=== PATIENT | female | born 1990 | race Caucasian/White ===

== ENCOUNTER 2016-07-29 14:28 | Emergency (ER) | payer SELFPAY ==
[~2016-07-29] VITALS: Ht 154.9 cm; Wt 55.0 kg
[~2016-07-29 14:28] MED LIST: SULF-154 PO
[2016-07-29 14:31] VITALS: BP 125/71; PULSE 118; RESP 12; TEMP 98; O2SAT 98
[2016-07-29] MEDS ORDERED: ONDANSETRON ODT 4 MG TAB PO ONE (14:45)
[2016-07-29] MEDS ORDERED: cefTRIAXone 250 MG VIAL IM ONE (14:45)
[2016-07-29] MEDS ORDERED: LIDOCAINE HCL 1% 50 ML VIAL IM ONE (14:45)
[2016-07-29] MEDS ORDERED: AZITHROMYCIN PWD FOR SUSP 1 GM PACKET PO ONE (14:45)
[2016-07-29] MEDS ORDERED: metroNIDAZOLE 500 MG TAB PO ONE (14:45)
[2016-07-29] MEDS ORDERED: GUAI100L5 PO (14:48)
--- NOTE | 2016-07-29 14:48 | PD ---
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 States her boyfriend was seen 2 days ago and he was positive for some kind of STD. She doesn't know what. She's had lower abdominal discomfort and some abnormal discharge for the past couple days. She' s also had some abnormal intermittent bleeding. Denies secondary to having her tubes tied. She also states she's had URI symptoms with some cough for the past several days. No other complaints. History Past Medical History Medical History: Denies Significant Hx : 2 Para: 2 Social History Alcohol Use: No Tobacco Use: Yes (1 PPD) Allergies-Medications (Allergen,Severity, Reaction): Coded Allergies: PEANUTS (Verified Allergy, Severe, 01/28/16) "throat swelling" Penicillin (Verified Allergy, Severe, SWELLING, 01/28/16) Reported Meds & Prescriptions Reported Meds & Active Scripts Active No Active Prescriptions or Reported Medications Review of Systems Except as stated in HPI: all other systems reviewed are Neg Physical Exam Narrative GENERAL: Well-appearing 18 year-old woman, no acute distress. SKIN: Warm and dry. CARDIOVASCULAR: Warm and well perfused. RESPIRATORY: Normal rate and effort. Lungs are clear to auscultation. ABDOMEN: Minimal lower abdominal tenderness. No rebound or guarding. NEUROLOGICAL: Awake and alert. No gross deficits. Data Data Last Documented VS Vital Signs Date Time Temp Pulse Resp B/P Pulse Ox O2 Delivery O2 Flow Rate FiO2 07/29/16 14:31 98.0 118 12 125/71 98 Room Air MDM Medical Decision Making Medical Screen Exam Complete: Yes Emergency Medical Condition: Yes Differential Diagnosis Cervicitis, PID, URI, other Narrative Course Medical decision making the 18 year-old woman presents emergent department complaining of STD exposure, with discharge and lower abdominal discomfort. Looks well. Minimal abdominal tenderness. We'll treat for cervicitis. Also with URI symptoms. Robitussin as needed. Diagnosis Primary Impression: Cervicitis Additional Impression: URI (upper respiratory infection) Qualified Code: J06.9 - Viral upper respiratory tract infection Additional Instructions: Followup with your environmental science instructor for routine [employer] care and followup testing for other sexually transmitted infection such as HIV, hepatitis, syphilis. Any sexual partners you have should be tested and treated as well. You should not have sex until you have no symptoms, and your partners tested and treated as well. Med/Other Pt SpecificInfo: Prescription(s) given Scripts Guaifenesin Liq (Robitussin Mucus+Chest Congestion Liq)100 Mg/5 Ml [id number] Mg PO Q4H PRN (CHEST CONGESTION) #1 BOTTLE Ref 0 Prov:John Altamirano MD 07/29/16 Disposition: 01 DISCHARGE HOME Condition: Stable John Altamirano MD Jul 29, 2016 14:48
[2016-07-29 17:30] LABS: CHLAMYDIA PCR DETECTED (NOT DETECT); NEISSERIA PCR DETECTED (NOT DETECT)
== END 2016-07-29 15:27 | disposition home or self-care (01) ==
LOC: NETRI 14:28
DX: N72 Inflammatory disease of cervix uteri (principal); J06.9 Acute upper respiratory infection, unspecified; Z20.2 Contact with and (suspected) exposure to infections with a predominantly sexual mode of transmission; F17.210 Nicotine dependence, cigarettes, uncomplicated
CPT/HCPCS: 84703; 87491; 87591; 96372; 99283; J0696

== ENCOUNTER 2016-09-10 10:53 | Emergency (ER) | payer SELFPAY ==
[~2016-09-10] VITALS: Ht 154.9 cm; Wt 55.0 kg
[~2016-09-10 10:53] MED LIST changes: +GUAI100L5 PO; -SULF-154 PO
[2016-09-10 10:58] VITALS: BP 115/68; PULSE 95; RESP 15; TEMP 98.2; O2SAT 98
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
[2016-09-10] MEDS ORDERED: IBUPROFEN 600 MG TAB PO ONE (11:30)
[2016-09-10 11:33] LABS: BLOOD, URINE NEG (NEG); COMMENT (UR) CULT NOT INDICATED; CULTURE IF INDICATED CULT NOT INDICATED; GLUCOSE,URINE NEG (NEG); KETONE, URINE NEG (NEG); MUCUS URINE FEW /lpf (OCC); NITRITE,URINE NEG (NEG); SQUAMOUS EPITHELIAL CELL URINE 1 /hpf (0-5); URINE COLOR COLORLESS (YELLW/STRAW)
--- NOTE | 2016-09-10 12:09 | RADRPT ---
EXAM DATE/TIME: 09/10/2016 11:45 [facility] COMPARISON: No previous studies available for comparison. INDICATIONS : Chest pain x 1 day. MEDICAL HISTORY : asthma SURGICAL HISTORY : None. ENCOUNTER: Initial ACUITY: 1 day PAIN SCORE: 8/10 LOCATION: Bilateral chest FINDINGS: There are calcified hilar and mediastinal lymph nodes. No evidence of focal infiltrate or pleural eff usion. Heart size is within normal limits. Thoracic skeleton is intact. CONCLUSION: No acute disease. Storm Salguero MD on September 10, 2016 at 12:05 Board Certified Radiologist. This report was verified electronically.
[2016-09-10] MEDS ORDERED: IBUP400T20 PO (12:22)
--- NOTE | 2016-09-10 18:34 | EKG ---
Date Performed: 09/10/2016 Time Performed: 11:11:53 PTAGE: 26 years EKG: Sinus rhythm WITH MARKED SINUS ARRHYTHMIA BORDERLINE ECG NO PREVIOUS TRACING DOCTOR: Shaun Soto Interpretating Date/Time 09/10/2016 18:34:15
== END 2016-09-10 12:57 | disposition home or self-care (01) ==
LOC: NEPE 10:53
DX: S20.212A Contusion of left front wall of thorax, initial encounter (principal); R30.0 Dysuria; R94.31 Abnormal electrocardiogram [ECG] [EKG]; F17.200 Nicotine dependence, unspecified, uncomplicated; Z59.0 Homelessness; Z87.09 Personal history of other diseases of the respiratory system; Z86.59 Personal history of other mental and behavioral disorders; W50.0XXA Accidental hit or strike by another person, initial encounter
CPT/HCPCS: 71020; 81001; 93005

== ENCOUNTER 2016-12-17 10:49 | Inpatient (IN) | payer SELFPAY ==
[~2016-12-17] VITALS: Ht 154.9 cm; Wt 59.1 kg
[2016-12-17] VITALS (7 sets, daily range): BP systolic 94–114; BP diastolic 55–75; PULSE 62–100; RESP 16–21; TEMP 98.3–100.1; O2SAT 96–99
[~2016-12-17 10:49] MED LIST changes: -GUAI100L5 PO; +IBUP400T20 PO
[2016-12-17] MEDS ORDERED: SODIUM CHLOR 0.9% 1000 ML INJ 1,000 ML IV SCH (11:18)
[2016-12-17] MEDS ORDERED: SODIUM CHLORIDE 0.9% FLUSH 10 ML FLUSH IVF PRN (11:30)
[2016-12-17] MEDS: DIPHTH/TETANUS/ACEL PERTUSSIS (BOOSTER) 0.5 ML VIAL/PFS IM ONE ×2 (11:30→12:15)
[2016-12-17] MEDS ORDERED: ONDANSETRON HCL 4 MG/2 ML VIAL IVP ONE (11:30)
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
[2016-12-17 11:41] LABS: AUTOMATED NEUTROPHIL # 6.4 TH/MM3 (1.8-7.7); BASOPHIL % 0.4 % (0.0-2.0); EOSINOPHIL # 0.1 TH/MM3 (0-0.4); EOSINOPHIL % 0.7 % (0.0-4.0); HEMATOCRIT 37.9 % (35.0-46.0); HEMO FLAGS DIFF FINAL; LYMPH % 19.6 % (9.0-44.0); LYMPHOCYTE # 1.8 TH/MM3 (1.0-4.8); MEAN CELL VOLUME 91.2 FL (80.0-100.0); MEAN CORPUSCULAR HEMOGLOBIN 31.2 PG (27.0-34.0); MEAN CORPUSCULAR HGB CONC 34.3 % (32.0-36.0); NEUT % 70.3 % (16.0-70.0); PLATELET COUNT 247 TH/MM3 (150-450); RED BLOOD COUNT 4.16 MIL/MM3 (4.00-5.30); RED CELL DISTRIBUTION WIDTH 13.4 % (11.6-17.2); WHITE BLOOD COUNT 9.1 TH/MM3 (4.0-11.0)
[2016-12-17 11:51] LABS: APTT (PATIENT) 26.9 SEC (24.3-30.1); PROTHROMBIN TIME - PATIENT 11.2 SEC (9.8-11.6)
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
[2016-12-17 11:58] LABS: ANION GAP 6 MEQ/L (5-15); BICARBONATE 26.4 MEQ/L (21.0-32.0); BLOOD UREA NITROGEN 20 MG/DL (7-18); CHLORIDE 107 MEQ/L (98-107); GLOMERULAR FILTRATION RATE 70 ML/MIN (>89); POTASSIUM 3.7 MEQ/L (3.5-5.1); SODIUM (NA) 139 MEQ/L (136-145)
[2016-12-17 12:01] LABS: BETA HCG QUANT LESS THAN 1 MIU/ML (0-5)
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
[2016-12-17 12:37] LABS: BACTERIA, URINE OCC /hpf; BLOOD, URINE NEG (NEG); COMMENT (UR) CULTURE INDICATED; CULTURE IF INDICATED CULTURE INDICATED; GLUCOSE,URINE NEG (NEG); HYALINE CAST, URINE 4 /lpf (RARE); KETONE, URINE 10 mg/dL (NEG); MUCUS URINE FEW /lpf (OCC); NITRITE,URINE NEG (NEG); PH, URINE 5.5 (5.0-8.5); SQUAMOUS EPITHELIAL CELL URINE 2 /hpf (0-5); URINE COLOR YELLOW (YELLW/STRAW)
[2016-12-17 12:38] LABS: AMPHETAMINE, URINE NEG (NEG); BARBITURATES, URINE NEG (NEG); COCAINE, URINE POS (NEG)
[2016-12-17] MEDS ORDERED: IOHEXOL 350 MG/ML 10 ML VIAL (for RAD DIAG) IV ONE (13:26)
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
[2016-12-17] MEDS ORDERED: MORPHINE SULFATE 4 MG/ML INJ IV PUSH ONE (14:15)
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
[2016-12-17] MEDS ORDERED: ONDANSETRON HCL 4 MG/2 ML VIAL IVP PRN (16:15)
[2016-12-17] MEDS ORDERED: BISACODYL 10 MG SUPP RECTAL PRN (16:15)
[2016-12-17] MEDS ORDERED: LACTULOSE SYRUP 20 GM/30 ML CUP PO PRN (16:15)
[2016-12-17] MEDS ORDERED: TEMAZEPAM 15 MG CAP PO PRN (16:15)
[2016-12-17] MEDS ORDERED: SODIUM CHLORIDE 0.9% FLUSH 10 ML FLUSH IV FLUSH PRN (16:15)
[2016-12-17] MEDS ORDERED: NALOXONE HCL 0.4 MG/ML AMP IV PRN ×2 (16:15→18:45)
[2016-12-17] MEDS ORDERED: SENNOSIDES 8.6 MG TAB PO PRN (16:15)
[2016-12-17] MEDS: SODIUM CHLOR 0.9% 1000 ML INJ 1,000 ML IV SCH ×2 (16:21→21:11)
[2016-12-17] MEDS ORDERED: MORPHINE SULFATE 4 MG/ML INJ IV PRN (18:45)
[2016-12-17] MEDS: MAGNESIUM HYDROXIDE SUSP 30 ML CUP PO PRN (21:07)
[2016-12-17] MEDS: DOCUSATE SODIUM 50 MG/SENNA 8.6 MG TAB PO SCH (21:07)
[2016-12-17] MEDS: MORPHINE SULFATE 4 MG/ML INJ IV PRN (21:08)
[2016-12-17] MEDS: SODIUM CHLORIDE 0.9% FLUSH 10 ML FLUSH IV FLUSH SCH (21:11)
[2016-12-18] MEDS: MORPHINE SULFATE 4 MG/ML INJ IV PRN ×2 (00:47→04:54)
[2016-12-18] MEDS ORDERED: LACTATED RINGER'S 1000 ML IV PRN (04:00)
[2016-12-18 04:25] VITALS: BP 99/67; PULSE 83; RESP 18; TEMP 98.9; O2SAT 99
[2016-12-18 07:15] LABS: AUTOMATED NEUTROPHIL # 3.8 TH/MM3 (1.8-7.7); BASOPHIL % 0.1 % (0.0-2.0); EOSINOPHIL # 0.1 TH/MM3 (0-0.4); EOSINOPHIL % 1.1 % (0.0-4.0); HEMATOCRIT 35.8 % (35.0-46.0); HEMO FLAGS DIFF FINAL; LYMPH % 23.6 % (9.0-44.0); LYMPHOCYTE # 1.4 TH/MM3 (1.0-4.8); MEAN CELL VOLUME 94.1 FL (80.0-100.0); MEAN CORPUSCULAR HEMOGLOBIN 30.4 PG (27.0-34.0); MEAN CORPUSCULAR HGB CONC 32.4 % (32.0-36.0); MONO % 11.7 % (0.0-8.0); NEUT % 63.5 % (16.0-70.0); PLATELET COUNT 191 TH/MM3 (150-450); RED CELL DISTRIBUTION WIDTH 13.9 % (11.6-17.2)
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
[2016-12-18] MEDS ORDERED: HYDR-3366 PO (07:38)
[2016-12-18 07:45] VITALS: BP 93/65; PULSE 82; RESP 18; TEMP 97.6; O2SAT 99
[2016-12-18 08:04] LABS: ALKALINE PHOSPHATASE 73 U/L (45-117); ALT (GPT) 19 U/L (10-53); ANION GAP 8 MEQ/L (5-15); AST (GOT) 14 U/L (15-37); BICARBONATE 27.6 MEQ/L (21.0-32.0); BLOOD UREA NITROGEN 13 MG/DL (7-18); CHLORIDE 106 MEQ/L (98-107); GLOMERULAR FILTRATION RATE 81 ML/MIN (>89); SODIUM (NA) 142 MEQ/L (136-145); TOTAL BILIRUBIN ADULT 0.3 MG/DL (0.2-1.0)
[2016-12-18] MEDS: DOCUSATE SODIUM 50 MG/SENNA 8.6 MG TAB PO SCH ×2 (08:05→19:33)
[2016-12-18] MEDS ORDERED: ACETAMINOPHEN 1000 MG/100 ML VIAL IV ONE (08:24)
[2016-12-18] MEDS ORDERED: MIDAZOLAM HCL 2 MG/2 ML VIAL ONE (08:25)
[2016-12-18] MEDS ORDERED: FAMOTIDINE 20 MG/2 ML VIAL ONE (08:25)
[2016-12-18] MEDS ORDERED: DEXAMETHASONE SOD PHOS 4 MG/ML VIAL ONE (08:25)
[2016-12-18] MEDS ORDERED: ceFAZolin INJ 1,000 MG VIAL IV ONE (08:40)
[2016-12-18] MEDS ORDERED: VANCOMYCIN HCL 1000 MG VIAL OTHER ONE (08:52)
[2016-12-18] MEDS ORDERED: CIPROFLOXACIN 200 MG PREMIX 100 ML IV SCH (09:00)
[2016-12-18] MEDS ORDERED: GENTAMICIN SULFATE 80 MG/2 ML VIAL IRRIGATION ONE (09:04)
[2016-12-18] MEDS ORDERED: ONDANSETRON HCL 4 MG/2 ML VIAL IVP PRN (10:15)
[2016-12-18] MEDS ORDERED: MORPHINE SULFATE 4 MG/ML INJ IV PUSH PRN (10:15)
[2016-12-18] MEDS ORDERED: PROPOFOL 200 MG/20 ML AMP IV ONE (10:20)
[2016-12-18] MEDS ORDERED: ePHEDrine/NS 25 MG/5 ML SYR IV ONE (10:21)
[2016-12-18] MEDS ORDERED: NEOSTIGMINE 3 MG/3 ML SYR IV ONE (10:21)
[2016-12-18] MEDS ORDERED: LACTATED RINGER'S 1000 ML INJ 1,000 ML IV ONE (10:22)
[2016-12-18] MEDS ORDERED: PHENYLEPH/NS 1000 MCG/10 ML SYR IV ONE (10:22)
[2016-12-18] MEDS ORDERED: ONDANSETRON HCL 4 MG/2 ML VIAL IV PUSH ONE (10:22)
--- NOTE | 2016-12-18 10:24 | PD.OP ---
cc: Patel Strange MD Operative Report Date of Surgery: Dec 18, 2016 Preoperative Diagnosis: Placed left talus fracture Postoperative Diagnosis: Procedure: Open reduction internal fixation left talus Anesthesia: Gen. Surgeon: Patel Strange Hog Scalder(s): EDD Bull PA-C The surgical procedure was assisted by my physician administrative office assistant. My P.A. presence was necessary throughout this case for the manipulation and positioning of the surgical extremity. My P.A. was assisting me throughout the duration of this procedure. The skill set of a physician administrative office assistant was medically necessary to complete this procedure. During the surgical case the surgical services manager was working at the back table and the physician administrative office assistant was directly assisting me. Operation and Findings: Patient was seen and evaluated preoperatively and found to have a displaced talus fracture. Informed consent was obtained after a detailed discussion of risk and benefits of surgery. The operative site was marked. Patient was brought to the OR, placed on the OR table, and given IV sedation and general endotracheal anesthesia. IV antibiotics were given preoperatively. A timeout procedure was performed. The operative leg was prepped with alcohol followed by Hibiclens and draped in the usual sterile fashion. Attention was turned towards the medial side of the talus. A 3-inch incision was made over the medial talus. The subcutaneous tissue was dissected with Bovie. The joint capsule of the talonavicular joint was opened. The fracture site was visualized. The fracture site was cleaned with curets. A second incision was now made over the lateral side of the talus. Subcutaneous tissue dissected with Bovie. EDB muscle was mobilized to allow for visualization of the talar neck. There was mild comminution present. At this point the talar neck fracture was mobilized. Fracture was manipulated. The fracture was now reduced. The fracture keyed into anatomic alignment. K-wires were used to hold provisional fixation. Multiplanar fluoroscopy confirmed excellent alignment of fracture. A guidepin was placed across the medial aspect of the talar neck into the talar body. Screw length was measured. Countersink was utilized. A 4.0 cannulated screw was now placed over the guidepin. Good compression was applied. Fluoroscopy confirmed well-placed screw. Next, A Synthes 2.4 plate was selected for the lateral side of the talus.. The plate was provisionally held to bone with K-wires. 2.4 cortical screws were used to compress the plate to bone. Additional locking screws were placed above and below the fracture. Final fluoroscopy revealed excellent alignment of fracture with well-placed hardware. Direct visualization also confirmed well aligned fracture. Tourniquet was released. Hemostasis was confirmed. Incisions were thoroughly irrigated. The subcutaneous tissue was closed with 0 Vicryl, 3-0 Vicryl, and the skin was closed with 3-0 nylon. Sterile dressings were applied. A well molded well-padded splint was applied. The patient was transferred to Recovery in stable condition. Needle and sponge counts were correct. Patel Strange MD Dec 18, 2016 10:23
[2016-12-18] MEDS ORDERED: fentaNYL CITRATE 250 MCG/5 ML AMP ONE (10:52)
[2016-12-18] MEDS ORDERED: DO NOT ADM ANY ANTICOAGULANT DRUGS PRN (11:00)
[2016-12-18] MEDS ORDERED: Post-op Orders (for Pharmacy) MISC XX ONE (11:00)
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
[2016-12-18 12:00] VITALS: BP 103/65; PULSE 78; RESP 18; TEMP 97.3; O2SAT 98
[2016-12-18] MEDS: SODIUM CHLOR 0.9% 1000 ML INJ 1,000 ML IV SCH ×2 (12:04→19:34)
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
[2016-12-18] MEDS: ACETAMINOPHEN/HYDROcodone 325 MG/10 MG TAB PO PRN ×2 (14:27→19:33)
[2016-12-18 16:00] VITALS: BP 104/55; PULSE 79; RESP 18; TEMP 96.7; O2SAT 98
[2016-12-18] MEDS: ceFAZolin 2 GM PREMIX 50 ML IV SCH ×2 (16:01→23:59)
[2016-12-18 16:30] VITALS: O2SAT 98
[2016-12-18] MEDS: MAGNESIUM HYDROXIDE SUSP 30 ML CUP PO PRN (19:32)
[2016-12-18] MEDS: SODIUM CHLORIDE 0.9% FLUSH 10 ML FLUSH IV FLUSH SCH (19:34)
--- NOTE | 2016-12-18 19:50 | RADRPT ---
EXAM DATE/TIME: 12/18/2016 10:03 [facility] COMPARISON: ANKLE LEFT COMPLETE ([id number]), December 17, 2016, 11:44. INDICATIONS : Reduction screw and plate placement left talus. MEDICAL HISTORY : None. SURGICAL HISTORY : Tubal ligation. ENCOUNTER: Subsequent ACUITY: 2 days PAIN SCORE: Non-responsive. LOCATION: Left Ankle. FINDINGS: 3 magnified C-arm spot views show an orthopedic plate with multiple threaded orthopedic screws involv ing the tailus. Good alignment. CONCLUSION: Limited images as detailed above. Dru Smith Jr., MD on December 18, 2016 at 19:48 Board Certified Radiologist. This report was verified electronically.
[2016-12-18 20:31] VITALS: BP 104/65; PULSE 85; RESP 17; TEMP 97.9; O2SAT 100
[2016-12-19 00:30] VITALS: BP 102/65; PULSE 66; RESP 18; TEMP 98.2; O2SAT 98
[2016-12-19] MEDS: ACETAMINOPHEN/HYDROcodone 325 MG/10 MG TAB PO PRN ×3 (01:17→10:13)
[2016-12-19 04:40] VITALS: BP 119/70; PULSE 99; RESP 18; TEMP 98.3; O2SAT 99
[2016-12-19 06:41] LABS: AUTOMATED NEUTROPHIL # 2.9 TH/MM3 (1.8-7.7); BASOPHIL % 0.2 % (0.0-2.0); EOSINOPHIL # 0.1 TH/MM3 (0-0.4); EOSINOPHIL % 0.9 % (0.0-4.0); HEMATOCRIT 31.4 % (35.0-46.0); HEMO FLAGS DIFF FINAL; LYMPH % 36.8 % (9.0-44.0); LYMPHOCYTE # 2.1 TH/MM3 (1.0-4.8); MEAN CELL VOLUME 92.9 FL (80.0-100.0); MEAN CORPUSCULAR HEMOGLOBIN 31.7 PG (27.0-34.0); MEAN CORPUSCULAR HGB CONC 34.1 % (32.0-36.0); NEUT % 50.1 % (16.0-70.0); PLATELET COUNT 178 TH/MM3 (150-450); RED BLOOD COUNT 3.38 MIL/MM3 (4.00-5.30); WHITE BLOOD COUNT 5.8 TH/MM3 (4.0-11.0)
--- NOTE | 2016-12-19 06:47 | PD.ORT.PN ---
Subjective Subjective Remarks pt ready to go home, boyfriend home to take care of her Objective Vitals Vital Signs Date Time Temp Pulse Resp B/P Pulse Ox O2 Delivery O2 Flow Rate FiO2 12/19/16 04:40 98.3 99 18 119/70 99 12/19/16 00:30 98.2 66 18 102/65 98 12/18/16 20:31 97.9 85 17 104/65 100 12/18/16 16:30 98 21 12/18/16 16:00 96.7 79 18 104/55 98 12/18/16 12:00 97.3 78 18 103/65 98 12/18/16 11:47 98.1 89 22 110/65 96 Room Air 12/18/16 11:44 Room Air 12/18/16 11:30 90 22 117/71 96 Room Air 12/18/16 11:15 92 22 123/77 99 Room Air 12/18/16 11:00 111 22 114/79 99 Nasal Cannula 2 12/18/16 10:47 98.3 114 22 122/83 99 Nasal Cannula 2 12/18/16 07:45 97.6 82 18 93/65 99 I/O 12/18/16 12/18/16 12/18/16 12/19/16 12/19/16 12/19/16 07:00 15:00 23:00 07:00 15:00 23:00 Intake Total 751 ml 1864 ml 480 ml Output Total 30 ml Balance 751 ml 1834 ml 480 ml Intake Oral 0 ml 480 ml 480 ml IV Total 751 ml 284 ml Other 1100 ml Output Estimated Blood Loss 30 ml # Voids 0 1 1 # Bowel Movements 0 0 0 Result Diagram: 12/19/16 0606 12/18/16 0624 Imaging Last [address] 12/17/16 1118 Signed Impressions: Service Date/Time: December 13:06 - CONCLUSION: No acute intracranial findings. Thomas Luna MD Chest CT 12/17/16 1118 Signed Impressions: Service Date/Time: December 13:19 - CONCLUSION: No acute findings in the chest. Thomas Luna MD Cervical Spine CT 12/17/16 1118 Signed Impressions: Service Date/Time: December 13:08 - CONCLUSION: No evidence of fracture. Thomas Luna MD Abdomen/Pelvis CT 12/17/16 1118 Signed Impressions: Service Date/Time: December 13:19 - CONCLUSION: No acute findings in the abdomen and pelvis. Thomas Luna MD Objective Remarks seen by Dr. Donny Ríos left lower extremity in splint and vinny Intact sensation distally in all toes +NVI Assessment & Plan Assessment and Plan POD # 1 s/p ORIF Left talus fracture Maintain splint, do not change dressing NWB LLE discharge home today, orthopedically stable advised to call office Wednesday for f/u appt Swati Mendoza Dec 19, 2016 06:47
[2016-12-19 07:03] LABS: BICARBONATE 29.9 MEQ/L (21.0-32.0); POTASSIUM 3.8 MEQ/L (3.5-5.1)
[2016-12-19 08:00] VITALS: BP 103/69; PULSE 66; RESP 14; TEMP 97.7; O2SAT 98
[2016-12-19] MEDS: SODIUM CHLOR 0.9% 1000 ML INJ 1,000 ML IV SCH (08:04)
[2016-12-19 08:55] VITALS: O2SAT 98
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
[2016-12-19] MEDS: DOCUSATE SODIUM 50 MG/SENNA 8.6 MG TAB PO SCH (10:13)
[2016-12-19] MEDS: ceFAZolin 2 GM PREMIX 50 ML IV SCH (10:18)
[2016-12-19] MEDS: SODIUM CHLORIDE 0.9% FLUSH 10 ML FLUSH IV FLUSH SCH (10:18)
[2016-12-19] MEDS ORDERED: WALKER WHEELS/F1 MIS (11:20)
[2016-12-19 12:00] VITALS: BP 119/80; PULSE 63; RESP 15; TEMP 96.5; O2SAT 100
== END 2016-12-19 12:54 | disposition home or self-care (01) | DRG 505 ==
LOC: NEPC 10:49 → NEDA 14:50 → N06A 17:03
PROVIDERS: ADMIT Family Medicine; ATTEND Family Medicine
PROC: 0QSM04Z Reposition Left Tarsal with Internal Fixation Device, Open Approach (ICD-10-PCS; principal; 2016-12-18 08:30)
DX: S92.142A Displaced dome fracture of left talus, initial encounter for closed fracture (principal); F13.10 Sedative, hypnotic or anxiolytic abuse, uncomplicated; F31.9 Bipolar disorder, unspecified; J45.909 Unspecified asthma, uncomplicated; F17.210 Nicotine dependence, cigarettes, uncomplicated; Y99.8 Other external cause status; Y93.55 Activity, bike riding; Z88.0 Allergy status to penicillin; F14.10 Cocaine abuse, uncomplicated; V13.4XXA Pedal cycle driver injured in collision with car, pick-up truck or van in traffic accident, initial encounter
CPT/HCPCS: 70450; 71260; 72125; 73590; 73610; 73630; 73700; 74177; 76000; 80048; 80053; 80307; 81001; 84702; 85025; 85610; 85730; 87086; 90715; 94150; 96374; 96375; C1713; J0131; J0690; J1100; J1580; J2250; J2270; J2370; J2405; J2710; J3010; J3370; J7030; J7120; Q9967

== ENCOUNTER 2017-02-04 21:32 | Inpatient (IN) | payer SELFPAY ==
[~2017-02-04] VITALS: Ht 154.9 cm; Wt 51.9 kg
[~2017-02-04 21:32] MED LIST changes: +HYDR-3366 PO; -IBUP400T20 PO; +WALKER WHEELS/F1 MIS
[2017-02-04 21:35] VITALS: BP 132/85; PULSE 123; RESP 16; TEMP 101.4; O2SAT 98
[2017-02-05] VITALS (8 sets, daily range): BP systolic 94–130; BP diastolic 60–82; PULSE 46–116; RESP 14–16; TEMP 97.9–98.4; O2SAT 96–100
[2017-02-05] MEDS ORDERED: CLINDAMYCIN INJ 900 MG in SODIUM CHLORIDE 0.9% INJ 100 ML IV ONE (05:00)
[2017-02-05] MEDS ORDERED: ACETAMINOPHEN 325 MG TAB PO ONE (05:00)
[2017-02-05 05:27] LABS: AUTOMATED NEUTROPHIL # 4.8 TH/MM3 (1.8-7.7); BASOPHIL % 0.2 % (0.0-2.0); EOSINOPHIL % 0.1 % (0.0-4.0); HEMATOCRIT 37.7 % (35.0-46.0); HEMO FLAGS DIFF FINAL; LYMPH % 18.7 % (9.0-44.0); LYMPHOCYTE # 1.3 TH/MM3 (1.0-4.8); MEAN CELL VOLUME 92.1 FL (80.0-100.0); MEAN CORPUSCULAR HEMOGLOBIN 31.7 PG (27.0-34.0); MEAN CORPUSCULAR HGB CONC 34.4 % (32.0-36.0); MONO % 10.3 % (0.0-8.0); NEUT % 70.7 % (16.0-70.0); PLATELET COUNT 227 TH/MM3 (150-450); RED BLOOD COUNT 4.09 MIL/MM3 (4.00-5.30); WHITE BLOOD COUNT 6.8 TH/MM3 (4.0-11.0)
--- NOTE | 2017-02-05 05:31 | RADRPT ---
EXAM DATE/TIME: 02/05/2017 05:07 [facility] COMPARISON: ANKLE LEFT COMPLETE ([id number]), December 18, 2016, 10:03. INDICATIONS : Pt c/o left foot and ankle pain- no known injury. MEDICAL HISTORY : None. SURGICAL HISTORY : Left ankle ENCOUNTER: Initial ACUITY: 1 day PAIN SCORE: Non-responsive. LOCATION: Left ankle FINDINGS: There is no evidence of acute fracture. Bony mineralization is normal. There is previous internal fix ation of the talus. CONCLUSION: 1. Postsurgical changes as above. There is no evidence of acute fracture. Dmitri Kaba MD on February 05, 2017 at 5:28 Board Certified Radiologist. This report was verified electronically.
--- NOTE | 2017-02-05 05:32 | RADRPT ---
EXAM DATE/TIME: 02/05/2017 05:09 [facility] COMPARISON: FOOT LEFT COMPLETE ([id number]), December 17, 2016, 11:47. INDICATIONS : Pt c/o left foot and ankle pain- no known injury. MEDICAL HISTORY : None. SURGICAL HISTORY : Left ankle ENCOUNTER: Initial ACUITY: 1 day PAIN SCORE: Non-responsive. LOCATION: Left foot FINDINGS: There is previous internal fixation of the talus. There is no evidence of acute fracture. Bony minera lization is normal. Joint spaces are maintained. CONCLUSION: 1. Postsurgical changes as above. There is no evidence of acute fracture. Dmitri Kaba MD on February 05, 2017 at 5:29 Board Certified Radiologist. This report was verified electronically.
--- NOTE | 2017-02-05 05:52 | PD ---
HPI Chief Complaint: Fever Time Seen by Provider: 04:41 Travel History International Travel<30 days: No Contact w/Intl Traveler<30days: No Traveled to known affect area: No History of Present Illness HPI The patient's 26 years old. She arrives due to pain in the left ankle. Additionally she has a fever. The patient underwent an open repair of the left ankle for a talus fracture approximately 7 weeks prior. She denies cough abdominal pain nausea vomiting urinary and respiratory complaints. Onset gradual. Timing constant. Orthopedic surgeon: Dr. Strange [facility] Past Medical History Arthritis: No Asthma: Yes Autoimmune Disease: No Bipolar Disorder: Yes Anxiety: Yes Depression: Yes Heart Rhythm Problems: No Cancer: Yes (CERVICAL CANCER) Cardiovascular Problems: No High Cholesterol: No Chemotherapy: No Chest Pain: No Congestive Heart Failure: No COPD: No Cerebrovascular Accident: No Diabetes: No Patient Takes Glucophage: No Diminished Hearing: No Endocrine: No GERD: No Genitourinary: No Hiatal Hernia: No Immune Disorder: No Kidney Stones: No Musculoskeletal: No Neurologic: Yes Psychiatric: Yes Reproductive: No Respiratory: Yes Immunizations Current: Yes Migraines: No Radiation Therapy: No Renal Failure: No Seizures: Yes Sickle Cell Disease: No Sleep Apnea: No Thyroid Disease: No Ulcer: No Tetanus Vaccination: < 5 Years Influenza Vaccination: No ?: Unknown LMP: 02/03/17 : 5 Para: 2 Miscarriage: 2 : 1 Tubal Ligation: Yes Past Surgical History Abdominal Surgery: No AICD: No Arteriovenous Shunt: No Cardiac Surgery: No Ear Surgery: No Endocrine Surgery: No Eye Surgery: No Genitourinary Surgery: No Gynecologic Surgery: Yes (TUBAL LIGATION) Insulin Pump: No Joint Replacement: No Oral Surgery: No Pacemaker: No Thoracic Surgery: No Other Surgery: Yes Social History Alcohol Use: No Tobacco Use: Yes (I PPD) Substance Use: No (PATIENT DENIES, POSITIVE TOX SCREEN) Allergies-Medications (Allergen,Severity, Reaction): Coded Allergies: PEANUTS (Verified Allergy, Severe, 02/05/17) "throat swelling" Penicillin (Verified Allergy, Severe, SWELLING, 02/05/17) Reported Meds & Prescriptions Reported Meds & Active Scripts Active [place] (Hydrocodone-Acetaminophen) 10-325 Mg Tab 1 Tab PO Q4H PRN Review of Systems Except as stated in HPI: all other systems reviewed are Neg General / Constitutional: Positive: Fever Physical Exam Narrative GENERAL: 26-year-old female well-nourished well-developed SKIN: Focused skin assessment warm/dry. HEAD: Atraumatic. Normocephalic. EYES: Pupils equal and round. No scleral icterus. No injection or drainage. ENT: No nasal bleeding or discharge. Mucous membranes pink and moist. NECK: Trachea midline. No JVD. CARDIOVASCULAR: Regular rate and rhythm. No murmur appreciated. RESPIRATORY: No accessory muscle use. Clear to auscultation. Breath sounds equal bilaterally. GASTROINTESTINAL: Abdomen soft, non-tender, nondistended. Hepatic and splenic margins not palpable. MUSCULOSKELETAL: Well approximated surgical incisions on the medial lateral aspect of the dorsal foot. There is warmth swelling and tenderness about the left foot. 2+ dorsalis pedis pulse present bilaterally. NEUROLOGICAL: Awake and alert. No obvious cranial nerve deficits. Motor grossly within normal limits. Normal speech. PSYCHIATRIC: Appropriate mood and affect; insight and judgment normal. Data Data Last Documented VS Vital Signs Date Time Temp Pulse Resp B/P Pulse Ox O2 Delivery O2 Flow Rate FiO2 02/05/17 06:25 101 14 94/60 98 Room Air 02/04/17 21:35 101.4 Vital signs reviewed Orders Basic Metabolic Panel (Bmp) (02/05/17 04:50) Complete Blood Count With Diff (02/05/17 04:50) Blood Culture (02/05/17 04:50) Iv Access Insert/Monitor (02/05/17 04:50) Clindamycin Inj (Cleocin Inj) (02/05/17 05:00) Lactic Acid (02/05/17 04:50) Acetaminophen (Tylenol) (02/05/17 05:00) Foot, Complete ([id number]) (02/05/17 ) Ankle, Complete ([id number]) (02/05/17 ) Westergren Sedimentation Rate (02/05/17 06:01) C-Reactive Protein (Crp) (02/05/17 06:01) Urinalysis - C+S If Indicated (02/05/17 06:13) Labs Laboratory Tests Test 02/05/17 05:00 White Blood Count 6.8 TH/MM3 Red Blood Count 4.09 MIL/MM3 Hemoglobin 13.0 GM/DL Hematocrit 37.7 % Mean Corpuscular Volume 92.1 FL Mean Corpuscular Hemoglobin 31.7 PG Mean Corpuscular Hemoglobin 34.4 % Concent Red Cell Distribution Width 13.0 % Platelet Count 227 TH/MM3 Mean Platelet Volume 9.3 FL Neutrophils (%) (Auto) 70.7 % Lymphocytes (%) (Auto) 18.7 % Monocytes (%) (Auto) 10.3 % Eosinophils (%) (Auto) 0.1 % Basophils (%) (Auto) 0.2 % Neutrophils # (Auto) 4.8 TH/MM3 Lymphocytes # (Auto) 1.3 TH/MM3 Monocytes # (Auto) 0.7 TH/MM3 Eosinophils # (Auto) 0.0 TH/MM3 Basophils # (Auto) 0.0 TH/MM3 CBC Comment DIFF FINAL Differential Comment Sodium Level 139 MEQ/L Potassium Level 4.0 MEQ/L Chloride Level 103 MEQ/L Carbon Dioxide Level 29.0 MEQ/L Anion Gap 7 MEQ/L Blood Urea Nitrogen 9 MG/DL Creatinine 0.88 MG/DL Estimat Glomerular Filtration 77 ML/MIN Rate Random Glucose 103 MG/DL Lactic Acid Level 1.3 mmol/L Calcium Level 8.6 MG/DL MDM Medical Decision Making Medical Screen Exam Complete: Yes Emergency Medical Condition: Yes Medical Record Reviewed: Yes Differential Diagnosis Infected surgical hardware, cellulitis, viral syndrome, URI Narrative Course CBC & BMP Diagram 02/05/17 05:00 Lactic acid 1.3 Last 24 hours Impressions Foot X-Ray 02/05/17 0000 Signed Impressions: Service Date/Time: Sunday, February 05, 2017 05:09 - CONCLUSION: 1. Postsurgical changes as above. There is no evidence of acute fracture. Dmitri Kaba MD Ankle X-Ray 02/05/17 0000 Signed Impressions: Service Date/Time: Sunday, February 05, 2017 05:07 - CONCLUSION: 1. Postsurgical changes as above. There is no evidence of acute fracture. Dmitri Kaba MD The patient will be seen and evaluated by the orthopedic service in the ER. Disposition is pending that evaluation. Case d/w Dr Dowd, the oncoming physician. Additional Instructions: You have a choice when it comes to health care, and we are glad that you chose [facility]. Hopefully, we have met your expectations on today's visit. You are welcome to return to [facility] at any time, as we are committed to meeting the health care needs of our community. Miguel Soto MD Feb 05, 2017 05:52
--- NOTE | 2017-02-05 07:12 | PD.ORT.PN ---
Subjective Subjective Remarks Patient previously had left his fracture status post open reduction internal fixation December 18, 2016. Patient has been noncompliant. She has removed her splint. She has been walking and weightbearing despite instructions to be nonweightbearing. She was in the emergency room with complaints of left ankle pain and swelling. She has been somnolent with some mental status changes and tachycardia. Objective Vitals Vital Signs Date Time Temp Pulse Resp B/P Pulse Ox O2 Delivery O2 Flow Rate FiO2 02/05/17 06:25 101 14 94/60 98 Room Air 02/05/17 06:08 104 16 128/78 99 Room Air 02/05/17 05:10 116 16 130/82 99 Room Air 02/04/17 21:35 101.4 123 16 132/85 98 Room Air Result Diagram: 02/05/17 0500 02/05/17 0500 Imaging Last 24 hours Impressions Foot X-Ray 02/05/17 0000 Signed Impressions: Service Date/Time: Sunday, February 05, 2017 05:09 - CONCLUSION: 1. Postsurgical changes as above. There is no evidence of acute fracture. Dmitri Kaba MD Ankle X-Ray 02/05/17 0000 Signed Impressions: Service Date/Time: Sunday, February 05, 2017 05:07 - CONCLUSION: 1. Postsurgical changes as above. There is no evidence of acute fracture. Dmitri Kaba MD Objective Remarks Patient very difficult to awaken and is somnolent. Does not answer questions appropriately. Examination left ankle reveals healing incisions over the medial and lateral aspects of her ankle. There is mild to moderate swelling of the foot. There is no significant drainage. There is no fluctuance or obvious cellulitis. Assessment & Plan Assessment and Plan Left talus fracture--noncompliance with after surgical care Physical therapy consult--nonweightbearing left leg [employer] for fracture boot Admission for treatment of possible infection/sepsis Suspected drug abuse Patel Miranda MD Feb 05, 2017 07:12
[2017-02-05] MEDS ORDERED: SENNOSIDES 8.6 MG TAB PO PRN (08:15)
[2017-02-05] MEDS ORDERED: SODIUM CHLORIDE 0.9% FLUSH 10 ML FLUSH IV FLUSH PRN (08:15)
[2017-02-05] MEDS ORDERED: NALOXONE HCL 0.4 MG/ML AMP IV PRN (08:15)
[2017-02-05] MEDS ORDERED: MAGNESIUM HYDROXIDE SUSP 30 ML CUP PO PRN (08:15)
[2017-02-05] MEDS ORDERED: ONDANSETRON HCL 4 MG/2 ML VIAL IVP PRN (08:15)
[2017-02-05] MEDS ORDERED: LACTULOSE SYRUP 20 GM/30 ML CUP PO PRN (08:15)
[2017-02-05] MEDS ORDERED: BISACODYL 10 MG SUPP RECTAL PRN (08:15)
[2017-02-05] MEDS: SODIUM CHLORIDE 0.9% FLUSH 10 ML FLUSH IV FLUSH SCH ×2 (09:00→21:13)
[2017-02-05] MEDS: DOCUSATE SODIUM 50 MG/SENNA 8.6 MG TAB PO SCH ×2 (09:00→21:13)
[2017-02-05] MEDS: SODIUM CHLOR 0.9% 1000 ML INJ 1,000 ML IV SCH ×2 (09:37→18:50)
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
[2017-02-05] MEDS: LACTOBACILLUS ACIDOPHILUS TAB PO SCH (19:41)
[2017-02-05] MEDS: CLINDAMYCIN INJ 900 MG in SODIUM CHLORIDE 0.9% INJ 100 ML IV SCH (21:13)
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
[2017-02-05] MEDS ORDERED: ACETAMINOPHEN 325 MG TAB PO PRN (23:15)
[2017-02-05] MEDS ORDERED: CALCIUM CARBONATE 500 MG CHEWABLE TAB CHEW PRN (23:15)
[2017-02-06] VITALS (7 sets, daily range): BP systolic 86–131; BP diastolic 47–68; PULSE 50–102; RESP 15–18; TEMP 97.5–98.8; O2SAT 97–99
[2017-02-06] MEDS: CLINDAMYCIN INJ 900 MG in SODIUM CHLORIDE 0.9% INJ 100 ML IV SCH ×2 (00:55→09:28)
[2017-02-06 03:40] LABS: BLOOD, URINE NEG (NEG); COMMENT (UR) CULTURE INDICATED; CULTURE IF INDICATED CULTURE INDICATED; GLUCOSE,URINE NEG (NEG); HYALINE CAST, URINE 1 /lpf (RARE); KETONE, URINE NEG (NEG); MUCUS URINE MOD /lpf (OCC); NITRITE,URINE NEG (NEG); PH, URINE 5.5 (5.0-8.5); SQUAMOUS EPITHELIAL CELL URINE 1 /hpf (0-5); URINE COLOR YELLOW (YELLW/STRAW)
[2017-02-06] MEDS: SODIUM CHLOR 0.9% 1000 ML INJ 1,000 ML IV SCH ×2 (05:48→12:51)
--- NOTE | 2017-02-06 07:15 | PD.ORT.PN ---
Subjective Subjective Remarks Patient previously had left talus fracture status post open reduction internal fixation December 18, 2016. Patient has been noncompliant with postop instructions. She has removed her splint. She has been walking and weightbearing despite instructions to be nonweightbearing. She presented to emergency room with complaints of left ankle pain and swelling. She has been somnolent with some mental status changes and tachycardia. She is currently on the fifth floor. She is sleeping and difficult to awaken Objective Vitals Vital Signs Date Time Temp Pulse Resp B/P Pulse Ox O2 Delivery O2 Flow Rate FiO2 02/06/17 04:00 97.6 71 18 111/60 97 02/06/17 02:41 108/59 02/06/17 00:00 97.5 50 16 86/47 98 02/05/17 20:00 98.0 62 16 111/63 97 02/05/17 18:30 98.4 57 16 103/62 97 02/05/17 16:37 98.0 70 16 112/64 99 02/05/17 11:59 61 16 113/69 96 02/05/17 10:01 97.9 58 16 107/62 100 Room Air I/O 02/05/17 02/05/17 02/05/17 02/06/17 02/06/17 02/06/17 07:00 15:00 23:00 07:00 15:00 23:00 Intake Total 360 ml Balance 360 ml Intake Oral 360 ml # Voids 2 3 Result Diagram: 02/05/17 0500 02/05/17 0500 Imaging Last 24 hours Impressions Foot X-Ray 02/05/17 0000 Signed Impressions: Service Date/Time: Sunday, February 05, 2017 05:09 - CONCLUSION: 1. Postsurgical changes as above. There is no evidence of acute fracture. Dmitri Kaba MD Ankle X-Ray 02/05/17 0000 Signed Impressions: Service Date/Time: Sunday, February 05, 2017 05:07 - CONCLUSION: 1. Postsurgical changes as above. There is no evidence of acute fracture. Dmitri Kaba MD Objective Remarks Patient difficult to awaken and is somnolent. Examination left ankle reveals healing incisions over the medial and lateral aspects of her ankle. There is mild to moderate swelling of the foot. There is no significant drainage. There is no fluctuance or cellulitis. She does not appear to have significant pain with gentle ankle motion. Her foot is warm and well perfused Assessment & Plan Assessment and Plan Left talus fracture--noncompliance with after surgical care Physical therapy consult--nonweightbearing left leg fracture boot drug abuse Continue medical management, no surgical intervention necessary this time Patel Miranda MD Feb 06, 2017 07:15
[2017-02-06 08:24] LABS: BASOPHIL % 0.6 % (0.0-2.0); EOSINOPHIL # 0.1 TH/MM3 (0-0.4); EOSINOPHIL % 1.8 % (0.0-4.0); HEMATOCRIT 31.7 % (35.0-46.0); HEMO FLAGS DIFF FINAL; LYMPH % 50.4 % (9.0-44.0); LYMPHOCYTE # 1.5 TH/MM3 (1.0-4.8); MEAN CELL VOLUME 93.4 FL (80.0-100.0); MEAN CORPUSCULAR HEMOGLOBIN 30.8 PG (27.0-34.0); MONO % 13.2 % (0.0-8.0); PLATELET COUNT 183 TH/MM3 (150-450); RED CELL DISTRIBUTION WIDTH 13.2 % (11.6-17.2); WHITE BLOOD COUNT 2.9 TH/MM3 (4.0-11.0)
[2017-02-06 08:47] LABS: BICARBONATE 26.2 MEQ/L (21.0-32.0); POTASSIUM 3.3 MEQ/L (3.5-5.1)
[2017-02-06] MEDS: SODIUM CHLORIDE 0.9% FLUSH 10 ML FLUSH IV FLUSH SCH ×2 (09:00→20:25)
[2017-02-06] MEDS: LACTOBACILLUS ACIDOPHILUS TAB PO SCH ×3 (09:28→17:34)
[2017-02-06] MEDS: DOCUSATE SODIUM 50 MG/SENNA 8.6 MG TAB PO SCH ×2 (09:28→20:25)
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
[2017-02-06] MEDS ORDERED: LEVOFLOXACIN 250 MG PREMIX INJ 50 ML IV SCH (16:00)
[2017-02-06] MEDS ORDERED: CIPR250T52 PO (16:00)
[2017-02-06] MEDS ORDERED: POTASSIUM CHLORIDE 10 MEQ CONTROLLED RELEASE TAB PO ONE (16:00)
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
--- NOTE | 2017-02-06 16:01 | HHI.FF ---
Face to Face Verification Diagnosis: (1) Fracture, talus closed Physical Therapy Order: Evaluate and Treat, Improve ambulation, Strength and gait training I have seen patient Myra Luna on 02/06/17. My clinical findings support the need for the requested home health care services because: Ltd mobility - disease progression I certify that my clinical findings support that this patient is homebound because: Unsteady gait/balance Unsafe to leave home unassisted Need for psychosocial assistance Gonzales Lu MD Feb 06, 2017 16:01
[2017-02-07 00:47] VITALS: BP 96/63; PULSE 66; RESP 16; TEMP 98.1; O2SAT 100
[2017-02-07 05:37] VITALS: BP 116/66; PULSE 53; RESP 16; TEMP 98; O2SAT 96
[2017-02-07 08:12] VITALS: BP 103/51; PULSE 69; RESP 15; TEMP 97.9; O2SAT 99
[2017-02-07 08:25] LABS: AUTOMATED NEUTROPHIL # 1.6 TH/MM3 (1.8-7.7); BASOPHIL % 0.4 % (0.0-2.0); EOSINOPHIL # 0.1 TH/MM3 (0-0.4); HEMATOCRIT 34.2 % (35.0-46.0); HEMO FLAGS DIFF FINAL; LYMPH % 46.7 % (9.0-44.0); LYMPHOCYTE # 1.8 TH/MM3 (1.0-4.8); MEAN CELL VOLUME 93.5 FL (80.0-100.0); MEAN CORPUSCULAR HEMOGLOBIN 31.3 PG (27.0-34.0); MEAN CORPUSCULAR HGB CONC 33.5 % (32.0-36.0); NEUT % 41.9 % (16.0-70.0); PLATELET COUNT 211 TH/MM3 (150-450); RED BLOOD COUNT 3.66 MIL/MM3 (4.00-5.30); RED CELL DISTRIBUTION WIDTH 12.8 % (11.6-17.2); WHITE BLOOD COUNT 3.8 TH/MM3 (4.0-11.0)
[2017-02-07 08:48] LABS: BICARBONATE 26.4 MEQ/L (21.0-32.0); MAGNESIUM 1.9 MG/DL (1.5-2.5); POTASSIUM 4.1 MEQ/L (3.5-5.1)
[2017-02-07] MEDS: SODIUM CHLORIDE 0.9% FLUSH 10 ML FLUSH IV FLUSH SCH (09:00)
[2017-02-07] MEDS: LACTOBACILLUS ACIDOPHILUS TAB PO SCH ×2 (09:03→13:00)
[2017-02-07] MEDS: ACETAMINOPHEN/HYDROcodone 325 MG/5 MG TAB PO PRN ×2 (09:03→16:08)
[2017-02-07] MEDS: DOCUSATE SODIUM 50 MG/SENNA 8.6 MG TAB PO SCH (09:03)
[2017-02-07 12:37] VITALS: BP 108/56; PULSE 60; RESP 16; TEMP 97.8; O2SAT 99
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
[2017-02-07] MEDS ORDERED: CIPR250T52 PO (18:58)
== END 2017-02-07 20:00 | disposition home or self-care (01) | DRG 864 ==
LOC: NEPE 21:32 → NEDA 02-05 08:22 → OBSVTOIN 02-05 08:22 → NEDH 02-05 14:30 → N05B 02-05 18:24
PROVIDERS: ADMIT Internal Medicine; ATTEND Internal Medicine
DX: R50.82 Postprocedural fever (principal); F31.9 Bipolar disorder, unspecified; F41.9 Anxiety disorder, unspecified; F19.10 Other psychoactive substance abuse, uncomplicated; F17.210 Nicotine dependence, cigarettes, uncomplicated; J45.909 Unspecified asthma, uncomplicated; Z91.19 Patient's noncompliance with other medical treatment and regimen; S92.102D Unspecified fracture of left talus, subsequent encounter for fracture with routine healing
CPT/HCPCS: 73610; 73630; 80048; 81001; 83605; 83735; 85025; 85652; 86140; 87040; 87086; E0113; J1956; J7030; L2114

== ENCOUNTER 2017-03-13 20:57 | Emergency (ER) | payer SELFPAY ==
[~2017-03-13] VITALS: Ht 154.9 cm; Wt 67.0 kg
[~2017-03-13 20:57] MED LIST changes: +CIPR250T52 PO; -WALKER WHEELS/F1 MIS
[2017-03-13 21:02] VITALS: BP 140/75; PULSE 140; RESP 18; TEMP 99.9; O2SAT 92
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
[2017-03-13 21:26] VITALS: RESP 16; O2SAT 98
[2017-03-13 21:31] LABS: AUTOMATED NEUTROPHIL # 3.3 TH/MM3 (1.8-7.7); BASOPHIL % 0.5 % (0.0-2.0); EOSINOPHIL # 0.1 TH/MM3 (0-0.4); EOSINOPHIL % 1.4 % (0.0-4.0); HEMO FLAGS DIFF FINAL; LYMPH % 33.2 % (9.0-44.0); LYMPHOCYTE # 2.2 TH/MM3 (1.0-4.8); MEAN CELL VOLUME 94.6 FL (80.0-100.0); MEAN CORPUSCULAR HEMOGLOBIN 30.5 PG (27.0-34.0); MEAN CORPUSCULAR HGB CONC 32.2 % (32.0-36.0); MONO % 14.5 % (0.0-8.0); NEUT % 50.4 % (16.0-70.0); PLATELET COUNT 212 TH/MM3 (150-450); RED BLOOD COUNT 3.81 MIL/MM3 (4.00-5.30); RED CELL DISTRIBUTION WIDTH 14.4 % (11.6-17.2); WHITE BLOOD COUNT 6.5 TH/MM3 (4.0-11.0)
[2017-03-13 21:43] LABS: APTT (PATIENT) 22.9 SEC (24.3-30.1); PROTHROMBIN TIME - PATIENT 11.4 SEC (9.8-11.6)
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
[2017-03-13 21:58] LABS: ANION GAP 9 MEQ/L (5-15); AST (GOT) 21 U/L (15-37); BICARBONATE 22.5 MEQ/L (21.0-32.0); BLOOD UREA NITROGEN 22 MG/DL (7-18); CHLORIDE 113 MEQ/L (98-107); GLOMERULAR FILTRATION RATE 52 ML/MIN (>89); POTASSIUM 3.7 MEQ/L (3.5-5.1); SODIUM (NA) 144 MEQ/L (136-145)
[2017-03-13 22:00] LABS: ALT (GPT) 25 U/L (10-53)
[2017-03-13 22:01] LABS: ALKALINE PHOSPHATASE 88 U/L (45-117); TOTAL BILIRUBIN ADULT 0.3 MG/DL (0.2-1.0)
[2017-03-13 22:07] LABS: ALCOHOL LESS THAN 3 MG/DL (0-5)
[2017-03-13] MEDS ORDERED: IOHEXOL 350 MG/ML 10 ML VIAL (for RAD DIAG) IVCONTRAST ONE (23:06)
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
[2017-03-13] MEDS ORDERED: ULTR50TA5 PO (23:33)
[2017-03-13] MEDS ORDERED: CIPR-9 PO (23:33)
== END 2017-03-14 00:19 | disposition home or self-care (01) ==
LOC: NEPE 20:57
DX: S02.2XXA Fracture of nasal bones, initial encounter for closed fracture (principal); M79.672 Pain in left foot; R10.84 Generalized abdominal pain; R07.89 Other chest pain; Y09 Assault by unspecified means
CPT/HCPCS: 70450; 70486; 71010; 73610; 73630; 74177; 80053; 80307; 85025; 85610; 85730; 99285; Q9967

== ENCOUNTER 2017-04-02 01:50 | Emergency (ER) | payer SELFPAY ==
[~2017-04-02 01:50] MED LIST changes: +CIPR-9 PO; -CIPR250T52 PO; -HYDR-3366 PO; +ULTR50TA5 PO
--- NOTE | 2017-04-02 04:35 | PD ---
HPI Chief Complaint: right forearm abscess Time Seen by Provider: 04:31 Travel History International Travel<30 days: No Contact w/Intl Traveler<30days: No Traveled to known affect area: No History of Present Illness HPI 26-year-old white female presents to emergency Department with complaints of an abscess to her right forearm for the past week. She states that a friend of her 's cut it open and help drain it. She states it is still swollen and infected. She states the pain is moderate. No fever or chills. History of skin infections in the past as well as IV substance abuse PFSH Past Medical History Arthritis: No Asthma: Yes Autoimmune Disease: No Bipolar Disorder: Yes Anxiety: Yes Depression: Yes Heart Rhythm Problems: No Cancer: Yes (CERVICAL CANCER) Cardiovascular Problems: No High Cholesterol: No Chemotherapy: No Chest Pain: No Congestive Heart Failure: No COPD: No Cerebrovascular Accident: No Diabetes: No Diminished Hearing: No Endocrine: No GERD: No Genitourinary: No Hiatal Hernia: No Immune Disorder: No Kidney Stones: No Musculoskeletal: No Neurologic: No Psychiatric: Yes Reproductive: No Respiratory: Yes Immunizations Current: Yes Migraines: No Radiation Therapy: No Renal Failure: No Seizures: Yes Sickle Cell Disease: No Sleep Apnea: No Thyroid Disease: No Ulcer: No Tetanus Vaccination: < 5 Years : 5 Para: 2 Miscarriage: 2 : 1 Tubal Ligation: Yes Past Surgical History Abdominal Surgery: No AICD: No Arteriovenous Shunt: No Cardiac Surgery: No Ear Surgery: No Endocrine Surgery: No Eye Surgery: No Genitourinary Surgery: No Gynecologic Surgery: Yes (tubes are tied) Insulin Pump: No Joint Replacement: No Oral Surgery: No Pacemaker: No Thoracic Surgery: No Other Surgery: Yes (Left ankle, tubes are tied) Social History Alcohol Use: No Tobacco Use: Yes (I PPD) Substance Use: Yes (crack) Allergies-Medications (Allergen,Severity, Reaction): Coded Allergies: peanut (Unverified Allergy, Severe, 03/13/17) "throat swelling" penicillin G (Unverified Allergy, Severe, SWELLING, 03/13/17) Reported Meds & Prescriptions Reported Meds & Active Scripts Active Cipro (Ciprofloxacin HCl) 500 Mg Tab 500 Mg PO BID Ultram (Tramadol HCl) 50 Mg Tab 50 Mg PO Q6H PRN Review of Systems Except as stated in HPI: all other systems reviewed are Neg Physical Exam Narrative GENERAL: This is a well-nourished, well-developed patient, in no apparent distress. SKIN: Positive open abscess to the right distal forearm, ecchymoses or lesions. Warm and dry. HEAD: Atraumatic. Normocephalic. EYES: PERRL, EOMI, no discharge or injection. No scleral icterus. EARS: Clear NOSE: Nasal turbinates appear normal. THROAT: Mucosa pink and moist. Airway patent. NECK: Trachea midline. supple, moves head freely. LUNGS: Clear to auscultation. CV: Regular in rhythm. ABDOMEN: Soft nontender. EXT: No clubbing cyanosis or edema. Examination the right upper extremity reveals a 2 x 2 centimeter open ulcerative fungating abscess. There is no fluctuance or pointing. The surrounding tissues are tender and erythematous. MDM Medical Decision Making Medical Screen Exam Complete: Yes Emergency Medical Condition: Yes Medical Record Reviewed: Yes Differential Diagnosis MDM: High Differential diagnoses: Abscess, folliculitis, cellulitis, lymphangitis, abrasion, contact dermatitis Narrative Course Patient is given Keflex 1 g mg by mouth and Bactrim DS by mouth Diagnosis Primary Impression: Abscess of right forearm Additional Instructions: Rest. Elevation. keep clean and dry. remove the packing in two days. Daily wound care with soap, water and Neosporin. Bactrim DS and Keflex. Advil for pain. Follow-up with a primary care doctor in one week. Return to the ER for any problems. Med/Other Pt SpecificInfo: Prescription(s) given Disposition: 01 DISCHARGE HOME Tirso King Apr 02, 2017 04:35
== END 2017-04-02 02:26 | disposition home or self-care (01) ==
LOC: NED 01:50
DX: L02.413 Cutaneous abscess of right upper limb (principal); F17.200 Nicotine dependence, unspecified, uncomplicated
CPT/HCPCS: 99284

== ENCOUNTER 2017-08-26 18:13 | Inpatient (IN) | payer SELFPAY ==
[~2017-08-26] VITALS: Ht 154.9 cm; Wt 63.5 kg
[~2017-08-26 18:13] MED LIST changes: +TRAM50 PO; -ULTR50TA5 PO
[2017-08-26 18:18] VITALS: BP 125/81; PULSE 114; RESP 16; TEMP 98.2; O2SAT 98
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
[2017-08-26 22:59] LABS: AUTOMATED NEUTROPHIL # 7.1 TH/MM3 (1.8-7.7); BASOPHIL % 0.4 % (0.0-2.0); HEMATOCRIT 39.4 % (35.0-46.0); HEMOGLOBIN 13.7 GM/DL (11.6-15.3); LYMPH % 14.9 % (9.0-44.0); LYMPHOCYTE # 1.5 TH/MM3 (1.0-4.8); MEAN CELL VOLUME 90.3 FL (80.0-100.0); MEAN CORPUSCULAR HEMOGLOBIN 31.3 PG (27.0-34.0); MEAN CORPUSCULAR HGB CONC 34.7 % (32.0-36.0); MEAN PLATELET VOLUME 8.7 FL (7.0-11.0); MONO % 11.3 % (0.0-8.0); MONOCYTE # 1.1 TH/MM3 (0-0.9); NEUT % 73.4 % (16.0-70.0); PLATELET COUNT 257 TH/MM3 (150-450); RED BLOOD COUNT 4.37 MIL/MM3 (4.00-5.30); RED CELL DISTRIBUTION WIDTH 13.1 % (11.6-17.2); WHITE BLOOD COUNT 9.7 TH/MM3 (4.0-11.0)
[2017-08-26 23:15] LABS: ALBUMIN 3.4 GM/DL (3.4-5.0); AST (GOT) 14 U/L (15-37); BICARBONATE 28.6 MEQ/L (21.0-32.0); BLOOD UREA NITROGEN 12 MG/DL (7-18); CALCIUM 9.1 MG/DL (8.5-10.1); CHLORIDE 101 MEQ/L (98-107); CREATININE 0.94 MG/DL (0.50-1.00); GLOMERULAR FILTRATION RATE 70 ML/MIN (>89); GLUCOSE,RANDOM 114 MG/DL (74-106); SODIUM (NA) 136 MEQ/L (136-145)
[2017-08-26 23:16] LABS: ALT (GPT) 13 U/L (10-53)
[2017-08-26 23:24] LABS: ALKALINE PHOSPHATASE 81 U/L (45-117); TOTAL BILIRUBIN ADULT 0.3 MG/DL (0.2-1.0); TOTAL PROTEIN 7.5 GM/DL (6.4-8.2)
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
[2017-08-27] MEDS ORDERED: LIDOCAINE 1%/EPINEPHrine 1:100,000 SOLN 50 ML VIAL INFIL ONE (00:30)
[2017-08-27] MEDS ORDERED: VANCOMYCIN INJ 1,000 MG in SODIUM CHLOR 0.9% 250 ML INJ 250 ML IV ONE (00:30)
[2017-08-27] MEDS ORDERED: ACETAMINOPHEN 325 MG TAB PO PRN (00:45)
[2017-08-27] MEDS ORDERED: AZTREONAM INJ 1,000 MG in SODIUM CHLORIDE 0.9% INJ 100 ML IV ONE (00:45)
[2017-08-27] MEDS ORDERED: Vancomycin Consult Pharmacy 1 EA OTHER SCH (00:45)
[2017-08-27] MEDS ORDERED: RESP: ALBUTEROL 2.5 MG/IPRATROPIUM 0.5 MG NEB (PRN) NEB (00:45)
[2017-08-27] MEDS ORDERED: NALOXONE HCL 0.4 MG/ML AMP IV PUSH PRN (00:45)
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
[2017-08-27 01:21] VITALS: BP 133/61; PULSE 102; RESP 16; O2SAT 97
[2017-08-27 01:51] VITALS: BP 116/55; PULSE 112; RESP 16; TEMP 100.9; O2SAT 99
--- NOTE | 2017-08-27 01:52 | HHI.HP ---
[facility] No Primary Care Physician Admission Diagnosis ANKLE JOINT EFFUSION, R/O OSTEOMYELITIS Diagnoses: Travel History International Travel<30 Days: No Contact w/Intl Traveler <30 Da: No Traveled to Known Affected Are: No History of Present Illness 27-year-old female with past medical history significant for IV drug abuse and status post ORIF of the left talus in January 2017 presents to the emergency department with a 3-5 day history of a left swollen ankle. The patient reports that she has pain, swelling in her ankle making it difficult to ambulate. She states that the pain is intolerable. She is a poor historian and appears to be acutely intoxicated. The patient denies any fever/chills/nausea/vomiting. She admits to using cocaine, Margot, methamphetamines and opiates. Vital signs: Temperature 98.2, pulse 114, respirations 16, BP 125/81, pulse ox 98% on room air. Review of Systems Except as stated in HPI: all other systems reviewed are Neg Past Family Social History Past Medical History (Obtained from medical records) Asthma Polysubstance abuse Anxiety Depression Cervical Cancer Bipolar disorder Past Surgical History Tubal ligation Open reduction internal fixation left talus Reported Medications Reported Meds & Active Scripts Active No Active Prescriptions or Reported Medications Allergies: Coded Allergies: peanut (Unverified Allergy, Severe, 08/26/17) "throat swelling" penicillin G (Unverified Allergy, Severe, SWELLING, 08/26/17) Family History Patient is unaware of maternal and paternal family medical history. Social History Patient smokes 1/2 ppd cigarettes. History significant for IV drug abuse, patient admits to using cocaine, Margot, methamphetamines and opiates. Physical Exam Vital Signs Vital Signs Date Time Temp Pulse Resp B/P (MAP) Pulse Ox O2 Delivery O2 Flow Rate FiO2 08/27/17 01:21 102 16 133/61 (85) 97 08/26/17 21:51 15 Room Air 08/26/17 18:18 98.2 114 16 125/81 (96) 98 Physical Exam GENERAL: Disheveled, female lying in bed SKIN: Multiple sores and excoriations on patient's face and extremities HEAD: Atraumatic. Normocephalic. EYES: Pupils equal round and reactive. Extraocular motions intact. No scleral icterus. No injection or drainage. ENT: Nose without bleeding, purulent drainage or septal hematoma. Throat without erythema, tonsillar hypertrophy or exudate. Uvula midline. Airway patent. NECK: Trachea midline. No JVD or lymphadenopathy. Supple, nontender, no meningeal signs. CARDIOVASCULAR: Regular rate and rhythm without murmurs, gallops, or rubs. RESPIRATORY: Clear to auscultation. Breath sounds equal bilaterally. No wheezes , rales, or rhonchi. GASTROINTESTINAL: Abdomen soft, non-tender, nondistended. No hepato-splenomegaly , or palpable masses. No guarding. MUSCULOSKELETAL: Swelling, erythema and edema of left ankle. Tender to palpation. NEUROLOGICAL: Arousable to voice. Cranial nerves II through XII intact. Motor and sensory grossly within normal limits. Pressured speech. Laboratory Laboratory Tests Test 08/26/17 22:39 08/27/17 00:45 White Blood Count 9.7 Red Blood Count 4.37 Hemoglobin 13.7 Hematocrit 39.4 Mean Corpuscular Volume 90.3 Mean Corpuscular Hemoglobin 31.3 Mean Corpuscular Hemoglobin Concent 34.7 Red Cell Distribution Width 13.1 Platelet Count 257 Mean Platelet Volume 8.7 Neutrophils (%) (Auto) 73.4 Lymphocytes (%) (Auto) 14.9 Monocytes (%) (Auto) 11.3 Eosinophils (%) (Auto) 0.0 Basophils (%) (Auto) 0.4 Neutrophils # (Auto) 7.1 Lymphocytes # (Auto) 1.5 Monocytes # (Auto) 1.1 Eosinophils # (Auto) 0.0 Basophils # (Auto) 0.0 CBC Comment DIFF FINAL Differential Comment Erythrocyte Sedimentation Rate 19 Blood Urea Nitrogen 12 Creatinine 0.94 Random Glucose 114 Total Protein 7.5 Albumin 3.4 Calcium Level 9.1 Alkaline Phosphatase 81 Aspartate Amino Transf (AST/SGOT) 14 Alanine Aminotransferase (ALT/SGPT) 13 Total Bilirubin 0.3 Sodium Level 136 Potassium Level 3.8 Chloride Level 101 Carbon Dioxide Level 28.6 Anion Gap 6 Estimat Glomerular Filtration Rate 70 C-Reactive Protein 11.00 Date/Time Source Procedure Growth Status 08/27/17 00:45 Fluid Synovial Fluid Gram Stain Pending Received 08/27/17 00:45 Fluid Synovial Fluid Body Fluid Culture Pending Received Result Diagram: 08/26/17223808/26/172238 Caprinjayesh VTE Risk Assessment Caprini VTE Risk Assessment: No/Low Risk (score <= 1) Caprini Risk Assessment Model Point Value = 1 Point Value = 2 Point Value = 3 Point Value = 5 Age 41-60 Minor surgery BMI > 25 kg/m2 Swollen legs Varicose veins or History of unexplained or recurrent spontaneous Oral contraceptives or hormone replacement Sepsis (< 1 month) Serious lung disease, including pneumonia (< 1 month) Abnormal pulmonary function Acute myocardial infarction Congestive heart failure (< 1 month) History of inflammatory bowel disease Medical patient at bed rest Age 61-74 Arthroscopic surgery Major open surgery (> 45 min) Laparoscopic surgery (> 45 min) Malignancy Confined to bed (> 72 hours) Immobilizing plaster cast Central venous access Age >= 75 History of VTE Family history of VTE Factor V Leiden Prothrombin [id number] Lupus anticoagulant Anticardiolipin antibodies Elevated serum homocysteine Heparin-induced thrombocytopenia Other congenital or acquired thrombophilia Stroke (< 1 month) Elective arthroplasty Hip, pelvis, or leg fracture Acute spinal cord injury (< 1 month) Prophylaxis Regimen Total Risk Factor Score Risk Level Prophylaxis Regimen 0-1 Low Early ambulation 2 Moderate Order ONE of the following: *Sequential Compression Device (SCD) *Heparin 5000 units SQ BID 3-4 Higher Order ONE of the following medications: *Heparin 5000 units SQ TID *Enoxaparin/Lovenox 40 mg SQ daily (WT < 150 kg, CrCl > 30 mL/min) *Enoxaparin/Lovenox 30 mg SQ daily (WT < 150 kg, CrCl > 10-29 mL/min) *Enoxaparin/Lovenox 30 mg SQ BID (WT < 150 kg, CrCl > 30 mL/min) AND/OR *Sequential Compression Device (SCD) 5 or more Highest Order ONE of the following medications: *Heparin 5000 units SQ TID (Preferred with Epidurals) *Enoxaparin/Lovenox 40 mg SQ daily (WT < 150 kg, CrCl > 30 mL/min) *Enoxaparin/Lovenox 30 mg SQ daily (WT < 150 kg, CrCl > 10-29 mL/min) *Enoxaparin/Lovenox 30 mg SQ BID (WT < 150 kg, CrCl > 30 mL/min) AND *Sequential Compression Device (SCD) Assessment and Plan Assessment and Plan Assessment/plan: 1. Concern for septic arthritis/comminuted fracture of the talus with nonunion Status post arthrocentesis in the emergency department with multiple cc of shawna pus expressed CT showed remote comminuted fracture of the talus status post fixation with nonunion of the fracture site Orthopedic surgery consulted, appreciate recommendations Vancomycin and aztreonam Monitor for signs of sepsis Synovial fluid analysis pending 2. IV drug abuse Cessation counseling provided FEN Nothing by mouth Electrolytes: Monitor and replete when necessary Holding pharmacologic anticoagulation secondary to possible operative intervention Physician Certification 2 Midnight Certification Type: Admission for Inpatient Services Order for Inpatient Services The services are ordered in accordance with Medicare regulations or non- Medicare payer requirements, as applicable. In the case of services not specified as inpatient-only, they are appropriately provided as inpatient services in accordance with the 2-midnight benchmark. Estimated LOS (days): 2 2 days is the estimated time the patient will need to remain in the hospital, assuming treatment plan goals are met and no additional complications. Post-Hospital Plan: Not yet determined Celina Shepard MD Aug 27, 2017 01:52
[2017-08-27] MEDS: AZTREONAM INJ 2,000 MG in SODIUM CHLORIDE 0.9% INJ 100 ML IV SCH ×3 (02:00→16:04)
[2017-08-27 02:18] LABS: WBC, SYNOVIAL FLUID 90300 /MM3 (0-200)
[2017-08-27 04:41] VITALS: BP 122/55; PULSE 91; RESP 17; TEMP 99.5; O2SAT 92
[2017-08-27] MEDS ORDERED: ACETAMINOPHEN/HYDROcodone 325 MG/5 MG TAB PO ONE (04:45)
--- NOTE | 2017-08-27 07:02 | PD.ORT.PN ---
Subjective Subjective Remarks s/p left talus fracture with ORIF last december by Dr Miranda reports siginificant pain and swelling of left ankle. Objective Vitals Vital Signs Date Time Temp Pulse Resp B/P (MAP) Pulse Ox O2 Delivery O2 Flow Rate FiO2 08/27/17 04:41 99.5 91 17 122/55 (77) 92 08/27/17 01:51 100.9 112 16 116/55 (75) 99 08/27/17 01:48 08/27/17 01:21 102 16 133/61 (85) 97 08/26/17 21:51 15 Room Air 08/26/17 18:18 98.2 114 16 125/81 (96) 98 Result Diagram: 08/26/17223808/26/172238 Objective Remarks LLE: surgical incisions healed. 2+swelling. tenderness to palpation of talus and ankle. pain with movement. nvi Assessment & Plan Assessment and Plan 1) Left Talus Fx s/p ORIF with nonunion and possible infection -Ct scan shows likely nonunion -needle aspirate shows likely infection -plan for OR today for removal of HW and I&D Choco Vale/First Charla FOOTE Aug 27, 2017 07:02
[2017-08-27 08:00] VITALS: BP 116/62; PULSE 100; RESP 17; TEMP 98.8; O2SAT 97
[2017-08-27] MEDS: SODIUM CHLORIDE 0.9% FLUSH 10 ML FLUSH IV FLUSH SCH ×2 (09:00→23:06)
--- NOTE | 2017-08-27 10:24 | MB ---
cc: MARISABEL WOODS,TOYA Lion MD DATE OF CONSULTATION 08/27/2017 REASON FOR CONSULTATION Left ankle infection. CONSULTING PHYSICIAN Dr. Toya Shepard. HISTORY OF PRESENT ILLNESS Myra is a 27-year-old female. She previously had an injury to her left ankle in January 2017. She underwent open reduction, internal fixation of her talus at that time. The patient has not been following up as instructed postoperatively. The patient has had increased swelling and pain in her ankle for several days. She has a history of IV drug use. She presented to the emergency room with increased swelling and pain of the ankle. The left ankle was aspirated. The white blood cell count was over 90,000. She is currently awake and alert on the 7th floor. She complains primarily of left ankle pain. Pain is worse with movement. She does not recall having any fevers or chills. PAST MEDICAL HISTORY ILLNESSES 1. Asthma. 2. Drug abuse. 3. Depression. 4. Anxiety. 5. Bipolar disorder. SURGERIES 1. Tubal ligation. 2. ORIF left talus. ALLERGIES 1. PENICILLIN. 2. PEANUTS. MEDICATIONS Please see EMR for complete list of inpatient medications. FAMILY HISTORY The patient denies any familial medical problems. SOCIAL HISTORY The patient smokes a half pack a day. She has a history of drug use including cocaine, methamphetamines, opioids and Margot. REVIEW OF SYSTEMS The patient denies headache, visual changes, neck pain, chest pain, shortness of breath, abdominal pain, nausea, vomiting or recent weight loss, fevers or chills or numbness or tingling of extremities. She complains of left ankle pain, swelling and redness. PHYSICAL EXAMINATION GENERAL: The patient is a thin 27-year-old female. She is awake and alert. She is alert and oriented x3. VITAL SIGNS: Temperature 99.5, pulse 91, respirations 17, blood pressure 122/55. O2 sat is 92% on room air. HEAD: The patient is normocephalic. Pupils are equal. NECK: Soft, nontender. Trachea is midline. ABDOMEN: Soft, nontender, nondistended. EXTREMITIES: Examination of bilateral upper extremities reveals no obvious pain or deformity with shoulder, elbow or wrist motion. She has good capillary refill in all fingers. Radial pulses are palpable bilaterally. Examination of right leg reveals no pain with hip, knee or ankle motion. Skin is intact. Dorsalis pedis pulse is palpable. Sensation is intact. Examination of left leg reveals no pain with hip or knee motion. She has diffuse tenderness about her ankle. She is very tender to palpation around the ankle. She has pain with any ankle motion. Dorsalis pedis pulse is palpable. X-RAYS X-rays and CT scan of left ankle were reviewed. The patient has a left talus fracture. Hardware is in place. There is significant radial lucency. The patient may be developing avascular necrosis with possible nonunion. LABORATORY The patient had the left ankle aspirated yesterday. White blood cell count is 90,000. No crystals were seen. Gram stain is positive for gram-positive cocci in pairs. White blood cell count is 9.7, hematocrit 39.4. BUN is 12 and creatinine is 0.94. IMPRESSION 1. Polysubstance abuse. 2. Probable left ankle infection. 3. 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 PLAN The treatment options were discussed with the patient. At this point the patient will need her infection addressed first. She will need irrigation and debridement of left ankle and talus with removal of hardware. She may also need placement of antibiotic beads. This is a very complicated problem given the avascular necrosis and possible nonunion. Because of the present infection treatment of the nonunion will need to be delayed until after the infection is completely resolved. She may need multiple surgeries. She will likely need prolonged IV antibiotics. All questions were answered. The risks of surgery include bleeding, infection, injuries to arteries, nerves and blood vessels, chronic infection, need for amputation of the foot, as well as medical complications including blood clot, stroke, heart attack and . All questions were answered. I will plan on surgery today. A mid-level provider in my office, nurse practitioner or PA, may see this patient on a follow-up basis and continue to implement the objective of this plan including: Starting or adjusting medications, injections of muscle, tendon, bursa or joints, cast application, orthotic or brace application, physical therapy, further radiographic studies including x-ray, MRI, CT, ultrasounds or bone scan, vascular studies, neurologic studies, or other specialist consultations, and proceeding with surgical management as appropriate. MD EMILIA Treviño/PAULA /8:40 AM /10:00 AM
[2017-08-27] MEDS ORDERED: BUPIVACAINE/EPINEPHRINE 0.25% 50 ML VIAL ONE (11:00)
[2017-08-27] MEDS ORDERED: GENTAMICIN SULFATE 80 MG/2 ML VIAL ONE (11:01)
[2017-08-27] MEDS ORDERED: VANCOMYCIN HCL 1000 MG VIAL ONE (11:31)
[2017-08-27] MEDS ORDERED: TOBRAMYCIN 1200 MG VIAL (for ortho/sterile core) OTHER ONE (11:31)
[2017-08-27] MEDS ORDERED: CLINDAMYCIN PHOS 600 MG/4 ML VIAL ONE (11:46)
[2017-08-27] MEDS ORDERED: ONDANSETRON HCL 4 MG/2 ML VIAL IV ONE (12:00)
[2017-08-27] MEDS ORDERED: DEXAMETHASONE SOD PHOS 4 MG/ML VIAL IV ONE (12:00)
[2017-08-27] MEDS ORDERED: LACTATED RINGER'S 1000 ML INJ 1,000 ML IV ONE (12:00)
[2017-08-27] MEDS ORDERED: PROPOFOL 200 MG/20 ML AMP IV ONE (12:00)
[2017-08-27] MEDS ORDERED: LIDOCAINE HCL 1% PF 5 ML SYRINGE OTHER ONE (12:00)
[2017-08-27] MEDS: VANCOMYCIN 1 GM/200 ML PREMIX IV SCH (13:07)
--- NOTE | 2017-08-27 13:29 | PD.OP ---
cc: Patel Strange MD Operative Report Date of Surgery: Aug 27, 2017 Preoperative Diagnosis: Left ankle infection, retained hardware left talus Postoperative Diagnosis: Procedure: Removal of deep hardware left talus, left ankle arthrotomy with irrigation and debridement Surgeon: Patel Strange Commercial Photographer(s): EDD Bull PA-C The surgical procedure was assisted by my physician program services assistant. My P.A. presence was necessary throughout this case for the manipulation and positioning of the surgical extremity. My P.A. was assisting me throughout the duration of this procedure. The skill set of a physician program services assistant was medically necessary to complete this procedure. During the surgical case the manager surgical was working at the back table and the physician program services assistant was directly assisting me. Operation and Findings: Myra was seen and evaluated preoperatively. Clinically patient appeared to have infection of left ankle. Left ankle aspirate was also suspicious of left ankle infection. Informed consent was obtained preoperatively and operative site was marked. She was brought to the operating room. She is given IV sedation and general anesthesia. Left leg was prepped with alcohol followed by Hibiclens and draped usual sterile fashion. Timeout procedure was performed. Procedure began with removal deep hardware. A 2 inch incision was made over the lateral aspect of the talus and a second incision was made over the medial aspect of the talus through the previous scars. Subcutaneous tissues dissected with Bovie. At this point the lateral plate was identified. Scar tissue was incised around the plate. Each of the screws was identified. The screws and plate were now removed from the lateral talus. The cannulated screw was identified medially. The screw was also removed. There was purulent fluid coming from the ankle joint region. This fluid was obtained for cultures and sensitivity. At this point and external left ankle arthrotomy. The lateral incision was extended approximately. The ankle joint was opened. Arthrotomy was created. The ankle joint was now thoroughly debrided. There was some purulent fluid within the joint. The ankle was gently manipulated. The ankle was thoroughly irrigated with 3 L of sterile saline. At this point the incisions were closed with 3-0 PDS and 3-0 nylon. Sterile dressings were applied. Patient was awakened and transferred to recovery room in stable condition. Patel Strange MD Aug 27, 2017 13:29
[2017-08-27] MEDS ORDERED: Post-op Orders (for Pharmacy) XX ONE (13:30)
--- NOTE | 2017-08-27 13:48 | PD.ORT.PN ---
Subjective Subjective Remarks POD 0 s/p I&D with removal of HW left talus Objective Vitals Vital Signs Date Time Temp Pulse Resp B/P (MAP) Pulse Ox O2 Delivery O2 Flow Rate FiO2 08/27/17 08:00 98.8 100 17 116/62 (80) 97 08/27/17 04:41 99.5 91 17 122/55 (77) 92 08/27/17 01:51 100.9 112 16 116/55 (75) 99 08/27/17 01:48 08/27/17 01:21 102 16 133/61 (85) 97 08/26/17 21:51 15 Room Air 08/26/17 18:18 98.2 114 16 125/81 (96) 98 Result Diagram: 08/26/17223808/26/172238 Objective Remarks LLE: dressings clean and dry. intact. NVI Assessment & Plan Assessment and Plan 1) Left Talus Fx s/p ORIF with nonunion and possible infection s/p I&D - POD 0 -will await cultures -[employer]th[employer] to place fx boot on left ankle -WBAT -will need 6 wks of IV Abx -infectious Dz consulted to manage -daily dressing changes of left ankle with xeroform/4x4/WADE -follow up with Ruben or PA in 2 weeks Choco Vale/First Charla FOOTE Aug 27, 2017 13:48
[2017-08-27] MEDS ORDERED: DO NOT ADM ANY ANTICOAGULANT DRUGS PRN (13:50)
[2017-08-27] MEDS ORDERED: *MEPERIDINE 25 MG INJ VIAL PERIprocedural Use ONLY ONE (13:52)
[2017-08-27] MEDS ORDERED: ACETAMINOPHEN 1000 MG/100 ML 100 ML IV ONE (13:56)
[2017-08-27] MEDS ORDERED: HYDROmorphone HCL PF 2 MG/ML VIAL ONE (13:57)
[2017-08-27] MEDS ORDERED: MIDAZOLAM HCL 2 MG/2 ML VIAL ONE (14:16)
--- NOTE | 2017-08-27 15:09 | RADRPT ---
EXAM DATE/TIME: 08/27/2017 13:15 [facility] COMPARISON: No previous studies available for comparison. INDICATIONS : Talus hardware removal. MEDICAL HISTORY : None. SURGICAL HISTORY : None. ENCOUNTER: Initial ACUITY: 1 day PAIN SCORE: Non-responsive. LOCATION: Left Talus. FINDINGS: Hardware has been removed. Talus is sclerotic. Calcaneus and metatarsals in anatomic alignment. CONCLUSION: No residual hardware. Jd Gatica MD FACR on August 27, 2017 at 15:06 Board Certified Radiologist. This report was verified electronically.
[2017-08-27 16:00] VITALS: BP 113/67; PULSE 83; RESP 17; TEMP 98.2; O2SAT 98
[2017-08-27] MEDS: ACETAMINOPHEN/HYDROcodone 325 MG/7.5 MG TAB PO PRN ×2 (16:23→23:07)
--- NOTE | 2017-08-27 16:23 | HHI.PR ---
Addendum to Inpatient Note Addendum Reason: Additional Documentation Additional Information Pt seen and evaluated, she was eating crackers and tells me she had sx today. Complains of pain. no nausea or vomiting. asks me how to use the phone. left lower ext w dressing in place. able to wiggle toes, sensation intact. Pt w Left Talus Fx s/p ORIF with nonunion and possible infection s/p I&D - POD 0. f/u cultures. Per ortho's rec, will consult ID as pt will need IV abx. continue daily dressing. on Vancomycin and aztreonam Pt is an IV drug abuse Cessation counseling has been provided Sheila Singh MD Aug 27, 2017 16:23
[2017-08-27 20:00] VITALS: BP 121/57; PULSE 94; RESP 18; TEMP 96.4; O2SAT 97
[2017-08-28] VITALS: BP 128/56; PULSE 98; RESP 18; TEMP 97.4; O2SAT 96
[2017-08-28] MEDS: VANCOMYCIN 1 GM/200 ML PREMIX IV SCH ×3 (00:52→21:41)
[2017-08-28] MEDS: AZTREONAM INJ 2,000 MG in SODIUM CHLORIDE 0.9% INJ 100 ML IV SCH ×3 (01:57→17:27)
[2017-08-28 08:00] VITALS: BP 120/58; PULSE 106; RESP 17; TEMP 100.3; O2SAT 98
[2017-08-28] MEDS: ACETAMINOPHEN/HYDROcodone 325 MG/7.5 MG TAB PO PRN ×5 (08:30→23:16)
[2017-08-28] MEDS: SODIUM CHLORIDE 0.9% FLUSH 10 ML FLUSH IV FLUSH SCH ×2 (08:54→21:36)
[2017-08-28] MEDS ORDERED: PHARMACY ORDERED LAB ONE (11:45)
--- NOTE | 2017-08-28 11:54 | PD.ORT.PN ---
Subjective Subjective Remarks Resting comfortably. Reports pain with movement of the left ankle or foot. Denies chest pain or shortness of breath Objective Vitals Vital Signs Date Time Temp Pulse Resp B/P (MAP) Pulse Ox O2 Delivery O2 Flow Rate FiO2 08/28/17 09:30 18 08/28/17 08:00 100.3 106 17 120/58 (78) 98 08/28/17 00:00 97.4 98 18 128/56 (80) 96 08/27/17 20:00 96.4 94 18 121/57 (78) 97 08/27/17 16:00 98.2 83 17 113/67 (82) 98 08/27/17 14:24 97.8 96 16 132/80 (97) 99 Nasal Cannula 2 08/27/17 14:15 97 14 131/88 (102) 99 Nasal Cannula 2 08/27/17 14:00 100 18 111/62 (78) 99 Nasal Cannula 2 08/27/17 13:49 97.8 75 20 124/65 (84) 100 Nasal Cannula 4 I/O 08/27/17 08/27/17 08/27/17 08/28/17 08/28/17 08/28/17 07:00 15:00 23:00 07:00 15:00 23:00 Intake Total 1102 ml 1020 ml 1080 ml Output Total 25 ml Balance 1077 ml 1020 ml 1080 ml Intake Oral 720 ml 780 ml IV Total 2 ml 300 ml 300 ml Other 1100 ml Output Estimated Blood Loss 25 ml # Voids 1 3 4 # Bowel Movements 0 0 Result Diagram: 08/26/17223808/26/172238 Objective Remarks Awake, alert, no acute distress LLE: dressings clean and dry. intact. NVI. Negative Homans Assessment & Plan Assessment and Plan 1) Left Talus Fx s/p ORIF with nonunion and possible infection s/p I&D - POD 1 -will await cultures -[employer]th[employer] to place fx boot on left ankle -WBAT -will need 6 wks of IV Abx -infectious Dz consulted to manage -daily dressing changes of left ankle with xeroform/4x4/WADE -follow up with Ruben or PA in 2 weeks Angelia Roque MD Aug 28, 2017 11:54
[2017-08-28 12:00] VITALS: BP 114/58; PULSE 87; RESP 16; TEMP 97.7; O2SAT 98
[2017-08-28] MEDS: MORPHINE SULFATE 4 MG/ML INJ IV PUSH PRN ×3 (12:58→21:35)
[2017-08-28 15:40] LABS: AUTOMATED NEUTROPHIL # 4.9 TH/MM3 (1.8-7.7); BASOPHIL % 0.4 % (0.0-2.0); EOSINOPHIL % 0.5 % (0.0-4.0); HEMATOCRIT 35.1 % (35.0-46.0); HEMOGLOBIN 11.9 GM/DL (11.6-15.3); LYMPH % 25.3 % (9.0-44.0); MEAN CELL VOLUME 92.4 FL (80.0-100.0); MEAN CORPUSCULAR HEMOGLOBIN 31.3 PG (27.0-34.0); MEAN CORPUSCULAR HGB CONC 33.9 % (32.0-36.0); MONOCYTE # 0.9 TH/MM3 (0-0.9); NEUT % 62.8 % (16.0-70.0); PLATELET COUNT 210 TH/MM3 (150-450); RED CELL DISTRIBUTION WIDTH 13.2 % (11.6-17.2); WHITE BLOOD COUNT 7.8 TH/MM3 (4.0-11.0)
[2017-08-28 16:00] VITALS: BP 118/72; PULSE 96; RESP 15; TEMP 98.1; O2SAT 99
[2017-08-28 16:08] LABS: BICARBONATE 29.3 MEQ/L (21.0-32.0); CALCIUM 8.7 MG/DL (8.5-10.1); CREATININE 0.74 MG/DL (0.50-1.00)
--- NOTE | 2017-08-28 17:31 | PD.ID.CON ---
History of Present Illness Service Infectious disease Consult Requested By Dr. Singh Reason for Consult Evaluation and management of infected hardware of the foot Primary Care Physician No Primary Care Physician Diagnoses: History of Present Illness Ms. Luna is a 27-year-old female with past medical history significant for IV drug abuse and status post ORIF of the left talus in January 2017 presents to the emergency department with a 3-5 day history of a left swollen ankle. The patient reports that she has pain, swelling in her ankle making it difficult to ambulate. She states that the pain is intolerable. She is a poor historian. So the history was obtained by review of medical records. The patient denies any fever/chills/nausea/vomiting. She admits to using cocaine, Margot, methamphetamines and opiates. Vital signs on presentation: Temperature 98.2, pulse 114, respirations 16, BP 125/81, pulse ox 98% on room air. Patient was seen by orthopedic surgeon Dr. Strange who removed the hardware and performed an I&D and intraoperative cultures are now growing staph aureus infectious disease is consulted for evaluation and management of infected hardware of the left ankle. Review of Systems ROS Limitations: Poor Historian Past Family Social History Allergies: Coded Allergies: peanut (Unverified Allergy, Severe, 08/26/17) "throat swelling" penicillin G (Unverified Allergy, Severe, SWELLING, 08/26/17) Past Medical History Asthma Polysubstance abuse Anxiety Depression Cervical Cancer Bipolar disorder Past Surgical History Tubal ligation Open reduction internal fixation left talus Reported Medications Reported Meds & Active Scripts Active No Active Prescriptions or Reported Medications Active Ordered Medications Current Medications Medications (Trade) Dose Ordered Sig/Norberto Route Start Time Stop Time Status Last Admin (NS Flush) 2 ml UNSCH PRN IV FLUSH 08/27/17 00:45 (NS Flush) 2 ml BID IV FLUSH 08/27/17 09:00 08/28/17 08:54 (Tylenol) 650 mg Q4H PRN PO 08/27/17 00:45 08/27/17 01:54 (Zofran Inj) 4 mg Q6H PRN IVP 08/27/17 00:45 (Narcan Inj) 0.4 mg UNSCH PRN IV PUSH 08/27/17 00:45 Aztreonam 2000 mg/ Sodium Chloride 100 ml @ 200 mls/hr Q8H IV 08/27/17 01:00 08/28/17 08:30 Pharmacy Profile Note 0 ml @ 0 mls/hr UNSCH OTHER 08/27/17 00:45 (Duoneb Neb) 1 ampule Q2HR NEB PRN NEB 08/27/17 00:45 ([place] 7.5-325 Mg) 1 tab Q3H PRN PO 08/27/17 13:30 08/28/17 14:52 (Morphine Inj) 4 mg Q3H PRN IV PUSH 08/27/17 13:30 08/28/17 12:58 Vancomycin/Sodium Chloride 200 ml @ 200 mls/hr Q8H IV 08/28/17 20:00 Miscellaneous Information SPECIFIC LAB TO BE OMA... ONCE ONCE .XX 08/29/17 11:45 08/29/17 11:46 Family History Patient is unaware of maternal and paternal family medical history. Social History Patient smokes 1/2 ppd cigarettes. History significant for IV drug abuse, patient admits to using cocaine, Margot, methamphetamines and opiates. Physical Exam Vital Signs Vital Signs Date Time Temp Pulse Resp B/P (MAP) Pulse Ox O2 Delivery O2 Flow Rate FiO2 08/28/17 16:00 98.1 96 15 118/72 (87) 99 08/28/17 13:03 18 08/28/17 12:28 18 08/28/17 12:00 97.7 87 16 114/58 (76) 98 08/28/17 08:00 100.3 106 17 120/58 (78) 98 08/28/17 00:00 97.4 98 18 128/56 (80) 96 08/27/17 20:00 96.4 94 18 121/57 (78) 97 Physical Exam GENERAL: This is a well-nourished, well-developed patient, in no apparent distress. SKIN: No rashes, ecchymoses or lesions. Cool and dry. HEAD: Atraumatic. Normocephalic. No temporal or scalp tenderness. EYES: Pupils equal round and reactive. Extraocular motions intact. No scleral icterus. No injection or drainage. ENT: Nose without bleeding, purulent drainage or septal hematoma. Throat without erythema, tonsillar hypertrophy or exudate. Uvula midline. Airway patent. NECK: Trachea midline. Supple, nontender, no meningeal signs. CARDIOVASCULAR: Heart sounds audible RESPIRATORY: Clear to auscultation. Breath sounds equal bilaterally. No wheezes , rales, or rhonchi. GASTROINTESTINAL: Abdomen soft, non-tender, nondistended. MUSCULOSKELETAL: Left ankle in postoperative dressing NEUROLOGICAL: Awake and alert. Nonfocal exam. Psych cooperative IV line sites with no evidence of infection Laboratory Laboratory Tests Test 08/28/17 11:15 08/28/17 15:22 Vancomycin Level Trough 5.9 White Blood Count 7.8 Red Blood Count 3.80 Hemoglobin 11.9 Hematocrit 35.1 Mean Corpuscular Volume 92.4 Mean Corpuscular Hemoglobin 31.3 Mean Corpuscular Hemoglobin Concent 33.9 Red Cell Distribution Width 13.2 Platelet Count 210 Mean Platelet Volume 9.0 Neutrophils (%) (Auto) 62.8 Lymphocytes (%) (Auto) 25.3 Monocytes (%) (Auto) 11.0 Eosinophils (%) (Auto) 0.5 Basophils (%) (Auto) 0.4 Neutrophils # (Auto) 4.9 Lymphocytes # (Auto) 2.0 Monocytes # (Auto) 0.9 Eosinophils # (Auto) 0.0 Basophils # (Auto) 0.0 CBC Comment DIFF FINAL Differential Comment Blood Urea Nitrogen 6 Creatinine 0.74 Random Glucose 88 Calcium Level 8.7 Sodium Level 140 Potassium Level 3.7 Chloride Level 106 Carbon Dioxide Level 29.3 Anion Gap 5 Estimat Glomerular Filtration Rate 93 Date/Time Source Procedure Growth Status 08/27/17 13:20 Fluid Other Fungal Smear - Final NO FUNGAL ELEMENTS SEEN. Resulted 08/27/17 13:20 Fluid Other Fungal Culture Pending Resulted 08/27/17 13:20 Wound Other Fungal Smear - Final NO FUNGAL ELEMENTS SEEN. Resulted 08/27/17 13:20 Wound Other Fungal Culture Pending Resulted Result Diagram: 08/28/17 1522 08/28/17 1522 Imaging Last Impressions Ankle X-Ray 08/27/17 0000 Signed Impressions: Service Date/Time: Sunday, August 27, 2017 13:15 - CONCLUSION: No residual hardware. Jd Gatica MD FACR Lower Extremity CT 08/26/17 0000 Signed Impressions: Service Date/Time: August 23:50 - CONCLUSION: 1. Remote comminuted fracture of the talus status post fixation with nonunion at the fracture sites. Abnormal lucency and sclerosis in the talus with slight depression of the articular surface. There could be an element of avascular necrosis in the talus. Positive ankle joint effusion. No definite acute fracture. Tirso Rhodes MD Assessment and Plan Assessment and Plan Left ankle infected hardware status post removal Staph aureus infection susceptibility pending IV drug abuser High-grade Penicillin allergy reports swelling of her lips and airway Recommendations: Continue vancomycin IV target 15-20 for septic arthritis) Discontinue Azactam IV Follow cultures Follow clinically Upon questioning she reports that she lives in a motel with her boyfriend and boyfriend works. Salud Martines MD Aug 28, 2017 17:31
[2017-08-28] MEDS: SODIUM CHLORIDE 0.9% FLUSH 10 ML FLUSH IV FLUSH PRN (17:36)
--- NOTE | 2017-08-28 18:30 | HHI.PR ---
Subjective Remarks Pt is confused about why she can't just go home. I explained why and she seems to be accepting about the benefits of staying here to save her foot/leg from the consequences of untreated infection. Objective Vitals Vital Signs Date Time Temp Pulse Resp B/P (MAP) Pulse Ox O2 Delivery O2 Flow Rate FiO2 08/28/17 16:00 98.1 96 15 118/72 (87) 99 08/28/17 13:03 18 08/28/17 12:28 18 08/28/17 12:00 97.7 87 16 114/58 (76) 98 08/28/17 08:00 100.3 106 17 120/58 (78) 98 08/28/17 00:00 97.4 98 18 128/56 (80) 96 08/27/17 20:00 96.4 94 18 121/57 (78) 97 I/O 08/27/17 08/27/17 08/27/17 08/28/17 08/28/17 08/28/17 07:00 15:00 23:00 07:00 15:00 23:00 Intake Total 1102 ml 1020 ml 1080 ml Output Total 25 ml Balance 1077 ml 1020 ml 1080 ml Intake Oral 720 ml 780 ml IV Total 2 ml 300 ml 300 ml Other 1100 ml Output Estimated Blood Loss 25 ml # Voids 1 3 4 # Bowel Movements 0 0 Result Diagram: 08/28/17 1522 08/28/17 1522 Objective Remarks GENERAL: Well-nourished, well-developed patient. SKIN: Warm and dry. HEAD: Normocephalic. EYES: No scleral icterus. No injection or drainage. NECK: Supple, trachea midline. No JVD or lymphadenopathy. CARDIOVASCULAR: Regular rate and rhythm without murmurs, gallops, or rubs. RESPIRATORY: Breath sounds equal bilaterally. No accessory muscle use. GASTROINTESTINAL: Abdomen soft, non-tender, nondistended. EXTREMITIES: Left foot under vinny wrap post op. NEUROLOGICAL: Awake, alert, and oriented x 3. Non-focal. A/P Problem List: (1) Fracture, talus closed ICD Code: S92.109A - Unspecified fracture of unspecified talus, initial encounter for closed fracture Status: Acute (2) Osteomyelitis ICD Code: M86.9 - Osteomyelitis, unspecified Assessment and Plan Infected malunion fracture of left talus Surgical removal of hardware on 08/27/17 Cultures grew out staph aureus, sensitivities pending Continue Vancomycin and Aztreonam, adjust based on sensitivities Appreciate ID consult Appreciate Ortho consult DVT Prophylaxis SCD hose, up to chair PRN Will discuss Lovenox if no further surgeries planned Discharge Planning Hx of non-compliance and absent follow ups, so not tidwell to discharge her until we have a plan she can reliably cooperate with. Edwrad Trotter MD Aug 28, 2017 18:30
[2017-08-28 20:00] VITALS: BP 108/57; PULSE 109; RESP 20; TEMP 99.2; O2SAT 100
[2017-08-29] VITALS: BP 107/55; PULSE 108; RESP 18; TEMP 98.2; O2SAT 98
[2017-08-29] MEDS: AZTREONAM INJ 2,000 MG in SODIUM CHLORIDE 0.9% INJ 100 ML IV SCH ×2 (00:49→09:44)
[2017-08-29] MEDS: MORPHINE SULFATE 4 MG/ML INJ IV PUSH PRN ×5 (00:49→20:06)
[2017-08-29] MEDS: ACETAMINOPHEN/HYDROcodone 325 MG/7.5 MG TAB PO PRN ×5 (03:30→23:28)
[2017-08-29] MEDS: ONDANSETRON HCL 4 MG/2 ML VIAL IVP PRN ×2 (03:30→12:32)
[2017-08-29] MEDS: VANCOMYCIN 1 GM/200 ML PREMIX IV SCH ×3 (05:03→20:06)
[2017-08-29 08:00] VITALS: BP 96/54; PULSE 85; RESP 16; TEMP 98.1; O2SAT 99
[2017-08-29] MEDS: SODIUM CHLORIDE 0.9% FLUSH 10 ML FLUSH IV FLUSH SCH ×2 (09:58→20:07)
[2017-08-29] MEDS ORDERED: PHARMACY ORDERED LAB ONE (11:45)
[2017-08-29 11:58] LABS: CREATININE 0.6 MG/DL (0.50-1.00)
[2017-08-29 12:00] VITALS: BP 106/51; PULSE 80; RESP 15; TEMP 96.5; O2SAT 100
--- NOTE | 2017-08-29 14:29 | HHI.PR ---
Subjective Remarks 27F with malunion fracture of left talus that has grown out staph aureus ( osteomyelitis likely). She admits she is terrible at follow up and keeping appointments. Objective Vitals Vital Signs Date Time Temp Pulse Resp B/P (MAP) Pulse Ox O2 Delivery O2 Flow Rate FiO2 08/29/17 12:00 96.5 80 15 106/51 (69) 100 08/29/17 08:00 98.1 85 16 96/54 (68) 99 08/29/17 00:00 98.2 108 18 107/55 (72) 98 08/28/17 20:00 99.2 109 20 108/57 (74) 100 08/28/17 18:52 18 08/28/17 17:37 18 08/28/17 16:00 98.1 96 15 118/72 (87) 99 I/O 08/28/17 08/28/17 08/28/17 08/29/17 08/29/17 08/29/17 07:00 15:00 23:00 07:00 15:00 23:00 Intake Total 1080 ml 860 ml 780 ml 100 ml Balance 1080 ml 860 ml 780 ml 100 ml Intake Oral 780 ml 560 ml 480 ml IV Total 300 ml 300 ml 300 ml 100 ml # Voids 4 4 2 # Bowel Movements 0 1 0 Result Diagram: 08/28/17 1522 08/29/17 1130 Objective Remarks GENERAL: Well-nourished, well-developed patient. SKIN: Warm and dry. HEAD: Normocephalic. EYES: No scleral icterus. No injection or drainage. NECK: Supple, trachea midline. No JVD or lymphadenopathy. CARDIOVASCULAR: Regular rate and rhythm without murmurs, gallops, or rubs. RESPIRATORY: Breath sounds equal bilaterally. No accessory muscle use. GASTROINTESTINAL: Abdomen soft, non-tender, nondistended. EXTREMITIES: Left foot under vinny wrap post op. NEUROLOGICAL: Awake, alert, and oriented x 3. Non-focal. A/P Problem List: (1) Fracture, talus closed ICD Code: S92.109A - Unspecified fracture of unspecified talus, initial encounter for closed fracture Status: Acute (2) Osteomyelitis ICD Code: M86.9 - Osteomyelitis, unspecified Assessment and Plan Infected malunion fracture of left talus Surgical removal of hardware on 08/27/17 Cultures grew out staph aureus, Sensitive to Vancomycin and Aztreonam (also sensitive to Levaquin for discharge planning) Continue Vancomycin and Aztreonam Appreciate ID consult Appreciate Ortho consult DVT Prophylaxis SCD hose, up to chair PRN Will discuss Lovenox if no further surgeries planned Discharge Planning Hx of non-compliance and absent follow ups, so not tidwell to discharge her until we have a plan she can reliably cooperate with. Edward Trotter MD Aug 29, 2017 14:29
[2017-08-29 16:00] VITALS: BP 106/56; PULSE 87; RESP 16; TEMP 98.9; O2SAT 99
--- NOTE | 2017-08-29 17:42 | PD.ORT.PN ---
Subjective Subjective Remarks Resting comfortably. Reports pain with movement of the left ankle or foot. Denies chest pain or shortness of breath Objective Vitals Vital Signs Date Time Temp Pulse Resp B/P (MAP) Pulse Ox O2 Delivery O2 Flow Rate FiO2 08/29/17 16:00 98.9 87 16 106/56 (73) 99 08/29/17 12:00 96.5 80 15 106/51 (69) 100 08/29/17 08:00 98.1 85 16 96/54 (68) 99 08/29/17 00:00 98.2 108 18 107/55 (72) 98 08/28/17 20:00 99.2 109 20 108/57 (74) 100 08/28/17 18:52 18 I/O 08/28/17 08/28/17 08/28/17 08/29/17 08/29/17 08/29/17 07:00 15:00 23:00 07:00 15:00 23:00 Intake Total 1080 ml 860 ml 780 ml 100 ml 200 ml Balance 1080 ml 860 ml 780 ml 100 ml 200 ml Intake Oral 780 ml 560 ml 480 ml IV Total 300 ml 300 ml 300 ml 100 ml 200 ml # Voids 4 4 2 # Bowel Movements 0 1 0 Result Diagram: 08/28/17 1522 08/29/17 1130 Objective Remarks Awake, alert, no acute distress LLE: dressings clean and dry. intact. NVI. Negative Homans Assessment & Plan Assessment and Plan 1) Left Talus Fx s/p ORIF with nonunion and possible infection s/p I&D - POD 2 -Cxs with MSSA -Orthotech to place fx boot on left ankle -WBAT -will need 6 wks of IV Abx -infectious Dz consulted to manage -daily dressing changes of left ankle with xeroform/4x4/WADE -follow up with Ruben or PA in 2 weeks Angelia Roque MD Aug 29, 2017 17:42
[2017-08-29 20:00] VITALS: BP 111/68; PULSE 101; RESP 20; TEMP 100; O2SAT 98
[2017-08-30] VITALS: BP 109/63; PULSE 98; RESP 18; TEMP 99.6; O2SAT 99
[2017-08-30] MEDS: MORPHINE SULFATE 4 MG/ML INJ IV PUSH PRN ×6 (00:34→20:16)
[2017-08-30] MEDS: VANCOMYCIN 1 GM/200 ML PREMIX IV SCH ×3 (03:35→20:15)
[2017-08-30] MEDS: ACETAMINOPHEN/HYDROcodone 325 MG/7.5 MG TAB PO PRN ×3 (03:35→11:29)
--- NOTE | 2017-08-30 07:08 | PD.ORT.PN ---
Subjective Subjective Remarks POD 3 s/p I&D with removal of HW left talus doing well. reports pain in foot Objective Vitals Vital Signs Date Time Temp Pulse Resp B/P (MAP) Pulse Ox O2 Delivery O2 Flow Rate FiO2 08/30/17 00:00 99.6 98 18 109/63 (78) 99 08/29/17 20:00 100.0 101 20 111/68 (82) 98 08/29/17 16:00 98.9 87 16 106/56 (73) 99 08/29/17 12:00 96.5 80 15 106/51 (69) 100 08/29/17 08:00 98.1 85 16 96/54 (68) 99 I/O 08/29/17 08/29/17 08/29/17 08/30/17 08/30/17 08/30/17 07:00 15:00 23:00 07:00 15:00 23:00 Intake Total 780 ml 100 ml 3020 ml 800 ml Balance 780 ml 100 ml 3020 ml 800 ml Intake Oral 480 ml 2620 ml 600 ml IV Total 300 ml 100 ml 400 ml 200 ml # Voids 2 14 3 # Bowel Movements 0 0 0 Result Diagram: 08/28/17 1522 08/29/17 1130 Objective Remarks Awake, alert, no acute distress LLE: dressings clean and dry. intact. NVI. Negative Homans Assessment & Plan Assessment and Plan 1) Left Talus Fx s/p ORIF with nonunion and possible infection s/p I&D - POD 3 -Cxs with MSSA -Orthotech to place fx boot on left ankle -WBAT -will need 6 wks of IV Abx -infectious Dz consulted to manage -daily dressing changes of left ankle with xeroform/4x4/WADE -follow up with Ruben or DRAY in 2 weeks Choco Vale/First Charla FOOTE Aug 30, 2017 07:08
[2017-08-30 08:00] VITALS: BP 110/63; PULSE 70; RESP 17; TEMP 97.8; O2SAT 97
[2017-08-30] MEDS: SODIUM CHLORIDE 0.9% FLUSH 10 ML FLUSH IV FLUSH SCH ×3 (08:31→20:15)
[2017-08-30 12:00] VITALS: BP 117/73; PULSE 101; RESP 20; TEMP 97.5; O2SAT 100
[2017-08-30] MEDS ORDERED: KETOROLAC TROMETHAMINE 60 MG/2 ML (IM) VIAL IM PRN (12:45)
[2017-08-30] MEDS: ONDANSETRON HCL 4 MG/2 ML VIAL IVP PRN (12:47)
[2017-08-30] MEDS: oxyCODONE/ACETAMINOPHEN 5 MG/325 MG TAB PO PRN ×3 (14:37→23:23)
--- NOTE | 2017-08-30 15:00 | HHI.PR ---
Subjective Remarks Pt complains of pain not adequately controlled. She is otherwise feeling fine. Wanted ice for her ensure. Objective Vitals Vital Signs Date Time Temp Pulse Resp B/P (MAP) Pulse Ox O2 Delivery O2 Flow Rate FiO2 08/30/17 12:00 97.5 101 20 117/73 (88) 100 08/30/17 08:00 97.8 70 17 110/63 (79) 97 08/30/17 00:00 99.6 98 18 109/63 (78) 99 08/29/17 20:00 100.0 101 20 111/68 (82) 98 08/29/17 16:00 98.9 87 16 106/56 (73) 99 I/O 08/29/17 08/29/17 08/29/17 08/30/17 08/30/17 08/30/17 07:00 15:00 23:00 07:00 15:00 23:00 Intake Total 780 ml 100 ml 3020 ml 800 ml Output Total 50 ml Balance 780 ml 100 ml 3020 ml 800 ml -50 ml Intake Oral 480 ml 2620 ml 600 ml IV Total 300 ml 100 ml 400 ml 200 ml Output Emesis 50 ml # Voids 2 14 3 # Bowel Movements 0 0 0 Result Diagram: 08/28/17 1522 08/29/17 1130 Objective Remarks GENERAL: Well-nourished, well-developed patient. SKIN: Warm and dry. HEAD: Normocephalic. EYES: No scleral icterus. No injection or drainage. NECK: Supple, trachea midline. No JVD or lymphadenopathy. CARDIOVASCULAR: Regular rate and rhythm without murmurs, gallops, or rubs. RESPIRATORY: Breath sounds equal bilaterally. No accessory muscle use. GASTROINTESTINAL: Abdomen soft, non-tender, nondistended. EXTREMITIES: Left foot under vinny wrap post op. NEUROLOGICAL: Awake, alert, and oriented x 3. Non-focal. A/P Problem List: (1) Fracture, talus closed ICD Code: S92.109A - Unspecified fracture of unspecified talus, initial encounter for closed fracture Status: Acute (2) Osteomyelitis ICD Code: M86.9 - Osteomyelitis, unspecified Assessment and Plan Infected malunion fracture of left talus Surgical removal of hardware on 08/27/17 Cultures grew out staph aureus, Sensitive to Vancomycin and Aztreonam Continue Vancomycin and Aztreonam IV antibiotics recommended for 6 weeks No further surgical debridement planned at this time Appreciate ID consult Appreciate Ortho consult Pain Control Pain meds were not lasting long enough Raised baseline pain meds from Lortab 7.5 to Percocet 5 DVT Prophylaxis No surgery planned, so will add Lovenox Discharge Planning Hx of non-compliance and absent follow ups, so not tidwell to discharge her until we have a plan she can reliably cooperate with. Edward Trotter MD Aug 30, 2017 15:00
[2017-08-30 16:00] VITALS: BP 129/83; PULSE 101; RESP 20; TEMP 97.8; O2SAT 96
[2017-08-30] MEDS: ENOXAPARIN SODIUM 40 MG/0.4 ML SYRINGE SQ SCH (16:09)
--- NOTE | 2017-08-30 17:00 | HHI.IDPN ---
Subjective Subjective Remarks Ms. Luna is a 27-year-old female with past medical history significant for IV drug abuse and status post ORIF of the left talus in January 2017 presents to the emergency department with a 3-5 day history of a left swollen ankle. The patient reports that she has pain, swelling in her ankle making it difficult to ambulate. She states that the pain is intolerable. She is a poor historian. So the history was obtained by review of medical records. The patient denies any fever/chills/nausea/vomiting. She admits to using cocaine, Margot, methamphetamines and opiates. Vital signs on presentation: Temperature 98.2, pulse 114, respirations 16, BP 125/81, pulse ox 98% on room air. Patient was seen by orthopedic surgeon Dr. Strange who removed the hardware and performed an I&D and intraoperative cultures are now growing staph aureus infectious disease is consulted for evaluation and management of infected hardware of the left ankle. Overnight events reviewed No fevers No rash No diarrhea Has a visitor in room. Antibiotics vanco IV Lines Line sites with no evidence of infection. Past Medical History Past Medical History Asthma Polysubstance abuse Anxiety Depression Cervical Cancer Bipolar disorder Past Surgical History Tubal ligation Open reduction internal fixation left talus Allergies: Coded Allergies: peanut (Unverified Allergy, Severe, 08/26/17) "throat swelling" penicillin G (Unverified Allergy, Severe, SWELLING, 08/26/17) Objective . Vital Signs Date Time Temp Pulse Resp B/P (MAP) Pulse Ox O2 Delivery O2 Flow Rate FiO2 08/30/17 12:00 97.5 101 20 117/73 (88) 100 08/30/17 08:00 97.8 70 17 110/63 (79) 97 08/30/17 00:00 99.6 98 18 109/63 (78) 99 08/29/17 20:00 100.0 101 20 111/68 (82) 98 08/30/17 08/30/17 08/31/17 15:00 23:00 07:00 Intake Total 200 ml Output Total 50 ml Balance 150 ml IV Total 200 ml Output Emesis 50 ml . Laboratory Tests Test 08/29/17 11:30 Creatinine 0.60 MG/DL Estimat Glomerular Filtration Rate 118 ML/MIN Imaging Last Impressions Ankle X-Ray 08/27/17 0000 Signed Impressions: Service Date/Time: Sunday, August 27, 2017 13:15 - CONCLUSION: No residual hardware. Jd Gatica MD FACR Lower Extremity CT 08/26/17 0000 Signed Impressions: Service Date/Time: August 23:50 - CONCLUSION: 1. Remote comminuted fracture of the talus status post fixation with nonunion at the fracture sites. Abnormal lucency and sclerosis in the talus with slight depression of the articular surface. There could be an element of avascular necrosis in the talus. Positive ankle joint effusion. No definite acute fracture. Tirso Rhodes MD Physical Exam GENERAL: This is a well-nourished, well-developed patient, in no apparent distress. SKIN: No rashes, ecchymoses or lesions. Cool and dry. HEAD: Atraumatic. Normocephalic. No temporal or scalp tenderness. EYES: Pupils equal round and reactive. Extraocular motions intact. No scleral icterus. No injection or drainage. ENT: Nose without bleeding, purulent drainage or septal hematoma. Throat without erythema, tonsillar hypertrophy or exudate. Uvula midline. Airway patent. NECK: Trachea midline. Supple, nontender, no meningeal signs. CARDIOVASCULAR: Heart sounds audible RESPIRATORY: Clear to auscultation. Breath sounds equal bilaterally. No wheezes , rales, or rhonchi. GASTROINTESTINAL: Abdomen soft, non-tender, nondistended. MUSCULOSKELETAL: Left ankle in postoperative dressing NEUROLOGICAL: Awake and alert. Nonfocal exam. Psych cooperative IV line sites with no evidence of infection Assessment & Plan Remarks Left ankle infected hardware status post removal Staph aureus infection susceptibility pending IV drug abuser High-grade Penicillin allergy reports swelling of her lips and airway Recommendations: Continue vancomycin IV target 15-20 for septic arthritis) Follow cultures Follow clinically Salud Martines MD Aug 30, 2017 17:00
[2017-08-30 20:00] VITALS: BP 130/82; PULSE 109; RESP 20; TEMP 97.9; O2SAT 95
[2017-08-31] VITALS: BP 129/81; PULSE 110; RESP 21; TEMP 98.7; O2SAT 94
[2017-08-31] MEDS: MORPHINE SULFATE 4 MG/ML INJ IV PUSH PRN ×5 (01:35→22:01)
[2017-08-31] MEDS: VANCOMYCIN 1 GM/200 ML PREMIX IV SCH ×2 (04:19→13:21)
[2017-08-31 07:46] LABS: CREATININE 0.79 MG/DL (0.50-1.00)
[2017-08-31 08:00] VITALS: BP 123/70; PULSE 91; RESP 17; TEMP 99.1; O2SAT 99
[2017-08-31] MEDS: SODIUM CHLORIDE 0.9% FLUSH 10 ML FLUSH IV FLUSH SCH ×2 (09:00→20:22)
[2017-08-31] MEDS: oxyCODONE/ACETAMINOPHEN 5 MG/325 MG TAB PO PRN ×3 (09:59→20:23)
[2017-08-31] MEDS ORDERED: PHARMACY ORDERED LAB ONE (11:45)
[2017-08-31 12:00] VITALS: BP 102/71; PULSE 82; RESP 18; TEMP 98.5; O2SAT 96
--- NOTE | 2017-08-31 12:04 | HHI.PR ---
Subjective Remarks Patient has changed her mind and is now interested in going home as soon as she is deemed appropriate. She says her boyfriend will help her keep her appointments with the infusion clinic. Objective Vitals Vital Signs Date Time Temp Pulse Resp B/P (MAP) Pulse Ox O2 Delivery O2 Flow Rate FiO2 08/31/17 08:00 99.1 91 17 123/70 (87) 99 08/31/17 04:24 18 08/31/17 00:23 18 08/31/17 00:00 98.7 110 21 129/81 (97) 94 08/30/17 20:00 97.9 109 20 130/82 (98) 95 08/30/17 16:00 97.8 101 20 129/83 (98) 96 08/30/17 12:00 97.5 101 20 117/73 (88) 100 I/O 08/30/17 08/30/17 08/30/17 08/31/17 08/31/17 08/31/17 07:00 15:00 23:00 07:00 15:00 23:00 Intake Total 800 ml 200 ml 2000 ml 440 ml Output Total 50 ml Balance 800 ml 150 ml 2000 ml 440 ml Intake Oral 600 ml 1800 ml 240 ml IV Total 200 ml 200 ml 200 ml 200 ml Output Emesis 50 ml # Voids 3 4 3 # Bowel Movements 0 0 0 Result Diagram: 08/28/17 1522 08/31/17 0550 Objective Remarks GENERAL: Well-nourished, well-developed patient. SKIN: Warm and dry. HEAD: Normocephalic. EYES: No scleral icterus. No injection or drainage. NECK: Supple, trachea midline. No JVD or lymphadenopathy. CARDIOVASCULAR: Regular rate and rhythm without murmurs, gallops, or rubs. RESPIRATORY: Breath sounds equal bilaterally. No accessory muscle use. GASTROINTESTINAL: Abdomen soft, non-tender, nondistended. EXTREMITIES: Left foot under gauze wrap NEUROLOGICAL: Awake, alert, and oriented x 3. Non-focal. A/P Problem List: (1) Fracture, talus closed ICD Code: S92.109A - Unspecified fracture of unspecified talus, initial encounter for closed fracture Status: Acute (2) Osteomyelitis ICD Code: M86.9 - Osteomyelitis, unspecified Assessment and Plan Infected malunion fracture of left talus Surgical removal of hardware on 08/27/17 Cultures grew out staph aureus, Sensitive to Vancomycin and Aztreonam Continue Vancomycin and Aztreonam IV antibiotics recommended for 6 weeks Appreciate ID consult Appreciate Ortho consult Pain Control Throbbing pain is still a complaint Ibuprofen added for inflammatory pain DVT Prophylaxis No surgery planned, so will add Lovenox Discharge Planning Hx of non-compliance and absent follow ups Edward Trotter MD Aug 31, 2017 12:04
[2017-08-31] MEDS ORDERED: IBUPROFEN 600 MG TAB PO PRN (12:15)
[2017-08-31] MEDS: ENOXAPARIN SODIUM 40 MG/0.4 ML SYRINGE SQ SCH (14:57)
[2017-08-31 16:00] VITALS: BP 108/58; PULSE 87; RESP 20; TEMP 98.4; O2SAT 97
[2017-08-31 20:00] VITALS: BP 109/58; PULSE 82; RESP 20; TEMP 98.6; O2SAT 98
[2017-08-31] MEDS: VANCOMYCIN INJ 1,250 MG in SODIUM CHLOR 0.9% 250 ML INJ 250 ML IV SCH (20:00)
[2017-09-01] VITALS: BP 110/60; PULSE 81; RESP 20; TEMP 98.6; O2SAT 98
[2017-09-01] MEDS: MORPHINE SULFATE 4 MG/ML INJ IV PUSH PRN ×4 (01:37→20:29)
[2017-09-01] MEDS: VANCOMYCIN INJ 1,250 MG in SODIUM CHLOR 0.9% 250 ML INJ 250 ML IV SCH ×3 (03:56→20:28)
[2017-09-01] MEDS: oxyCODONE/ACETAMINOPHEN 5 MG/325 MG TAB PO PRN ×5 (03:57→22:58)
--- NOTE | 2017-09-01 07:10 | PD.ORT.PN ---
Subjective Subjective Remarks POD 5 s/p I&D with removal of HW left talus reports pain in foot. nurse called yesterday to report wound complication Objective Vitals Vital Signs Date Time Temp Pulse Resp B/P (MAP) Pulse Ox O2 Delivery O2 Flow Rate FiO2 09/01/17 04:57 17 09/01/17 01:42 18 09/01/17 00:00 98.6 81 20 110/60 (77) 98 08/31/17 20:00 98.6 82 20 109/58 (75) 98 08/31/17 16:00 98.4 87 20 108/58 (75) 97 08/31/17 12:00 98.5 82 18 102/71 (81) 96 08/31/17 08:00 99.1 91 17 123/70 (87) 99 I/O 08/31/17 08/31/17 08/31/17 09/01/17 09/01/17 09/01/17 07:00 15:00 23:00 07:00 15:00 23:00 Intake Total 440 ml 200 ml 1037.5 ml 502.5 ml Output Total 5 ml Balance 440 ml 200 ml 1032.5 ml 502.5 ml Intake Oral 240 ml 775 ml 240 ml IV Total 200 ml 200 ml 262.5 ml 262.5 ml Output Urine Total 5 ml # Voids 3 1 # Bowel Movements 0 4 1 Result Diagram: 08/28/17 1522 08/31/17 0550 Objective Remarks Awake, alert, no acute distress LLE: dressings clean and dry. intact. NVI. Negative Homans. lateral wound has completely dehisced and active purulent drainage present Assessment & Plan Assessment and Plan 1) Left Talus Fx s/p ORIF with nonunion and possible infection s/p I&D - POD 5 -Cxs with MSSA -Orthotech to place fx boot on left ankle -WBAT -will need 6 wks of IV Abx -infectious Dz consulted to manage -will need repeat I&D and vac placement of foot -npo after MN -sign consents -plan for surgery tomorrow on foot -begin wet to dry dressings today Choco Vale/First Charla FOOTE Sep 01, 2017 07:10
[2017-09-01] MEDS: SODIUM CHLORIDE 0.9% FLUSH 10 ML FLUSH IV FLUSH SCH ×2 (08:57→20:29)
[2017-09-01 12:00] VITALS: BP 107/66; PULSE 81; RESP 17; TEMP 97.9; O2SAT 98
--- NOTE | 2017-09-01 15:04 | HHI.PR ---
Subjective Remarks Pt is happy today because her boyfriend will be visiting her on Guevara's Day. She understands she will be undergoing another surgical debridement of her septic right talus tomorrow with ortho. Objective Vitals Vital Signs Date Time Temp Pulse Resp B/P (MAP) Pulse Ox O2 Delivery O2 Flow Rate FiO2 09/01/17 12:00 97.9 81 17 107/66 (80) 98 09/01/17 04:57 17 09/01/17 01:42 18 09/01/17 00:00 98.6 81 20 110/60 (77) 98 08/31/17 20:00 98.6 82 20 109/58 (75) 98 08/31/17 16:00 98.4 87 20 108/58 (75) 97 I/O 08/31/17 08/31/17 08/31/17 09/01/17 09/01/17 09/01/17 07:00 15:00 23:00 07:00 15:00 23:00 Intake Total 440 ml 200 ml 1037.5 ml 502.5 ml Output Total 5 ml Balance 440 ml 200 ml 1032.5 ml 502.5 ml Intake Oral 240 ml 775 ml 240 ml IV Total 200 ml 200 ml 262.5 ml 262.5 ml Output Urine Total 5 ml # Voids 3 1 # Bowel Movements 0 4 1 Result Diagram: 08/28/17 1522 08/31/17 0550 Objective Remarks GENERAL: Well-nourished, well-developed patient. SKIN: Warm and dry. HEAD: Normocephalic. EYES: No scleral icterus. No injection or drainage. NECK: Supple, trachea midline. No JVD or lymphadenopathy. CARDIOVASCULAR: Regular rate and rhythm without murmurs, gallops, or rubs. RESPIRATORY: Breath sounds equal bilaterally. No accessory muscle use. GASTROINTESTINAL: Abdomen soft, non-tender, nondistended. EXTREMITIES: Left foot under gauze wrap NEUROLOGICAL: Awake, alert, and oriented x 3. Non-focal. A/P Problem List: (1) Fracture, talus closed ICD Code: S92.109A - Unspecified fracture of unspecified talus, initial encounter for closed fracture Status: Acute (2) Osteomyelitis ICD Code: M86.9 - Osteomyelitis, unspecified Assessment and Plan Infected malunion fracture of left talus Surgical removal of hardware on 08/27/17 Second I&D on 09/02/17 due to purulent drainage Cultures show Staph aureus Continue Vancomycin and Aztreonam IV antibiotics recommended for 6 weeks Appreciate ID consult Appreciate Ortho consult Pain Control Throbbing pain is still a complaint Ibuprofen added for inflammatory pain DVT Prophylaxis No surgery planned, so will add Lovenox Discharge Planning Hx of non-compliance and absent follow ups Edward Trotter MD Sep 01, 2017 15:04
[2017-09-01 16:00] VITALS: BP 109/68; PULSE 73; RESP 17; TEMP 97.1; O2SAT 99
[2017-09-01] MEDS: ENOXAPARIN SODIUM 40 MG/0.4 ML SYRINGE SQ SCH (16:06)
[2017-09-02] VITALS: BP 112/55; PULSE 87; RESP 18; TEMP 99.1; O2SAT 97
[2017-09-02] MEDS: MORPHINE SULFATE 4 MG/ML INJ IV PUSH PRN ×4 (01:45→21:52)
[2017-09-02] MEDS ORDERED: PHARMACY ORDERED LAB ONE (03:45)
[2017-09-02] MEDS: oxyCODONE/ACETAMINOPHEN 5 MG/325 MG TAB PO PRN ×3 (04:05→20:24)
[2017-09-02 06:16] LABS: PROTHROMBIN TIME - PATIENT 10.5 SEC (9.8-11.6)
[2017-09-02] MEDS: VANCOMYCIN INJ 1,250 MG in SODIUM CHLOR 0.9% 250 ML INJ 250 ML IV SCH (06:40)
[2017-09-02 06:41] LABS: CREATININE 0.64 MG/DL (0.50-1.00)
[2017-09-02 06:55] LABS: VANCOMYCIN TROUGH 18.6 MCG/ML (5.0-10.0)
--- NOTE | 2017-09-02 07:05 | PD.ORT.PN ---
Subjective Subjective Remarks POD 6 s/p I&D with removal of HW left talus reports pain in foot. no changes Objective Vitals Vital Signs Date Time Temp Pulse Resp B/P (MAP) Pulse Ox O2 Delivery O2 Flow Rate FiO2 09/02/17 00:00 99.1 87 18 112/55 (74) 97 09/01/17 16:00 97.1 73 17 109/68 (82) 99 09/01/17 12:00 97.9 81 17 107/66 (80) 98 I/O 09/01/17 09/01/17 09/01/17 09/02/17 09/02/17 09/02/17 07:00 15:00 23:00 07:00 15:00 23:00 Intake Total 502.5 ml 1485.0 ml Balance 502.5 ml 1485.0 ml Intake Oral 240 ml 960 ml IV Total 262.5 ml 525.0 ml # Voids 1 4 # Bowel Movements 1 1 Result Diagram: 09/02/17 0542 Other Results Laboratory Tests Test 09/02/17 05:42 Prothromb Time International Ratio 1.0 RATIO Prothrombin Time 10.5 SEC (9.8-11.6) Objective Remarks Awake, alert, no acute distress LLE: dressings clean and dry. intact. NVI. Negative Homans. Assessment & Plan Assessment and Plan 1) Left Talus Fx s/p ORIF with nonunion and possible infection s/p I&D - POD 6 -Cxs with MSSA -Orthotech to place fx boot on left ankle -WBAT -will need 6 wks of IV Abx -infectious Dz consulted to manage -surgery today for repeat I&D and vac placement Choco Vale/First Charla FOOTE Sep 02, 2017 07:05
[2017-09-02 08:00] VITALS: BP 110/63; PULSE 61; RESP 19; TEMP 97.3; O2SAT 97
[2017-09-02] MEDS ORDERED: LACTATED RINGER'S 1000 ML IV PRN (08:30)
[2017-09-02] MEDS: SODIUM CHLORIDE 0.9% FLUSH 10 ML FLUSH IV FLUSH SCH ×2 (08:47→20:24)
[2017-09-02] MEDS ORDERED: GENTAMICIN SULFATE 80 MG/2 ML VIAL ONE (09:27)
[2017-09-02] MEDS ORDERED: TOBRAMYCIN 1200 MG VIAL (for ortho/sterile core) OTHER ONE (10:06)
[2017-09-02] MEDS ORDERED: VANCOMYCIN HCL 1000 MG VIAL ONE (10:06)
--- NOTE | 2017-09-02 11:07 | PD.OP ---
cc: Patel Strange MD Operative Report Date of Surgery: Sep 02, 2017 Preoperative Diagnosis: Left foot and ankle infection Postoperative Diagnosis: Procedure: Irrigation and debridement of left ankle, irrigation debridement of left talus, application wound VAC dressing Anesthesia: Gen. Surgeon: Patel Strange [employer] Supervisor(s): EDD Oreilly PA-C The surgical procedure was assisted by my physician psychiatric assistant. My P.A. presence was necessary throughout this case for the manipulation and positioning of the surgical extremity. My P.A. was assisting me throughout the duration of this procedure. The skill set of a physician psychiatric assistant was medically necessary to complete this procedure. During the surgical case the management technician was working at the back table and the physician psychiatric assistant was directly assisting me. Operation and Findings: Myra is a 27-year-old female who is well-known to me from previous surgeries. Patient received presented with an infection and had irrigation debridement of the ankle and talus with removal of hardware. She subsequently developed dehiscence of the lateral ankle wound. Informed consent was obtained and operative site was marked. She is brought to operating room. She is given IV sedation and general anesthesia. She is on scheduled IV antibiotics. Timeout procedure was performed. Procedure began with irrigation and debridement of the ankle. The ankle joint was exposed through previous incision. There was small amount of purulent drainage present. The ankle was thoroughly irrigated. Next was turned to debridement of the talus. There were areas of the talus or soft. Curettes and rongeurs were used to debride this bone. At this point was sent for cultures. After thorough debridement of bone the soft tissue and bone were thoroughly irrigated with pulsatile lavage. Overall the wound appeared clean at this time. The lateral incision was partially closed. The central 3 cm of the wound was left open. A VAC dressing was cut to fit. VAC dressing was placed into the wound. VAC dressing was sealed appropriately. Patient was awakened and transferred to recovery in stable condition. Patel Strange MD Sep 02, 2017 11:07
[2017-09-02] MEDS ORDERED: *MEPERIDINE 25 MG INJ VIAL PERIprocedural Use ONLY ONE (11:19)
[2017-09-02] MEDS ORDERED: MIDAZOLAM HCL 2 MG/2 ML VIAL ONE (11:20)
[2017-09-02] MEDS ORDERED: DO NOT ADM ANY ANTICOAGULANT DRUGS PRN ×3 (11:45→13:11)
[2017-09-02 12:00] VITALS: BP 122/80; PULSE 84; RESP 18; TEMP 97.1; O2SAT 100
[2017-09-02] MEDS ORDERED: ONDANSETRON HCL 4 MG/2 ML VIAL IV ONE (12:00)
[2017-09-02] MEDS ORDERED: LIDOCAINE HCL 1% PF 5 ML SYRINGE OTHER ONE (12:00)
[2017-09-02] MEDS: LACTATED RINGER'S 1000 ML INJ 1,000 ML IV SCH ×2 (12:23→20:25)
[2017-09-02] MEDS: VANCOMYCIN 1 GM/200 ML PREMIX IV SCH ×2 (12:23→20:24)
--- NOTE | 2017-09-02 14:43 | HHI.PR ---
Subjective Remarks Patient was seen postop. She was exhibiting unemotional affect that seems to be related to the anesthesia. Chief complaint today with pain in her left foot. She then requested a Pepsi. Objective Vitals Vital Signs Date Time Temp Pulse Resp B/P (MAP) Pulse Ox O2 Delivery O2 Flow Rate FiO2 09/02/17 12:00 97.1 84 18 122/80 (94) 100 09/02/17 11:30 114 18 142/96 (111) 100 Nasal Cannula 2 09/02/17 11:15 98.2 105 18 141/95 (110) 100 Simple Mask 10 09/02/17 08:00 97.3 61 19 110/63 (79) 97 09/02/17 00:00 99.1 87 18 112/55 (74) 97 09/01/17 16:00 97.1 73 17 109/68 (82) 99 I/O 09/01/17 09/01/17 09/01/17 09/02/17 09/02/17 09/02/17 07:00 15:00 23:00 07:00 15:00 23:00 Intake Total 502.5 ml 1485.0 ml 720 ml 562.5 ml Output Total 5 ml Balance 502.5 ml 1485.0 ml 720 ml 557.5 ml Intake Oral 240 ml 960 ml 720 ml 0 ml IV Total 262.5 ml 525.0 ml 262.5 ml Other 300 ml Estimated Blood Loss 5 ml # Voids 1 4 2 # Bowel Movements 1 1 0 Result Diagram: 09/02/17 0542 Objective Remarks GENERAL: Well-nourished, well-developed patient. SKIN: Warm and dry. HEAD: Normocephalic. EYES: No scleral icterus. No injection or drainage. NECK: Supple, trachea midline. No JVD or lymphadenopathy. CARDIOVASCULAR: Regular rate and rhythm without murmurs, gallops, or rubs. RESPIRATORY: Breath sounds equal bilaterally. No accessory muscle use. GASTROINTESTINAL: Abdomen soft, non-tender, nondistended. EXTREMITIES: Left foot under Edwin wrap, with wound VAC placed. NEUROLOGICAL: Awake, alert, and oriented x 3. Non-focal. A/P Problem List: (1) Fracture, talus closed ICD Code: S92.109A - Unspecified fracture of unspecified talus, initial encounter for closed fracture Status: Acute (2) Osteomyelitis ICD Code: M86.9 - Osteomyelitis, unspecified Assessment and Plan Infected malunion fracture of left talus Surgical removal of hardware on 08/27/17 Repeat I&D on 09/02/17 Cultures show Staph aureus Continue Vancomycin and Aztreonam, 6 weeks full course recommended Appreciate ID consult Appreciate Ortho consult Pain Control Pain is increased following surgery Oral Percocet in place with morphine IV for breakthrough DVT Prophylaxis Lovenox Discharge Planning Hx of non-compliance and absent follow ups Edward Trotter MD Sep 02, 2017 14:43
--- NOTE | 2017-09-02 15:14 | HHI.IDPN ---
Subjective Subjective Remarks Ms. Luna is a 27-year-old female with past medical history significant for IV drug abuse and status post ORIF of the left talus in January 2017 presents to the emergency department with a 3-5 day history of a left swollen ankle. The patient reports that she has pain, swelling in her ankle making it difficult to ambulate. She states that the pain is intolerable. She is a poor historian. So the history was obtained by review of medical records. The patient denies any fever/chills/nausea/vomiting. She admits to using cocaine, Margot, methamphetamines and opiates. Vital signs on presentation: Temperature 98.2, pulse 114, respirations 16, BP 125/81, pulse ox 98% on room air. Patient was seen by orthopedic surgeon Dr. Strange who removed the hardware and performed an I&D and intraoperative cultures are now growing staph aureus infectious disease is consulted for evaluation and management of infected hardware of the left ankle. Overnight events reviewed No fevers No rash No diarrhea Antibiotics vanco IV Lines Line sites with no evidence of infection. Past Medical History Past Medical History Asthma Polysubstance abuse Anxiety Depression Cervical Cancer Bipolar disorder Past Surgical History Tubal ligation Open reduction internal fixation left talus Allergies: Coded Allergies: peanut (Unverified Allergy, Severe, 08/26/17) "throat swelling" penicillin G (Unverified Allergy, Severe, SWELLING, 08/26/17) Objective . Vital Signs Date Time Temp Pulse Resp B/P (MAP) Pulse Ox O2 Delivery O2 Flow Rate FiO2 09/02/17 12:00 97.1 84 18 122/80 (94) 100 09/02/17 11:30 114 18 142/96 (111) 100 Nasal Cannula 2 09/02/17 11:15 98.2 105 18 141/95 (110) 100 Simple Mask 10 09/02/17 08:00 97.3 61 19 110/63 (79) 97 09/02/17 00:00 99.1 87 18 112/55 (74) 97 09/01/17 16:00 97.1 73 17 109/68 (82) 99 09/02/17 09/02/17 09/03/17 15:00 23:00 07:00 Intake Total 562.5 ml Output Total 5 ml Balance 557.5 ml Intake Oral 0 ml IV Total 262.5 ml Other 300 ml Estimated Blood Loss 5 ml . Laboratory Tests Test 09/02/17 05:42 Creatinine 0.64 MG/DL Estimat Glomerular Filtration Rate 110 ML/MIN Microbiology Date/Time Source Procedure Growth Status 09/02/17 10:51 Wound Foot Fungal Smear Pending Received 09/02/17 10:51 Wound Foot Fungal Culture Pending Received 09/02/17 10:51 Wound Foot Acid Fast Stain Pending Received 09/02/17 10:51 Wound Foot Mycobacterial Culture Pending Received 09/02/17 10:51 Wound Foot Gram Stain Pending Received 09/02/17 10:51 Wound Foot Wound Culture Pending Received Imaging Last Impressions Ankle X-Ray 08/27/17 0000 Signed Impressions: Service Date/Time: Sunday, August 27, 2017 13:15 - CONCLUSION: No residual hardware. Jd Gatica MD FACR Lower Extremity CT 08/26/17 0000 Signed Impressions: Service Date/Time: August 23:50 - CONCLUSION: 1. Remote comminuted fracture of the talus status post fixation with nonunion at the fracture sites. Abnormal lucency and sclerosis in the talus with slight depression of the articular surface. There could be an element of avascular necrosis in the talus. Positive ankle joint effusion. No definite acute fracture. Tirso Rhodes MD Physical Exam GENERAL: This is a well-nourished, well-developed patient, in no apparent distress. SKIN: No rashes, ecchymoses or lesions. Cool and dry. HEAD: Atraumatic. Normocephalic. No temporal or scalp tenderness. EYES: Pupils equal round and reactive. Extraocular motions intact. No scleral icterus. No injection or drainage. ENT: Nose without bleeding, purulent drainage or septal hematoma. Throat without erythema, tonsillar hypertrophy or exudate. Uvula midline. Airway patent. NECK: Trachea midline. Supple, nontender, no meningeal signs. CARDIOVASCULAR: Heart sounds audible RESPIRATORY: Clear to auscultation. Breath sounds equal bilaterally. No wheezes , rales, or rhonchi. GASTROINTESTINAL: Abdomen soft, non-tender, nondistended. MUSCULOSKELETAL: Left ankle in postoperative dressing NEUROLOGICAL: Awake and alert. Nonfocal exam. Psych cooperative IV line sites with no evidence of infection Assessment & Plan Remarks Left ankle infected hardware status post removal Staph aureus infection susceptibility pending IV drug abuser High-grade Penicillin allergy reports swelling of her lips and airway Recommendations: Continue vancomycin IV target 15-20 for septic arthritis) Follow cultures Follow clinically Hospitalists to order CBC with diff, CMP, CRP every Wednesday and follow them. Salud Martines MD Sep 02, 2017 15:14
[2017-09-02 16:00] VITALS: BP 117/60; PULSE 89; RESP 18; TEMP 97.2; O2SAT 94
[2017-09-02] MEDS: ENOXAPARIN SODIUM 40 MG/0.4 ML SYRINGE SQ SCH (16:00)
[2017-09-02 20:00] VITALS: BP 130/78; PULSE 111; RESP 22; TEMP 98.9; O2SAT 99
[2017-09-03] VITALS: BP 107/60; PULSE 87; RESP 18; TEMP 97.6; O2SAT 94
[2017-09-03] MEDS: oxyCODONE/ACETAMINOPHEN 5 MG/325 MG TAB PO PRN ×5 (01:38→20:01)
[2017-09-03 04:00] VITALS: BP 108/65; PULSE 92; RESP 20; TEMP 96.5; O2SAT 99
[2017-09-03] MEDS: VANCOMYCIN 1 GM/200 ML PREMIX IV SCH ×3 (04:18→20:02)
[2017-09-03] MEDS: MORPHINE SULFATE 4 MG/ML INJ IV PUSH PRN ×5 (04:18→21:24)
[2017-09-03] MEDS: LACTATED RINGER'S 1000 ML INJ 1,000 ML IV SCH ×2 (05:55→18:11)
[2017-09-03 08:00] VITALS: BP 109/71; PULSE 97; RESP 16; TEMP 97.7; O2SAT 100
[2017-09-03] MEDS: SODIUM CHLORIDE 0.9% FLUSH 10 ML FLUSH IV FLUSH SCH ×2 (08:03→20:05)
--- NOTE | 2017-09-03 08:05 | PD.ORT.PN ---
Subjective Subjective Remarks POD 1 s/p repeat I&D left foot with vac application doing well. pain controlled. Objective Vitals Vital Signs Date Time Temp Pulse Resp B/P (MAP) Pulse Ox O2 Delivery O2 Flow Rate FiO2 09/03/17 04:00 96.5 92 20 108/65 (79) 99 09/03/17 00:00 97.6 87 18 107/60 (76) 94 09/02/17 20:00 98.9 111 22 130/78 (95) 99 09/02/17 16:00 97.2 89 18 117/60 (79) 94 09/02/17 12:00 97.1 84 18 122/80 (94) 100 09/02/17 11:30 114 18 142/96 (111) 100 Nasal Cannula 2 09/02/17 11:15 98.2 105 18 141/95 (110) 100 Simple Mask 10 I/O 09/02/17 09/02/17 09/02/17 09/03/17 09/03/17 09/03/17 07:00 15:00 23:00 07:00 15:00 23:00 Intake Total 720 ml 562.5 ml 1680 ml 720 ml Output Total 5 ml 25 ml Balance 720 ml 557.5 ml 1680 ml 695 ml Intake Oral 720 ml 0 ml 480 ml 720 ml IV Total 262.5 ml 1200 ml Other 300 ml Drainage Total 25 ml Estimated Blood Loss 5 ml # Voids 2 3 2 # Bowel Movements 0 0 Result Diagram: 09/02/17 0542 Objective Remarks Awake, alert, no acute distress LLE: dressings clean and dry. intact. NVI. Negative Homans. +vac with good seal Assessment & Plan Assessment and Plan 1) Left Talus Fx s/p ORIF with nonunion with hardware infection wiht repeat I&D and vac application - POD 1 -Cxs with MSSA -Orthotech to place fx boot on left ankle -WBAT -will need 6 wks of IV Abx -infectious Dz consulted to manage -maintain vac at all times -will plan for repeat I&D next week Choco Vale/First Charla FOOTE Sep 03, 2017 08:05
[2017-09-03 12:00] VITALS: BP 118/60; PULSE 93; RESP 16; TEMP 98.3; O2SAT 96
--- NOTE | 2017-09-03 15:39 | HHI.PR ---
Subjective Remarks Patient is in better spirits today, pain is adequately controlled. She says that she has another debridement surgery planned for this Wednesday or Wednesday. Objective Vitals Vital Signs Date Time Temp Pulse Resp B/P (MAP) Pulse Ox O2 Delivery O2 Flow Rate FiO2 09/03/17 12:00 98.3 93 16 118/60 (79) 96 09/03/17 08:00 97.7 97 16 109/71 (84) 100 09/03/17 04:00 96.5 92 20 108/65 (79) 99 09/03/17 00:00 97.6 87 18 107/60 (76) 94 09/02/17 20:00 98.9 111 22 130/78 (95) 99 09/02/17 16:00 97.2 89 18 117/60 (79) 94 I/O 09/02/17 09/02/17 09/02/17 09/03/17 09/03/17 09/03/17 07:00 15:00 23:00 07:00 15:00 23:00 Intake Total 720 ml 562.5 ml 1680 ml 720 ml Output Total 5 ml 25 ml Balance 720 ml 557.5 ml 1680 ml 695 ml Intake Oral 720 ml 0 ml 480 ml 720 ml IV Total 262.5 ml 1200 ml Other 300 ml Drainage Total 25 ml Estimated Blood Loss 5 ml # Voids 2 3 2 # Bowel Movements 0 0 Result Diagram: 09/02/17 0542 Objective Remarks GENERAL: Well-nourished, well-developed patient. SKIN: Warm and dry. HEAD: Normocephalic. EYES: No scleral icterus. No injection or drainage. NECK: Supple, trachea midline. No JVD or lymphadenopathy. CARDIOVASCULAR: Regular rate and rhythm without murmurs, gallops, or rubs. RESPIRATORY: Breath sounds equal bilaterally. No accessory muscle use. GASTROINTESTINAL: Abdomen soft, non-tender, nondistended. EXTREMITIES: Left foot under Edwin wrap, with wound VAC placed. NEUROLOGICAL: Awake, alert, and oriented x 3. Non-focal. A/P Problem List: (1) Fracture, talus closed ICD Code: S92.109A - Unspecified fracture of unspecified talus, initial encounter for closed fracture Status: Acute (2) Osteomyelitis ICD Code: M86.9 - Osteomyelitis, unspecified Assessment and Plan Infected malunion fracture of left talus Surgical removal of hardware on 08/27/17 Repeat I&D on 09/02/17, per patient another planned for this Wednesday or Wednesday. Cultures show Staph aureus Continue Vancomycin and Aztreonam, 6 weeks full course recommended Appreciate ID consult Appreciate Ortho consult Pain Control Pain is adequately controlled today Continue oral Percocet with morphine IV for breakthrough DVT Prophylaxis Lovenox Discharge Planning Hx of non-compliance and absent follow ups Edward Trotter MD Sep 03, 2017 15:39
[2017-09-03 15:49] VITALS: BP 108/68; PULSE 89; RESP 16; TEMP 98.7; O2SAT 100
[2017-09-03] MEDS: ENOXAPARIN SODIUM 40 MG/0.4 ML SYRINGE SQ SCH (15:49)
[2017-09-03 20:00] VITALS: BP 122/66; PULSE 101; RESP 21; TEMP 100; O2SAT 99
[2017-09-04] VITALS: BP 119/57; PULSE 96; RESP 21; TEMP 95.9; O2SAT 97
[2017-09-04] MEDS: oxyCODONE/ACETAMINOPHEN 5 MG/325 MG TAB PO PRN ×4 (00:51→21:38)
[2017-09-04] MEDS: LACTATED RINGER'S 1000 ML INJ 1,000 ML IV SCH ×3 (03:05→23:02)
[2017-09-04] MEDS: MORPHINE SULFATE 4 MG/ML INJ IV PUSH PRN ×4 (03:05→18:06)
[2017-09-04] MEDS ORDERED: PHARMACY ORDERED LAB ONE (03:45)
[2017-09-04] MEDS: VANCOMYCIN 1 GM/200 ML PREMIX IV SCH (03:54)
[2017-09-04 03:56] LABS: CREATININE 0.79 MG/DL (0.50-1.00); VANCOMYCIN TROUGH 23.9 MCG/ML (5.0-10.0)
[2017-09-04 08:00] VITALS: BP 123/57; PULSE 91; RESP 17; TEMP 97.2; O2SAT 98
--- NOTE | 2017-09-04 09:03 | ECHRPT ---
Indication: SEPSIS ENDOCARDITIS CONCLUSIONS Normal left ventricular size. The left ventricular systolic function is low normal with an estimated ejection fraction in the rang e of 50- 55%. No evidence of valvular vegetations. BP: / HR: Rhythm: MEASUREMENTS (Male / Female) Normal Values Technical Quality:Good 2D ECHO LV Diastolic Diameter PLAX 3.9 cm 4.2 - 5.9 / 3.9 - 5.3 cm LV Systolic Diameter PLAX 3.1 cm IVS Diastolic Thickness 0.8 cm 0.6 - 1.0 / 0.6 - 0.9 cm LVPW Diastolic Thickness 0.8 cm 0.6 - 1.0 / 0.6 - 0.9 cm LV Relative Wall Thickness 0.4 LA Systolic Diameter LX 3.4 cm 3.0 - 4.0 / 2.7 - 3.8 cm DOPPLER LVOT Peak Velocity 134.0 cm/s LVOT Peak Gradient 7.2 mmHg Mitral E Point Velocity 80.0 cm/s Mitral A Point Velocity 52.8 cm/s Mitral E to A Ratio 1.5 TR Peak Velocity 155.0 cm/s TR Peak Gradient 9.6 mmHg FINDINGS LEFT VENTRICLE Normal left ventricular size. The left ventricular systolic function is low normal with an estimated ejection fraction in the rang e of 50- 55%. RIGHT VENTRICLE Normal right ventricular size and systolic function. LEFT ATRIUM The left atrial size is normal. RIGHT ATRIUM The right atrial size is normal. ATRIAL SEPTUM Normal atrial septal thickness without atrial level shunting by limited color doppler interrogation. AORTA The aortic root and proximal ascending aorta are normal in size on limited imaging. MITRAL VALVE Structurally normal mitral valve. No mitral valve stenosis or regurgitation. AORTIC VALVE Trileaflet aortic valve. No aortic valve stenosis or regurgitation. TRICUSPID VALVE Structurally normal tricuspid valve. No tricuspid valve stenosis or regurgitation. PULMONARY VALVE The pulmonary valve is not well visualized. VESSELS The inferior vena cava is normal in size. PERICARDIUM No pericardial effusion. Ned Galloway MD, FACC (Electronically Signed) Final Date:04 September 2017 09:02
[2017-09-04] MEDS: SODIUM CHLORIDE 0.9% FLUSH 10 ML FLUSH IV FLUSH PRN (09:33)
[2017-09-04 12:00] VITALS: BP 120/59; PULSE 87; RESP 17; TEMP 97.9; O2SAT 98
[2017-09-04] MEDS: SODIUM CHLORIDE 0.9% FLUSH 10 ML FLUSH IV FLUSH SCH ×2 (12:34→21:00)
--- NOTE | 2017-09-04 13:31 | HHI.PR ---
Subjective Remarks Patient seen and examined. AFVSS. No acute events overnight. No history obtained as patient refuses to talk and states, "I wanna sleep." Objective Vitals Vital Signs Date Time Temp Pulse Resp B/P (MAP) Pulse Ox O2 Delivery O2 Flow Rate FiO2 09/04/17 12:00 97.9 87 17 120/59 (79) 98 09/04/17 08:00 97.2 91 17 123/57 (79) 98 09/04/17 00:00 95.9 96 21 119/57 (77) 97 09/03/17 20:00 100.0 101 21 122/66 (84) 99 09/03/17 15:49 98.7 89 16 108/68 (81) 100 I/O 09/03/17 09/03/17 09/03/17 09/04/17 09/04/17 09/04/17 07:00 15:00 23:00 07:00 15:00 23:00 Intake Total 720 ml 840 ml 750 ml Output Total 25 ml 25 ml Balance 695 ml 840 ml 725 ml Intake Oral 720 ml 640 ml 750 ml IV Total 200 ml Drainage Total 25 ml 25 ml # Voids 2 7 5 # Bowel Movements 0 0 1 Result Diagram: 09/04/17 0310 Imaging Ankle X-Ray 08/27/17 0000 Signed Impressions: Service Date/Time: Sunday, August 27, 2017 13:15 - CONCLUSION: No residual hardware. Jd Gatica MD FACR Lower Extremity CT 08/26/17 0000 Signed Impressions: Service Date/Time: August 23:50 - CONCLUSION: 1. Remote comminuted fracture of the talus status post fixation with nonunion at the fracture sites. Abnormal lucency and sclerosis in the talus with slight depression of the articular surface. There could be an element of avascular necrosis in the talus. Positive ankle joint effusion. No definite acute fracture. Tirso Rhodes MD Objective Remarks Patient refused physical exam stating "I wanna sleep" Able to see wound vac with dressing around left ankle A/P Problem List: (1) Fracture, talus closed ICD Code: S92.109A - Unspecified fracture of unspecified talus, initial encounter for closed fracture Status: Acute (2) Osteomyelitis ICD Code: M86.9 - Osteomyelitis, unspecified Assessment and Plan 27 year old female with history of IVDU admitted for septic arthritis. Infected malunion fracture of left talus Surgical removal of hardware on 08/27/17 Repeat I&D on 09/02/17 and planning to repeat again this week; appreciate ortho intervention Wound cultures show Staph aureus Continue Vancomycin (started 09/04, 6 weeks full course recommended) Aztreonam discontinued (08/27-08/29) Check CBC, CMP, and CRP weekly on Mondays; appreciate ID consult Pain Control Continue oral Percocet with morphine IV for breakthrough DVT Prophylaxis Lovenox Discharge Planning Hx of non-compliance and absent follow ups Kathi Bueno MD Sep 04, 2017 13:30
[2017-09-04 16:00] VITALS: BP 127/76; PULSE 93; RESP 17; TEMP 99.3; O2SAT 100
[2017-09-04] MEDS ORDERED: VANCOMYCIN 1 GM/200 ML PREMIX IV SCH (16:00)
[2017-09-04] MEDS: ENOXAPARIN SODIUM 40 MG/0.4 ML SYRINGE SQ SCH (16:01)
[2017-09-04 20:00] VITALS: BP 123/74; PULSE 82; RESP 18; TEMP 98.5; O2SAT 96
[2017-09-05 00:12] VITALS: BP 117/58; PULSE 91; RESP 21; TEMP 97.6; O2SAT 98
[2017-09-05] MEDS: oxyCODONE/ACETAMINOPHEN 5 MG/325 MG TAB PO PRN ×5 (01:26→20:00)
[2017-09-05] MEDS: MORPHINE SULFATE 4 MG/ML INJ IV PUSH PRN ×5 (04:01→22:13)
[2017-09-05] MEDS: VANCOMYCIN 1,000 MG/NS 250 ML IV SCH ×4 (04:02→16:52)
[2017-09-05 08:00] VITALS: BP 117/66; PULSE 84; RESP 17; TEMP 96.3; O2SAT 97
[2017-09-05] MEDS: SODIUM CHLORIDE 0.9% FLUSH 10 ML FLUSH IV FLUSH PRN (08:43)
[2017-09-05] MEDS: SODIUM CHLORIDE 0.9% FLUSH 10 ML FLUSH IV FLUSH SCH ×2 (09:00→19:20)
--- NOTE | 2017-09-05 10:40 | HHI.PR ---
Subjective Remarks Pt seen and examined this morning. In better spirits than yesterday. Reports pain in left ankle otherwise no other complaints. Denies CP, SOB, abdominal pain , N/V. Tolerating PO. Ambulating. Objective Vitals Vital Signs Date Time Temp Pulse Resp B/P (MAP) Pulse Ox O2 Delivery O2 Flow Rate FiO2 09/05/17 08:00 96.3 84 17 117/66 (83) 97 09/05/17 00:12 97.6 91 21 117/58 (77) 98 09/04/17 20:00 98.5 82 18 123/74 (90) 96 09/04/17 16:00 99.3 93 17 127/76 (93) 100 09/04/17 12:00 97.9 87 17 120/59 (79) 98 I/O 09/04/17 09/04/17 09/04/17 09/05/17 09/05/17 09/05/17 07:00 15:00 23:00 07:00 15:00 23:00 Intake Total 750 ml 1160 ml 440 ml Output Total 25 ml Balance 725 ml 1160 ml 440 ml Intake Oral 750 ml 960 ml 240 ml IV Total 200 ml 200 ml Drainage Total 25 ml # Voids 5 5 3 # Bowel Movements 1 2 Result Diagram: 09/04/17 0310 Objective Remarks GENERAL: WN, WD female sitting up in chair in NAD. SKIN: Warm and dry. Track bledsoe on right ankle and arms. HEENT: Pupils equal and round. MMM. HEART: RRR no m/r/g. LUNGS: CTAB without wheezes or crackles. ABDOMEN: Soft, NT, ND. EXTREMITIES: L ankle in soft wrap with wound vac in place. NEURO: Awake and alert. A/P Problem List: (1) Septic arthritis ICD Code: M00.9 - Pyogenic arthritis, unspecified Status: Acute (2) Fracture, talus closed ICD Code: S92.109A - Unspecified fracture of unspecified talus, initial encounter for closed fracture Status: Acute Assessment and Plan 27 year old female with history of IVDU admitted for septic arthritis. Infected malunion fracture of left talus Surgical removal of hardware on 08/27/17 Repeat I&D on 09/02/17 and planning to repeat again this week; appreciate ortho intervention Wound cultures show Staph aureus Continue Vancomycin (started 2/10, 6 weeks full course recommended) Aztreonam discontinued (08/27-08/29) Check CBC, CMP, and CRP weekly on Mondays; appreciate ID consult Pain Control Continue oral Percocet with morphine IV for breakthrough DVT Prophylaxis Lovenox Discharge Planning Hx of non-compliance and absent follow ups Problem Qualifiers (1) Septic arthritis: Qualified Codes: M00.9 - Pyogenic arthritis, unspecified Kathi uBeno MD Sep 05, 2017 10:40
[2017-09-05 12:00] VITALS: BP 137/78; PULSE 147; RESP 17; TEMP 99.2; O2SAT 96
[2017-09-05] MEDS: ENOXAPARIN SODIUM 40 MG/0.4 ML SYRINGE SQ SCH (15:25)
[2017-09-05 15:33] LABS: AUTOMATED NEUTROPHIL # 1.2 TH/MM3 (1.8-7.7); BASOPHIL % 0.5 % (0.0-2.0); EOSINOPHIL # 0.1 TH/MM3 (0-0.4); EOSINOPHIL % 3.1 % (0.0-4.0); HEMATOCRIT 36.9 % (35.0-46.0); HEMOGLOBIN 12.6 GM/DL (11.6-15.3); LYMPH % 36.8 % (9.0-44.0); LYMPHOCYTE # 1.1 TH/MM3 (1.0-4.8); MEAN CELL VOLUME 90.1 FL (80.0-100.0); MEAN CORPUSCULAR HEMOGLOBIN 30.9 PG (27.0-34.0); MEAN CORPUSCULAR HGB CONC 34.2 % (32.0-36.0); MEAN PLATELET VOLUME 8.5 FL (7.0-11.0); MONO % 18.7 % (0.0-8.0); MONOCYTE # 0.5 TH/MM3 (0-0.9); NEUT % 40.9 % (16.0-70.0); PLATELET COUNT 285 TH/MM3 (150-450); RED BLOOD COUNT 4.09 MIL/MM3 (4.00-5.30); RED CELL DISTRIBUTION WIDTH 12.9 % (11.6-17.2); WHITE BLOOD COUNT 2.9 TH/MM3 (4.0-11.0)
[2017-09-05 16:00] VITALS: BP 119/58; PULSE 106; RESP 17; TEMP 98.8; O2SAT 98
[2017-09-05 16:01] LABS: ALBUMIN 2.5 GM/DL (3.4-5.0); AST (GOT) 17 U/L (15-37); BICARBONATE 34.4 MEQ/L (21.0-32.0); BLOOD UREA NITROGEN 13 MG/DL (7-18); CALCIUM 8.9 MG/DL (8.5-10.1); CHLORIDE 99 MEQ/L (98-107); CREATININE 0.84 MG/DL (0.50-1.00); GLOMERULAR FILTRATION RATE 80 ML/MIN (>89); GLUCOSE,RANDOM 103 MG/DL (74-106); SODIUM (NA) 138 MEQ/L (136-145)
[2017-09-05 16:02] LABS: ALT (GPT) 21 U/L (10-53)
[2017-09-05 16:04] LABS: ALKALINE PHOSPHATASE 93 U/L (45-117); TOTAL BILIRUBIN ADULT 0.1 MG/DL (0.2-1.0); TOTAL PROTEIN 7.5 GM/DL (6.4-8.2)
[2017-09-05] MEDS: LACTATED RINGER'S 1000 ML INJ 1,000 ML IV SCH (19:02)
[2017-09-05 20:00] VITALS: BP 110/58; PULSE 98; RESP 18; TEMP 99.1; O2SAT 98
[2017-09-06] VITALS: BP 100/72; PULSE 99; RESP 19; TEMP 99.2; O2SAT 97
[2017-09-06] MEDS: oxyCODONE/ACETAMINOPHEN 5 MG/325 MG TAB PO PRN ×5 (00:03→23:48)
[2017-09-06] MEDS: MORPHINE SULFATE 4 MG/ML INJ IV PUSH PRN ×5 (01:41→22:43)
[2017-09-06] MEDS: VANCOMYCIN 1,000 MG/NS 250 ML IV SCH ×2 (04:00)
[2017-09-06] MEDS: LACTATED RINGER'S 1000 ML INJ 1,000 ML IV SCH ×3 (05:02→22:58)
--- NOTE | 2017-09-06 06:40 | PD.ORT.PN ---
Subjective Subjective Remarks POD 3 s/p repeat I&D left foot with vac application doing well. pain controlled. Objective Vitals Vital Signs Date Time Temp Pulse Resp B/P (MAP) Pulse Ox O2 Delivery O2 Flow Rate FiO2 09/06/17 00:00 99.2 99 19 100/72 (81) 97 09/05/17 20:00 99.1 98 18 110/58 (75) 98 09/05/17 16:00 98.8 106 17 119/58 (78) 98 09/05/17 12:00 99.2 147 17 137/78 (97) 96 09/05/17 08:00 96.3 84 17 117/66 (83) 97 I/O 09/05/17 09/05/17 09/05/17 09/06/17 09/06/17 09/06/17 07:00 15:00 23:00 07:00 15:00 23:00 Intake Total 440 ml 1688 ml 800 ml Balance 440 ml 1688 ml 800 ml Intake Oral 240 ml 1138 ml 800 ml IV Total 200 ml 550 ml # Voids 3 10 4 # Bowel Movements 2 Result Diagram: 09/05/17 1453 09/05/17 1453 Objective Remarks Awake, alert, no acute distress LLE: dressings clean and dry. intact. NVI. Negative Homans. +vac with good seal Assessment & Plan Assessment and Plan 1) Left Talus Fx s/p ORIF with nonunion with hardware infection wiht repeat I&D and vac application - POD 4 -Cxs with MSSA -Orth[employer] to place fx boot on left ankle -WBAT -will need 6 wks of IV Abx -infectious Dz consulted to manage -maintain vac at all times -will plan for repeat I&D next week -npo after MN -sign consents -plan for surgery tomorrow Choco Vale/First Charla FOOTE Sep 06, 2017 06:40
[2017-09-06 08:00] VITALS: BP 107/56; PULSE 84; RESP 19; TEMP 97.1; O2SAT 98
--- NOTE | 2017-09-06 08:40 | HHI.PR ---
Subjective Remarks Pt seen and examined this morning. In bed sleeping but answers questions appropriately and allows me to examined her. Endorses same pain in her foot/ ankle otherwise no other pain. Tolerating PO without nausea or vomiting. No CP or SOB. Objective Vitals Vital Signs Date Time Temp Pulse Resp B/P (MAP) Pulse Ox O2 Delivery O2 Flow Rate FiO2 09/06/17 08:00 97.1 84 19 107/56 (73) 98 09/06/17 00:00 99.2 99 19 100/72 (81) 97 09/05/17 20:00 99.1 98 18 110/58 (75) 98 09/05/17 16:00 98.8 106 17 119/58 (78) 98 09/05/17 12:00 99.2 147 17 137/78 (97) 96 I/O 09/05/17 09/05/17 09/05/17 09/06/17 09/06/17 09/06/17 07:00 15:00 23:00 07:00 15:00 23:00 Intake Total 440 ml 1688 ml 800 ml Balance 440 ml 1688 ml 800 ml Intake Oral 240 ml 1138 ml 800 ml IV Total 200 ml 550 ml # Voids 3 10 4 # Bowel Movements 2 Result Diagram: 09/05/17 1453 09/05/17 1453 Objective Remarks GENERAL: WN, WD female sitting up in chair in NAD. SKIN: Warm and dry. Track bledsoe on right ankle and arms. HEENT: Pupils equal and round. MMM. HEART: RRR no m/r/g. LUNGS: CTAB without wheezes or crackles. ABDOMEN: Soft, NT, ND. EXTREMITIES: L ankle in soft wrap with wound vac in place. NEURO: Awake and alert. A/P Problem List: (1) Septic arthritis ICD Code: M00.9 - Pyogenic arthritis, unspecified Status: Acute (2) Fracture, talus closed ICD Code: S92.109A - Unspecified fracture of unspecified talus, initial encounter for closed fracture Status: Acute Assessment and Plan 27 year old female with history of IVDU admitted for septic arthritis. Infected malunion fracture of left talus Surgical removal of hardware on 08/27/17 Repeat I&D on 09/02/17 and planning to repeat tomorrow; appreciate ortho intervention Wound cultures show Staph aureus Continue Vancomycin (started 08/28, 6 weeks full course recommended) Aztreonam discontinued (08/27-08/29) Check CBC, CMP, and CRP weekly on Mondays; appreciate ID consult Pain Control Continue oral Percocet with morphine IV for breakthrough DVT Prophylaxis Lovenox Discharge Planning Hx of non-compliance and absent follow ups Problem Qualifiers (1) Septic arthritis: Qualified Codes: M00.9 - Pyogenic arthritis, unspecified Kathi Bueno MD Sep 06, 2017 08:40
[2017-09-06] MEDS: SODIUM CHLORIDE 0.9% FLUSH 10 ML FLUSH IV FLUSH SCH ×2 (09:00→21:00)
[2017-09-06 12:00] VITALS: BP 118/56; PULSE 84; RESP 19; TEMP 100; O2SAT 98
--- NOTE | 2017-09-06 13:48 | HHI.IDPN ---
Subjective Subjective Remarks Ms. Luna is a 27-year-old female with past medical history significant for IV drug abuse and status post ORIF of the left talus in January 2017 presents to the emergency department with a 3-5 day history of a left swollen ankle. The patient reports that she has pain, swelling in her ankle making it difficult to ambulate. She states that the pain is intolerable. She is a poor historian. So the history was obtained by review of medical records. The patient denies any fever/chills/nausea/vomiting. She admits to using cocaine, Margot, methamphetamines and opiates. Vital signs on presentation: Temperature 98.2, pulse 114, respirations 16, BP 125/81, pulse ox 98% on room air. Patient was seen by orthopedic surgeon Dr. Strange who removed the hardware and performed an I&D and intraoperative cultures are now growing staph aureus infectious disease is consulted for evaluation and management of infected hardware of the left ankle. Overnight events reviewed No fevers No rash No diarrhea Plan on surgery for wash out again in am Concern that vanco may not be working effectively for MSSA infection. Ancef and PCN first line choices. dw Patient she reports rash and ? hives with Amoxicillin many years back but has tolerated Keflex many a times for UTI. Antibiotics vanco IV Lines Line sites with no evidence of infection. Past Medical History Past Medical History Asthma Polysubstance abuse Anxiety Depression Cervical Cancer Bipolar disorder Past Surgical History Tubal ligation Open reduction internal fixation left talus Allergies: Coded Allergies: peanut (Unverified Allergy, Severe, 08/26/17) "throat swelling" penicillin G (Unverified Allergy, Intermediate, Rash with hives with amoxicillin but tolerated Keflex past., 09/06/17) Objective . Vital Signs Date Time Temp Pulse Resp B/P (MAP) Pulse Ox O2 Delivery O2 Flow Rate FiO2 09/06/17 12:00 100.0 84 19 118/56 (76) 98 09/06/17 08:00 97.1 84 19 107/56 (73) 98 09/06/17 00:00 99.2 99 19 100/72 (81) 97 09/05/17 20:00 99.1 98 18 110/58 (75) 98 09/05/17 16:00 98.8 106 17 119/58 (78) 98 . Laboratory Tests Test 09/05/17 14:53 White Blood Count 2.9 TH/MM3 Red Blood Count 4.09 MIL/MM3 Hemoglobin 12.6 GM/DL Hematocrit 36.9 % Mean Corpuscular Volume 90.1 FL Mean Corpuscular Hemoglobin 30.9 PG Mean Corpuscular Hemoglobin Concent 34.2 % Red Cell Distribution Width 12.9 % Platelet Count 285 TH/MM3 Mean Platelet Volume 8.5 FL Neutrophils (%) (Auto) 40.9 % Lymphocytes (%) (Auto) 36.8 % Monocytes (%) (Auto) 18.7 % Eosinophils (%) (Auto) 3.1 % Basophils (%) (Auto) 0.5 % Neutrophils # (Auto) 1.2 TH/MM3 Lymphocytes # (Auto) 1.1 TH/MM3 Monocytes # (Auto) 0.5 TH/MM3 Eosinophils # (Auto) 0.1 TH/MM3 Basophils # (Auto) 0.0 TH/MM3 CBC Comment DIFF FINAL Differential Comment Laboratory Tests Test 09/05/17 14:53 Blood Urea Nitrogen 13 MG/DL Creatinine 0.84 MG/DL Random Glucose 103 MG/DL Total Protein 7.5 GM/DL Albumin 2.5 GM/DL Calcium Level 8.9 MG/DL Alkaline Phosphatase 93 U/L Aspartate Amino Transf (AST/SGOT) 17 U/L Alanine Aminotransferase (ALT/SGPT) 21 U/L Total Bilirubin 0.1 MG/DL Sodium Level 138 MEQ/L Potassium Level 3.5 MEQ/L Chloride Level 99 MEQ/L Carbon Dioxide Level 34.4 MEQ/L Anion Gap 5 MEQ/L Estimat Glomerular Filtration Rate 80 ML/MIN C-Reactive Protein 2.90 MG/DL Imaging Last Impressions Ankle X-Ray 08/27/17 0000 Signed Impressions: Service Date/Time: Sunday, August 27, 2017 13:15 - CONCLUSION: No residual hardware. Jd Gatica MD FACR Lower Extremity CT 08/26/17 0000 Signed Impressions: Service Date/Time: August 23:50 - CONCLUSION: 1. Remote comminuted fracture of the talus status post fixation with nonunion at the fracture sites. Abnormal lucency and sclerosis in the talus with slight depression of the articular surface. There could be an element of avascular necrosis in the talus. Positive ankle joint effusion. No definite acute fracture. Tirso Rhodes MD Physical Exam GENERAL: This is a well-nourished, well-developed patient, in no apparent distress. SKIN: No rashes, ecchymoses or lesions. Cool and dry. HEAD: Atraumatic. Normocephalic. No temporal or scalp tenderness. EYES: Pupils equal round and reactive. Extraocular motions intact. No scleral icterus. No injection or drainage. ENT: Nose without bleeding, purulent drainage or septal hematoma. Throat without erythema, tonsillar hypertrophy or exudate. Uvula midline. Airway patent. NECK: Trachea midline. Supple, nontender, no meningeal signs. CARDIOVASCULAR: Heart sounds audible RESPIRATORY: Clear to auscultation. Breath sounds equal bilaterally. No wheezes , rales, or rhonchi. GASTROINTESTINAL: Abdomen soft, non-tender, nondistended. MUSCULOSKELETAL: Left ankle in postoperative dressing NEUROLOGICAL: Awake and alert. Nonfocal exam. Psych cooperative IV line sites with no evidence of infection Assessment & Plan Remarks Left ankle infected hardware status post removal MSSA infection/osteomyelitis. IV drug abuser Clarification of penicillin allergy: reports rash and hives many years back. Tolerated Keflex on multiple occasions for UTI. Recommendations: DC vancomycin IV Start Ancef IV 2 gm q8hrs Follow cultures Follow clinically dw about Ancef challenge and to call me if any issues. Hospitalists to order CBC with diff, CMP, CRP every Wednesday and follow them. Salud Martines MD Sep 06, 2017 13:48
[2017-09-06] MEDS ORDERED: PHARMACY ORDERED LAB ONE (15:45)
[2017-09-06 16:00] VITALS: BP 118/78; PULSE 104; RESP 19; TEMP 99.3; O2SAT 99
[2017-09-06] MEDS: ENOXAPARIN SODIUM 40 MG/0.4 ML SYRINGE SQ SCH (16:00)
[2017-09-06 20:00] VITALS: BP 117/78; PULSE 99; RESP 18; TEMP 97.1; O2SAT 98
[2017-09-07] VITALS: BP 102/67; PULSE 89; RESP 18; TEMP 98; O2SAT 97
[2017-09-07] MEDS ORDERED: LACTATED RINGER'S 1000 ML IV PRN ×2 (03:30→15:00)
[2017-09-07] MEDS: MORPHINE SULFATE 4 MG/ML INJ IV PUSH PRN ×5 (03:41→22:45)
[2017-09-07] MEDS: oxyCODONE/ACETAMINOPHEN 5 MG/325 MG TAB PO PRN ×4 (06:02→20:08)
--- NOTE | 2017-09-07 06:34 | PD.ORT.PN ---
Subjective Subjective Remarks POD 4 s/p repeat I&D left foot with vac application doing well. pain controlled. Objective Vitals Vital Signs Date Time Temp Pulse Resp B/P (MAP) Pulse Ox O2 Delivery O2 Flow Rate FiO2 09/07/17 00:00 98.0 89 18 102/67 (79) 97 09/06/17 20:00 97.1 99 18 117/78 (91) 98 09/06/17 16:00 99.3 104 19 118/78 (91) 99 09/06/17 12:00 100.0 84 19 118/56 (76) 98 09/06/17 08:00 97.1 84 19 107/56 (73) 98 I/O 09/06/17 09/06/17 09/06/17 09/07/17 09/07/17 09/07/17 07:00 15:00 23:00 07:00 15:00 23:00 Intake Total 800 ml 2220 ml 100 ml Output Total 700 ml 25 ml Balance 800 ml 1520 ml 75 ml Intake Oral 800 ml 720 ml IV Total 1500 ml 100 ml Output Urine Total 700 ml Drainage Total 25 ml # Voids 4 # Bowel Movements 1 Result Diagram: 09/05/17 1453 09/05/17 1453 Objective Remarks Awake, alert, no acute distress LLE: dressings clean and dry. intact. NVI. Negative Homans. +vac with good seal Assessment & Plan Assessment and Plan 1) Left Talus Fx s/p ORIF with nonunion with hardware infection wiht repeat I&D and vac application - POD 4 -Cxs with MSSA -[employer]th[employer] to place fx boot on left ankle -WBAT -will need 6 wks of IV Abx -infectious Dz consulted to manage -maintain vac at all times -surgery today for repeat I&D and vac change Choco Vale/First Charla FOOTE Sep 07, 2017 06:34
[2017-09-07 08:00] VITALS: BP 102/55; PULSE 77; RESP 17; TEMP 97.7; O2SAT 99
[2017-09-07] MEDS: SODIUM CHLORIDE 0.9% FLUSH 10 ML FLUSH IV FLUSH SCH ×2 (09:00→21:00)
[2017-09-07] MEDS: LACTATED RINGER'S 1000 ML INJ 1,000 ML IV SCH ×2 (11:00→14:29)
[2017-09-07 12:00] VITALS: BP 119/71; PULSE 119; RESP 18; TEMP 97.2; O2SAT 96
[2017-09-07] MEDS ORDERED: LIDOCAINE HCL 1% PF 5 ML SYRINGE OTHER ONE (12:00)
[2017-09-07] MEDS ORDERED: PROPOFOL 200 MG/20 ML AMP IV ONE (12:00)
[2017-09-07] MEDS ORDERED: LACTATED RINGER'S 1000 ML INJ 1,000 ML IV ONE (12:00)
[2017-09-07] MEDS ORDERED: ONDANSETRON HCL 4 MG/2 ML VIAL IV ONE (12:00)
[2017-09-07] MEDS ORDERED: ceFAZolin INJ 1,000 MG VIAL IV ONE (12:00)
[2017-09-07] MEDS ORDERED: DEXAMETHASONE SOD PHOS 4 MG/ML VIAL IV ONE (12:00)
--- NOTE | 2017-09-07 12:29 | HHI.PR ---
Subjective Remarks Patient had a low grade fever with a tmax of 100.0 last night. Denies cp/sob. Denies chills. C/o itchiness in the left foot. C/o of 9/10 pain however looks very comfortable. Objective Vitals Vital Signs Date Time Temp Pulse Resp B/P (MAP) Pulse Ox O2 Delivery O2 Flow Rate FiO2 09/07/17 08:00 97.7 77 17 102/55 (71) 99 09/07/17 00:00 98.0 89 18 102/67 (79) 97 09/06/17 20:00 97.1 99 18 117/78 (91) 98 09/06/17 16:00 99.3 104 19 118/78 (91) 99 I/O 09/06/17 09/06/17 09/06/17 09/07/17 09/07/17 09/07/17 07:00 15:00 23:00 07:00 15:00 23:00 Intake Total 800 ml 2220 ml 100 ml Output Total 700 ml 125 ml Balance 800 ml 1520 ml -25 ml Intake Oral 800 ml 720 ml IV Total 1500 ml 100 ml Output Urine Total 700 ml 100 ml Drainage Total 25 ml # Voids 4 # Bowel Movements 1 Result Diagram: 09/05/17 1453 09/05/17 1453 Imaging Last Impressions Ankle X-Ray 08/27/17 0000 Signed Impressions: Service Date/Time: Sunday, August 27, 2017 13:15 - CONCLUSION: No residual hardware. Jd Gatica MD FACR Lower Extremity CT 08/26/17 0000 Signed Impressions: Service Date/Time: August 23:50 - CONCLUSION: 1. Remote comminuted fracture of the talus status post fixation with nonunion at the fracture sites. Abnormal lucency and sclerosis in the talus with slight depression of the articular surface. There could be an element of avascular necrosis in the talus. Positive ankle joint effusion. No definite acute fracture. Tirso Rhodes MD Objective Remarks GENERAL: This is a well-nourished, well-developed patient, in no apparent distress. SKIN: No rashes, ecchymoses or lesions. Cool and dry. HEAD: Atraumatic. Normocephalic. No temporal or scalp tenderness. EYES: Pupils equal round and reactive. Extraocular motions intact. No scleral icterus. No injection or drainage. ENT: Nose without bleeding, purulent drainage or septal hematoma. Throat without erythema, tonsillar hypertrophy or exudate. Uvula midline. Airway patent. NECK: Trachea midline. Supple, nontender, no meningeal signs. CARDIOVASCULAR: S1S2 present without murmurs, rubs or gallops. RESPIRATORY: Clear to auscultation. Breath sounds equal bilaterally. No wheezes , rales, or rhonchi. GASTROINTESTINAL: Abdomen soft, non-tender, nondistended. MUSCULOSKELETAL: Left ankle in postoperative dressing NEUROLOGICAL: Awake and alert. Nonfocal exam. Psych cooperative IV line sites with no evidence of infection Procedures Post removal hardware left talus, left ankle arthrotomy with irrigation and debridement on 08/27/2017. Irrigation and debridement of left ankle, irrigation debridement of left talus, application of wound Vac dressing VAC dressing. 09/02/17. SP left foot irrigation and debridement on 09/02/2017. Medications and IVs Current Medications Medications (Trade) Dose Ordered Sig/Norberto Route Start Time Stop Time Status Last Admin (NS Flush) 2 ml UNSCH PRN IV FLUSH 08/27/17 00:45 08/28/17 17:36 (NS Flush) 2 ml BID IV FLUSH 08/27/17 09:00 09/07/17 09:00 (Tylenol) 650 mg Q4H PRN PO 08/27/17 00:45 08/27/17 01:54 (Zofran Inj) 4 mg Q6H PRN IVP 08/27/17 00:45 08/30/17 12:47 (Narcan Inj) 0.4 mg UNSCH PRN IV PUSH 08/27/17 00:45 (Duoneb Neb) 1 ampule Q2HR NEB PRN NEB 08/27/17 00:45 (Morphine Inj) 4 mg Q3H PRN IV PUSH 08/27/17 13:30 09/07/17 11:46 (Percocet 5-325 Mg) 1 tab Q4H PRN PO 08/30/17 12:45 09/07/17 09:52 (Lovenox Inj) 40 mg Q24H SQ 08/30/17 16:00 09/06/17 16:00 (Motrin) 600 mg Q8H PRN PO 08/31/17 12:15 Lactated Ringer's 1,000 ml @ 100 mls/hr Q10H IV 09/02/17 11:02 09/07/17 11:00 Lactated Ringer's 1,000 ml @ 30 mls/hr Q24H PRN IV 09/07/17 03:30 09/10/17 03:29 Cefazolin Sodium 2000 mg/Sodium Chloride 100 ml @ 200 mls/hr Q8H IV 09/07/17 15:00 A/P Problem List: (1) Fracture, talus closed ICD Code: S92.109A - Unspecified fracture of unspecified talus, initial encounter for closed fracture Status: Acute (2) MSSA (methicillin susceptible Staphylococcus aureus) infection ICD Code: A49.01 - Methicillin susceptible Staphylococcus aureus infection, unspecified site Status: Acute (3) Osteomyelitis ICD Code: M86.9 - Osteomyelitis, unspecified Status: Acute (4) IV drug abuse ICD Code: F19.10 - Other psychoactive substance abuse, uncomplicated Status: Chronic (5) Itching ICD Code: L29.9 - Pruritus, unspecified Assessment and Plan 27 year old female with history of IVDU admitted for septic arthritis. Infected malunion fracture of left talus Surgical removal of hardware on 08/27/17 Repeat I&D on 09/02/17 and planning to repeat tomorrow Wound cultures growing MSSA. Treated with Iv Vancomycin, Aztreonam IV which have been discontinued. Continue Vancomycin (started 08/28, 6 weeks full course recommended) Aztreonam discontinued (08/27-08/29) 09/07 ID consulted. Medicine discontinued on 09/06 and the patient started on Ancef IV 2 g every 8 hours as per ID. Patient is tolerating antibiotic well. Check CBC, CMP, and CRP weekly on Mondays; appreciate ID consult. Follow-up orthopedic surgery recommendations -weightbearing as tolerated. Obtain back at all times. Surgery today for repeat I&D and VAC change. Pain Control Continue oral Percocet with morphine IV for breakthrough DVT Prophylaxis Lovenox Leukopenia WBC down to 2.9 on 09/05. Will check cbc. Itching Complains of itching of the left foot. Will Rx oral Benadryl. Discharge Planning Continue to monitor on the medical floor. Dylon Davis MD Sep 07, 2017 12:29
[2017-09-07] MEDS ORDERED: GENTAMICIN SULFATE 80 MG/2 ML VIAL ONE (13:01)
[2017-09-07] MEDS ORDERED: BUPIVACAINE/EPINEPHRINE 0.5% PF 30 ML VIAL ONE (13:05)
--- NOTE | 2017-09-07 14:35 | PD.OP ---
cc: Patel Strange MD Operative Report Date of Surgery: Sep 07, 2017 Preoperative Diagnosis: Left foot and ankle infection Postoperative Diagnosis: Procedure: Irrigation and debridement of left ankle and talus, application wound VAC dressing Anesthesia: Gen. Surgeon: Patel Strange Soda Fountain Manager(s): Choco Vale PA-C The surgical procedure was assisted by my physician hardware sales assistant. My P.A. presence was necessary throughout this case for the manipulation and positioning of the surgical extremity. My P.A. was assisting me throughout the duration of this procedure. The skill set of a physician hardware sales assistant was medically necessary to complete this procedure. During the surgical case the certified ophthalmic surgical assistant was working at the back table and the physician hardware sales assistant was directly assisting me. Operation and Findings: Myra is a 27-year-old female who is well-known to me from previous surgeries. Patient presented with an infection and had irrigation debridement of the ankle and talus with removal of hardware. She subsequently developed dehiscence of the lateral ankle wound. Informed consent was obtained and operative site was marked. She is brought to operating room. She is given IV sedation and general anesthesia. She is on scheduled IV antibiotics. Timeout procedure was performed. Procedure began with irrigation and debridement of the ankle. The ankle joint was exposed through lateral incision. There was a minimal amount of purulent drainage present. The ankle was thoroughly irrigated. Next was turned to debridement of the talus. There were areas of the talus or soft. Curettes were used to debride this bone. After thorough debridement of bone the soft tissue and bone were thoroughly irrigated with pulsatile lavage. Overall the wound appeared clean at this time. The lateral incision was partially closed. The central 3 cm of the wound was left open. A VAC dressing was cut to fit. VAC dressing was placed into the wound. VAC dressing was sealed appropriately. Patient was awakened and transferred to recovery in stable condition. Patel Strange MD Sep 07, 2017 14:35
[2017-09-07] MEDS ORDERED: *morphine SULFATE 4 MG/ML PERIprocedure ONLY ONE (14:48)
[2017-09-07] MEDS ORDERED: MIDAZOLAM HCL 2 MG/2 ML VIAL ONE (14:49)
[2017-09-07] MEDS ORDERED: POVIDONE IODINE 5% (ANTISEPSIS KIT) 4 APPLICATIONS EACH NARE PRN (15:00)
[2017-09-07] MEDS ORDERED: SODIUM CHLORID 0.9% 500 ML IV PRN (15:00)
[2017-09-07] MEDS ORDERED: CHLORHEXIDINE GLUCONATE 2 % 1 PACK (2 CLOTHS) TOPICAL PRN (15:00)
[2017-09-07] MEDS ORDERED: METOPROLOL TARTRATE 25 MG TAB PO PRN (15:00)
[2017-09-07] MEDS ORDERED: DO NOT ADM ANY ANTICOAGULANT DRUGS PRN (15:30)
[2017-09-07] MEDS: ENOXAPARIN SODIUM 40 MG/0.4 ML SYRINGE SQ SCH (15:33)
[2017-09-07 16:00] VITALS: BP 122/74; PULSE 100; RESP 19; TEMP 97; O2SAT 99
[2017-09-07 20:00] VITALS: BP 117/67; PULSE 92; RESP 18; TEMP 96.7; O2SAT 98
[2017-09-08] VITALS: BP 102/45; PULSE 112; RESP 20; TEMP 96.9; O2SAT 96
[2017-09-08] MEDS: LACTATED RINGER'S 1000 ML INJ 1,000 ML IV SCH ×3 (00:29→20:29)
[2017-09-08] MEDS: oxyCODONE/ACETAMINOPHEN 5 MG/325 MG TAB PO PRN ×5 (02:24→23:17)
[2017-09-08] MEDS: ceFAZolin 2 GM PREMIX 50 ML IV SCH ×3 (05:25→23:17)
--- NOTE | 2017-09-08 07:01 | PD.ORT.PN ---
Subjective Subjective Remarks POD 1 s/p repeat I&D left foot with vac application doing well. pain controlled. Objective Vitals Vital Signs Date Time Temp Pulse Resp B/P (MAP) Pulse Ox O2 Delivery O2 Flow Rate FiO2 09/08/17 00:00 96.9 112 20 102/45 (64) 96 09/07/17 20:00 96.7 92 18 117/67 (84) 98 09/07/17 16:00 97.0 100 19 122/74 (90) 99 09/07/17 15:05 78 14 106/73 (84) 99 Room Air 09/07/17 14:45 76 14 104/64 (77) 100 Room Air 09/07/17 14:39 97.6 75 14 100/55 (70) 100 Nasal Cannula 3 09/07/17 12:00 97.2 119 18 119/71 (87) 96 09/07/17 08:00 97.7 77 17 102/55 (71) 99 I/O 09/07/17 09/07/17 09/07/17 09/08/17 09/08/17 09/08/17 06:59 14:59 22:59 06:59 14:59 22:59 Intake Total 100 ml 1200 ml 625 ml 471 ml Output Total 125 ml 25 ml 4 ml 0 ml Balance -25 ml 1175 ml 621 ml 471 ml Intake Oral 300 ml IV Total 100 ml 325 ml 471 ml Other 1200 ml Output Urine Total 100 ml 4 ml Drainage Total 25 ml 0 ml 0 ml Estimated Blood Loss 25 ml # Voids 1 # Bowel Movements 1 Result Diagram: 09/05/17 1453 09/05/17 1453 Objective Remarks Awake, alert, no acute distress LLE: dressings clean and dry. intact. NVI. Negative Homans. +vac with good seal Assessment & Plan Assessment and Plan 1) Left Talus Fx s/p ORIF with nonunion with hardware infection wiht repeat I&D and vac application - POD 1 -Cxs with MSSA -[employer]th[employer] to place fx boot on left ankle -WBAT -will need 6 wks of IV Abx -infectious Dz consulted to manage -maintain vac at all times -will likely transition to vac changes at bedside -plan for first vac change on wednesday. -will need small vac foam and ioband. Choco Vale PA/Field Trainer PA Sep 08, 2017 07:01
[2017-09-08] MEDS: SODIUM CHLORIDE 0.9% FLUSH 10 ML FLUSH IV FLUSH SCH ×2 (07:44→21:00)
[2017-09-08 08:00] VITALS: BP 97/54; PULSE 68; RESP 16; TEMP 97.3; O2SAT 98
[2017-09-08 09:36] VITALS: O2SAT 99
[2017-09-08] MEDS: SODIUM CHLORIDE 0.9% FLUSH 10 ML FLUSH IV FLUSH PRN (10:44)
[2017-09-08] MEDS: MORPHINE SULFATE 4 MG/ML INJ IV PUSH PRN ×3 (10:44→20:59)
[2017-09-08 12:00] VITALS: BP 103/58; PULSE 66; RESP 16; TEMP 97.4; O2SAT 97
[2017-09-08] MEDS: ENOXAPARIN SODIUM 40 MG/0.4 ML SYRINGE SQ SCH (16:05)
[2017-09-08 18:15] VITALS: O2SAT 97
[2017-09-08 20:00] VITALS: BP 113/63; PULSE 75; RESP 22; TEMP 96.6; O2SAT 98
--- NOTE | 2017-09-08 22:46 | HHI.PR ---
Subjective Remarks No further fevers. Denies chills. c/o pain in left foot. Objective Vitals Vital Signs Date Time Temp Pulse Resp B/P (MAP) Pulse Ox O2 Delivery O2 Flow Rate FiO2 09/08/17 20:00 96.6 75 22 113/63 (80) 98 09/08/17 18:15 97 21 09/08/17 16:10 18 09/08/17 13:38 18 09/08/17 12:00 97.4 66 16 103/58 (73) 97 09/08/17 09:36 99 09/08/17 08:00 97.3 68 16 97/54 (68) 98 09/08/17 00:00 96.9 112 20 102/45 (64) 96 I/O 09/07/17 09/07/17 09/07/17 09/08/17 09/08/17 09/08/17 07:00 15:00 23:00 07:00 15:00 23:00 Intake Total 100 ml 1200 ml 625 ml 471 ml 480 ml Output Total 125 ml 25 ml 4 ml 0 ml Balance -25 ml 1175 ml 621 ml 471 ml 480 ml Intake Oral 300 ml 480 ml IV Total 100 ml 325 ml 471 ml Other 1200 ml Output Urine Total 100 ml 4 ml Drainage Total 25 ml 0 ml 0 ml Estimated Blood Loss 25 ml # Voids 1 3 # Bowel Movements 1 0 Result Diagram: 09/05/17 1453 09/05/17 1453 Imaging Last Impressions Ankle X-Ray 08/27/17 0000 Signed Impressions: Service Date/Time: Sunday, August 27, 2017 13:15 - CONCLUSION: No residual hardware. Jd Gatica MD FACR Lower Extremity CT 08/26/17 0000 Signed Impressions: Service Date/Time: August 23:50 - CONCLUSION: 1. Remote comminuted fracture of the talus status post fixation with nonunion at the fracture sites. Abnormal lucency and sclerosis in the talus with slight depression of the articular surface. There could be an element of avascular necrosis in the talus. Positive ankle joint effusion. No definite acute fracture. Tirso Rhodes MD Objective Remarks GENERAL: This is a well-nourished, well-developed patient, in no apparent distress. SKIN: No rashes, ecchymoses or lesions. Cool and dry. HEAD: Atraumatic. Normocephalic. No temporal or scalp tenderness. EYES: Pupils equal round and reactive. Extraocular motions intact. No scleral icterus. No injection or drainage. ENT: Nose without bleeding, purulent drainage or septal hematoma. Throat without erythema, tonsillar hypertrophy or exudate. Uvula midline. Airway patent. NECK: Trachea midline. Supple, nontender, no meningeal signs. CARDIOVASCULAR: S1S2 present without murmurs, rubs or gallops. RESPIRATORY: Clear to auscultation. Breath sounds equal bilaterally. No wheezes , rales, or rhonchi. GASTROINTESTINAL: Abdomen soft, non-tender, nondistended. MUSCULOSKELETAL: Left ankle in postoperative dressing NEUROLOGICAL: Awake and alert. Nonfocal exam. Psych cooperative IV line sites with no evidence of infection Procedures Post removal hardware left talus, left ankle arthrotomy with irrigation and debridement on 08/27/2017. Irrigation and debridement of left ankle, irrigation debridement of left talus, application of wound Vac dressing VAC dressing. 09/02/17. SP left foot irrigation and debridement on 09/02/2017. Medications and IVs Current Medications Medications (Trade) Dose Ordered Sig/Norberto Route Start Time Stop Time Status Last Admin (NS Flush) 2 ml UNSCH PRN IV FLUSH 08/27/17 00:45 09/08/17 10:44 (NS Flush) 2 ml BID IV FLUSH 08/27/17 09:00 09/08/17 21:00 (Tylenol) 650 mg Q4H PRN PO 08/27/17 00:45 08/27/17 01:54 (Zofran Inj) 4 mg Q6H PRN IVP 08/27/17 00:45 08/30/17 12:47 (Narcan Inj) 0.4 mg UNSCH PRN IV PUSH 08/27/17 00:45 (Duoneb Neb) 1 ampule Q2HR NEB PRN NEB 08/27/17 00:45 (Morphine Inj) 4 mg Q3H PRN IV PUSH 08/27/17 13:30 09/08/17 20:59 (Percocet 5-325 Mg) 1 tab Q4H PRN PO 08/30/17 12:45 09/08/17 18:14 (Lovenox Inj) 40 mg Q24H SQ 08/30/17 16:00 09/08/17 16:05 (Motrin) 600 mg Q8H PRN PO 08/31/17 12:15 Lactated Ringer's 1,000 ml @ 100 mls/hr Q10H IV 09/07/17 14:29 09/08/17 10:46 Lactated Ringer's 1,000 ml @ 30 mls/hr Q24H PRN IV 09/07/17 15:00 09/10/17 14:59 Sodium Chloride 500 ml @ 30 mls/hr [id number] PRN IV 09/07/17 15:00 09/10/17 14:59 (Lopressor) 25 mg [employer] PRN PO 09/07/17 15:00 09/10/17 14:59 (Betadine 5% Antisepsis Kit) 1 applic [employer] PRN EACH NARE 09/07/17 15:00 09/10/17 14:59 (Chlorhexidine 2% Cloth) 3 pack [employer] PRN TOPICAL 09/07/17 15:00 09/10/17 14:59 Cefazolin Sodium/ Dextrose 50 ml @ 200 mls/hr Q8H IV 09/08/17 06:00 09/08/17 14:14 A/P Problem List: (1) Fracture, talus closed ICD Code: S92.109A - Unspecified fracture of unspecified talus, initial encounter for closed fracture Status: Acute (2) MSSA (methicillin susceptible Staphylococcus aureus) infection ICD Code: A49.01 - Methicillin susceptible Staphylococcus aureus infection, unspecified site Status: Acute (3) Osteomyelitis ICD Code: M86.9 - Osteomyelitis, unspecified Status: Acute (4) IV drug abuse ICD Code: F19.10 - Other psychoactive substance abuse, uncomplicated Status: Chronic (5) Itching ICD Code: L29.9 - Pruritus, unspecified Assessment and Plan 27 year old female with history of IVDU admitted for septic arthritis. Infected malunion fracture of left talus Surgical removal of hardware on 08/27/17 Repeat I&D on 09/02/17 and planning to repeat tomorrow Wound cultures growing MSSA. Treated with Iv Vancomycin, Aztreonam IV which have been discontinued. Continue Vancomycin (started 08/28, 6 weeks full course recommended) Aztreonam discontinued (08/27-08/29) 09/07 ID consulted. Medicine discontinued on 09/06 and the patient started on Ancef IV 2 g every 8 hours as per ID. Patient is tolerating antibiotic well. Check CBC, CMP, and CRP weekly on Mondays; appreciate ID consult. Follow-up orthopedic surgery recommendations -weightbearing as tolerated. Obtain back at all times. 09/08 sp repeat Incision and drainage on 09/07. Antibiotics per ID. Orthopedic surgery to transition to bedside wound vac changes. Pain Control Continue oral Percocet with morphine IV for breakthrough DVT Prophylaxis Lovenox Leukopenia WBC down to 2.9 on 09/05. Will check cbc. Itching Complains of itching of the left foot. Will Rx oral Benadryl. 09/08 Itching improved - continue Benadryl. Discharge Planning Continue to monitor on the medical floor. Dylon Davis MD Sep 08, 2017 22:46
[2017-09-09] VITALS (7 sets, daily range): BP systolic 96–117; BP diastolic 51–73; PULSE 66–92; RESP 16–18; TEMP 96.6–98.5; O2SAT 94–98
[2017-09-09] MEDS: MORPHINE SULFATE 4 MG/ML INJ IV PUSH PRN ×4 (02:39→22:59)
[2017-09-09] MEDS: ceFAZolin 2 GM PREMIX 50 ML IV SCH ×3 (05:59→20:41)
[2017-09-09] MEDS: oxyCODONE/ACETAMINOPHEN 5 MG/325 MG TAB PO PRN ×4 (06:01→20:41)
[2017-09-09 06:22] LABS: ALBUMIN 2.5 GM/DL (3.4-5.0); ALT (GPT) 13 U/L (10-53); AST (GOT) 15 U/L (15-37); BICARBONATE 27.8 MEQ/L (21.0-32.0); CALCIUM 8.5 MG/DL (8.5-10.1); CHLORIDE 103 MEQ/L (98-107); CREATININE 0.64 MG/DL (0.50-1.00); GLOMERULAR FILTRATION RATE 110 ML/MIN (>89); GLUCOSE,RANDOM 84 MG/DL (74-106); SODIUM (NA) 138 MEQ/L (136-145)
[2017-09-09 06:24] LABS: ALKALINE PHOSPHATASE 83 U/L (45-117); TOTAL BILIRUBIN ADULT LESS THAN 0.1 MG/DL (0.2-1.0); TOTAL PROTEIN 7.4 GM/DL (6.4-8.2)
[2017-09-09 06:26] LABS: BLOOD UREA NITROGEN 11 MG/DL (7-18)
[2017-09-09] MEDS: LACTATED RINGER'S 1000 ML INJ 1,000 ML IV SCH ×2 (06:29→16:29)
[2017-09-09 08:00] LABS: AUTOMATED NEUTROPHIL # 1.6 TH/MM3 (1.8-7.7); BASOPHIL % 0.4 % (0.0-2.0); EOSINOPHIL % 0.9 % (0.0-4.0); HEMOGLOBIN 12.5 GM/DL (11.6-15.3); LYMPH % 56.1 % (9.0-44.0); LYMPHOCYTE # 2.6 TH/MM3 (1.0-4.8); MEAN CORPUSCULAR HEMOGLOBIN 30.4 PG (27.0-34.0); MEAN CORPUSCULAR HGB CONC 33.8 % (32.0-36.0); MEAN PLATELET VOLUME 9.4 FL (7.0-11.0); MONO % 7.4 % (0.0-8.0); MONOCYTE # 0.3 TH/MM3 (0-0.9); NEUT % 35.2 % (16.0-70.0); PLATELET COUNT 190 TH/MM3 (150-450); RED BLOOD COUNT 4.11 MIL/MM3 (4.00-5.30); RED CELL DISTRIBUTION WIDTH 12.6 % (11.6-17.2); WHITE BLOOD COUNT 4.6 TH/MM3 (4.0-11.0)
[2017-09-09] MEDS: SODIUM CHLORIDE 0.9% FLUSH 10 ML FLUSH IV FLUSH SCH ×2 (09:00→20:42)
--- NOTE | 2017-09-09 14:11 | HHI.IDPN ---
Subjective Subjective Remarks Ms. Luna is a 27-year-old female with past medical history significant for IV drug abuse and status post ORIF of the left talus in January 2017 presents to the emergency department with a 3-5 day history of a left swollen ankle. The patient reports that she has pain, swelling in her ankle making it difficult to ambulate. She states that the pain is intolerable. She is a poor historian. So the history was obtained by review of medical records. The patient denies any fever/chills/nausea/vomiting. She admits to using cocaine, Margot, methamphetamines and opiates. Vital signs on presentation: Temperature 98.2, pulse 114, respirations 16, BP 125/81, pulse ox 98% on room air. Patient was seen by orthopedic surgeon Dr. Strange who removed the hardware and performed an I&D and intraoperative cultures are now growing staph aureus infectious disease is consulted for evaluation and management of infected hardware of the left ankle. Overnight events reviewed No fevers No rash No diarrhea Antibiotics Ancef IV Lines Line sites with no evidence of infection. Past Medical History Past Medical History Asthma Polysubstance abuse Anxiety Depression Cervical Cancer Bipolar disorder Past Surgical History Tubal ligation Open reduction internal fixation left talus Allergies: Coded Allergies: peanut (Unverified Allergy, Severe, 08/26/17) "throat swelling" penicillin G (Unverified Allergy, Intermediate, Rash with hives with amoxicillin but tolerated Keflex past., 09/06/17) Objective . Vital Signs Date Time Temp Pulse Resp B/P (MAP) Pulse Ox O2 Delivery O2 Flow Rate FiO2 09/09/17 12:00 97.3 66 17 102/56 (71) 97 09/09/17 08:00 96.6 80 16 105/59 (74) 94 09/09/17 04:00 98.2 68 18 102/73 (83) 96 09/09/17 00:00 97.0 85 18 101/57 (72) 98 09/08/17 20:00 96.6 75 22 113/63 (80) 98 09/08/17 18:15 97 21 09/08/17 16:10 18 09/09/17 09/09/17 09/10/17 15:00 23:00 07:00 Output Total 700 ml Balance -700 ml Output Urine Total 700 ml # Bowel Movements 0 . Laboratory Tests Test 09/09/17 05:18 White Blood Count 4.6 TH/MM3 Red Blood Count 4.11 MIL/MM3 Hemoglobin 12.5 GM/DL Hematocrit 37.0 % Mean Corpuscular Volume 90.0 FL Mean Corpuscular Hemoglobin 30.4 PG Mean Corpuscular Hemoglobin Concent 33.8 % Red Cell Distribution Width 12.6 % Platelet Count 190 TH/MM3 Mean Platelet Volume 9.4 FL Neutrophils (%) (Auto) 35.2 % Lymphocytes (%) (Auto) 56.1 % Monocytes (%) (Auto) 7.4 % Eosinophils (%) (Auto) 0.9 % Basophils (%) (Auto) 0.4 % Neutrophils # (Auto) 1.6 TH/MM3 Lymphocytes # (Auto) 2.6 TH/MM3 Monocytes # (Auto) 0.3 TH/MM3 Eosinophils # (Auto) 0.0 TH/MM3 Basophils # (Auto) 0.0 TH/MM3 CBC Comment DIFF FINAL Differential Comment Hematology Comments Laboratory Tests Test 09/09/17 05:18 Blood Urea Nitrogen 11 MG/DL Creatinine 0.64 MG/DL Random Glucose 84 MG/DL Total Protein 7.4 GM/DL Albumin 2.5 GM/DL Calcium Level 8.5 MG/DL Alkaline Phosphatase 83 U/L Aspartate Amino Transf (AST/SGOT) 15 U/L Alanine Aminotransferase (ALT/SGPT) 13 U/L Total Bilirubin LESS THAN 0.1 MG/DL Sodium Level 138 MEQ/L Potassium Level 4.0 MEQ/L Chloride Level 103 MEQ/L Carbon Dioxide Level 27.8 MEQ/L Anion Gap 7 MEQ/L Estimat Glomerular Filtration Rate 110 ML/MIN Imaging Last Impressions Ankle X-Ray 08/27/17 0000 Signed Impressions: Service Date/Time: Sunday, August 27, 2017 13:15 - CONCLUSION: No residual hardware. Jd Gatica MD FACR Lower Extremity CT 08/26/17 0000 Signed Impressions: Service Date/Time: August 23:50 - CONCLUSION: 1. Remote comminuted fracture of the talus status post fixation with nonunion at the fracture sites. Abnormal lucency and sclerosis in the talus with slight depression of the articular surface. There could be an element of avascular necrosis in the talus. Positive ankle joint effusion. No definite acute fracture. Tirso E. Rhodes, MD Physical Exam GENERAL: This is a well-nourished, well-developed patient, in no apparent distress. SKIN: No rashes, ecchymoses or lesions. Cool and dry. HEAD: Atraumatic. Normocephalic. No temporal or scalp tenderness. EYES: Pupils equal round and reactive. Extraocular motions intact. No scleral icterus. No injection or drainage. ENT: Nose without bleeding, purulent drainage or septal hematoma. Throat without erythema, tonsillar hypertrophy or exudate. Uvula midline. Airway patent. NECK: Trachea midline. Supple, nontender, no meningeal signs. CARDIOVASCULAR: Heart sounds audible RESPIRATORY: Clear to auscultation. Breath sounds equal bilaterally. No wheezes , rales, or rhonchi. GASTROINTESTINAL: Abdomen soft, non-tender, nondistended. MUSCULOSKELETAL: Left ankle in postoperative dressing NEUROLOGICAL: Awake and alert. Nonfocal exam. Psych cooperative IV line sites with no evidence of infection Assessment & Plan Remarks Left ankle infected hardware status post removal MSSA infection/osteomyelitis. IV drug abuser Clarification of penicillin allergy: reports rash and hives many years back. Tolerated Keflex on multiple occasions for UTI. Recommendations: Continue Ancef IV 2 gm q8hrs Follow cultures Follow clinically dw about Ancef challenge and to call me if any issues. Hospitalists to order CBC with diff, CMP, CRP every Wednesday and follow them. I will be off 09/10/2017 to 09/12/2017. Other ID MDs covering for me. Please check with [facility] call center. Salud Martines MD Sep 09, 2017 14:11
--- NOTE | 2017-09-09 14:53 | HHI.PR ---
Subjective Remarks Patient states pain is better controlled Denies fevers or chills. Seen ambulating in the hallways. Objective Vitals Vital Signs Date Time Temp Pulse Resp B/P (MAP) Pulse Ox O2 Delivery O2 Flow Rate FiO2 09/09/17 12:00 97.3 66 17 102/56 (71) 97 09/09/17 08:00 96.6 80 16 105/59 (74) 94 09/09/17 04:00 98.2 68 18 102/73 (83) 96 09/09/17 00:00 97.0 85 18 101/57 (72) 98 09/08/17 20:00 96.6 75 22 113/63 (80) 98 09/08/17 18:15 97 21 09/08/17 16:10 18 I/O 09/08/17 09/08/17 09/08/17 09/09/17 09/09/17 09/09/17 07:00 15:00 23:00 07:00 15:00 23:00 Intake Total 471 ml 480 ml Output Total 0 ml 700 ml Balance 471 ml 480 ml -700 ml Intake Oral 480 ml IV Total 471 ml Output Urine Total 700 ml Drainage Total 0 ml # Voids 1 4 # Bowel Movements 0 0 Result Diagram: 09/09/1751709/09/1718 Objective Remarks GENERAL: This is a well-nourished, well-developed patient, in no apparent distress. SKIN: No rashes, ecchymoses or lesions. Cool and dry. HEAD: Atraumatic. Normocephalic. No temporal or scalp tenderness. EYES: Pupils equal round and reactive. Extraocular motions intact. No scleral icterus. No injection or drainage. ENT: Nose without bleeding, purulent drainage or septal hematoma. Throat without erythema, tonsillar hypertrophy or exudate. Uvula midline. Airway patent. NECK: Trachea midline. Supple, nontender, no meningeal signs. CARDIOVASCULAR: S1S2 present without murmurs, rubs or gallops. RESPIRATORY: Clear to auscultation. Breath sounds equal bilaterally. No wheezes , rales, or rhonchi. GASTROINTESTINAL: Abdomen soft, non-tender, nondistended. MUSCULOSKELETAL: Left ankle in postoperative dressing NEUROLOGICAL: Awake and alert. Nonfocal exam. Psych cooperative IV line sites with no evidence of infection Procedures Post removal hardware left talus, left ankle arthrotomy with irrigation and debridement on 08/27/2017. Irrigation and debridement of left ankle, irrigation debridement of left talus, application of wound Vac dressing VAC dressing. 09/02/17. SP left foot irrigation and debridement on 09/02/2017. Medications and IVs Current Medications Medications (Trade) Dose Ordered Sig/Norberto Route Start Time Stop Time Status Last Admin (NS Flush) 2 ml UNSCH PRN IV FLUSH 08/27/17 00:45 09/08/17 10:44 (NS Flush) 2 ml BID IV FLUSH 08/27/17 09:00 09/09/17 20:42 (Tylenol) 650 mg Q4H PRN PO 08/27/17 00:45 08/27/17 01:54 (Zofran Inj) 4 mg Q6H PRN IVP 08/27/17 00:45 08/30/17 12:47 (Narcan Inj) 0.4 mg UNSCH PRN IV PUSH 08/27/17 00:45 (Duoneb Neb) 1 ampule Q2HR NEB PRN NEB 08/27/17 00:45 (Morphine Inj) 4 mg Q3H PRN IV PUSH 08/27/17 13:30 09/09/17 18:17 (Percocet 5-325 Mg) 1 tab Q4H PRN PO 08/30/17 12:45 09/09/17 20:41 (Lovenox Inj) 40 mg Q24H SQ 08/30/17 16:00 09/09/17 15:16 (Motrin) 600 mg Q8H PRN PO 08/31/17 12:15 Lactated Ringer's 1,000 ml @ 100 mls/hr Q10H IV 09/07/17 14:29 09/08/17 10:46 Lactated Ringer's 1,000 ml @ 30 mls/hr Q24H PRN IV 09/07/17 15:00 09/10/17 14:59 Sodium Chloride 500 ml @ 30 mls/hr [id number] PRN IV 09/07/17 15:00 09/10/17 14:59 (Lopressor) 25 mg UPPER CUTTER OUT PRN PO 09/07/17 15:00 09/10/17 14:59 (Betadine 5% Antisepsis Kit) 1 applic UPPER CUTTER OUT PRN EACH NARE 09/07/17 15:00 09/10/17 14:59 (Chlorhexidine 2% Cloth) 3 pack UPPER CUTTER OUT PRN TOPICAL 09/07/17 15:00 09/10/17 14:59 Cefazolin Sodium/ Dextrose 50 ml @ 200 mls/hr Q8H IV 09/08/17 06:00 09/09/17 20:41 A/P Problem List: (1) Fracture, talus closed ICD Code: S92.109A - Unspecified fracture of unspecified talus, initial encounter for closed fracture Status: Acute (2) MSSA (methicillin susceptible Staphylococcus aureus) infection ICD Code: A49.01 - Methicillin susceptible Staphylococcus aureus infection, unspecified site Status: Acute (3) Osteomyelitis ICD Code: M86.9 - Osteomyelitis, unspecified Status: Acute (4) IV drug abuse ICD Code: F19.10 - Other psychoactive substance abuse, uncomplicated Status: Chronic (5) Itching ICD Code: L29.9 - Pruritus, unspecified Assessment and Plan 27 year old female with history of IVDU admitted for septic arthritis. Infected malunion fracture of left talus Surgical removal of hardware on 08/27/17 Repeat I&D on 09/02/17 and planning to repeat tomorrow Wound cultures growing MSSA. Treated with Iv Vancomycin, Aztreonam IV which have been discontinued. Continue Vancomycin (started 08/28, 6 weeks full course recommended) Aztreonam discontinued (08/27-08/29) 09/07 ID consulted. Medicine discontinued on 09/06 and the patient started on Ancef IV 2 g every 8 hours as per ID. Patient is tolerating antibiotic well. Check CBC, CMP, and CRP weekly on Mondays; appreciate ID consult. Follow-up orthopedic surgery recommendations -weightbearing as tolerated. Obtain back at all times. 09/09 sp repeat Incision and drainage on 09/07. Antibiotics per ID. Orthopedic surgery to transition to bedside wound vac changes. Follow up CBC with diff, CMP, CRP every Wednesday. Pain Control Continue oral Percocet with morphine IV for breakthrough DVT Prophylaxis Lovenox Leukopenia WBC down to 2.9 on 09/05. Will check cbc. 09/09 WBC 4.6. Leukopenia Resolved. Itching Complains of itching of the left foot. Will Rx oral Benadryl. Itching improved - continue Benadryl. Discharge Planning Continue to monitor on the medical floor. Dylon Davis MD Sep 09, 2017 14:52
[2017-09-09] MEDS: ENOXAPARIN SODIUM 40 MG/0.4 ML SYRINGE SQ SCH (15:16)
[2017-09-10] VITALS (7 sets, daily range): BP systolic 98–122; BP diastolic 55–71; PULSE 75–102; RESP 17–18; TEMP 97.2–98.7; O2SAT 98–100
[2017-09-10] MEDS: LACTATED RINGER'S 1000 ML INJ 1,000 ML IV SCH ×3 (02:29→22:47)
[2017-09-10] MEDS: oxyCODONE/ACETAMINOPHEN 5 MG/325 MG TAB PO PRN ×5 (02:48→20:28)
[2017-09-10] MEDS: ceFAZolin 2 GM PREMIX 50 ML IV SCH ×3 (06:03→22:46)
[2017-09-10] MEDS: SODIUM CHLORIDE 0.9% FLUSH 10 ML FLUSH IV FLUSH SCH ×2 (07:36→22:47)
[2017-09-10] MEDS: MORPHINE SULFATE 4 MG/ML INJ IV PUSH PRN ×4 (07:59→22:47)
--- NOTE | 2017-09-10 11:32 | PD.ORT.PN ---
Subjective Subjective Remarks POD 3 s/p repeat I&D left foot with vac application doing well. pain controlled. no complaints Objective Vitals Vital Signs Date Time Temp Pulse Resp B/P (MAP) Pulse Ox O2 Delivery O2 Flow Rate FiO2 09/10/17 09:56 99 09/10/17 08:35 18 09/10/17 08:04 18 09/10/17 08:00 97.2 75 17 107/70 (82) 99 09/10/17 00:00 98.7 100 18 122/71 (88) 99 09/09/17 20:00 96.8 92 17 117/58 (77) 98 09/09/17 17:25 97 21 09/09/17 16:00 98.5 82 17 96/51 (66) 97 09/09/17 12:00 97.3 66 17 102/56 (71) 97 I/O 09/09/17 09/09/17 09/09/17 09/10/17 09/10/17 09/10/17 07:00 15:00 23:00 07:00 15:00 23:00 Intake Total 1010 ml 780 ml Output Total 700 ml Balance -700 ml 1010 ml 780 ml Intake Oral 960 ml 780 ml IV Total 50 ml Output Urine Total 700 ml # Voids 5 4 # Bowel Movements 0 1 0 Result Diagram: 09/09/1751709/09/17517 Objective Remarks Awake, alert, no acute distress LLE: dressings clean and dry. intact. NVI. Negative Homans. +vac with good seal. vac removed. wound visualized. tunneling wound present. no drainage or purulence. good evidence of granulation tissue. Assessment & Plan Assessment and Plan 1) Left Talus Fx s/p ORIF with nonunion with hardware infection wiht repeat I&D and vac application - POD 3 -Cxs with MSSA -WBAT -will need 6 wks of IV Abx -infectious Dz consulted to manage -maintain vac at all times -vac changed at bedside today -will plan for vac change next wednesday and -patient should not be discharged home. Patient has significant history of IVDU and abuse and requires 6 weeks of IV Abx. needs to be hospitalized for duration of Abx [place]/First [facility]la FOOTE Sep 10, 2017 11:32
--- NOTE | 2017-09-10 13:40 | HHI.PR ---
Subjective Remarks Patient states he is afebrile. Pain controlled Denies chest pain/sob. Objective Vitals Vital Signs Date Time Temp Pulse Resp B/P (MAP) Pulse Ox O2 Delivery O2 Flow Rate FiO2 09/10/17 12:00 97.4 91 17 115/61 (79) 100 09/10/17 09:56 99 09/10/17 08:35 18 09/10/17 08:04 18 09/10/17 08:00 97.2 75 17 107/70 (82) 99 09/10/17 00:00 98.7 100 18 122/71 (88) 99 09/09/17 20:00 96.8 92 17 117/58 (77) 98 09/09/17 17:25 97 21 09/09/17 16:00 98.5 82 17 96/51 (66) 97 I/O 09/09/17 09/09/17 09/09/17 09/10/17 09/10/17 09/10/17 07:00 15:00 23:00 07:00 15:00 23:00 Intake Total 1010 ml 780 ml Output Total 700 ml Balance -700 ml 1010 ml 780 ml Intake Oral 960 ml 780 ml IV Total 50 ml Output Urine Total 700 ml # Voids 5 4 # Bowel Movements 0 1 0 Result Diagram: 09/09/17 0518 09/09/17 0518 Imaging Last Impressions Ankle X-Ray 08/27/17 0000 Signed Impressions: Service Date/Time: Sunday, August 27, 2017 13:15 - CONCLUSION: No residual hardware. Jd Gatica MD FACR Lower Extremity CT 08/26/17 0000 Signed Impressions: Service Date/Time: August 23:50 - CONCLUSION: 1. Remote comminuted fracture of the talus status post fixation with nonunion at the fracture sites. Abnormal lucency and sclerosis in the talus with slight depression of the articular surface. There could be an element of avascular necrosis in the talus. Positive ankle joint effusion. No definite acute fracture. Tirso Rhodes MD Objective Remarks GENERAL: This is a well-nourished, well-developed patient, in no apparent distress. SKIN: No rashes, ecchymoses or lesions. Cool and dry. HEAD: Atraumatic. Normocephalic. No temporal or scalp tenderness. EYES: Pupils equal round and reactive. Extraocular motions intact. No scleral icterus. No injection or drainage. ENT: Nose without bleeding, purulent drainage or septal hematoma. Throat without erythema, tonsillar hypertrophy or exudate. Uvula midline. Airway patent. NECK: Trachea midline. Supple, nontender, no meningeal signs. CARDIOVASCULAR: S1S2 present without murmurs, rubs or gallops. RESPIRATORY: Clear to auscultation. Breath sounds equal bilaterally. No wheezes , rales, or rhonchi. GASTROINTESTINAL: Abdomen soft, non-tender, nondistended. MUSCULOSKELETAL: Left ankle in postoperative dressing NEUROLOGICAL: Awake and alert. Nonfocal exam. Psych cooperative IV line sites with no evidence of infection Procedures Post removal hardware left talus, left ankle arthrotomy with irrigation and debridement on 08/27/2017. Irrigation and debridement of left ankle, irrigation debridement of left talus, application of wound Vac dressing VAC dressing. 09/02/17. SP left foot irrigation and debridement on 09/02/2017. Medications and IVs Current Medications Medications (Trade) Dose Ordered Sig/Norberto Route Start Time Stop Time Status Last Admin (NS Flush) 2 ml UNSCH PRN IV FLUSH 08/27/17 00:45 09/08/17 10:44 (NS Flush) 2 ml BID IV FLUSH 08/27/17 09:00 09/10/17 07:36 (Tylenol) 650 mg Q4H PRN PO 08/27/17 00:45 08/27/17 01:54 (Zofran Inj) 4 mg Q6H PRN IVP 08/27/17 00:45 08/30/17 12:47 (Narcan Inj) 0.4 mg UNSCH PRN IV PUSH 08/27/17 00:45 (Duoneb Neb) 1 ampule Q2HR NEB PRN NEB 08/27/17 00:45 (Morphine Inj) 4 mg Q3H PRN IV PUSH 08/27/17 13:30 09/10/17 07:59 (Percocet 5-325 Mg) 1 tab Q4H PRN PO 08/30/17 12:45 09/10/17 12:20 (Lovenox Inj) 40 mg Q24H SQ 08/30/17 16:00 09/09/17 15:16 (Motrin) 600 mg Q8H PRN PO 08/31/17 12:15 Lactated Ringer's 1,000 ml @ 100 mls/hr Q10H IV 09/07/17 14:29 09/08/17 10:46 Lactated Ringer's 1,000 ml @ 30 mls/hr Q24H PRN IV 09/07/17 15:00 09/10/17 14:59 Sodium Chloride 500 ml @ 30 mls/hr [id number] PRN IV 09/07/17 15:00 09/10/17 14:59 (Lopressor) 25 mg PLASTIC PRESS MOLDER PRN PO 09/07/17 15:00 09/10/17 14:59 (Betadine 5% Antisepsis Kit) 1 applic PLASTIC PRESS MOLDER PRN EACH NARE 09/07/17 15:00 09/10/17 14:59 (Chlorhexidine 2% Cloth) 3 pack PLASTIC PRESS MOLDER PRN TOPICAL 09/07/17 15:00 09/10/17 14:59 Cefazolin Sodium/ Dextrose 50 ml @ 200 mls/hr Q8H IV 09/08/17 06:00 09/10/17 06:03 A/P Problem List: (1) Fracture, talus closed ICD Code: S92.109A - Unspecified fracture of unspecified talus, initial encounter for closed fracture Status: Acute (2) MSSA (methicillin susceptible Staphylococcus aureus) infection ICD Code: A49.01 - Methicillin susceptible Staphylococcus aureus infection, unspecified site Status: Acute (3) Osteomyelitis ICD Code: M86.9 - Osteomyelitis, unspecified Status: Acute (4) IV drug abuse ICD Code: F19.10 - Other psychoactive substance abuse, uncomplicated Status: Chronic (5) Itching ICD Code: L29.9 - Pruritus, unspecified Assessment and Plan 27 year old female with history of IVDU admitted for septic arthritis. Infected malunion fracture of left talus Surgical removal of hardware on 08/27/17 Repeat I&D on 09/02/17 and planning to repeat tomorrow Wound cultures growing MSSA. Treated with Iv Vancomycin, Aztreonam IV which have been discontinued. Continue Vancomycin (started 08/28, 6 weeks full course recommended) Aztreonam discontinued (08/27-08/29) 09/07 ID consulted. Medicine discontinued on 09/06 and the patient started on Ancef IV 2 g every 8 hours as per ID. Patient is tolerating antibiotic well. Check CBC, CMP, and CRP weekly on Mondays; appreciate ID consult. Follow-up orthopedic surgery recommendations -weightbearing as tolerated. Obtain back at all times. 09/10 sp repeat Incision and drainage on 09/07. Antibiotics per ID. Orthopedic surgery to transition to bedside wound vac changes. Follow up CBC with diff, CMP, CRP every Wednesday. Sp Vac change. Next vac chaneg on wednesday and . Pain Control Continue oral Percocet with morphine IV for breakthrough DVT Prophylaxis Lovenox Leukopenia WBC down to 2.9 on 09/05. Will check cbc. Resolved. Itching Complains of itching of the left foot. Will Rx oral Benadryl. Itching improved - continue Benadryl. Discharge Planning Continue to monitor on the medical floor. Dylon Davis MD Sep 10, 2017 13:40
[2017-09-10] MEDS: ENOXAPARIN SODIUM 40 MG/0.4 ML SYRINGE SQ SCH (16:00)
[2017-09-10] MEDS: diphenhydrAMINE HCL 25 MG CAP PO PRN (20:28)
[2017-09-11 00:22] VITALS: BP 116/65; PULSE 90; RESP 20; TEMP 99.5; O2SAT 98
[2017-09-11] MEDS: oxyCODONE/ACETAMINOPHEN 5 MG/325 MG TAB PO PRN ×5 (00:36→20:07)
[2017-09-11] MEDS: diphenhydrAMINE HCL 25 MG CAP PO PRN ×5 (00:42→20:07)
[2017-09-11] MEDS: MORPHINE SULFATE 4 MG/ML INJ IV PUSH PRN ×2 (03:26→09:04)
[2017-09-11] MEDS: SODIUM CHLORIDE 0.9% FLUSH 10 ML FLUSH IV FLUSH PRN (03:27)
[2017-09-11] MEDS: ceFAZolin 2 GM PREMIX 50 ML IV SCH ×3 (05:22→21:54)
[2017-09-11 08:00] VITALS: BP 99/58; PULSE 75; RESP 16; TEMP 97.3; O2SAT 99
[2017-09-11] MEDS: LACTATED RINGER'S 1000 ML INJ 1,000 ML IV SCH ×2 (08:29→17:03)
[2017-09-11] MEDS: SODIUM CHLORIDE 0.9% FLUSH 10 ML FLUSH IV FLUSH SCH ×2 (09:00→21:54)
[2017-09-11 12:00] VITALS: BP 116/57; PULSE 77; RESP 17; TEMP 97.6; O2SAT 91
--- NOTE | 2017-09-11 15:15 | HHI.PR ---
Subjective Remarks no major overnight. Denies fevers, chills. Denies cp/sob. bp noted to be on the low side Objective Vitals Vital Signs Date Time Temp Pulse Resp B/P (MAP) Pulse Ox O2 Delivery O2 Flow Rate FiO2 09/11/17 12:00 97.6 77 17 116/57 (76) 91 09/11/17 08:00 97.3 75 16 99/58 (72) 99 09/11/17 00:22 99.5 90 20 116/65 (82) 98 09/10/17 20:25 97.5 102 18 112/62 (79) 98 09/10/17 18:38 18 09/10/17 18:00 99 21 09/10/17 17:50 18 09/10/17 16:00 97.8 77 17 98/55 (69) 100 I/O 09/10/17 09/10/17 09/10/17 09/11/17 09/11/17 09/11/17 07:00 15:00 23:00 07:00 15:00 23:00 Intake Total 780 ml 1200 ml 830 ml 0 ml Output Total 0 ml Balance 780 ml 1200 ml 830 ml 0 ml Intake Oral 780 ml 1200 ml 780 ml IV Total 50 ml 0 ml Drainage Total 0 ml # Voids 4 6 4 # Bowel Movements 0 1 Result Diagram: 09/09/1751709/09/17 0518 Imaging Last Impressions Ankle X-Ray 08/27/17 0000 Signed Impressions: Service Date/Time: Sunday, August 27, 2017 13:15 - CONCLUSION: No residual hardware. Jd Gatica MD FACR Lower Extremity CT 08/26/17 0000 Signed Impressions: Service Date/Time: August 23:50 - CONCLUSION: 1. Remote comminuted fracture of the talus status post fixation with nonunion at the fracture sites. Abnormal lucency and sclerosis in the talus with slight depression of the articular surface. There could be an element of avascular necrosis in the talus. Positive ankle joint effusion. No definite acute fracture. Tirso Rhodes MD Objective Remarks GENERAL: This is a well-nourished, well-developed patient, in no apparent distress. SKIN: No rashes, ecchymoses or lesions. Cool and dry. HEAD: Atraumatic. Normocephalic. No temporal or scalp tenderness. EYES: Pupils equal round and reactive. Extraocular motions intact. No scleral icterus. No injection or drainage. ENT: Nose without bleeding, purulent drainage or septal hematoma. Throat without erythema, tonsillar hypertrophy or exudate. Uvula midline. Airway patent. NECK: Trachea midline. Supple, nontender, no meningeal signs. CARDIOVASCULAR: S1S2 present without murmurs, rubs or gallops. RESPIRATORY: Clear to auscultation. Breath sounds equal bilaterally. No wheezes , rales, or rhonchi. GASTROINTESTINAL: Abdomen soft, non-tender, nondistended. MUSCULOSKELETAL: Left ankle in postoperative dressing NEUROLOGICAL: Awake and alert. Nonfocal exam. Psych cooperative IV line sites with no evidence of infection Procedures Post removal hardware left talus, left ankle arthrotomy with irrigation and debridement on 08/27/2017. Irrigation and debridement of left ankle, irrigation debridement of left talus, application of wound Vac dressing VAC dressing. 09/02/17. SP left foot irrigation and debridement on 09/02/2017. Medications and IVs Current Medications Medications (Trade) Dose Ordered Sig/Norberto Route Start Time Stop Time Status Last Admin (NS Flush) 2 ml UNSCH PRN IV FLUSH 08/27/17 00:45 09/11/17 03:27 (NS Flush) 2 ml BID IV FLUSH 08/27/17 09:00 09/10/17 22:47 (Tylenol) 650 mg Q4H PRN PO 08/27/17 00:45 08/27/17 01:54 (Zofran Inj) 4 mg Q6H PRN IVP 08/27/17 00:45 08/30/17 12:47 (Narcan Inj) 0.4 mg UNSCH PRN IV PUSH 08/27/17 00:45 (Duoneb Neb) 1 ampule Q2HR NEB PRN NEB 08/27/17 00:45 (Lovenox Inj) 40 mg Q24H SQ 08/30/17 16:00 09/09/17 15:16 (Motrin) 600 mg Q8H PRN PO 08/31/17 12:15 Lactated Ringer's 1,000 ml @ 100 mls/hr Q10H IV 09/07/17 14:29 09/10/17 22:47 Cefazolin Sodium/ Dextrose 50 ml @ 200 mls/hr Q8H IV 09/08/17 06:00 09/11/17 14:00 (Benadryl) 25 mg Q4H PRN PO 09/10/17 18:30 09/11/17 12:46 (Percocet 5-325 Mg) 1 tab Q4H PRN PO 09/11/17 09:45 09/11/17 10:19 (Percocet 5-325 Mg) 2 tab Q4H PRN PO 09/11/17 09:45 09/11/17 15:00 A/P Problem List: (1) Fracture, talus closed ICD Code: S92.109A - Unspecified fracture of unspecified talus, initial encounter for closed fracture Status: Acute (2) MSSA (methicillin susceptible Staphylococcus aureus) infection ICD Code: A49.01 - Methicillin susceptible Staphylococcus aureus infection, unspecified site Status: Acute (3) Osteomyelitis ICD Code: M86.9 - Osteomyelitis, unspecified Status: Acute (4) IV drug abuse ICD Code: F19.10 - Other psychoactive substance abuse, uncomplicated Status: Chronic (5) Itching ICD Code: L29.9 - Pruritus, unspecified Assessment and Plan 27 year old female with history of IVDU admitted for septic arthritis. Infected malunion fracture of left talus Surgical removal of hardware on 08/27/17 Repeat I&D on 09/02/17 and planning to repeat tomorrow Wound cultures growing MSSA. Treated with Iv Vancomycin, Aztreonam IV which have been discontinued. Continue Vancomycin (started 08/28, 6 weeks full course recommended) Aztreonam discontinued (08/27-08/29) 09/07 ID consulted. Medicine discontinued on 09/06 and the patient started on Ancef IV 2 g every 8 hours as per ID. Patient is tolerating antibiotic well. Check CBC, CMP, and CRP weekly on Mondays; appreciate ID consult. Follow-up orthopedic surgery recommendations -weightbearing as tolerated. Obtain back at all times. sp repeat Incision and drainage on 09/07. Antibiotics per ID. Orthopedic surgery to transition to bedside wound vac changes. Follow up CBC with diff, CMP, CRP every Wednesday. Sp Vac change. Next vac chaneg on wednesday and . Pain Control Continue oral Percocet with morphine IV for breakthrough DVT Prophylaxis Lovenox Leukopenia WBC down to 2.9 on 09/05. Will check cbc. Resolved. Itching Itching improved - continue Benadryl. Discharge Planning Continue to monitor on the medical floor. Dylon Davis MD Sep 11, 2017 15:15
[2017-09-11] MEDS: ENOXAPARIN SODIUM 40 MG/0.4 ML SYRINGE SQ SCH ×2 (15:40→17:24)
[2017-09-11 16:00] VITALS: BP 122/60; PULSE 108; RESP 16; TEMP 96.4; O2SAT 96
[2017-09-11 20:00] VITALS: BP 117/70; PULSE 96; RESP 18; TEMP 96.4; O2SAT 94
[2017-09-11 21:42] VITALS: O2SAT 94
[2017-09-12] MEDS: oxyCODONE/ACETAMINOPHEN 5 MG/325 MG TAB PO PRN ×6 (00:22→23:19)
[2017-09-12] MEDS: diphenhydrAMINE HCL 25 MG CAP PO PRN ×5 (00:22→23:18)
[2017-09-12 00:34] VITALS: BP 100/58; PULSE 77; RESP 18; O2SAT 97
[2017-09-12] MEDS: LACTATED RINGER'S 1000 ML INJ 1,000 ML IV SCH ×3 (04:29→22:03)
[2017-09-12] MEDS: ceFAZolin 2 GM PREMIX 50 ML IV SCH ×3 (04:53→21:49)
[2017-09-12 08:00] VITALS: BP 96/63; PULSE 72; RESP 15; TEMP 96.8; O2SAT 99
[2017-09-12] MEDS: SODIUM CHLORIDE 0.9% FLUSH 10 ML FLUSH IV FLUSH SCH ×2 (09:14→21:49)
[2017-09-12 12:00] VITALS: BP 97/61; PULSE 75; RESP 16; TEMP 96.7; O2SAT 97
--- NOTE | 2017-09-12 13:06 | HHI.PR ---
Subjective Remarks No major overnight events. The patient is afebrile, denies chest pain or shortness of breath. Patient states pain is controlled. Objective Vitals Vital Signs Date Time Temp Pulse Resp B/P (MAP) Pulse Ox O2 Delivery O2 Flow Rate FiO2 09/12/17 08:00 96.8 72 15 96/63 (74) 99 09/12/17 00:34 77 18 100/58 (72) 97 09/11/17 21:42 94 09/11/17 20:00 96.4 96 18 117/70 (86) 94 09/11/17 16:00 96.4 108 16 122/60 (80) 96 I/O 09/11/17 09/11/17 09/11/17 09/12/17 09/12/17 09/12/17 07:00 15:00 23:00 07:00 15:00 23:00 Intake Total 830 ml 0 ml 660 ml 100 ml 0 ml Output Total 0 ml 0 ml Balance 830 ml 0 ml 660 ml 100 ml 0 ml Intake Oral 780 ml 560 ml IV Total 50 ml 0 ml 100 ml 100 ml 0 ml Drainage Total 0 ml 0 ml # Voids 4 3 # Bowel Movements 1 Result Diagram: 09/09/17 0518 09/09/17 0518 Imaging Last Impressions Ankle X-Ray 08/27/17 0000 Signed Impressions: Service Date/Time: Sunday, August 27, 2017 13:15 - CONCLUSION: No residual hardware. Jd Gatica MD FACR Lower Extremity CT 08/26/17 0000 Signed Impressions: Service Date/Time: August 23:50 - CONCLUSION: 1. Remote comminuted fracture of the talus status post fixation with nonunion at the fracture sites. Abnormal lucency and sclerosis in the talus with slight depression of the articular surface. There could be an element of avascular necrosis in the talus. Positive ankle joint effusion. No definite acute fracture. Tirso Rhodes MD Objective Remarks GENERAL: This is a well-nourished, well-developed patient, in no apparent distress. SKIN: No rashes, ecchymoses or lesions. Cool and dry. HEAD: Atraumatic. Normocephalic. No temporal or scalp tenderness. EYES: Pupils equal round and reactive. Extraocular motions intact. No scleral icterus. No injection or drainage. ENT: Nose without bleeding, purulent drainage or septal hematoma. Throat without erythema, tonsillar hypertrophy or exudate. Uvula midline. Airway patent. NECK: Trachea midline. Supple, nontender, no meningeal signs. CARDIOVASCULAR: S1S2 present without murmurs, rubs or gallops. RESPIRATORY: Clear to auscultation. Breath sounds equal bilaterally. No wheezes , rales, or rhonchi. GASTROINTESTINAL: Abdomen soft, non-tender, nondistended. MUSCULOSKELETAL: Left ankle in postoperative dressing NEUROLOGICAL: Awake and alert. Nonfocal exam. Psych cooperative IV line sites with no evidence of infection Procedures Post removal hardware left talus, left ankle arthrotomy with irrigation and debridement on 08/27/2017. Irrigation and debridement of left ankle, irrigation debridement of left talus, application of wound Vac dressing VAC dressing. 09/02/17. SP left foot irrigation and debridement on 09/02/2017. Medications and IVs Current Medications Medications (Trade) Dose Ordered Sig/Norberto Route Start Time Stop Time Status Last Admin (NS Flush) 2 ml UNSCH PRN IV FLUSH 08/27/17 00:45 09/11/17 03:27 (NS Flush) 2 ml BID IV FLUSH 08/27/17 09:00 09/12/17 09:14 (Tylenol) 650 mg Q4H PRN PO 08/27/17 00:45 08/27/17 01:54 (Zofran Inj) 4 mg Q6H PRN IVP 08/27/17 00:45 08/30/17 12:47 (Narcan Inj) 0.4 mg UNSCH PRN IV PUSH 08/27/17 00:45 (Duoneb Neb) 1 ampule Q2HR NEB PRN NEB 08/27/17 00:45 (Lovenox Inj) 40 mg Q24H SQ 08/30/17 16:00 09/11/17 17:24 (Motrin) 600 mg Q8H PRN PO 08/31/17 12:15 Lactated Ringer's 1,000 ml @ 100 mls/hr Q10H IV 09/07/17 14:29 09/10/17 22:47 Cefazolin Sodium/ Dextrose 50 ml @ 200 mls/hr Q8H IV 09/08/17 06:00 09/12/17 04:53 (Benadryl) 25 mg Q4H PRN PO 09/10/17 18:30 09/12/17 04:53 (Percocet 5-325 Mg) 1 tab Q4H PRN PO 09/11/17 09:45 09/11/17 10:19 (Percocet 5-325 Mg) 2 tab Q4H PRN PO 09/11/17 09:45 09/12/17 09:14 A/P Problem List: (1) Fracture, talus closed ICD Code: S92.109A - Unspecified fracture of unspecified talus, initial encounter for closed fracture Status: Acute (2) MSSA (methicillin susceptible Staphylococcus aureus) infection ICD Code: A49.01 - Methicillin susceptible Staphylococcus aureus infection, unspecified site Status: Acute (3) Osteomyelitis ICD Code: M86.9 - Osteomyelitis, unspecified Status: Acute (4) IV drug abuse ICD Code: F19.10 - Other psychoactive substance abuse, uncomplicated Status: Chronic (5) Itching ICD Code: L29.9 - Pruritus, unspecified Assessment and Plan 27 year old female with history of IVDU admitted for septic arthritis. Infected malunion fracture of left talus Surgical removal of hardware on 08/27/17 Repeat I&D on 09/02/17 and planning to repeat tomorrow Wound cultures growing MSSA. Treated with Iv Vancomycin, Aztreonam IV which have been discontinued. Continue Vancomycin (started 08/28, 6 weeks full course recommended) Aztreonam discontinued (08/27-08/29) 09/07 ID consulted. Medicine discontinued on 09/06 and the patient started on Ancef IV 2 g every 8 hours as per ID. Patient is tolerating antibiotic well. Check CBC, CMP, and CRP weekly on Mondays; appreciate ID consult. Follow-up orthopedic surgery recommendations -weightbearing as tolerated. Obtain back at all times. sp repeat Incision and drainage on 09/07. Antibiotics per ID. Orthopedic surgery to transition to bedside wound vac changes. Follow up CBC with diff, CMP, CRP every Wednesday. Sp Vac change. Next vac chaneg on wednesday and . Pain Control Continue oral Percocet with morphine IV for breakthrough 09/12 morphine IV for breakthrough pain was discontinued due to hypotension. DVT Prophylaxis Lovenox Leukopenia WBC down to 2.9 on 09/05. Will check cbc. Resolved. Itching Result. Continue Benadryl. Discharge Planning Continue to monitor on the medical floor. Dylon Davis MD Sep 12, 2017 13:06
[2017-09-12 16:00] VITALS: BP 111/71; PULSE 95; RESP 16; TEMP 96.1; O2SAT 98
[2017-09-12 20:00] VITALS: BP 111/74; PULSE 86; RESP 18; TEMP 97.2; O2SAT 96
[2017-09-13] VITALS: BP 93/47; PULSE 98; RESP 18; TEMP 97.3; O2SAT 97
[2017-09-13] MEDS: diphenhydrAMINE HCL 25 MG CAP PO PRN ×5 (03:30→20:12)
[2017-09-13] MEDS: oxyCODONE/ACETAMINOPHEN 5 MG/325 MG TAB PO PRN ×5 (03:30→20:13)
[2017-09-13] MEDS: SODIUM CHLORIDE 0.9% FLUSH 10 ML FLUSH IV FLUSH PRN (05:22)
[2017-09-13] MEDS: ceFAZolin 2 GM PREMIX 50 ML IV SCH ×3 (05:22→20:53)
--- NOTE | 2017-09-13 06:58 | PD.ORT.PN ---
Subjective Subjective Remarks POD 6 s/p repeat I&D left foot with vac application doing well. pain controlled. no complaints Objective Vitals Vital Signs Date Time Temp Pulse Resp B/P (MAP) Pulse Ox O2 Delivery O2 Flow Rate FiO2 09/13/17 00:00 97.3 98 18 93/47 (62) 97 09/12/17 20:00 97.2 86 18 111/74 (86) 96 09/12/17 16:00 96.1 95 16 111/71 (84) 98 09/12/17 12:00 96.7 75 16 97/61 (73) 97 09/12/17 08:00 96.8 72 15 96/63 (74) 99 I/O 09/12/17 09/12/17 09/12/17 09/13/17 09/13/17 09/13/17 07:00 15:00 23:00 07:00 15:00 23:00 Intake Total 100 ml 100 ml 1250 ml Output Total 0 ml 50 ml Balance 100 ml 100 ml 1250 ml -50 ml Intake Oral 1250 ml IV Total 100 ml 100 ml Drainage Total 0 ml 50 ml # Voids 4 # Bowel Movements 1 Result Diagram: 09/09/1751709/09/17 0518 Objective Remarks Awake, alert, no acute distress LLE: dressings clean and dry. intact. NVI. Negative Homans. +vac with good seal. Assessment & Plan Assessment and Plan 1) Left Talus Fx s/p ORIF with nonunion with hardware infection wiht repeat I&D and vac application - POD 6 -Cxs with MSSA -WBAT -will need 6 wks of IV Abx -infectious Dz consulted to manage -maintain vac at all times -vac changed at bedside today -will plan for vac change tomorrow at bedside -patient should not be discharged home. Patient has significant history of IVDU and abuse and requires 6 weeks of IV Abx. needs to be hospitalized for duration of Abx [place]oco Vale/First Charla FOOTE Sep 13, 2017 06:58
[2017-09-13] MEDS: SODIUM CHLORIDE 0.9% FLUSH 10 ML FLUSH IV FLUSH SCH ×2 (07:30→20:14)
[2017-09-13 07:55] VITALS: BP 103/52; PULSE 66; RESP 16; TEMP 97.9; O2SAT 99
[2017-09-13] MEDS: LACTATED RINGER'S 1000 ML INJ 1,000 ML IV SCH ×2 (10:29→20:29)
[2017-09-13 10:58] LABS: AUTOMATED NEUTROPHIL # 2.3 TH/MM3 (1.8-7.7); BASOPHIL % 0.6 % (0.0-2.0); EOSINOPHIL # 0.2 TH/MM3 (0-0.4); HEMATOCRIT 36.9 % (35.0-46.0); HEMOGLOBIN 12.5 GM/DL (11.6-15.3); LYMPH % 41.3 % (9.0-44.0); LYMPHOCYTE # 2.1 TH/MM3 (1.0-4.8); MEAN CELL VOLUME 89.3 FL (80.0-100.0); MEAN CORPUSCULAR HEMOGLOBIN 30.4 PG (27.0-34.0); MEAN PLATELET VOLUME 8.5 FL (7.0-11.0); MONO % 10.1 % (0.0-8.0); MONOCYTE # 0.5 TH/MM3 (0-0.9); PLATELET COUNT 306 TH/MM3 (150-450); RED BLOOD COUNT 4.13 MIL/MM3 (4.00-5.30); RED CELL DISTRIBUTION WIDTH 12.9 % (11.6-17.2); WHITE BLOOD COUNT 5.2 TH/MM3 (4.0-11.0)
[2017-09-13 11:05] VITALS: O2SAT 97
[2017-09-13 11:24] LABS: ALBUMIN 2.7 GM/DL (3.4-5.0); ALT (GPT) 9 U/L (10-53); AST (GOT) 19 U/L (15-37); BICARBONATE 32.7 MEQ/L (21.0-32.0); BLOOD UREA NITROGEN 11 MG/DL (7-18); C-REACTIVE PROTEIN 0.77 MG/DL (0.00-0.30); CALCIUM 8.8 MG/DL (8.5-10.1); CHLORIDE 101 MEQ/L (98-107); CREATININE 0.76 MG/DL (0.50-1.00); GLOMERULAR FILTRATION RATE 90 ML/MIN (>89); GLUCOSE,RANDOM 78 MG/DL (74-106); SODIUM (NA) 138 MEQ/L (136-145)
[2017-09-13 11:26] LABS: ALKALINE PHOSPHATASE 88 U/L (45-117); TOTAL BILIRUBIN ADULT 0.2 MG/DL (0.2-1.0); TOTAL PROTEIN 7.1 GM/DL (6.4-8.2)
[2017-09-13 12:00] VITALS: BP 104/59; PULSE 91; RESP 18; TEMP 97.6; O2SAT 93
[2017-09-13] MEDS: ONDANSETRON HCL 4 MG/2 ML VIAL IVP PRN ×2 (13:35→20:13)
--- NOTE | 2017-09-13 14:29 | HHI.IDPN ---
Subjective Subjective Remarks Ms. Luna is a 27-year-old female with past medical history significant for IV drug abuse and status post ORIF of the left talus in January 2017 presents to the emergency department with a 3-5 day history of a left swollen ankle. The patient reports that she has pain, swelling in her ankle making it difficult to ambulate. She states that the pain is intolerable. She is a poor historian. So the history was obtained by review of medical records. The patient denies any fever/chills/nausea/vomiting. She admits to using cocaine, Margot, methamphetamines and opiates. Vital signs on presentation: Temperature 98.2, pulse 114, respirations 16, BP 125/81, pulse ox 98% on room air. Patient was seen by orthopedic surgeon Dr. Strange who removed the hardware and performed an I&D and intraoperative cultures are now growing staph aureus infectious disease is consulted for evaluation and management of infected hardware of the left ankle. Overnight events reviewed No fevers No rash No diarrhea Antibiotics Ancef IV Lines Line sites with no evidence of infection. Past Medical History Past Medical History Asthma Polysubstance abuse Anxiety Depression Cervical Cancer Bipolar disorder Past Surgical History Tubal ligation Open reduction internal fixation left talus Allergies: Coded Allergies: peanut (Unverified Allergy, Severe, 08/26/17) "throat swelling" penicillin G (Unverified Allergy, Intermediate, Rash with hives with amoxicillin but tolerated Keflex past., 09/06/17) Objective . Vital Signs Date Time Temp Pulse Resp B/P (MAP) Pulse Ox O2 Delivery O2 Flow Rate FiO2 09/13/17 12:00 97.6 91 18 104/59 (74) 93 09/13/17 11:05 97 09/13/17 08:38 18 09/13/17 07:55 97.9 66 16 103/52 (69) 99 09/13/17 00:00 97.3 98 18 93/47 (62) 97 09/12/17 20:00 97.2 86 18 111/74 (86) 96 09/12/17 16:00 96.1 95 16 111/71 (84) 98 . Laboratory Tests Test 09/13/17 10:12 White Blood Count 5.2 TH/MM3 Red Blood Count 4.13 MIL/MM3 Hemoglobin 12.5 GM/DL Hematocrit 36.9 % Mean Corpuscular Volume 89.3 FL Mean Corpuscular Hemoglobin 30.4 PG Mean Corpuscular Hemoglobin Concent 34.0 % Red Cell Distribution Width 12.9 % Platelet Count 306 TH/MM3 Mean Platelet Volume 8.5 FL Neutrophils (%) (Auto) 44.0 % Lymphocytes (%) (Auto) 41.3 % Monocytes (%) (Auto) 10.1 % Eosinophils (%) (Auto) 4.0 % Basophils (%) (Auto) 0.6 % Neutrophils # (Auto) 2.3 TH/MM3 Lymphocytes # (Auto) 2.1 TH/MM3 Monocytes # (Auto) 0.5 TH/MM3 Eosinophils # (Auto) 0.2 TH/MM3 Basophils # (Auto) 0.0 TH/MM3 CBC Comment DIFF FINAL Differential Comment Laboratory Tests Test 09/13/17 10:12 Blood Urea Nitrogen 11 MG/DL Creatinine 0.76 MG/DL Random Glucose 78 MG/DL Total Protein 7.1 GM/DL Albumin 2.7 GM/DL Calcium Level 8.8 MG/DL Alkaline Phosphatase 88 U/L Aspartate Amino Transf (AST/SGOT) 19 U/L Alanine Aminotransferase (ALT/SGPT) 9 U/L Total Bilirubin 0.2 MG/DL Sodium Level 138 MEQ/L Potassium Level 3.7 MEQ/L Chloride Level 101 MEQ/L Carbon Dioxide Level 32.7 MEQ/L Anion Gap 4 MEQ/L Estimat Glomerular Filtration Rate 90 ML/MIN C-Reactive Protein 0.77 MG/DL Imaging Last Impressions Ankle X-Ray 08/27/17 0000 Signed Impressions: Service Date/Time: Sunday, August 27, 2017 13:15 - CONCLUSION: No residual hardware. Jd Gatica MD FACR Lower Extremity CT 08/26/17 0000 Signed Impressions: Service Date/Time: August 23:50 - CONCLUSION: 1. Remote comminuted fracture of the talus status post fixation with nonunion at the fracture sites. Abnormal lucency and sclerosis in the talus with slight depression of the articular surface. There could be an element of avascular necrosis in the talus. Positive ankle joint effusion. No definite acute fracture. Tirso Rhodes MD Physical Exam GENERAL: This is a well-nourished, well-developed patient, in no apparent distress. SKIN: No rashes, ecchymoses or lesions. Cool and dry. HEAD: Atraumatic. Normocephalic. No temporal or scalp tenderness. EYES: Pupils equal round and reactive. Extraocular motions intact. No scleral icterus. No injection or drainage. ENT: Nose without bleeding, purulent drainage or septal hematoma. Throat without erythema, tonsillar hypertrophy or exudate. Uvula midline. Airway patent. NECK: Trachea midline. Supple, nontender, no meningeal signs. CARDIOVASCULAR: Heart sounds audible RESPIRATORY: Clear to auscultation. Breath sounds equal bilaterally. No wheezes , rales, or rhonchi. GASTROINTESTINAL: Abdomen soft, non-tender, nondistended. MUSCULOSKELETAL: Left ankle in postoperative dressing, Wound vac in place. NEUROLOGICAL: Awake and alert. Nonfocal exam. Psych cooperative IV line sites with no evidence of infection Assessment & Plan Remarks Left ankle infected hardware status post removal MSSA infection/osteomyelitis. IV drug abuser Clarification of penicillin allergy: reports rash and hives many years back. Tolerated Keflex on multiple occasions for UTI. Recommendations: Continue Ancef IV 2 gm q8hrs Follow cultures Follow clinically Hospitalists to order CBC with diff, CMP, CRP every Wednesday and follow them. When cleared by ortho please call me for Discharge planning. If patient has a suitable safe living condition I will consider placing PICC line and dc home to receive Ceftriaxone IV once a day in infusion clinic at [facility]. Salud Martines MD Sep 13, 2017 14:29
[2017-09-13 16:00] VITALS: BP 109/60; PULSE 85; RESP 16; TEMP 96.6; O2SAT 94
[2017-09-13] MEDS: ENOXAPARIN SODIUM 40 MG/0.4 ML SYRINGE SQ SCH (16:00)
--- NOTE | 2017-09-13 17:49 | HHI.PR ---
Subjective Remarks No major overnight events. Pain is controlled. Denies fevers, chills, abdominal pain, nausea or vomiting. Objective Vitals Vital Signs Date Time Temp Pulse Resp B/P (MAP) Pulse Ox O2 Delivery O2 Flow Rate FiO2 09/13/17 16:00 96.6 85 16 109/60 (76) 94 09/13/17 12:39 18 09/13/17 12:00 97.6 91 18 104/59 (74) 93 09/13/17 11:05 97 09/13/17 07:55 97.9 66 16 103/52 (69) 99 09/13/17 00:00 97.3 98 18 93/47 (62) 97 09/12/17 20:00 97.2 86 18 111/74 (86) 96 I/O 09/12/17 09/12/17 09/12/17 09/13/17 09/13/17 09/13/17 07:00 15:00 23:00 07:00 15:00 23:00 Intake Total 100 ml 100 ml 1250 ml 840 ml Output Total 0 ml 50 ml Balance 100 ml 100 ml 1250 ml -50 ml 840 ml Intake Oral 1250 ml 840 ml IV Total 100 ml 100 ml Drainage Total 0 ml 50 ml # Voids 4 4 # Bowel Movements 1 1 Result Diagram: 09/13/17 1012 09/13/17 1012 Imaging Last Impressions Ankle X-Ray 08/27/17 0000 Signed Impressions: Service Date/Time: Sunday, August 27, 2017 13:15 - CONCLUSION: No residual hardware. Jd Gatica MD FACR Lower Extremity CT 08/26/17 0000 Signed Impressions: Service Date/Time: August 23:50 - CONCLUSION: 1. Remote comminuted fracture of the talus status post fixation with nonunion at the fracture sites. Abnormal lucency and sclerosis in the talus with slight depression of the articular surface. There could be an element of avascular necrosis in the talus. Positive ankle joint effusion. No definite acute fracture. Tirso Rhodes MD Objective Remarks GENERAL: This is a well-nourished, well-developed patient, in no apparent distress. SKIN: No rashes, ecchymoses or lesions. Cool and dry. HEAD: Atraumatic. Normocephalic. No temporal or scalp tenderness. EYES: Pupils equal round and reactive. Extraocular motions intact. No scleral icterus. No injection or drainage. ENT: Nose without bleeding, purulent drainage or septal hematoma. Throat without erythema, tonsillar hypertrophy or exudate. Uvula midline. Airway patent. NECK: Trachea midline. Supple, nontender, no meningeal signs. CARDIOVASCULAR: S1S2 present without murmurs, rubs or gallops. RESPIRATORY: Clear to auscultation. Breath sounds equal bilaterally. No wheezes , rales, or rhonchi. GASTROINTESTINAL: Abdomen soft, non-tender, nondistended. MUSCULOSKELETAL: Left ankle in postoperative dressing NEUROLOGICAL: Awake and alert. Nonfocal exam. Psych cooperative IV line sites with no evidence of infection Procedures Post removal hardware left talus, left ankle arthrotomy with irrigation and debridement on 08/27/2017. Irrigation and debridement of left ankle, irrigation debridement of left talus, application of wound Vac dressing VAC dressing. 09/02/17. SP left foot irrigation and debridement on 09/02/2017. A/P Problem List: (1) Fracture, talus closed ICD Code: S92.109A - Unspecified fracture of unspecified talus, initial encounter for closed fracture Status: Acute (2) MSSA (methicillin susceptible Staphylococcus aureus) infection ICD Code: A49.01 - Methicillin susceptible Staphylococcus aureus infection, unspecified site Status: Acute (3) Osteomyelitis ICD Code: M86.9 - Osteomyelitis, unspecified Status: Acute (4) IV drug abuse ICD Code: F19.10 - Other psychoactive substance abuse, uncomplicated Status: Chronic (5) Itching ICD Code: L29.9 - Pruritus, unspecified Assessment and Plan 27 year old female with history of IVDU admitted for septic arthritis. Infected malunion fracture of left talus Surgical removal of hardware on 08/27/17 Repeat I&D on 09/02/17 and planning to repeat tomorrow Wound cultures growing MSSA. Treated with Iv Vancomycin, Aztreonam IV which have been discontinued. Continue Vancomycin (started 08/28, 6 weeks full course recommended) Aztreonam discontinued (08/27-08/29) 09/07 ID consulted. Medicine discontinued on 09/06 and the patient started on Ancef IV 2 g every 8 hours as per ID. Patient is tolerating antibiotic well. Check CBC, CMP, and CRP weekly on Mondays; appreciate ID consult. Follow-up orthopedic surgery recommendations -weightbearing as tolerated. Obtain back at all times. sp repeat Incision and drainage on 09/07. Antibiotics per ID. Orthopedic surgery to transition to bedside wound vac changes. Follow up CBC with diff, CMP, CRP every Wednesday. Next VAC change tomorrow as per orthopedic surgery. Pain Control Continue oral Percocet with morphine IV for breakthrough 09/12 morphine IV for breakthrough pain was discontinued due to hypotension. DVT Prophylaxis Lovenox Leukopenia WBC down to 2.9 on 09/05. Will check cbc. Resolved. Itching Result. Continue Benadryl. Discharge Planning Continue to monitor on the medical floor. Discharge pending orthopedic surgery clearance. Dylon Davis MD Sep 13, 2017 17:49
[2017-09-13 20:58] VITALS: BP 111/64; PULSE 110; RESP 18; TEMP 97; O2SAT 98
[2017-09-14] VITALS: BP 119/62; PULSE 107; RESP 22; TEMP 98.6; O2SAT 99
[2017-09-14] MEDS: diphenhydrAMINE HCL 25 MG CAP PO PRN ×6 (00:04→21:54)
[2017-09-14] MEDS: oxyCODONE/ACETAMINOPHEN 5 MG/325 MG TAB PO PRN ×6 (00:04→21:54)
[2017-09-14] MEDS: ONDANSETRON HCL 4 MG/2 ML VIAL IVP PRN (00:04)
[2017-09-14] MEDS: LACTATED RINGER'S 1000 ML INJ 1,000 ML IV SCH ×3 (05:29→21:55)
[2017-09-14] MEDS: ceFAZolin 2 GM PREMIX 50 ML IV SCH ×3 (05:29→21:54)
[2017-09-14 08:00] VITALS: BP 103/50; PULSE 71; RESP 17; TEMP 97.5; O2SAT 93
[2017-09-14] MEDS: SODIUM CHLORIDE 0.9% FLUSH 10 ML FLUSH IV FLUSH SCH ×2 (09:05→21:55)
--- NOTE | 2017-09-14 10:43 | PD.ORT.PN ---
Subjective Subjective Remarks POD 7 s/p repeat I&D left foot with vac application doing well. pain controlled. no complaints Objective Vitals Vital Signs Date Time Temp Pulse Resp B/P (MAP) Pulse Ox O2 Delivery O2 Flow Rate FiO2 09/14/17 08:00 97.5 71 17 103/50 (67) 93 09/14/17 05:12 18 09/14/17 00:00 98.6 107 22 119/62 (81) 99 09/13/17 20:58 97.0 110 18 111/64 (80) 98 09/13/17 16:00 96.6 85 16 109/60 (76) 94 09/13/17 12:00 97.6 91 18 104/59 (74) 93 09/13/17 11:05 97 I/O 09/13/17 09/13/17 09/13/17 09/14/17 09/14/17 09/14/17 07:00 15:00 23:00 07:00 15:00 23:00 Intake Total 100 ml 50 ml 890 ml 600 ml Output Total 50 ml 0 ml Balance 50 ml 50 ml 890 ml 600 ml Intake Oral 840 ml 600 ml IV Total 100 ml 50 ml 50 ml Drainage Total 50 ml 0 ml # Voids 4 3 # Bowel Movements 1 Result Diagram: 09/13/17 1012 09/13/17 1012 Objective Remarks Awake, alert, no acute distress LLE: dressings clean and dry. intact. NVI. Negative Homans. +vac with good seal. vac removed. no purulence or drainage. red, beefy granulation tissue present. Assessment & Plan Assessment and Plan 1) Left Talus Fx s/p ORIF with nonunion with hardware infection wiht repeat I&D and vac application - POD 7 -Cxs with MSSA -WBAT -will need 6 wks of IV Abx -infectious Dz consulted to manage -maintain vac at all times -vac changed at bedside today -will plan for vac change /wednesday -patient should not be discharged home. Patient has significant history of IVDU and abuse and requires 6 weeks of IV Abx. needs to be hospitalized for duration of Abx [place]/[facility] FOOTE Sep 14, 2017 10:43
[2017-09-14 12:00] VITALS: BP 95/52; PULSE 89; RESP 18; TEMP 96.9; O2SAT 95
--- NOTE | 2017-09-14 13:22 | HHI.PR ---
Subjective Remarks Patient c/o right knee pain which was present previously however now worst since patient is carrying more off the weight over the left lower extremity. The patient denies fevers or chills. The patient denies chest pain or shortness of breath. Objective Vitals Vital Signs Date Time Temp Pulse Resp B/P (MAP) Pulse Ox O2 Delivery O2 Flow Rate FiO2 09/14/17 12:00 96.9 89 18 95/52 (66) 95 09/14/17 08:00 97.5 71 17 103/50 (67) 93 09/14/17 05:12 18 09/14/17 00:00 98.6 107 22 119/62 (81) 99 09/13/17 20:58 97.0 110 18 111/64 (80) 98 09/13/17 16:00 96.6 85 16 109/60 (76) 94 I/O 09/13/17 09/13/17 09/13/17 09/14/17 09/14/17 09/14/17 07:00 15:00 23:00 07:00 15:00 23:00 Intake Total 100 ml 50 ml 890 ml 600 ml Output Total 50 ml 0 ml Balance 50 ml 50 ml 890 ml 600 ml Intake Oral 840 ml 600 ml IV Total 100 ml 50 ml 50 ml Drainage Total 50 ml 0 ml # Voids 4 3 # Bowel Movements 1 Result Diagram: 09/13/17 1012 09/13/17 1012 Imaging Last Impressions Ankle X-Ray 08/27/17 0000 Signed Impressions: Service Date/Time: Sunday, August 27, 2017 13:15 - CONCLUSION: No residual hardware. Jd Gatica MD FACR Lower Extremity CT 08/26/17 0000 Signed Impressions: Service Date/Time: August 23:50 - CONCLUSION: 1. Remote comminuted fracture of the talus status post fixation with nonunion at the fracture sites. Abnormal lucency and sclerosis in the talus with slight depression of the articular surface. There could be an element of avascular necrosis in the talus. Positive ankle joint effusion. No definite acute fracture. Tirso Rhodes MD Objective Remarks GENERAL: This is a well-nourished, well-developed patient, in no apparent distress. SKIN: No rashes, ecchymoses or lesions. Cool and dry. HEAD: Atraumatic. Normocephalic. No temporal or scalp tenderness. EYES: Pupils equal round and reactive. Extraocular motions intact. No scleral icterus. No injection or drainage. ENT: Nose without bleeding, purulent drainage or septal hematoma. Throat without erythema, tonsillar hypertrophy or exudate. Uvula midline. Airway patent. NECK: Trachea midline. Supple, nontender, no meningeal signs. CARDIOVASCULAR: S1S2 present without murmurs, rubs or gallops. RESPIRATORY: Clear to auscultation. Breath sounds equal bilaterally. No wheezes , rales, or rhonchi. GASTROINTESTINAL: Abdomen soft, non-tender, nondistended. MUSCULOSKELETAL: Left ankle in postoperative dressing, wound vac in place NEUROLOGICAL: Awake and alert. Nonfocal exam. Psych cooperative IV line sites with no evidence of infection Procedures Post removal hardware left talus, left ankle arthrotomy with irrigation and debridement on 08/27/2017. Irrigation and debridement of left ankle, irrigation debridement of left talus, application of wound Vac dressing VAC dressing. 09/02/17. SP left foot irrigation and debridement on 09/02/2017. Medications and IVs Current Medications Medications (Trade) Dose Ordered Sig/Norberto Route Start Time Stop Time Status Last Admin (NS Flush) 2 ml UNSCH PRN IV FLUSH 08/27/17 00:45 09/13/17 05:22 (NS Flush) 2 ml BID IV FLUSH 08/27/17 09:00 09/14/17 09:05 (Tylenol) 650 mg Q4H PRN PO 08/27/17 00:45 08/27/17 01:54 (Zofran Inj) 4 mg Q6H PRN IVP 08/27/17 00:45 09/14/17 00:04 (Narcan Inj) 0.4 mg UNSCH PRN IV PUSH 08/27/17 00:45 (Duoneb Neb) 1 ampule Q2HR NEB PRN NEB 08/27/17 00:45 (Lovenox Inj) 40 mg Q24H SQ 08/30/17 16:00 09/11/17 17:24 (Motrin) 600 mg Q8H PRN PO 08/31/17 12:15 Lactated Ringer's 1,000 ml @ 100 mls/hr Q10H IV 09/07/17 14:29 09/10/17 22:47 Cefazolin Sodium/ Dextrose 50 ml @ 200 mls/hr Q8H IV 09/08/17 06:00 09/14/17 05:29 (Benadryl) 25 mg Q4H PRN PO 09/10/17 18:30 09/14/17 09:05 (Percocet 5-325 Mg) 1 tab Q4H PRN PO 09/11/17 09:45 09/11/17 10:19 (Percocet 5-325 Mg) 2 tab Q4H PRN PO 09/11/17 09:45 09/14/17 09:05 A/P Problem List: (1) Fracture, talus closed ICD Code: S92.109A - Unspecified fracture of unspecified talus, initial encounter for closed fracture Status: Acute (2) MSSA (methicillin susceptible Staphylococcus aureus) infection ICD Code: A49.01 - Methicillin susceptible Staphylococcus aureus infection, unspecified site Status: Acute (3) Osteomyelitis ICD Code: M86.9 - Osteomyelitis, unspecified Status: Acute (4) IV drug abuse ICD Code: F19.10 - Other psychoactive substance abuse, uncomplicated Status: Chronic (5) Itching ICD Code: L29.9 - Pruritus, unspecified (6) Right knee pain ICD Code: M25.561 - Pain in right knee Plan: We will check a knee x-ray of the right knee. Assessment and Plan 27 year old female with history of IVDU admitted for septic arthritis. Infected malunion fracture of left talus Surgical removal of hardware on 08/27/17 Repeat I&D on 09/02/17 and planning to repeat tomorrow Wound cultures growing MSSA. Treated with Iv Vancomycin, Aztreonam IV which have been discontinued. Continue Vancomycin (started 08/28, 6 weeks full course recommended) Aztreonam discontinued (08/27-08/29) 09/07 ID consulted. Medicine discontinued on 09/06 and the patient started on Ancef IV 2 g every 8 hours as per ID. Patient is tolerating antibiotic well. Check CBC, CMP, and CRP weekly on Mondays; appreciate ID consult. Follow-up orthopedic surgery recommendations -weightbearing as tolerated. Obtain back at all times. sp repeat Incision and drainage on 09/07. Antibiotics per ID. Orthopedic surgery to transition to bedside wound vac changes. Follow up CBC with diff, CMP, CRP every Wednesday. 09/14 VAC changed at bedside today. Next VAC change will be or Wednesday. Patient will be discharged home only if the patient can get the antibiotic at the infusion center through peripheral IVs daily. We will not place a PICC line on this patient due to history of IV drug abuse. Discussed with director of casework, transportation will be provided for the patient in that case. If patient cannot get antibiotics as an outpatient at the infusion center then will have to remain hospitalized for the total of the 6 weeks duration of IV antibiotic therapy. Pain Control Continue oral Percocet with morphine IV for breakthrough 09/12 morphine IV for breakthrough pain was discontinued due to hypotension. DVT Prophylaxis Lovenox Leukopenia WBC down to 2.9 on 09/05. Will check cbc. Resolved. Itching Resolved. Continue Benadryl. Discharge Planning Continue to monitor on the medical floor. Discharge pending orthopedic surgery clearance. Problem Qualifiers (1) Right knee pain: Qualified Codes: M25.561 - Pain in right knee Dylon Davis MD Sep 14, 2017 13:22
[2017-09-14 16:00] VITALS: BP 117/58; PULSE 76; RESP 17; TEMP 98.6; O2SAT 93
[2017-09-14] MEDS: ENOXAPARIN SODIUM 40 MG/0.4 ML SYRINGE SQ SCH (16:00)
[2017-09-14 20:00] VITALS: BP 92/46; PULSE 84; RESP 18; TEMP 98.2; O2SAT 95
[2017-09-15] VITALS: BP 116/59; PULSE 80; RESP 18; TEMP 98.4; O2SAT 97
[2017-09-15] MEDS: ceFAZolin 2 GM PREMIX 50 ML IV SCH ×3 (04:07→22:23)
[2017-09-15] MEDS: oxyCODONE/ACETAMINOPHEN 5 MG/325 MG TAB PO PRN ×5 (04:08→21:52)
[2017-09-15] MEDS: diphenhydrAMINE HCL 25 MG CAP PO PRN ×5 (04:09→21:52)
--- NOTE | 2017-09-15 06:30 | PD.ORT.PN ---
Subjective Subjective Remarks Resting comfortably Objective Vitals Vital Signs Date Time Temp Pulse Resp B/P (MAP) Pulse Ox O2 Delivery O2 Flow Rate FiO2 09/15/17 00:00 98.4 80 18 116/59 (78) 97 09/14/17 20:00 98.2 84 18 92/46 (61) 95 09/14/17 16:00 98.6 76 17 117/58 (77) 93 09/14/17 12:00 96.9 89 18 95/52 (66) 95 09/14/17 08:00 97.5 71 17 103/50 (67) 93 I/O 09/14/17 09/14/17 09/14/17 09/15/17 09/15/17 09/15/17 07:00 15:00 23:00 07:00 15:00 23:00 Intake Total 600 ml 50 ml 600 ml Output Total 0 ml Balance 600 ml 50 ml 600 ml Intake Oral 600 ml 600 ml IV Total 50 ml Drainage Total 0 ml # Voids 3 5 # Bowel Movements 1 Result Diagram: 09/13/17 1012 09/13/17 1012 Objective Remarks Awake, alert, no acute distress LLE: dressings clean and dry. intact. NVI. Negative Homans. +vac with good seal. Assessment & Plan Assessment and Plan 1) Left Talus Fx s/p ORIF with nonunion with hardware infection with repeat I&D and vac application - POD 7 -Cxs with MSSA -WBAT -will need 6 wks of IV Abx -infectious Dz consulted to manage -maintain vac at all times -will plan for vac change /wednesday -patient should not be discharged home. Patient has significant history of IVDU and abuse and requires 6 weeks of IV Abx. needs to be hospitalized for duration of Abx Andres Villa Jr. Sep 15, 2017 06:30
[2017-09-15 08:00] VITALS: BP 97/58; PULSE 85; RESP 16; TEMP 97.1; O2SAT 97
[2017-09-15 12:00] VITALS: BP 102/56; PULSE 84; RESP 16; TEMP 96.6; O2SAT 98
[2017-09-15] MEDS: LACTATED RINGER'S 1000 ML INJ 1,000 ML IV SCH ×2 (12:29→22:29)
[2017-09-15] MEDS: SODIUM CHLORIDE 0.9% FLUSH 10 ML FLUSH IV FLUSH SCH ×2 (12:31→22:23)
--- NOTE | 2017-09-15 15:10 | HHI.PR ---
Subjective Remarks c/o right knee pain. NO other complaints. Objective Vitals Vital Signs Date Time Temp Pulse Resp B/P (MAP) Pulse Ox O2 Delivery O2 Flow Rate FiO2 09/15/17 12:00 96.6 84 16 102/56 (71) 98 09/15/17 08:00 97.1 85 16 97/58 (71) 97 09/15/17 00:00 98.4 80 18 116/59 (78) 97 09/14/17 20:00 98.2 84 18 92/46 (61) 95 09/14/17 16:00 98.6 76 17 117/58 (77) 93 I/O 09/14/17 09/14/17 09/14/17 09/15/17 09/15/17 09/15/17 06:59 14:59 22:59 06:59 14:59 22:59 Intake Total 600 ml 50 ml 600 ml 480 ml Output Total 0 ml Balance 600 ml 50 ml 600 ml 480 ml Intake Oral 600 ml 600 ml 480 ml IV Total 50 ml Drainage Total 0 ml # Voids 3 5 2 # Bowel Movements 1 0 Result Diagram: 09/13/17 1012 09/13/17 1012 Imaging Last Impressions Ankle X-Ray 08/27/17 0000 Signed Impressions: Service Date/Time: Sunday, August 27, 2017 13:15 - CONCLUSION: No residual hardware. Jd Gatica MD FACR Lower Extremity CT 08/26/17 0000 Signed Impressions: Service Date/Time: August 23:50 - CONCLUSION: 1. Remote comminuted fracture of the talus status post fixation with nonunion at the fracture sites. Abnormal lucency and sclerosis in the talus with slight depression of the articular surface. There could be an element of avascular necrosis in the talus. Positive ankle joint effusion. No definite acute fracture. Tirso Rhodes MD Objective Remarks GENERAL: This is a well-nourished, well-developed patient, in no apparent distress. SKIN: No rashes, ecchymoses or lesions. Cool and dry. HEAD: Atraumatic. Normocephalic. No temporal or scalp tenderness. EYES: Pupils equal round and reactive. Extraocular motions intact. No scleral icterus. No injection or drainage. ENT: Nose without bleeding, purulent drainage or septal hematoma. Throat without erythema, tonsillar hypertrophy or exudate. Uvula midline. Airway patent. NECK: Trachea midline. Supple, nontender, no meningeal signs. CARDIOVASCULAR: S1S2 present without murmurs, rubs or gallops. RESPIRATORY: Clear to auscultation. Breath sounds equal bilaterally. No wheezes , rales, or rhonchi. GASTROINTESTINAL: Abdomen soft, non-tender, nondistended. MUSCULOSKELETAL: Left ankle in postoperative dressing, wound vac in place NEUROLOGICAL: Awake and alert. Nonfocal exam. Psych cooperative IV line sites with no evidence of infection Procedures Post removal hardware left talus, left ankle arthrotomy with irrigation and debridement on 08/27/2017. Irrigation and debridement of left ankle, irrigation debridement of left talus, application of wound Vac dressing VAC dressing. 09/02/17. SP left foot irrigation and debridement on 09/02/2017. Medications and IVs Current Medications Medications (Trade) Dose Ordered Sig/Norberto Route Start Time Stop Time Status Last Admin (NS Flush) 2 ml UNSCH PRN IV FLUSH 08/27/17 00:45 09/13/17 05:22 (NS Flush) 2 ml BID IV FLUSH 08/27/17 09:00 09/15/17 12:31 (Tylenol) 650 mg Q4H PRN PO 08/27/17 00:45 08/27/17 01:54 (Zofran Inj) 4 mg Q6H PRN IVP 08/27/17 00:45 09/14/17 00:04 (Narcan Inj) 0.4 mg UNSCH PRN IV PUSH 08/27/17 00:45 (Duoneb Neb) 1 ampule Q2HR NEB PRN NEB 08/27/17 00:45 (Lovenox Inj) 40 mg Q24H SQ 08/30/17 16:00 09/11/17 17:24 (Motrin) 600 mg Q8H PRN PO 08/31/17 12:15 Lactated Ringer's 1,000 ml @ 100 mls/hr Q10H IV 09/07/17 14:29 09/10/17 22:47 Cefazolin Sodium/ Dextrose 50 ml @ 200 mls/hr Q8H IV 09/08/17 06:00 09/15/17 13:39 (Benadryl) 25 mg Q4H PRN PO 09/10/17 18:30 09/15/17 12:31 (Percocet 5-325 Mg) 1 tab Q4H PRN PO 09/11/17 09:45 09/11/17 10:19 (Percocet 5-325 Mg) 2 tab Q4H PRN PO 09/11/17 09:45 09/15/17 12:31 Urinary Catheter: No Vascular Central Line Catheter: No A/P Problem List: (1) Fracture, talus closed ICD Code: S92.109A - Unspecified fracture of unspecified talus, initial encounter for closed fracture Status: Acute (2) MSSA (methicillin susceptible Staphylococcus aureus) infection ICD Code: A49.01 - Methicillin susceptible Staphylococcus aureus infection, unspecified site Status: Acute (3) Osteomyelitis ICD Code: M86.9 - Osteomyelitis, unspecified Status: Acute (4) IV drug abuse ICD Code: F19.10 - Other psychoactive substance abuse, uncomplicated Status: Chronic (5) Itching ICD Code: L29.9 - Pruritus, unspecified (6) Right knee pain ICD Code: M25.561 - Pain in right knee Plan: We will check a knee x-ray of the right knee. Assessment and Plan 27 year old female with history of IVDU admitted for septic arthritis. Infected malunion fracture of left talus Surgical removal of hardware on 08/27/17 Repeat I&D on 09/02/17 and planning to repeat tomorrow Wound cultures growing MSSA. Treated with Iv Vancomycin, Aztreonam IV which have been discontinued. Continue Vancomycin (started 08/28, 6 weeks full course recommended) Aztreonam discontinued (08/27-08/29) 09/07 ID consulted. Medicine discontinued on 09/06 and the patient started on Ancef IV 2 g every 8 hours as per ID. Patient is tolerating antibiotic well. Check CBC, CMP, and CRP weekly on Mondays; appreciate ID consult. Follow-up orthopedic surgery recommendations -weightbearing as tolerated. Obtain back at all times. sp repeat Incision and drainage on 09/07. Antibiotics per ID. Orthopedic surgery to transition to bedside wound vac changes. Follow up CBC with diff, CMP, CRP every Wednesday. VAC changed at bedside on 09/14. Next VAC change will be or Wednesday. Patient will be discharged home only if the patient can get the antibiotic at the infusion center through peripheral IVs daily. We will not place a PICC line on this patient due to history of IV drug abuse. Discussed with caser, transportation will be provided for the patient in that case. If patient cannot get antibiotics as an outpatient at the infusion center then will have to remain hospitalized for the total of the 6 weeks duration of IV antibiotic therapy. Pain Control Continue oral Percocet with morphine IV for breakthrough 09/12 morphine IV for breakthrough pain was discontinued due to hypotension. DVT Prophylaxis Lovenox Leukopenia WBC down to 2.9 on 09/05. Will check cbc. Resolved. Itching Resolved. Continue Benadryl. Discharge Planning Continue to monitor on the medical floor. Discharge pending orthopedic surgery clearance. Problem Qualifiers (1) Right knee pain: Qualified Codes: M25.561 - Pain in right knee Dylon Davis MD Sep 15, 2017 15:10
[2017-09-15 16:00] VITALS: BP 126/55; PULSE 95; RESP 16; TEMP 97.7; O2SAT 96
[2017-09-15] MEDS: ENOXAPARIN SODIUM 40 MG/0.4 ML SYRINGE SQ SCH (16:00)
[2017-09-15 20:00] VITALS: BP 115/65; PULSE 113; RESP 18; TEMP 98.2; O2SAT 98
[2017-09-16] VITALS: BP 104/52; PULSE 112; RESP 18; TEMP 98.9; O2SAT 98
[2017-09-16] MEDS: diphenhydrAMINE HCL 25 MG CAP PO PRN ×5 (03:53→23:03)
[2017-09-16] MEDS: oxyCODONE/ACETAMINOPHEN 5 MG/325 MG TAB PO PRN ×5 (03:53→23:04)
[2017-09-16] MEDS: ceFAZolin 2 GM PREMIX 50 ML IV SCH ×3 (05:09→23:05)
[2017-09-16 08:00] VITALS: BP 103/66; PULSE 82; RESP 18; TEMP 96.7; O2SAT 93
[2017-09-16] MEDS: LACTATED RINGER'S 1000 ML INJ 1,000 ML IV SCH ×2 (08:29→18:29)
[2017-09-16 12:00] VITALS: BP 105/61; PULSE 75; RESP 17; TEMP 97.4; O2SAT 92
[2017-09-16] MEDS: SODIUM CHLORIDE 0.9% FLUSH 10 ML FLUSH IV FLUSH SCH ×2 (14:07→23:04)
[2017-09-16 16:00] VITALS: BP 121/61; PULSE 93; RESP 18; TEMP 98.2; O2SAT 94
[2017-09-16] MEDS: ENOXAPARIN SODIUM 40 MG/0.4 ML SYRINGE SQ SCH (16:00)
--- NOTE | 2017-09-16 16:43 | HHI.PR ---
Subjective Remarks Still complaining of right knee pain. Afebrile/ Denies cp/sob. Denies rash or diarrhea Objective Vitals Vital Signs Date Time Temp Pulse Resp B/P (MAP) Pulse Ox O2 Delivery O2 Flow Rate FiO2 09/16/17 16:00 98.2 93 18 121/61 (81) 94 09/16/17 12:00 97.4 75 17 105/61 (76) 92 09/16/17 08:00 96.7 82 18 103/66 (78) 93 09/16/17 00:00 98.9 112 18 104/52 (69) 98 09/15/17 20:00 98.2 113 18 115/65 (82) 98 I/O 09/15/17 09/15/17 09/15/17 09/16/17 09/16/17 09/16/17 07:00 15:00 23:00 07:00 15:00 23:00 Intake Total 480 ml 700 ml 460 ml Output Total 10 ml Balance 480 ml 690 ml 460 ml Intake Oral 480 ml 700 ml 360 ml IV Total 100 ml Drainage Total 10 ml # Voids 2 5 2 # Bowel Movements 0 1 0 Result Diagram: 09/13/17 1012 09/13/17 1012 Imaging Last Impressions Ankle X-Ray 08/27/17 0000 Signed Impressions: Service Date/Time: Sunday, August 27, 2017 13:15 - CONCLUSION: No residual hardware. Jd Gatica MD FACR Lower Extremity CT 08/26/17 0000 Signed Impressions: Service Date/Time: August 23:50 - CONCLUSION: 1. Remote comminuted fracture of the talus status post fixation with nonunion at the fracture sites. Abnormal lucency and sclerosis in the talus with slight depression of the articular surface. There could be an element of avascular necrosis in the talus. Positive ankle joint effusion. No definite acute fracture. Tirso Rhodes MD Objective Remarks GENERAL: This is a well-nourished, well-developed patient, in no apparent distress. SKIN: No rashes, ecchymoses or lesions. Cool and dry. HEAD: Atraumatic. Normocephalic. No temporal or scalp tenderness. EYES: Pupils equal round and reactive. Extraocular motions intact. No scleral icterus. No injection or drainage. ENT: Nose without bleeding, purulent drainage or septal hematoma. Throat without erythema, tonsillar hypertrophy or exudate. Uvula midline. Airway patent. NECK: Trachea midline. Supple, nontender, no meningeal signs. CARDIOVASCULAR: S1S2 present without murmurs, rubs or gallops. RESPIRATORY: Clear to auscultation. Breath sounds equal bilaterally. No wheezes , rales, or rhonchi. GASTROINTESTINAL: Abdomen soft, non-tender, nondistended. MUSCULOSKELETAL: Left ankle in postoperative dressing, wound vac in place NEUROLOGICAL: Awake and alert. Nonfocal exam. Psych cooperative IV line sites with no evidence of infection Procedures Post removal hardware left talus, left ankle arthrotomy with irrigation and debridement on 08/27/2017. Irrigation and debridement of left ankle, irrigation debridement of left talus, application of wound Vac dressing VAC dressing. 09/02/17. SP left foot irrigation and debridement on 09/02/2017. Medications and IVs Current Medications Medications (Trade) Dose Ordered Sig/Norberto Route Start Time Stop Time Status Last Admin (NS Flush) 2 ml UNSCH PRN IV FLUSH 08/27/17 00:45 09/13/17 05:22 (NS Flush) 2 ml BID IV FLUSH 08/27/17 09:00 09/16/17 14:07 (Tylenol) 650 mg Q4H PRN PO 08/27/17 00:45 08/27/17 01:54 (Zofran Inj) 4 mg Q6H PRN IVP 08/27/17 00:45 09/14/17 00:04 (Narcan Inj) 0.4 mg UNSCH PRN IV PUSH 08/27/17 00:45 (Duoneb Neb) 1 ampule Q2HR NEB PRN NEB 08/27/17 00:45 (Lovenox Inj) 40 mg Q24H SQ 08/30/17 16:00 09/11/17 17:24 (Motrin) 600 mg Q8H PRN PO 08/31/17 12:15 Lactated Ringer's 1,000 ml @ 100 mls/hr Q10H IV 09/07/17 14:29 09/10/17 22:47 Cefazolin Sodium/ Dextrose 50 ml @ 200 mls/hr Q8H IV 09/08/17 06:00 09/16/17 14:07 (Benadryl) 25 mg Q4H PRN PO 09/10/17 18:30 09/16/17 15:21 (Percocet 5-325 Mg) 1 tab Q4H PRN PO 09/11/17 09:45 09/11/17 10:19 (Percocet 5-325 Mg) 2 tab Q4H PRN PO 09/11/17 09:45 09/16/17 15:21 A/P Problem List: (1) Fracture, talus closed ICD Code: S92.109A - Unspecified fracture of unspecified talus, initial encounter for closed fracture Status: Acute (2) MSSA (methicillin susceptible Staphylococcus aureus) infection ICD Code: A49.01 - Methicillin susceptible Staphylococcus aureus infection, unspecified site Status: Acute (3) Osteomyelitis ICD Code: M86.9 - Osteomyelitis, unspecified Status: Acute (4) IV drug abuse ICD Code: F19.10 - Other psychoactive substance abuse, uncomplicated Status: Chronic (5) Itching ICD Code: L29.9 - Pruritus, unspecified (6) Right knee pain ICD Code: M25.561 - Pain in right knee Assessment and Plan 27 year old female with history of IVDU admitted for septic arthritis. Infected malunion fracture of left talus Surgical removal of hardware on 08/27/17 Repeat I&D on 09/02/17 and planning to repeat tomorrow Wound cultures growing MSSA. Treated with Iv Vancomycin, Aztreonam IV which have been discontinued. Continue Vancomycin (started 08/28, 6 weeks full course recommended) Aztreonam discontinued (08/27-08/29) 09/07 ID consulted. Medicine discontinued on 09/06 and the patient started on Ancef IV 2 g every 8 hours as per ID. Patient is tolerating antibiotic well. Check CBC, CMP, and CRP weekly on Mondays; appreciate ID consult. Follow-up orthopedic surgery recommendations -weightbearing as tolerated. Obtain back at all times. sp repeat Incision and drainage on 09/07. Antibiotics per ID. Orthopedic surgery to transition to bedside wound vac changes. Follow up CBC with diff, CMP, CRP every Wednesday. VAC changed at bedside on 09/14. Next VAC change will be or Wednesday. Patient will be discharged home only if the patient can get the antibiotic at the infusion center through peripheral IVs daily. We will not place a PICC line on this patient due to history of IV drug abuse. Discussed with egg caser, transportation will be provided for the patient in that case. If patient cannot get antibiotics as an outpatient at the infusion center then will have to remain hospitalized for the total of the 6 weeks duration of IV antibiotic therapy. 09/16 repeat CBC and ESR as well as CMP shows normal WBC count, normal creatinine , CRP which is trending down from 2.9-2.77. Repeat labs next Wednesday. Pain Control Continue oral Percocet with morphine IV for breakthrough 09/12 morphine IV for breakthrough pain was discontinued due to hypotension. DVT Prophylaxis Lovenox Leukopenia WBC down to 2.9 on 09/05. Resolved. Continue to monitor CBC every week. Itching Resolved. Continue Benadryl. Discharge Planning Continue to monitor on the medical floor. Discharge pending orthopedic surgery clearance. Problem Qualifiers (1) Right knee pain: Qualified Codes: M25.561 - Pain in right knee Dylon Davis MD Sep 16, 2017 16:43
--- NOTE | 2017-09-16 17:44 | RADRPT ---
EXAM DATE/TIME: 09/16/2017 16:56 [facility] COMPARISON: No previous studies available for comparison. INDICATIONS : No known injury. Pain in right knee. MEDICAL HISTORY : Seizures. Cervical cancer. Substance abuse. SURGICAL HISTORY : Tubal ligation. ENCOUNTER: Subsequent ACUITY: 2 days PAIN SCORE: 4/10 LOCATION: Right Knee FINDINGS: Two view examination of the right knee demonstrates no evidence of fracture or dislocation. Questiona ble small joint effusion. Bony mineralization is normal. The suprapatellar soft tissues have a norm al configuration. CONCLUSION: Unremarkable limited examination of the right knee except there may be a small joint effusion. John Batista MD on September 16, 2017 at 17:42 Board Certified Radiologist. This report was verified electronically.
[2017-09-16 20:00] VITALS: BP 102/60; PULSE 108; RESP 20; TEMP 98.5; O2SAT 97
[2017-09-17] VITALS: BP 113/71; PULSE 114; RESP 20; TEMP 97.9; O2SAT 96
[2017-09-17] MEDS: diphenhydrAMINE HCL 25 MG CAP PO PRN ×5 (03:44→21:36)
[2017-09-17] MEDS: oxyCODONE/ACETAMINOPHEN 5 MG/325 MG TAB PO PRN ×5 (03:45→21:26)
[2017-09-17] MEDS: LACTATED RINGER'S 1000 ML INJ 1,000 ML IV SCH ×3 (03:48→22:37)
[2017-09-17] MEDS: ceFAZolin 2 GM PREMIX 50 ML IV SCH ×3 (05:25→21:26)
--- NOTE | 2017-09-17 07:18 | PD.ORT.PN ---
Subjective Subjective Remarks s/p repeat I&D left foot with vac application doing well. pain controlled. no complaints Objective Vitals Vital Signs Date Time Temp Pulse Resp B/P (MAP) Pulse Ox O2 Delivery O2 Flow Rate FiO2 09/17/17 00:00 97.9 114 20 113/71 (85) 96 09/16/17 20:00 98.5 108 20 102/60 (74) 97 09/16/17 16:00 98.2 93 18 121/61 (81) 94 09/16/17 12:00 97.4 75 17 105/61 (76) 92 09/16/17 08:00 96.7 82 18 103/66 (78) 93 I/O 09/16/17 09/16/17 09/16/17 09/17/17 09/17/17 09/17/17 07:00 15:00 23:00 07:00 15:00 23:00 Intake Total 460 ml 1320 ml 50 ml Output Total 0 ml 0 ml Balance 460 ml 1320 ml 50 ml Intake Oral 360 ml 1320 ml IV Total 100 ml 50 ml Drainage Total 0 ml 0 ml # Voids 2 5 6 # Bowel Movements 0 3 2 Result Diagram: 09/13/17 1012 09/13/17 1012 Objective Remarks Awake, alert, no acute distress LLE: dressings clean and dry. intact. NVI. Negative Homans. +vac with good seal. vac removed and wound visualized. clean and dry. significant evidence of granulation tissue present. no drainage. Assessment & Plan Assessment and Plan 1) Left Talus Fx s/p ORIF with nonunion with hardware infection with repeat I&D and vac application -Cxs with MSSA -WBAT -will need 6 wks of IV Abx -infectious Dz consulted to manage -maintain vac at all times -vac changed at bedside today. will plan for repeat vac change on wednesday. please have small vac dressing at bedside -patient should not be discharged home. Patient has significant history of IVDU and abuse and requires 6 weeks of IV Abx. needs to be hospitalized for duration of Abx [place]/[facility] FOOTE Sep 17, 2017 07:18
[2017-09-17 08:00] VITALS: BP 112/73; PULSE 100; RESP 22; TEMP 96.7; O2SAT 98
[2017-09-17] MEDS: SODIUM CHLORIDE 0.9% FLUSH 10 ML FLUSH IV FLUSH SCH ×2 (08:00→21:26)
[2017-09-17 12:00] VITALS: BP 106/60; PULSE 109; RESP 22; TEMP 98.7; O2SAT 98
--- NOTE | 2017-09-17 14:27 | HHI.PR ---
Subjective Remarks Knee pain improving. Afebrile Denies cp/sob Objective Vitals Vital Signs Date Time Temp Pulse Resp B/P (MAP) Pulse Ox O2 Delivery O2 Flow Rate FiO2 09/17/17 12:00 98.7 109 22 106/60 (75) 98 09/17/17 08:00 96.7 100 22 112/73 (86) 98 09/17/17 00:00 97.9 114 20 113/71 (85) 96 09/16/17 20:00 98.5 108 20 102/60 (74) 97 09/16/17 16:00 98.2 93 18 121/61 (81) 94 I/O 09/16/17 09/16/17 09/16/17 09/17/17 09/17/17 09/17/17 06:59 14:59 22:59 06:59 14:59 22:59 Intake Total 460 ml 1320 ml 50 ml Output Total 0 ml 0 ml Balance 460 ml 1320 ml 50 ml Intake Oral 360 ml 1320 ml IV Total 100 ml 50 ml Drainage Total 0 ml 0 ml # Voids 2 5 6 # Bowel Movements 0 3 2 Result Diagram: 09/13/17 1012 09/13/17 1012 Imaging Last Impressions Knee X-Ray 09/16/17 0000 Signed Impressions: Service Date/Time: September 16:56 - CONCLUSION: Unremarkable limited examination of the right knee except there may be a small joint effusion. John Batista MD Ankle X-Ray 08/27/17 0000 Signed Impressions: Service Date/Time: Sunday, August 27, 2017 13:15 - CONCLUSION: No residual hardware. Jd Gatica MD FACR Lower Extremity CT 08/26/17 0000 Signed Impressions: Service Date/Time: August 23:50 - CONCLUSION: 1. Remote comminuted fracture of the talus status post fixation with nonunion at the fracture sites. Abnormal lucency and sclerosis in the talus with slight depression of the articular surface. There could be an element of avascular necrosis in the talus. Positive ankle joint effusion. No definite acute fracture. Tirso Rhodes MD Objective Remarks GENERAL: This is a well-nourished, well-developed patient, in no apparent distress. SKIN: No rashes, ecchymoses or lesions. Cool and dry. HEAD: Atraumatic. Normocephalic. No temporal or scalp tenderness. EYES: Pupils equal round and reactive. Extraocular motions intact. No scleral icterus. No injection or drainage. ENT: Nose without bleeding, purulent drainage or septal hematoma. Throat without erythema, tonsillar hypertrophy or exudate. Uvula midline. Airway patent. NECK: Trachea midline. Supple, nontender, no meningeal signs. CARDIOVASCULAR: S1S2 present without murmurs, rubs or gallops. RESPIRATORY: Clear to auscultation. Breath sounds equal bilaterally. No wheezes , rales, or rhonchi. GASTROINTESTINAL: Abdomen soft, non-tender, nondistended. MUSCULOSKELETAL: Left ankle in postoperative dressing, wound vac in place NEUROLOGICAL: Awake and alert. Nonfocal exam. Psych cooperative IV line sites with no evidence of infection Procedures Post removal hardware left talus, left ankle arthrotomy with irrigation and debridement on 08/27/2017. Irrigation and debridement of left ankle, irrigation debridement of left talus, application of wound Vac dressing VAC dressing. 09/02/17. SP left foot irrigation and debridement on 09/02/2017. Medications and IVs Current Medications Medications (Trade) Dose Ordered Sig/Norberto Route Start Time Stop Time Status Last Admin (NS Flush) 2 ml UNSCH PRN IV FLUSH 08/27/17 00:45 09/13/17 05:22 (NS Flush) 2 ml BID IV FLUSH 08/27/17 09:00 09/17/17 08:00 (Tylenol) 650 mg Q4H PRN PO 08/27/17 00:45 08/27/17 01:54 (Zofran Inj) 4 mg Q6H PRN IVP 08/27/17 00:45 09/14/17 00:04 (Narcan Inj) 0.4 mg UNSCH PRN IV PUSH 08/27/17 00:45 (Duoneb Neb) 1 ampule Q2HR NEB PRN NEB 08/27/17 00:45 (Lovenox Inj) 40 mg Q24H SQ 08/30/17 16:00 09/11/17 17:24 (Motrin) 600 mg Q8H PRN PO 08/31/17 12:15 Lactated Ringer's 1,000 ml @ 100 mls/hr Q10H IV 09/07/17 14:29 09/10/17 22:47 Cefazolin Sodium/ Dextrose 50 ml @ 200 mls/hr Q8H IV 09/08/17 06:00 09/17/17 13:28 (Benadryl) 25 mg Q4H PRN PO 09/10/17 18:30 09/17/17 13:27 (Percocet 5-325 Mg) 1 tab Q4H PRN PO 09/11/17 09:45 09/11/17 10:19 (Percocet 5-325 Mg) 2 tab Q4H PRN PO 09/11/17 09:45 09/17/17 13:27 A/P Problem List: (1) Fracture, talus closed ICD Code: S92.109A - Unspecified fracture of unspecified talus, initial encounter for closed fracture Status: Acute (2) MSSA (methicillin susceptible Staphylococcus aureus) infection ICD Code: A49.01 - Methicillin susceptible Staphylococcus aureus infection, unspecified site Status: Acute (3) Osteomyelitis ICD Code: M86.9 - Osteomyelitis, unspecified Status: Acute (4) IV drug abuse ICD Code: F19.10 - Other psychoactive substance abuse, uncomplicated Status: Chronic (5) Itching ICD Code: L29.9 - Pruritus, unspecified (6) Right knee pain ICD Code: M25.561 - Pain in right knee Assessment and Plan 27 year old female with history of IVDU admitted for septic arthritis. Infected malunion fracture of left talus Surgical removal of hardware on 08/27/17 Repeat I&D on 09/02/17 and planning to repeat tomorrow Wound cultures growing MSSA. Treated with Iv Vancomycin, Aztreonam IV which have been discontinued. Continue Vancomycin (started 08/28, 6 weeks full course recommended) Aztreonam discontinued (08/27-08/29) 09/07 ID consulted. Medicine discontinued on 09/06 and the patient started on Ancef IV 2 g every 8 hours as per ID. Patient is tolerating antibiotic well. Check CBC, CMP, and CRP weekly on Mondays; appreciate ID consult. Follow-up orthopedic surgery recommendations -weightbearing as tolerated. Obtain back at all times. sp repeat Incision and drainage on 09/07. Antibiotics per ID. Orthopedic surgery to transition to bedside wound vac changes. Follow up CBC with diff, CMP, CRP every Wednesday. VAC changed at bedside on 09/14. Next VAC change will be or Wednesday. Patient will be discharged home only if the patient can get the antibiotic at the infusion center through peripheral IVs daily. We will not place a PICC line on this patient due to history of IV drug abuse. Discussed with case consultant, transportation will be provided for the patient in that case. If patient cannot get antibiotics as an outpatient at the infusion center then will have to remain hospitalized for the total of the 6 weeks duration of IV antibiotic therapy. 09/16 repeat CBC and ESR as well as CMP shows normal WBC count, normal creatinine , CRP which is trending down from 2.9-2.77. Repeat labs next Wednesday. Pain Control Continue oral Percocet with morphine IV for breakthrough 09/12 morphine IV for breakthrough pain was discontinued due to hypotension. DVT Prophylaxis Lovenox Leukopenia WBC down to 2.9 on 09/05. Resolved. Continue to monitor CBC every week. Itching Resolved. Continue Benadryl. Right knee pain Right knee x-ray is unremarkable except there may be a small joint effusion. We will continue to monitor. Continue pain control as above. Discharge Planning Continue to monitor on the medical floor. Discharge pending orthopedic surgery clearance. Problem Qualifiers (1) Right knee pain: Qualified Codes: M25.561 - Pain in right knee Dylon Davis MD Sep 17, 2017 14:27
[2017-09-17 16:00] VITALS: BP 111/57; PULSE 108; RESP 20; TEMP 98.6; O2SAT 99
[2017-09-17] MEDS: ENOXAPARIN SODIUM 40 MG/0.4 ML SYRINGE SQ SCH (16:00)
[2017-09-17 20:00] VITALS: BP 116/71; PULSE 101; RESP 21; TEMP 96.8; O2SAT 96
[2017-09-18 00:22] VITALS: BP 104/55; PULSE 83; RESP 21; TEMP 97.3; O2SAT 97
[2017-09-18] MEDS: oxyCODONE/ACETAMINOPHEN 5 MG/325 MG TAB PO PRN ×6 (01:31→21:36)
[2017-09-18] MEDS: diphenhydrAMINE HCL 25 MG CAP PO PRN ×6 (01:31→21:35)
[2017-09-18] MEDS: ceFAZolin 2 GM PREMIX 50 ML IV SCH ×3 (05:33→21:35)
[2017-09-18 08:00] VITALS: BP 108/56; PULSE 97; RESP 16; TEMP 97.5; O2SAT 100
[2017-09-18] MEDS: SODIUM CHLORIDE 0.9% FLUSH 10 ML FLUSH IV FLUSH SCH ×2 (08:52→19:35)
[2017-09-18] MEDS: LACTATED RINGER'S 1000 ML INJ 1,000 ML IV SCH ×2 (08:52→20:29)
--- NOTE | 2017-09-18 11:26 | HHI.PR ---
Subjective Remarks Denies any major overnight events. Patient exhibited no complaints. Afebrile. Objective Vitals Vital Signs Date Time Temp Pulse Resp B/P (MAP) Pulse Ox O2 Delivery O2 Flow Rate FiO2 09/18/17 08:00 97.5 97 16 108/56 (73) 100 09/18/17 00:22 97.3 83 21 104/55 (71) 97 09/17/17 20:00 96.8 101 21 116/71 (86) 96 09/17/17 16:00 98.6 108 20 111/57 (75) 99 09/17/17 12:00 98.7 109 22 106/60 (75) 98 I/O 09/17/17 09/17/17 09/17/17 09/18/17 09/18/17 09/18/17 07:00 15:00 23:00 07:00 15:00 23:00 Intake Total 50 ml 2400 ml 600 ml Output Total 0 ml Balance 50 ml 2400 ml 600 ml Intake Oral 2400 ml 600 ml IV Total 50 ml Drainage Total 0 ml # Voids 6 5 3 # Bowel Movements 2 2 Imaging Last Impressions Knee X-Ray 09/16/17 0000 Signed Impressions: Service Date/Time: September 16:56 - CONCLUSION: Unremarkable limited examination of the right knee except there may be a small joint effusion. John Batista MD Ankle X-Ray 08/27/17 0000 Signed Impressions: Service Date/Time: Sunday, August 27, 2017 13:15 - CONCLUSION: No residual hardware. Jd Gatica MD FACR Lower Extremity CT 08/26/17 0000 Signed Impressions: Service Date/Time: August 23:50 - CONCLUSION: 1. Remote comminuted fracture of the talus status post fixation with nonunion at the fracture sites. Abnormal lucency and sclerosis in the talus with slight depression of the articular surface. There could be an element of avascular necrosis in the talus. Positive ankle joint effusion. No definite acute fracture. Tirso Rhodes MD Objective Remarks GENERAL: This is a well-nourished, well-developed patient, in no apparent distress. SKIN: No rashes, ecchymoses or lesions. Cool and dry. HEAD: Atraumatic. Normocephalic. No temporal or scalp tenderness. EYES: Pupils equal round and reactive. Extraocular motions intact. No scleral icterus. No injection or drainage. ENT: Nose without bleeding, purulent drainage or septal hematoma. Throat without erythema, tonsillar hypertrophy or exudate. Uvula midline. Airway patent. NECK: Trachea midline. Supple, nontender, no meningeal signs. CARDIOVASCULAR: S1S2 present without murmurs, rubs or gallops. RESPIRATORY: Clear to auscultation. Breath sounds equal bilaterally. No wheezes , rales, or rhonchi. GASTROINTESTINAL: Abdomen soft, non-tender, nondistended. MUSCULOSKELETAL: Left ankle in postoperative dressing, wound vac in place NEUROLOGICAL: Awake and alert. Nonfocal exam. Psych cooperative IV line sites with no evidence of infection Procedures Post removal hardware left talus, left ankle arthrotomy with irrigation and debridement on 08/27/2017. Irrigation and debridement of left ankle, irrigation debridement of left talus, application of wound Vac dressing VAC dressing. 09/02/17. SP left foot irrigation and debridement on 09/02/2017. Medications and IVs Current Medications Medications (Trade) Dose Ordered Sig/Norberto Route Start Time Stop Time Status Last Admin (NS Flush) 2 ml UNSCH PRN IV FLUSH 08/27/17 00:45 09/13/17 05:22 (NS Flush) 2 ml BID IV FLUSH 08/27/17 09:00 09/18/17 08:52 (Tylenol) 650 mg Q4H PRN PO 08/27/17 00:45 08/27/17 01:54 (Zofran Inj) 4 mg Q6H PRN IVP 08/27/17 00:45 09/14/17 00:04 (Narcan Inj) 0.4 mg UNSCH PRN IV PUSH 08/27/17 00:45 (Duoneb Neb) 1 ampule Q2HR NEB PRN NEB 08/27/17 00:45 (Lovenox Inj) 40 mg Q24H SQ 08/30/17 16:00 09/11/17 17:24 (Motrin) 600 mg Q8H PRN PO 08/31/17 12:15 Lactated Ringer's 1,000 ml @ 100 mls/hr Q10H IV 09/07/17 14:29 09/10/17 22:47 Cefazolin Sodium/ Dextrose 50 ml @ 200 mls/hr Q8H IV 09/08/17 06:00 09/18/17 05:33 (Benadryl) 25 mg Q4H PRN PO 09/10/17 18:30 09/18/17 09:41 (Percocet 5-325 Mg) 1 tab Q4H PRN PO 09/11/17 09:45 09/11/17 10:19 (Percocet 5-325 Mg) 2 tab Q4H PRN PO 09/11/17 09:45 09/18/17 09:40 A/P Problem List: (1) Fracture, talus closed ICD Code: S92.109A - Unspecified fracture of unspecified talus, initial encounter for closed fracture Status: Acute (2) MSSA (methicillin susceptible Staphylococcus aureus) infection ICD Code: A49.01 - Methicillin susceptible Staphylococcus aureus infection, unspecified site Status: Acute (3) Osteomyelitis ICD Code: M86.9 - Osteomyelitis, unspecified Status: Acute (4) IV drug abuse ICD Code: F19.10 - Other psychoactive substance abuse, uncomplicated Status: Chronic (5) Itching ICD Code: L29.9 - Pruritus, unspecified (6) Right knee pain ICD Code: M25.561 - Pain in right knee Assessment and Plan 27 year old female with history of IVDU admitted for septic arthritis. Infected malunion fracture of left talus Surgical removal of hardware on 08/27/17 Repeat I&D on 09/02/17 and planning to repeat tomorrow Wound cultures growing MSSA. Treated with Iv Vancomycin, Aztreonam IV which have been discontinued. Continue Vancomycin (started 08/28, 6 weeks full course recommended) Aztreonam discontinued (08/27-08/29) 09/07 ID consulted. Medicine discontinued on 09/06 and the patient started on Ancef IV 2 g every 8 hours as per ID. Patient is tolerating antibiotic well. Check CBC, CMP, and CRP weekly on Mondays; appreciate ID consult. Follow-up orthopedic surgery recommendations -weightbearing as tolerated. Obtain back at all times. sp repeat Incision and drainage on 09/07. Antibiotics per ID. Orthopedic surgery to transition to bedside wound vac changes. Follow up CBC with diff, CMP, CRP every Wednesday. VAC changed at bedside on 09/14. Next VAC change will be or Wednesday. Patient will be discharged home only if the patient can get the antibiotic at the infusion center through peripheral IVs daily. We will not place a PICC line on this patient due to history of IV drug abuse. Discussed with case managers, transportation will be provided for the patient in that case. If patient cannot get antibiotics as an outpatient at the infusion center then will have to remain hospitalized for the total of the 6 weeks duration of IV antibiotic therapy. 09/16 repeat CBC and ESR as well as CMP shows normal WBC count, normal creatinine , CRP which is trending down from 2.9-2.77. Repeat labs next Wednesday. Pain Control Continue oral Percocet with morphine IV for breakthrough 09/12 morphine IV for breakthrough pain was discontinued due to hypotension. DVT Prophylaxis Lovenox Leukopenia WBC down to 2.9 on 09/05. Resolved. Continue to monitor CBC every week. Itching Resolved. Continue Benadryl. Right knee pain Right knee x-ray is unremarkable except there may be a small joint effusion. We will continue to monitor. Continue pain control as above. Discharge Planning Continue to monitor on the medical floor. Discharge pending orthopedic surgery clearance. Problem Qualifiers (1) Right knee pain: Qualified Codes: M25.561 - Pain in right knee Dylon Davis MD Sep 18, 2017 11:26
[2017-09-18 12:00] VITALS: BP 126/58; PULSE 94; RESP 18; TEMP 98.8; O2SAT 97
[2017-09-18] MEDS: ENOXAPARIN SODIUM 40 MG/0.4 ML SYRINGE SQ SCH (15:35)
[2017-09-18 16:00] VITALS: BP 99/50; PULSE 96; RESP 17; TEMP 96.3; O2SAT 98
[2017-09-18 20:00] VITALS: BP 115/61; PULSE 120; RESP 21; TEMP 96.7; O2SAT 98
[2017-09-19] VITALS: BP 122/68; PULSE 108; RESP 21; TEMP 96.3; O2SAT 98
[2017-09-19] MEDS: oxyCODONE/ACETAMINOPHEN 5 MG/325 MG TAB PO PRN ×6 (01:46→21:43)
[2017-09-19] MEDS: diphenhydrAMINE HCL 25 MG CAP PO PRN ×5 (01:46→21:43)
[2017-09-19] MEDS: ceFAZolin 2 GM PREMIX 50 ML IV SCH ×3 (05:26→21:44)
[2017-09-19] MEDS: LACTATED RINGER'S 1000 ML INJ 1,000 ML IV SCH ×2 (06:29→13:30)
[2017-09-19 08:00] VITALS: BP 96/48; PULSE 84; RESP 16; TEMP 97.8; O2SAT 100
[2017-09-19] MEDS: SODIUM CHLORIDE 0.9% FLUSH 10 ML FLUSH IV FLUSH SCH ×2 (09:01→19:49)
[2017-09-19 12:00] VITALS: BP 109/64; PULSE 94; RESP 17; TEMP 97.4; O2SAT 100
--- NOTE | 2017-09-19 13:15 | HHI.PR ---
Subjective Remarks no overnight events Afebrile Pain controlled Objective Vitals Vital Signs Date Time Temp Pulse Resp B/P (MAP) Pulse Ox O2 Delivery O2 Flow Rate FiO2 09/19/17 12:00 97.4 94 17 109/64 (79) 100 09/19/17 08:00 97.8 84 16 96/48 (64) 100 09/19/17 06:26 18 09/19/17 00:00 96.3 108 21 122/68 (86) 98 09/18/17 20:00 96.7 120 21 115/61 (79) 98 09/18/17 16:00 96.3 96 17 99/50 (66) 98 I/O 09/18/17 09/18/17 09/18/17 09/19/17 09/19/17 09/19/17 07:00 15:00 23:00 07:00 15:00 23:00 Intake Total 650 ml 50 ml 1970 ml 650 ml Output Total 0 ml 0 ml Balance 650 ml 50 ml 1970 ml 650 ml Intake Oral 600 ml 1920 ml 600 ml IV Total 50 ml 50 ml 50 ml 50 ml Drainage Total 0 ml 0 ml # Voids 3 10 4 # Bowel Movements 3 1 Objective Remarks GENERAL: This is a well-nourished, well-developed patient, in no apparent distress. SKIN: No rashes, ecchymoses or lesions. Cool and dry. HEAD: Atraumatic. Normocephalic. No temporal or scalp tenderness. EYES: Pupils equal round and reactive. Extraocular motions intact. No scleral icterus. No injection or drainage. ENT: Nose without bleeding, purulent drainage or septal hematoma. Throat without erythema, tonsillar hypertrophy or exudate. Uvula midline. Airway patent. NECK: Trachea midline. Supple, nontender, no meningeal signs. CARDIOVASCULAR: S1S2 present without murmurs, rubs or gallops. RESPIRATORY: Clear to auscultation. Breath sounds equal bilaterally. No wheezes , rales, or rhonchi. GASTROINTESTINAL: Abdomen soft, non-tender, nondistended. MUSCULOSKELETAL: Left ankle in postoperative dressing, wound vac in place NEUROLOGICAL: Awake and alert. Nonfocal exam. Psych cooperative IV line sites with no evidence of infection Procedures Post removal hardware left talus, left ankle arthrotomy with irrigation and debridement on 08/27/2017. Irrigation and debridement of left ankle, irrigation debridement of left talus, application of wound Vac dressing VAC dressing. 09/02/17. SP left foot irrigation and debridement on 09/02/2017. A/P Problem List: (1) Fracture, talus closed ICD Code: S92.109A - Unspecified fracture of unspecified talus, initial encounter for closed fracture Status: Acute (2) MSSA (methicillin susceptible Staphylococcus aureus) infection ICD Code: A49.01 - Methicillin susceptible Staphylococcus aureus infection, unspecified site Status: Acute (3) Osteomyelitis ICD Code: M86.9 - Osteomyelitis, unspecified Status: Acute (4) IV drug abuse ICD Code: F19.10 - Other psychoactive substance abuse, uncomplicated Status: Chronic (5) Itching ICD Code: L29.9 - Pruritus, unspecified (6) Right knee pain ICD Code: M25.561 - Pain in right knee Assessment and Plan 27 year old female with history of IVDU admitted for septic arthritis. Infected malunion fracture of left talus Surgical removal of hardware on 08/27/17 Repeat I&D on 09/02/17 and planning to repeat tomorrow Wound cultures growing MSSA. Treated with Iv Vancomycin, Aztreonam IV which have been discontinued. Continue Vancomycin (started 08/28, 6 weeks full course recommended) Aztreonam discontinued (08/27-08/29) 09/07 ID consulted. Medicine discontinued on 09/06 and the patient started on Ancef IV 2 g every 8 hours as per ID. Patient is tolerating antibiotic well. Check CBC, CMP, and CRP weekly on Mondays; appreciate ID consult. Follow-up orthopedic surgery recommendations -weightbearing as tolerated. Obtain back at all times. sp repeat Incision and drainage on 09/07. Antibiotics per ID. Orthopedic surgery to transition to bedside wound vac changes. Follow up CBC with diff, CMP, CRP every Wednesday. VAC changed at bedside on 09/14. Next VAC change will be or Wednesday. Patient will be discharged home only if the patient can get the antibiotic at the infusion center through peripheral IVs daily. We will not place a PICC line on this patient due to history of IV drug abuse. Discussed with bilingual patient support caseworker, transportation will be provided for the patient in that case. If patient cannot get antibiotics as an outpatient at the infusion center then will have to remain hospitalized for the total of the 6 weeks duration of IV antibiotic therapy. 3/1 repeat CBC and ESR as well as CMP shows normal WBC count, normal creatinine , CRP which is trending down from 2.9-2.77. Repeat labs next Wednesday. Pain Control Continue oral Percocet with morphine IV for breakthrough 09/12 morphine IV for breakthrough pain was discontinued due to hypotension. DVT Prophylaxis Lovenox Leukopenia WBC down to 2.9 on 09/05. Resolved. Continue to monitor CBC every week. Itching Resolved. Continue Benadryl. Right knee pain Right knee x-ray is unremarkable except there may be a small joint effusion. We will continue to monitor. Continue pain control as above. Discharge Planning Continue to monitor on the medical floor. Discharge pending orthopedic surgery clearance. Problem Qualifiers (1) Right knee pain: Qualified Codes: M25.561 - Pain in right knee Dylon Davis MD Sep 19, 2017 13:15
[2017-09-19] MEDS: ENOXAPARIN SODIUM 40 MG/0.4 ML SYRINGE SQ SCH (14:47)
[2017-09-19 16:00] VITALS: BP 106/64; PULSE 98; RESP 18; TEMP 98.4; O2SAT 99
[2017-09-19 20:00] VITALS: BP 136/64; PULSE 109; RESP 19; TEMP 97.3; O2SAT 98
[2017-09-20] VITALS: BP 130/62; PULSE 100; RESP 19; TEMP 97.5; O2SAT 95
[2017-09-20] MEDS: oxyCODONE/ACETAMINOPHEN 5 MG/325 MG TAB PO PRN ×6 (02:21→22:48)
[2017-09-20] MEDS: diphenhydrAMINE HCL 25 MG CAP PO PRN ×6 (02:21→22:48)
[2017-09-20] MEDS: LACTATED RINGER'S 1000 ML INJ 1,000 ML IV SCH ×3 (02:29→22:29)
[2017-09-20] MEDS: ceFAZolin 2 GM PREMIX 50 ML IV SCH ×3 (06:16→22:48)
[2017-09-20 08:00] VITALS: BP 100/54; PULSE 92; RESP 17; TEMP 97.4; O2SAT 98
[2017-09-20] MEDS: SODIUM CHLORIDE 0.9% FLUSH 10 ML FLUSH IV FLUSH SCH ×2 (10:18→20:47)
--- NOTE | 2017-09-20 11:12 | HHI.PR ---
Subjective Remarks awake and alert did not complain of any pain or ask for change in pain med regimen good po denies any diarrhea Objective Vitals Vital Signs Date Time Temp Pulse Resp B/P (MAP) Pulse Ox O2 Delivery O2 Flow Rate FiO2 09/20/17 08:00 97.4 92 17 100/54 (69) 98 09/20/17 03:21 18 09/20/17 00:00 97.5 100 19 130/62 (84) 95 09/19/17 20:00 97.3 109 19 136/64 (88) 98 09/19/17 16:00 98.4 98 18 106/64 (78) 99 09/19/17 12:00 97.4 94 17 109/64 (79) 100 I/O 09/19/17 09/19/17 09/19/17 09/20/17 09/20/17 09/20/17 07:00 15:00 23:00 07:00 15:00 23:00 Intake Total 650 ml 50 ml 1250 ml 260 ml Output Total 0 ml 0 ml Balance 650 ml 50 ml 1250 ml 260 ml Intake Oral 600 ml 1200 ml 260 ml IV Total 50 ml 50 ml 50 ml Drainage Total 0 ml 0 ml # Voids 4 5 3 # Bowel Movements 1 1 0 Imaging Last Impressions Knee X-Ray 09/16/17 0000 Signed Impressions: Service Date/Time: September 16:56 - CONCLUSION: Unremarkable limited examination of the right knee except there may be a small joint effusion. John Batista MD Ankle X-Ray 08/27/17 0000 Signed Impressions: Service Date/Time: Sunday, August 27, 2017 13:15 - CONCLUSION: No residual hardware. Jd Gatica MD FACR Lower Extremity CT 08/26/17 0000 Signed Impressions: Service Date/Time: August 23:50 - CONCLUSION: 1. Remote comminuted fracture of the talus status post fixation with nonunion at the fracture sites. Abnormal lucency and sclerosis in the talus with slight depression of the articular surface. There could be an element of avascular necrosis in the talus. Positive ankle joint effusion. No definite acute fracture. Tirso Rhodes MD Objective Remarks awake andalert, oriented x 3 anicteric lungs clear regular rhythm Left LE- left lateral malleoli- with VAC in place moves all extremities spontaneously Procedures Post removal hardware left talus, left ankle arthrotomy with irrigation and debridement on 08/27/2017. Irrigation and debridement of left ankle, irrigation debridement of left talus, application of wound Vac dressing VAC dressing. 09/02/17. SP left foot irrigation and debridement on 09/02/2017. A/P Problem List: (1) Fracture, talus closed ICD Code: S92.109A - Unspecified fracture of unspecified talus, initial encounter for closed fracture Status: Acute (2) MSSA (methicillin susceptible Staphylococcus aureus) infection ICD Code: A49.01 - Methicillin susceptible Staphylococcus aureus infection, unspecified site Status: Acute (3) Osteomyelitis ICD Code: M86.9 - Osteomyelitis, unspecified Status: Acute (4) IV drug abuse ICD Code: F19.10 - Other psychoactive substance abuse, uncomplicated Status: Chronic (5) Itching ICD Code: L29.9 - Pruritus, unspecified (6) Right knee pain ICD Code: M25.561 - Pain in right knee Assessment and Plan 27 year old female with history of IVDU admitted for septic arthritis. Infected malunion fracture of left talus - MSSA Surgical removal of hardware on 08/27/17 S/P repeat I and D 09/07 Treated with Iv Vancomycin, Aztreonam IV which have been discontinued. Continue Vancomycin (started 08/28, 6 weeks full course recommended) Aztreonam discontinued (08/27-08/29) 09/07 ID consulted. - currently on Ancef IV 2 g every 8 hours as per ID. Patient is tolerating antibiotic well. Follow-up orthopedic surgery recommendations -weightbearing as tolerated. Orthopedic surgery- ff for VAC changes -last change 09/14- Follow up CBC with diff, CMP, CRP every Wednesday. Patient will be discharged home only if the patient can get the antibiotic at the infusion center through peripheral IVs daily. We will not place a PICC line on this patient due to history of IV drug abuse. Discussed with rn case manager, transportation will be provided for the patient in that case. If patient cannot get antibiotics as an outpatient at the infusion center then will have to remain hospitalized for the total of the 6 weeks duration of IV antibiotic therapy. 09/16 repeat CBC and ESR as well as CMP shows normal WBC count, normal creatinine , CRP which is trending down from 2.9-2.77. Repeat labs next Wednesday. Pain Control Continue oral Percocet for pain control DVT Prophylaxis Lovenox Leukopenia WBC down to 2.9 on 09/05. Resolved. Continue to monitor CBC every week. Itching Resolved. Continue Benadryl. Right knee pain- no complains today Right knee x-ray is unremarkable except there may be a small joint effusion. We will continue to monitor. Continue pain control as above. Discharge Planning Continue to monitor on the medical floor. Discharge pending orthopedic surgery clearance. Problem Qualifiers (1) Right knee pain: Qualified Codes: M25.561 - Pain in right knee Comfort Perez MD Sep 20, 2017 11:12
[2017-09-20 12:00] VITALS: BP 101/59; PULSE 85; RESP 18; TEMP 97.5; O2SAT 94
[2017-09-20 13:07] LABS: AUTOMATED NEUTROPHIL # 3.2 TH/MM3 (1.8-7.7); BASOPHIL % 0.5 % (0.0-2.0); EOSINOPHIL # 0.2 TH/MM3 (0-0.4); EOSINOPHIL % 3.2 % (0.0-4.0); HEMATOCRIT 36.6 % (35.0-46.0); HEMOGLOBIN 12.5 GM/DL (11.6-15.3); LYMPH % 38.2 % (9.0-44.0); LYMPHOCYTE # 2.9 TH/MM3 (1.0-4.8); MEAN CELL VOLUME 89.7 FL (80.0-100.0); MEAN CORPUSCULAR HEMOGLOBIN 30.6 PG (27.0-34.0); MEAN CORPUSCULAR HGB CONC 34.1 % (32.0-36.0); MEAN PLATELET VOLUME 9.1 FL (7.0-11.0); MONO % 16.7 % (0.0-8.0); MONOCYTE # 1.3 TH/MM3 (0-0.9); NEUT % 41.4 % (16.0-70.0); PLATELET COUNT 302 TH/MM3 (150-450); RED BLOOD COUNT 4.08 MIL/MM3 (4.00-5.30); RED CELL DISTRIBUTION WIDTH 13.8 % (11.6-17.2); WHITE BLOOD COUNT 7.6 TH/MM3 (4.0-11.0)
[2017-09-20 13:26] LABS: ALBUMIN 2.9 GM/DL (3.4-5.0); ALT (GPT) 11 U/L (10-53); AST (GOT) 27 U/L (15-37); BLOOD UREA NITROGEN 12 MG/DL (7-18); C-REACTIVE PROTEIN 1.11 MG/DL (0.00-0.30); CALCIUM 8.6 MG/DL (8.5-10.1); CHLORIDE 105 MEQ/L (98-107); CREATININE 0.75 MG/DL (0.50-1.00); GLOMERULAR FILTRATION RATE 91 ML/MIN (>89); GLUCOSE,RANDOM 90 MG/DL (74-106); SODIUM (NA) 138 MEQ/L (136-145)
[2017-09-20 13:29] LABS: ALKALINE PHOSPHATASE 93 U/L (45-117); TOTAL BILIRUBIN ADULT 0.2 MG/DL (0.2-1.0); TOTAL PROTEIN 7.3 GM/DL (6.4-8.2)
[2017-09-20] MEDS: ENOXAPARIN SODIUM 40 MG/0.4 ML SYRINGE SQ SCH (14:38)
[2017-09-20 16:00] VITALS: BP 87/47; PULSE 99; RESP 18; TEMP 97.5; O2SAT 100
[2017-09-20 17:34] VITALS: BP 104/67
[2017-09-20 20:00] VITALS: BP 98/68; PULSE 102; RESP 18; TEMP 99.4; O2SAT 99
[2017-09-21] VITALS: BP 111/58; PULSE 108; RESP 17; TEMP 97.1; O2SAT 97
[2017-09-21] MEDS: diphenhydrAMINE HCL 25 MG CAP PO PRN ×4 (06:09→21:56)
[2017-09-21] MEDS: ceFAZolin 2 GM PREMIX 50 ML IV SCH ×3 (06:10→22:38)
[2017-09-21] MEDS: oxyCODONE/ACETAMINOPHEN 5 MG/325 MG TAB PO PRN ×4 (06:10→21:56)
[2017-09-21 08:00] VITALS: BP 113/73; PULSE 95; RESP 16; TEMP 97.4; O2SAT 98
[2017-09-21] MEDS: LACTATED RINGER'S 1000 ML INJ 1,000 ML IV SCH ×2 (08:29→19:41)
[2017-09-21] MEDS: SODIUM CHLORIDE 0.9% FLUSH 10 ML FLUSH IV FLUSH SCH ×2 (09:00→22:38)
--- NOTE | 2017-09-21 11:38 | PD.ORT.PN ---
Subjective Subjective Remarks s/p repeat I&D left foot with vac application doing well. pain controlled. no complaints Objective Vitals Vital Signs Date Time Temp Pulse Resp B/P (MAP) Pulse Ox O2 Delivery O2 Flow Rate FiO2 09/21/17 08:00 97.4 95 16 113/73 (86) 98 09/21/17 00:00 97.1 108 17 111/58 (75) 97 09/20/17 20:00 99.4 102 18 98/68 (78) 99 09/20/17 17:34 104/67 (79) 09/20/17 16:00 97.5 99 18 87/47 (60) 100 09/20/17 12:00 97.5 85 18 101/59 (73) 94 I/O 09/20/17 09/20/17 09/20/17 09/21/17 09/21/17 09/21/17 07:00 15:00 23:00 07:00 15:00 23:00 Intake Total 260 ml 770 ml 290 ml 50 ml Output Total 0 ml Balance 260 ml 770 ml 290 ml 50 ml Intake Oral 260 ml 720 ml 240 ml IV Total 50 ml 50 ml 50 ml Drainage Total 0 ml # Voids 3 3 2 # Bowel Movements 0 1 Result Diagram: 09/20/17 1145 09/20/17 1250 Objective Remarks Awake, alert, no acute distress LLE: dressings clean and dry. intact. NVI. Negative Homans. +vac with good seal. vac removed and wound visualized. clean and dry. significant evidence of granulation tissue present. no drainage. Assessment & Plan Assessment and Plan 1) Left Talus Fx s/p ORIF with nonunion with hardware infection with repeat I&D and vac application -Cxs with MSSA -WBAT -will need 6 wks of IV Abx -infectious Dz consulted to manage -maintain vac at all times -vac changed at bedside today. will plan for repeat vac change on wednesday. please have small vac dressing at bedside -patient should not be discharged home. Patient has significant history of IVDU and abuse and requires 6 weeks of IV Abx. needs to be hospitalized for duration of Abx [place]/[facility] FOOTE Sep 21, 2017 11:38
[2017-09-21 12:00] VITALS: BP 129/59; PULSE 116; RESP 17; TEMP 96.9; O2SAT 100
--- NOTE | 2017-09-21 15:04 | HHI.PR ---
Subjective Remarks no complains no diarrhea or constipation no complains of pain VAC was changed today by Ortho Objective Vitals Vital Signs Date Time Temp Pulse Resp B/P (MAP) Pulse Ox O2 Delivery O2 Flow Rate FiO2 09/21/17 12:00 96.9 116 17 129/59 (82) 100 09/21/17 08:00 97.4 95 16 113/73 (86) 98 09/21/17 00:00 97.1 108 17 111/58 (75) 97 09/20/17 20:00 99.4 102 18 98/68 (78) 99 09/20/17 17:34 104/67 (79) 09/20/17 16:00 97.5 99 18 87/47 (60) 100 I/O 09/20/17 09/20/17 09/20/17 09/21/17 09/21/17 09/21/17 07:00 15:00 23:00 07:00 15:00 23:00 Intake Total 260 ml 770 ml 290 ml 50 ml Output Total 0 ml Balance 260 ml 770 ml 290 ml 50 ml Intake Oral 260 ml 720 ml 240 ml IV Total 50 ml 50 ml 50 ml Drainage Total 0 ml # Voids 3 3 2 # Bowel Movements 0 1 Result Diagram: 09/20/17 1145 09/20/17 1250 Imaging Last Impressions Knee X-Ray 09/16/17 0000 Signed Impressions: Service Date/Time: September 16:56 - CONCLUSION: Unremarkable limited examination of the right knee except there may be a small joint effusion. John Batista MD Ankle X-Ray 08/27/17 0000 Signed Impressions: Service Date/Time: Sunday, August 27, 2017 13:15 - CONCLUSION: No residual hardware. Jd Gatica MD FACR Lower Extremity CT 08/26/17 0000 Signed Impressions: Service Date/Time: August 23:50 - CONCLUSION: 1. Remote comminuted fracture of the talus status post fixation with nonunion at the fracture sites. Abnormal lucency and sclerosis in the talus with slight depression of the articular surface. There could be an element of avascular necrosis in the talus. Positive ankle joint effusion. No definite acute fracture. Tirso Rhodes MD Objective Remarks awake andalert, oriented x 3 anicteric lungs clear regular rhythm Left LE- left lateral malleoli- with VAC in place moves all extremities spontaneously Procedures Post removal hardware left talus, left ankle arthrotomy with irrigation and debridement on 08/27/2017. Irrigation and debridement of left ankle, irrigation debridement of left talus, application of wound Vac dressing VAC dressing. 09/02/17. SP left foot irrigation and debridement on 09/02/2017. A/P Problem List: (1) Fracture, talus closed ICD Code: S92.109A - Unspecified fracture of unspecified talus, initial encounter for closed fracture Status: Acute (2) MSSA (methicillin susceptible Staphylococcus aureus) infection ICD Code: A49.01 - Methicillin susceptible Staphylococcus aureus infection, unspecified site Status: Acute (3) Osteomyelitis ICD Code: M86.9 - Osteomyelitis, unspecified Status: Acute (4) IV drug abuse ICD Code: F19.10 - Other psychoactive substance abuse, uncomplicated Status: Chronic (5) Itching ICD Code: L29.9 - Pruritus, unspecified (6) Right knee pain ICD Code: M25.561 - Pain in right knee Assessment and Plan 27 year old female with history of IVDU admitted for septic arthritis. Infected malunion fracture of left talus - MSSA Surgical removal of hardware on 08/27/17 S/P repeat I and D 09/07 Treated with Iv Vancomycin, Aztreonam IV which have been discontinued. Continue Vancomycin (started 08/28, 6 weeks full course recommended) Aztreonam discontinued (08/27-08/29) 09/07 ID consulted. - currently on Ancef IV 2 g every 8 hours as per ID. Patient is tolerating antibiotic well. Follow-up orthopedic surgery recommendations -weightbearing as tolerated. Orthopedic surgery- ff for VAC changed 09/21 Follow up CBC with diff, CMP, CRP every Wednesday. Patient will be discharged home only if the patient can get the antibiotic at the infusion center through peripheral IVs daily. We will not place a PICC line on this patient due to history of IV drug abuse. Discussed with shoe caser, transportation will be provided for the patient in that case. If patient cannot get antibiotics as an outpatient at the infusion center then will have to remain hospitalized for the total of the 6 weeks duration of IV antibiotic therapy. 09/16 repeat CBC and ESR as well as CMP shows normal WBC count, normal creatinine , CRP which is trending down from 2.9-2.77. Repeat labs next Wednesday. Pain Control Continue oral Percocet - prn for pain DVT Prophylaxis Lovenox Leukopenia WBC down to 2.9 on 09/05. Resolved. Continue to monitor CBC every week. Itching Resolved. Continue Benadryl. Right knee pain- no complains today Right knee x-ray is unremarkable except there may be a small joint effusion. We will continue to monitor. Continue pain control as above. Discharge Planning Continue to monitor on the medical floor. Discharge pending orthopedic surgery clearance. Problem Qualifiers (1) Right knee pain: Qualified Codes: M25.561 - Pain in right knee Comfort Perez MD Sep 21, 2017 15:04
[2017-09-21 16:00] VITALS: BP 126/65; PULSE 99; RESP 17; TEMP 97.4; O2SAT 99
[2017-09-21] MEDS: ENOXAPARIN SODIUM 40 MG/0.4 ML SYRINGE SQ SCH (16:00)
[2017-09-21 20:00] VITALS: BP 114/58; PULSE 94; RESP 17; TEMP 99; O2SAT 98
[2017-09-22] VITALS: BP 109/60; PULSE 81; RESP 17; TEMP 98.8; O2SAT 98
[2017-09-22] MEDS: LACTATED RINGER'S 1000 ML INJ 1,000 ML IV SCH ×2 (03:48→14:29)
[2017-09-22] MEDS: oxyCODONE/ACETAMINOPHEN 5 MG/325 MG TAB PO PRN ×5 (06:13→22:18)
[2017-09-22] MEDS: diphenhydrAMINE HCL 25 MG CAP PO PRN ×5 (06:13→22:19)
[2017-09-22] MEDS: ceFAZolin 2 GM PREMIX 50 ML IV SCH ×3 (06:13→22:19)
[2017-09-22 08:00] VITALS: BP 111/58; PULSE 78; RESP 16; TEMP 98.3; O2SAT 97
[2017-09-22] MEDS: SODIUM CHLORIDE 0.9% FLUSH 10 ML FLUSH IV FLUSH SCH ×2 (09:00→22:19)
--- NOTE | 2017-09-22 09:10 | HHI.PR ---
Subjective Remarks no complains Objective Vitals Vital Signs Date Time Temp Pulse Resp B/P (MAP) Pulse Ox O2 Delivery O2 Flow Rate FiO2 09/22/17 08:00 98.3 78 16 111/58 (75) 97 09/22/17 00:00 98.8 81 17 109/60 (76) 98 09/21/17 20:00 99.0 94 17 114/58 (76) 98 09/21/17 16:00 97.4 99 17 126/65 (85) 99 09/21/17 12:00 96.9 116 17 129/59 (82) 100 I/O 09/21/17 09/21/17 09/21/17 09/22/17 09/22/17 09/22/17 07:00 15:00 23:00 07:00 15:00 23:00 Intake Total 290 ml 50 ml 720 ml 290 ml 50 ml Output Total 600 ml 0 ml Balance 290 ml 50 ml 120 ml 290 ml 50 ml Intake Oral 240 ml 720 ml 240 ml IV Total 50 ml 50 ml 50 ml 50 ml Output Urine Total 600 ml Drainage Total 0 ml # Voids 2 2 # Bowel Movements 0 Result Diagram: 09/20/17 1145 09/20/17 1250 Imaging Last Impressions Knee X-Ray 09/16/17 0000 Signed Impressions: Service Date/Time: September 16:56 - CONCLUSION: Unremarkable limited examination of the right knee except there may be a small joint effusion. John Batista MD Ankle X-Ray 08/27/17 0000 Signed Impressions: Service Date/Time: Sunday, August 27, 2017 13:15 - CONCLUSION: No residual hardware. Jd Gatica MD FACR Lower Extremity CT 08/26/17 0000 Signed Impressions: Service Date/Time: August 23:50 - CONCLUSION: 1. Remote comminuted fracture of the talus status post fixation with nonunion at the fracture sites. Abnormal lucency and sclerosis in the talus with slight depression of the articular surface. There could be an element of avascular necrosis in the talus. Positive ankle joint effusion. No definite acute fracture. Tirso Rhodes MD Objective Remarks awake and alert, oriented x 3 anicteric lungs clear regular rhythm Left LE- foot with - with VAC in place moves all extremities spontaneously Procedures Post removal hardware left talus, left ankle arthrotomy with irrigation and debridement on 08/27/2017. Irrigation and debridement of left ankle, irrigation debridement of left talus, application of wound Vac dressing VAC dressing. 09/02/17. SP left foot irrigation and debridement on 09/02/2017. A/P Problem List: (1) Fracture, talus closed ICD Code: S92.109A - Unspecified fracture of unspecified talus, initial encounter for closed fracture Status: Acute (2) MSSA (methicillin susceptible Staphylococcus aureus) infection ICD Code: A49.01 - Methicillin susceptible Staphylococcus aureus infection, unspecified site Status: Acute (3) Osteomyelitis ICD Code: M86.9 - Osteomyelitis, unspecified Status: Acute (4) IV drug abuse ICD Code: F19.10 - Other psychoactive substance abuse, uncomplicated Status: Chronic (5) Itching ICD Code: L29.9 - Pruritus, unspecified (6) Right knee pain ICD Code: M25.561 - Pain in right knee Assessment and Plan 27 year old female with history of IVDU admitted for septic arthritis. Infected malunion fracture of left talus - MSSA Surgical removal of hardware on 08/27/17 S/P repeat I and D 09/07 09/07 ID consulted. - currently on Ancef IV 2 g every 8 hours as per ID. Patient is tolerating antibiotic well. Follow-up orthopedic surgery recommendations -weightbearing as tolerated. Orthopedic surgery- ff for VAC changes -last change 09/14- Follow up CBC with diff, CMP, CRP every Wednesday. Patient will be discharged home only if the patient can get the antibiotic at the infusion center through peripheral IVs daily. We will not place a PICC line on this patient due to history of IV drug abuse. Discussed with leather case finisher, transportation will be provided for the patient in that case. If patient cannot get antibiotics as an outpatient at the infusion center then will have to remain hospitalized for the total of the 6 weeks duration of IV antibiotic therapy. 09/16 repeat CBC and ESR as well as CMP shows normal WBC count, normal creatinine , CRP which is trending down from 2.9-2.77. Pain Control Continue oral Percocet DVT Prophylaxis Lovenox- patient refusing Leukopenia- improved Resolved. Continue to monitor CBC every week. Itching Resolved. Continue Benadryl. Right knee pain- no further complains Right knee x-ray is unremarkable except there may be a small joint effusion. We will continue to monitor. Continue pain control as above. Discharge Planning Continue to monitor on the medical floor. Discharge only if cleared by orthopedic surgery Problem Qualifiers (1) Right knee pain: Qualified Codes: M25.561 - Pain in right knee Comfort Perez MD Sep 22, 2017 09:10
[2017-09-22] MEDS: ONDANSETRON HCL 4 MG/2 ML VIAL IVP PRN (10:17)
[2017-09-22 12:00] VITALS: BP 115/63; PULSE 73; RESP 16; TEMP 98.1; O2SAT 98
[2017-09-22] MEDS: ENOXAPARIN SODIUM 40 MG/0.4 ML SYRINGE SQ SCH (14:34)
[2017-09-22 16:00] VITALS: BP 112/62; PULSE 108; RESP 17; TEMP 96.8; O2SAT 95
[2017-09-22 20:00] VITALS: BP 117/69; PULSE 108; RESP 20; TEMP 98.8; O2SAT 99
[2017-09-23] VITALS: BP 99/61; PULSE 98; RESP 20; TEMP 98.6; O2SAT 100
[2017-09-23] MEDS: LACTATED RINGER'S 1000 ML INJ 1,000 ML IV SCH ×3 (00:29→20:29)
[2017-09-23] MEDS: diphenhydrAMINE HCL 25 MG CAP PO PRN ×5 (05:23→22:49)
[2017-09-23] MEDS: oxyCODONE/ACETAMINOPHEN 5 MG/325 MG TAB PO PRN ×5 (05:23→22:49)
[2017-09-23] MEDS: ceFAZolin 2 GM PREMIX 50 ML IV SCH ×3 (05:24→22:49)
[2017-09-23 08:00] VITALS: BP 100/55; PULSE 86; RESP 19; TEMP 97.5; O2SAT 95
[2017-09-23] MEDS: SODIUM CHLORIDE 0.9% FLUSH 10 ML FLUSH IV FLUSH SCH ×2 (09:00→21:00)
--- NOTE | 2017-09-23 09:14 | HHI.PR ---
Subjective Remarks no complains thinks she is going home today Objective Vitals Vital Signs Date Time Temp Pulse Resp B/P (MAP) Pulse Ox O2 Delivery O2 Flow Rate FiO2 09/23/17 08:00 97.5 86 19 100/55 (70) 95 09/23/17 00:00 98.6 98 20 99/61 (74) 100 09/22/17 20:00 98.8 108 20 117/69 (85) 99 09/22/17 16:00 96.8 108 17 112/62 (79) 95 09/22/17 12:00 98.1 73 16 115/63 (80) 98 I/O 09/22/17 09/22/17 09/22/17 09/23/17 09/23/17 09/23/17 07:00 15:00 23:00 07:00 15:00 23:00 Intake Total 290 ml 50 ml 530 ml 580 ml Output Total 0 ml 0 ml 0 ml Balance 290 ml 50 ml 530 ml 580 ml Intake Oral 240 ml 480 ml 480 ml IV Total 50 ml 50 ml 50 ml 100 ml Drainage Total 0 ml 0 ml 0 ml # Voids 2 5 2 # Bowel Movements 2 0 Result Diagram: 09/20/17 1145 09/20/17 1250 Imaging Last Impressions Knee X-Ray 09/16/17 0000 Signed Impressions: Service Date/Time: September 16:56 - CONCLUSION: Unremarkable limited examination of the right knee except there may be a small joint effusion. John Batista MD Ankle X-Ray 08/27/17 0000 Signed Impressions: Service Date/Time: Sunday, August 27, 2017 13:15 - CONCLUSION: No residual hardware. Jd Gatica MD FACR Lower Extremity CT 08/26/17 0000 Signed Impressions: Service Date/Time: August 23:50 - CONCLUSION: 1. Remote comminuted fracture of the talus status post fixation with nonunion at the fracture sites. Abnormal lucency and sclerosis in the talus with slight depression of the articular surface. There could be an element of avascular necrosis in the talus. Positive ankle joint effusion. No definite acute fracture. Tirso Rhodes MD Objective Remarks awake and alert, oriented x 3 anicteric lungs clear regular rhythm Left LE- foot with - with VAC in place, no calf tenderness moves all extremities spontaneously Procedures Post removal hardware left talus, left ankle arthrotomy with irrigation and debridement on 08/27/2017. Irrigation and debridement of left ankle, irrigation debridement of left talus, application of wound Vac dressing VAC dressing. 09/02/17. SP left foot irrigation and debridement on 09/02/2017. A/P Problem List: (1) Fracture, talus closed ICD Code: S92.109A - Unspecified fracture of unspecified talus, initial encounter for closed fracture Status: Acute (2) MSSA (methicillin susceptible Staphylococcus aureus) infection ICD Code: A49.01 - Methicillin susceptible Staphylococcus aureus infection, unspecified site Status: Acute (3) Osteomyelitis ICD Code: M86.9 - Osteomyelitis, unspecified Status: Acute (4) IV drug abuse ICD Code: F19.10 - Other psychoactive substance abuse, uncomplicated Status: Chronic (5) Itching ICD Code: L29.9 - Pruritus, unspecified (6) Right knee pain ICD Code: M25.561 - Pain in right knee Assessment and Plan 27 year old female with history of IVDU admitted for septic arthritis. Infected malunion fracture of left talus - MSSA. VAC in place Surgical removal of hardware on 08/27/17 S/P repeat I and D 09/07 Treated with Iv Vancomycin, Aztreonam IV which have been discontinued. Continue Vancomycin (started 08/28, 6 weeks full course recommended) Aztreonam discontinued (08/27-08/29) 09/07 ID consulted. - currently on Ancef IV 2 g every 8 hours as per ID. Patient is tolerating antibiotic well. Follow-up orthopedic surgery recommendations -weightbearing as tolerated. Orthopedic surgery- ff for VAC changes - next change this Wednesday CRP 1.11- 09/20 Follow up CBC with diff, CMP, CRP every Wednesday. we are considering OP IV antibiotic therapy- will need PICC and change to qd antibiotics OP wound care center ff up for wound VAC management on DC will consult Dr. Frias while in house- d/w ABIMBOLA 09/23- d/w [facility]- cleared on their side for DC with OP arrangements for IV antibiotics - I will inform Dr. Martines- - for PICC line order and plan was to change to once daily IV Ceftriaxone therapy Patient will be discharged home only if the patient can get the antibiotic at the infusion center through peripheral IVs daily. We will not place a PICC line on this patient due to history of IV drug abuse. Discussed with correctional case manager, transportation will be provided for the patient in that case. If patient cannot get antibiotics as an outpatient at the infusion center then will have to remain hospitalized for the total of the 6 weeks duration of IV antibiotic therapy. Pain Control Continue oral Percocet for pain control DVT Prophylaxis Lovenox Leukopenia WBC down to 2.9 on 09/05. CRP up Resolved. Continue to monitor CBC every week. Itching Resolved. Continue Benadryl. Right knee pain- resolved Right knee x-ray is unremarkable except there may be a small joint effusion. We will continue to monitor. Continue pain control as above. Discharge Planning CM consult for OP IV antibiotic arrangements and VAC- spoke with Jeanna Problem Qualifiers (1) Right knee pain: Qualified Codes: M25.561 - Pain in right knee Comfort Perez MD Sep 23, 2017 09:14
--- NOTE | 2017-09-23 09:26 | PD.ORT.PN ---
Subjective Subjective Remarks s/p repeat I&D left foot with vac application doing well. pain controlled. no complaints Objective Vitals Vital Signs Date Time Temp Pulse Resp B/P (MAP) Pulse Ox O2 Delivery O2 Flow Rate FiO2 09/23/17 08:00 97.5 86 19 100/55 (70) 95 09/23/17 00:00 98.6 98 20 99/61 (74) 100 09/22/17 20:00 98.8 108 20 117/69 (85) 99 09/22/17 16:00 96.8 108 17 112/62 (79) 95 09/22/17 12:00 98.1 73 16 115/63 (80) 98 I/O 09/22/17 09/22/17 09/22/17 09/23/17 09/23/17 09/23/17 07:00 15:00 23:00 07:00 15:00 23:00 Intake Total 290 ml 50 ml 530 ml 580 ml Output Total 0 ml 0 ml 0 ml Balance 290 ml 50 ml 530 ml 580 ml Intake Oral 240 ml 480 ml 480 ml IV Total 50 ml 50 ml 50 ml 100 ml Drainage Total 0 ml 0 ml 0 ml # Voids 2 5 2 # Bowel Movements 2 0 Result Diagram: 09/20/17 1145 09/20/17 1250 Objective Remarks Awake, alert, no acute distress LLE: dressings clean and dry. intact. NVI. Negative Homans. +vac with good seal. vac removed and wound visualized. clean and dry. significant evidence of granulation tissue present. no drainage. Assessment & Plan Assessment and Plan 1) Left Talus Fx s/p ORIF with nonunion with hardware infection with repeat I&D and vac application -Cxs with MSSA -WBAT -will need 6 wks of IV Abx -infectious Dz consulted to manage -maintain vac at all times -vac changed at bedside today. -sutures removed at bedside today -ortho cleared for DC as long as outpatient IV Abx and outpatient wound care with vac changes can be arranged -patient will need to maintain her vac dressing and have vac dressing changes wednesday and . has to have wound care follow up arranged for Wednesday before can be discharged. -also has to have home wound vac arranged before can safely be discharged. -ok to be DCd home if all of this can be arranged. if cannot be arranged, then needs to stay admitted to inpatient setting. -had convo with patient at bedside and expressed this to her and expressed the risks of using a picc line and wound vac at home. with her history of drug abuse, informed her that the PICC line is for Antiobiotics only and if she abuses it, then will be re-admitted to hospital. -patient voiced that she understood and feel that as long as the above criteria is met, she can safely be discharged and managed on an outpatient basis. -f/u with Ruben or [facility]ARY in 2 weeks Choco Vale/Eap Counselor PA Sep 23, 2017 09:26
[2017-09-23] MEDS ORDERED: WALKER/ADULT/FO1 MIS (09:27)
[2017-09-23 12:00] VITALS: BP 110/56; PULSE 106; RESP 20; TEMP 97.6; O2SAT 95
[2017-09-23] MEDS: ENOXAPARIN SODIUM 40 MG/0.4 ML SYRINGE SQ SCH (14:19)
[2017-09-23 16:00] VITALS: BP 99/46; PULSE 99; RESP 19; TEMP 97.8; O2SAT 98
--- NOTE | 2017-09-23 18:46 | HHI.FF ---
Infusion Therapy Patient Information Patient Weight 63.9 kg Diagnosis: Coded Allergies: peanut (Unverified Allergy, Severe, 08/26/17) "throat swelling" penicillin G (Unverified Allergy, Intermediate, Rash with hives with amoxicillin but tolerated Keflex past., 09/23/17) Tolerated Ceftriaxone and Cefepime this admission. Additional Information Additional Instructions [x] Peripheral flush and dressing changes per protocol [x] Implanted port and central wafer line worker: * Implanted port: 10 ml Normal Saline followed by 5 ml Heparin 100 units/ml Heparin flush after each use and monthly to maintain. [] May leave port accessed during therapy. [] May leave peripheral site accessed for duration of therapy. [x] If patient has SOB or respiratory distress, check oxygen saturation. If less than 90% or clinical signs of respiratory distress, administer oxygen at 2 L/min. via nasal cannula and notify physician. [x] Anaphylaxis/Reaction orders: * Stop infusion. * Keep IV line open with saline flush. * Notify physician. * Monitor vital signs every 15 minutes until symptoms resolve. * Check Oxygen saturation; Oxygen at 2 L/min. via nasal cannula if less than 90% or clinical signs of respiratory distress. * Administer diphenhydramine (Benadryl) 25 mg IV STAT, (unless patient has received as pre-med). May repeat once, if necessary. * Solu-Cortef 250 mg IVP over 30-60 seconds, use 100 mg vials for each dissolution. * Epinephrine (1mg/1 ml) 0.3 mg subcutaneously or IVP now with any signs of respiratory distress. * Check with physician for new additional pre-med orders if patient is re- challenged or re-treated. [x] May remove PICC line when treatment complete, after confirming with Physician. [x] If the patient is admitted to the hospital, the ED, or transferred via EVAC , complete transfer form including medication reconciliation order sheet. Salud Martines MD Sep 23, 2017 18:46
--- NOTE | 2017-09-23 18:52 | HHI.FF ---
Infusion Therapy Location of Infusion Therapy: Ambulatory Infusion Therapy Order Patient Information Appointment Date: Sep 23, 2017 Patient Weight 63.9 kg Diagnosis: Diagnosis MSSA osteomyelitis ankle Coded Allergies: peanut (Unverified Allergy, Severe, 08/26/17) "throat swelling" penicillin G (Unverified Allergy, Intermediate, Rash with hives with amoxicillin but tolerated Keflex past., 09/06/17) Administer Medication Ceftriaxone 2 grams IV q 24 hours Start Treatment: Sep 23, 2017 Stop Treatment: Oct 15, 2017 Additional Information Venous access: PICC Line Additional Instructions [x] Peripheral flush and dressing changes per protocol [x] Implanted port and central commercial lines insurance agent: * Implanted port: 10 ml Normal Saline followed by 5 ml Heparin 100 units/ml Heparin flush after each use and monthly to maintain. [] May leave port accessed during therapy. [] May leave peripheral site accessed for duration of therapy. [x] If patient has SOB or respiratory distress, check oxygen saturation. If less than 90% or clinical signs of respiratory distress, administer oxygen at 2 L/min. via nasal cannula and notify physician. [x] Anaphylaxis/Reaction orders: * Stop infusion. * Keep IV line open with saline flush. * Notify physician. * Monitor vital signs every 15 minutes until symptoms resolve. * Check Oxygen saturation; Oxygen at 2 L/min. via nasal cannula if less than 90% or clinical signs of respiratory distress. * Administer diphenhydramine (Benadryl) 25 mg IV STAT, (unless patient has received as pre-med). May repeat once, if necessary. * Solu-Cortef 250 mg IVP over 30-60 seconds, use 100 mg vials for each dissolution. * Epinephrine (1mg/1 ml) 0.3 mg subcutaneously or IVP now with any signs of respiratory distress. * Check with physician for new additional pre-med orders if patient is re- challenged or re-treated. [x] May remove PICC line when treatment complete, after confirming with Physician. [x] If the patient is admitted to the hospital, the ED, or transferred via EVAC , complete transfer form including medication reconciliation order sheet. Laboratory Tests Weekly Labs: CBC w/diff, Creatinine, CRP, LFT's (Hepatic function test) Additional Information Please draw weekly labs, fax labs to number below. Please call with abnormals, change in clinical condition or problems to: Dr. Galeas or covering ID Physician Follow up appt: Follow up with Ortho . Follow up with PCP Follow up with other MDs as planned. Counseling: Counseled about medication side effects Counseled about PICC line care and hand hygiene. Salud Martines MD Sep 23, 2017 18:52
--- NOTE | 2017-09-23 18:57 | HHI.IDPN ---
Subjective Subjective Remarks Ms. Luna is a 27-year-old female with past medical history significant for IV drug abuse and status post ORIF of the left talus in January 2017 presents to the emergency department with a 3-5 day history of a left swollen ankle. The patient reports that she has pain, swelling in her ankle making it difficult to ambulate. She states that the pain is intolerable. She is a poor historian. So the history was obtained by review of medical records. The patient denies any fever/chills/nausea/vomiting. She admits to using cocaine, Margot, methamphetamines and opiates. Vital signs on presentation: Temperature 98.2, pulse 114, respirations 16, BP 125/81, pulse ox 98% on room air. Patient was seen by orthopedic surgeon Dr. Strange who removed the hardware and performed an I&D and intraoperative cultures are now growing staph aureus infectious disease is consulted for evaluation and management of infected hardware of the left ankle. Overnight events reviewed No fevers No rash No diarrhea Antibiotics Ancef IV Lines Line sites with no evidence of infection. Past Medical History Past Medical History Asthma Polysubstance abuse Anxiety Depression Cervical Cancer Bipolar disorder Past Surgical History Tubal ligation Open reduction internal fixation left talus Allergies: Coded Allergies: peanut (Unverified Allergy, Severe, 08/26/17) "throat swelling" penicillin G (Unverified Allergy, Intermediate, Rash with hives with amoxicillin but tolerated Keflex past., 09/06/17) Objective . Vital Signs Date Time Temp Pulse Resp B/P (MAP) Pulse Ox O2 Delivery O2 Flow Rate FiO2 09/23/17 16:00 97.8 99 19 99/46 (63) 98 09/23/17 12:00 97.6 106 20 110/56 (74) 95 09/23/17 08:00 97.5 86 19 100/55 (70) 95 09/23/17 00:00 98.6 98 20 99/61 (74) 100 09/22/17 20:00 98.8 108 20 117/69 (85) 99 09/23/17 09/23/17 09/24/17 15:00 23:00 07:00 Intake Total 1250 ml Balance 1250 ml Intake Oral 1250 ml # Voids 4 Imaging Last Impressions Ankle X-Ray 08/27/17 0000 Signed Impressions: Service Date/Time: Sunday, August 27, 2017 13:15 - CONCLUSION: No residual hardware. Jd Gatica MD FACR Lower Extremity CT 08/26/17 0000 Signed Impressions: Service Date/Time: August 23:50 - CONCLUSION: 1. Remote comminuted fracture of the talus status post fixation with nonunion at the fracture sites. Abnormal lucency and sclerosis in the talus with slight depression of the articular surface. There could be an element of avascular necrosis in the talus. Positive ankle joint effusion. No definite acute fracture. Tirso Rhodes MD Physical Exam GENERAL: This is a well-nourished, well-developed patient, in no apparent distress. SKIN: No rashes, ecchymoses or lesions. Cool and dry. HEAD: Atraumatic. Normocephalic. No temporal or scalp tenderness. EYES: Pupils equal round and reactive. Extraocular motions intact. No scleral icterus. No injection or drainage. ENT: Nose without bleeding, purulent drainage or septal hematoma. Throat without erythema, tonsillar hypertrophy or exudate. Uvula midline. Airway patent. NECK: Trachea midline. Supple, nontender, no meningeal signs. CARDIOVASCULAR: Heart sounds audible RESPIRATORY: Clear to auscultation. Breath sounds equal bilaterally. No wheezes , rales, or rhonchi. GASTROINTESTINAL: Abdomen soft, non-tender, nondistended. MUSCULOSKELETAL: Left ankle in postoperative dressing, Wound vac in place. NEUROLOGICAL: Awake and alert. Nonfocal exam. Psych cooperative IV line sites with no evidence of infection Assessment & Plan Remarks Left ankle infected hardware status post removal MSSA infection/osteomyelitis. IV drug abuser Clarification of penicillin allergy: reports rash and hives many years back. Tolerated Keflex on multiple occasions for UTI. Recommendations: Continue Ancef IV 2 gm q8hrs while in hospital. Rocephin IV post hospital infusion orders in chart. Alex Underwood. Will sign off please call back if any change in clinical condition or questions. Salud Martines MD Sep 23, 2017 18:57
[2017-09-23] MEDS ORDERED: EPIN1INJ21 IV PUSH (18:58)
[2017-09-23] MEDS ORDERED: SOLU250I IV PUSH (18:58)
[2017-09-23] MEDS ORDERED: CEFT2INJ IV (18:58)
[2017-09-23] MEDS ORDERED: EPIN1INJ21 SQ (18:58)
[2017-09-23 19:37] VITALS: O2SAT 97
[2017-09-23 20:00] VITALS: BP 102/65; PULSE 106; RESP 20; TEMP 97; O2SAT 100
[2017-09-24] VITALS: BP 99/68; PULSE 91; RESP 20; TEMP 97.4; O2SAT 98
[2017-09-24] MEDS: LACTATED RINGER'S 1000 ML INJ 1,000 ML IV SCH ×2 (05:02→15:40)
[2017-09-24] MEDS: ceFAZolin 2 GM PREMIX 50 ML IV SCH ×2 (05:45→14:34)
[2017-09-24] MEDS: oxyCODONE/ACETAMINOPHEN 5 MG/325 MG TAB PO PRN ×3 (05:46→15:34)
[2017-09-24] MEDS: diphenhydrAMINE HCL 25 MG CAP PO PRN ×3 (05:46→15:32)
[2017-09-24 08:00] VITALS: BP 86/48; PULSE 79; RESP 17; TEMP 98.4; O2SAT 99
[2017-09-24 08:46] VITALS: BP 107/52
[2017-09-24] MEDS: SODIUM CHLORIDE 0.9% FLUSH 10 ML FLUSH IV FLUSH SCH (09:53)
--- NOTE | 2017-09-24 10:33 | HHI.PR ---
Subjective Remarks no complains awaiting Vascular access team for [facility] IV antibitoic looking forward to going home Objective Vitals Vital Signs Date Time Temp Pulse Resp B/P (MAP) Pulse Ox O2 Delivery O2 Flow Rate FiO2 09/24/17 08:46 107/52 (70) 09/24/17 08:00 98.4 79 17 86/48 (61) 99 09/24/17 00:00 97.4 91 20 99/68 (78) 98 09/23/17 20:00 97.0 106 20 102/65 (77) 100 09/23/17 19:37 97 09/23/17 16:00 97.8 99 19 99/46 (63) 98 09/23/17 12:00 97.6 106 20 110/56 (74) 95 I/O 09/23/17 09/23/17 09/23/17 09/24/17 09/24/17 09/24/17 07:00 15:00 23:00 07:00 15:00 23:00 Intake Total 580 ml 1250 ml 530 ml Output Total 0 ml 0 ml Balance 580 ml 1250 ml 530 ml Intake Oral 480 ml 1250 ml 480 ml IV Total 100 ml 50 ml Drainage Total 0 ml 0 ml # Voids 2 4 3 # Bowel Movements 0 0 Result Diagram: 09/20/17 1145 09/20/17 1250 Imaging Last Impressions Knee X-Ray 09/16/17 0000 Signed Impressions: Service Date/Time: September 16:56 - CONCLUSION: Unremarkable limited examination of the right knee except there may be a small joint effusion. John Batista MD Ankle X-Ray 08/27/17 0000 Signed Impressions: Service Date/Time: Sunday, August 27, 2017 13:15 - CONCLUSION: No residual hardware. Jd Gatica MD FACR Lower Extremity CT 08/26/17 0000 Signed Impressions: Service Date/Time: August 23:50 - CONCLUSION: 1. Remote comminuted fracture of the talus status post fixation with nonunion at the fracture sites. Abnormal lucency and sclerosis in the talus with slight depression of the articular surface. There could be an element of avascular necrosis in the talus. Positive ankle joint effusion. No definite acute fracture. Tirso Rhodes MD Objective Remarks awake and alert, oriented x 3 anicteric lungs clear regular rhythm Left LE- foot with - with VAC in place, no calf tenderness moves all extremities spontaneously Procedures Post removal hardware left talus, left ankle arthrotomy with irrigation and debridement on 08/27/2017. Irrigation and debridement of left ankle, irrigation debridement of left talus, application of wound Vac dressing VAC dressing. 09/02/17. SP left foot irrigation and debridement on 09/02/2017. A/P Problem List: (1) Fracture, talus closed ICD Code: S92.109A - Unspecified fracture of unspecified talus, initial encounter for closed fracture Status: Acute (2) MSSA (methicillin susceptible Staphylococcus aureus) infection ICD Code: A49.01 - Methicillin susceptible Staphylococcus aureus infection, unspecified site Status: Acute (3) Osteomyelitis ICD Code: M86.9 - Osteomyelitis, unspecified Status: Acute (4) IV drug abuse ICD Code: F19.10 - Other psychoactive substance abuse, uncomplicated Status: Chronic (5) Itching ICD Code: L29.9 - Pruritus, unspecified (6) Right knee pain ICD Code: M25.561 - Pain in right knee Assessment and Plan 27 year old female with history of IVDU admitted for septic arthritis. Infected malunion fracture of left talus - MSSA. VAC in place Surgical removal of hardware on 08/27/17 S/P repeat I and D 09/07 Treated with Iv Vancomycin, Aztreonam IV which have been discontinued. Continue Vancomycin (started 08/28, 6 weeks full course recommended) Aztreonam discontinued (08/27-08/29) 09/07 ID consulted. - currently on Ancef IV 2 g every 8 hours as per ID. Patient is tolerating antibiotic well. Follow-up orthopedic surgery recommendations -weightbearing as tolerated. Orthopedic surgery- ff for VAC changes - next change this Wednesday CRP 1.11- 09/20 Follow up CBC with diff, CMP, CRP every Wednesday. for PICC placement this am OP wound care center ff up for wound VAC management on DC will consult Dr. Frias while in house- d/w CM when DC- OP IV Ceftrixone once daily till 10/15 Pain Control Continue oral Percocet for pain control DVT Prophylaxis Lovenox Leukopenia WBC down to 2.9 on 09/05. CRP up Resolved. Continue to monitor CBC every week. Itching Resolved. Continue Benadryl. Right knee pain- resolved Right knee x-ray is unremarkable except there may be a small joint effusion. We will continue to monitor. Continue pain control as above. Discharge Planning CM consult for OP IV antibiotic arrangements and VAC- spoke with Jeanna Problem Qualifiers (1) Right knee pain: Qualified Codes: M25.561 - Pain in right knee Comfort Perez MD Sep 24, 2017 10:33
[2017-09-24] MEDS ORDERED: OXYC1TAB63 PO (10:39)
[2017-09-24 12:00] VITALS: BP 118/53; PULSE 82; RESP 17; TEMP 97.7; O2SAT 98
[2017-09-24] MEDS: ENOXAPARIN SODIUM 40 MG/0.4 ML SYRINGE SQ SCH (14:34)
--- NOTE | 2017-09-24 18:15 | HHI.DS ---
Discharge Summary Admission Date Aug 27, 2017 at 00:36 Discharge Date: Sep 24, 2017 Admitting Diagnosis ANKLE JOINT EFFUSION, R/O OSTEOMYELITIS (1) Fracture, talus closed ICD Code: S92.109A - Unspecified fracture of unspecified talus, initial encounter for closed fracture Status: Acute (2) MSSA (methicillin susceptible Staphylococcus aureus) infection ICD Code: A49.01 - Methicillin susceptible Staphylococcus aureus infection, unspecified site Status: Acute (3) Osteomyelitis ICD Code: M86.9 - Osteomyelitis, unspecified Status: Acute (4) IV drug abuse ICD Code: F19.10 - Other psychoactive substance abuse, uncomplicated Diagnosis: Secondary Status: Chronic (5) Itching ICD Code: L29.9 - Pruritus, unspecified Diagnosis: Secondary (6) Right knee pain ICD Code: M25.561 - Pain in right knee Diagnosis: Secondary Procedures Post removal hardware left talus, left ankle arthrotomy with irrigation and debridement on 08/27/2017. Irrigation and debridement of left ankle, irrigation debridement of left talus, application of wound Vac dressing VAC dressing. 09/02/17. SP left foot irrigation and debridement on 09/02/2017. Brief History - From Admission 27-year-old female with past medical history significant for IV drug abuse and status post ORIF of the left talus in January 2017 presents to the emergency department with a 3-5 day history of a left swollen ankle. The patient reports that she has pain, swelling in her ankle making it difficult to ambulate. She states that the pain is intolerable. She is a poor historian and appears to be acutely intoxicated. The patient denies any fever/chills/nausea/vomiting. She admits to using cocaine, Margot, methamphetamines and opiates. Vital signs: Temperature 98.2, pulse 114, respirations 16, BP 125/81, pulse ox 98% on room air. CBC/BMP: 09/20/17 1145 09/20/17 1250 Imaging Last Impressions Knee X-Ray 09/16/17 0000 Signed Impressions: Service Date/Time: September 16:56 - CONCLUSION: Unremarkable limited examination of the right knee except there may be a small joint effusion. John Batista MD Ankle X-Ray 08/27/17 0000 Signed Impressions: Service Date/Time: Sunday, August 27, 2017 13:15 - CONCLUSION: No residual hardware. Jd Gatica MD FACR Lower Extremity CT 08/26/17 0000 Signed Impressions: Service Date/Time: August 23:50 - CONCLUSION: 1. Remote comminuted fracture of the talus status post fixation with nonunion at the fracture sites. Abnormal lucency and sclerosis in the talus with slight depression of the articular surface. There could be an element of avascular necrosis in the talus. Positive ankle joint effusion. No definite acute fracture. Tirso Rhodes MD PE at Discharge awake and alert, oriented x 3 anicteric lungs clear regular rhythm Left LE- foot with - with VAC in place, no calf tenderness moves all extremities spontaneously Pt update on day of discharge afebrile very motivated Hospital Course 27 year old female with history of IVDU admitted for septic arthritis. Infected malunion fracture of left talus - MSSA. VAC in place Surgical removal of hardware on 08/27/17 S/P repeat I and D 09/07 Treated with Iv Vancomycin, Aztreonam IV which have been discontinued. Continue Vancomycin (started 08/28, 6 weeks full course recommended) Aztreonam discontinued (08/27-08/29) 09/07 ID consulted. - currently on Ancef IV 2 g every 8 hours as per ID. Patient is tolerating antibiotic well. Follow-up orthopedic surgery recommendations -weightbearing as tolerated. Orthopedic surgery- ff for VAC changes - next change this Wednesday CRP 1.11- 09/20 Follow up CBC with diff, CMP, CRP every Wednesday. for PICC placement this am OP wound care center ff up for wound VAC management on DC will consult Dr. Frias while in house- d/w CM when DC- OP IV Ceftrixone once daily till 10/15 Pain Control Continue oral Percocet for pain control DVT Prophylaxis Lovenox Leukopenia WBC down to 2.9 on 09/05. CRP up Resolved. Continue to monitor CBC every week. Itching Resolved. Continue Benadryl. Right knee pain- resolved Right knee x-ray is unremarkable except there may be a small joint effusion. We will continue to monitor. Continue pain control as above. Discharge Planning CM consult for OP IV antibiotic arrangements and VAC- spoke with Jeanna Jason Condition on Discharge: Stable Discharge Disposition: Disch w/ Home Health Serv Discharge Time: > 30 minutes Discharge Instructions DIET: Follow Instructions for: As Tolerated, No Restrictions Speech Therapy-Diet Recommends: Regular Activities you can perform: Weight Bearing as Isabel Follow up Referrals: Orthopedics - 2 Weeks @ [facility] with Patel Miranda MD Wound Care Clinic - 3-5 Days with [facility] New Medications: Ceftriaxone Inj (Ceftriaxone Inj) 2 Gram Inj 2 GM IV Q24H for Infection for 27 Days, VIAL 0 Refills Epinephrine Inj (Epinephrine Inj) 1 Mg/Ml (1 Ml) Inj 0.3 MG IV PUSH ONCE PRN for ALLERGIC REACTION, #1 VIAL Epinephrine Inj (Epinephrine Inj) 1 Mg/Ml (1 Ml) Inj 0.3 MG SQ ONCE PRN for ALLERGIC REACTION, #1 VIAL Give with any signs of respiratory distress. Hydrocortisone Inj (Solu-Cortef Inj) 250 Mg/2 Ml Inj 250 MG IV PUSH ONCE PRN for ALLERGIC REACTION, #1 VIAL 0 Refills Give over 30-60 seconds. Walker/Adult/Folding (Walker/Adult/Folding) 1 Mis Mis EA .XX DIRECTED, #1 0 Refills Oxycodone HCl/Acetaminophen (Oxycodone-Acetaminophen 5-325) 5 Mg-325 Mg Tablet 1 TAB PO Q4H PRN for PAIN SCALE 1 TO 4, #45 TAB 0 Refills Comfort Perez MD Sep 24, 2017 18:15
== END 2017-09-24 19:44 | disposition home health service (06) | DRG 496 ==
LOC: NEPD 18:13 → NEDA 08-27 00:36 → N07A 08-27 01:35
PROVIDERS: ADMIT Internal Medicine; ATTEND Internal Medicine
PROC: 3E1U38Z Irrigation of Joints using Irrigating Substance, Percutaneous Approach (ICD-10-PCS; 2017-08-27)
PROC: 0QPM04Z Removal of Internal Fixation Device from Left Tarsal, Open Approach (ICD-10-PCS; principal; 2017-08-27 12:28)
PROC: 0QDM0ZZ Extraction of Left Tarsal, Open Approach (ICD-10-PCS; 2017-09-02)
PROC: 3E1U38Z Irrigation of Joints using Irrigating Substance, Percutaneous Approach (ICD-10-PCS; 2017-09-02)
PROC: 0QDM0ZZ Extraction of Left Tarsal, Open Approach (ICD-10-PCS; 2017-09-07)
PROC: 3E1U38Z Irrigation of Joints using Irrigating Substance, Percutaneous Approach (ICD-10-PCS; 2017-09-07)
PROC: 05HB33Z Insertion of Infusion Device into Right Basilic Vein, Percutaneous Approach (ICD-10-PCS; 2017-09-24)
DX: S92.102A Unspecified fracture of left talus, initial encounter for closed fracture (principal); T81.30XA Disruption of wound, unspecified, initial encounter; T84.629A Infection and inflammatory reaction due to internal fixation device of unspecified bone of leg, initial encounter; I95.9 Hypotension, unspecified; M86.9 Osteomyelitis, unspecified; F11.10 Opioid abuse, uncomplicated; F14.10 Cocaine abuse, uncomplicated; F31.9 Bipolar disorder, unspecified; D72.819 Decreased white blood cell count, unspecified; F15.10 Other stimulant abuse, uncomplicated; J45.909 Unspecified asthma, uncomplicated; F41.9 Anxiety disorder, unspecified; F17.210 Nicotine dependence, cigarettes, uncomplicated; B95.61 Methicillin susceptible Staphylococcus aureus infection as the cause of diseases classified elsewhere; L29.9 Pruritus, unspecified; M25.561 Pain in right knee; Z85.41 Personal history of malignant neoplasm of cervix uteri; Z91.19 Patient's noncompliance with other medical treatment and regimen; Z88.0 Allergy status to penicillin; Y83.1 Surgical operation with implant of artificial internal device as the cause of abnormal reaction of the patient, or of later complication, without mention of misadventure at the time of the procedure
CPT/HCPCS: 20605; 36569; 73560; 73700; 76000; 76937; 80048; 80053; 80202; 82565; 84702; 84703; 85025; 85610; 85652; 86140; 86403; 87015; 87070; 87102; 87116; 87147; 87176; 87186; 87205; 87206; 89051; 89060; 93306; 94150; J0131; J0690; J1100; J1170; J1580; J1650; J2175; J2250; J2270; J2405; J3010; J3370; J7050; J7120

== ENCOUNTER 2017-11-27 08:52 | Inpatient (IN) | payer SELFPAY ==
[~2017-11-27] VITALS: Ht 154.9 cm; Wt 63.9 kg
[~2017-11-27 08:52] MED LIST changes: +CEFT2INJ IV; -CIPR-9 PO; +EPIN1INJ21 IV PUSH; +EPIN1INJ21 SQ; +OXYC1TAB63 PO; +SOLU250I IV PUSH; -TRAM50 PO; +WALKER/ADULT/FO1 MIS
[2017-11-27 09:05] VITALS: BP 106/55; PULSE 73; RESP 16; TEMP 98.5; O2SAT 98
[2017-11-27 09:08] VITALS: BP 106/55; PULSE 77; RESP 16; TEMP 98.5; O2SAT 98
[2017-11-27] MEDS ORDERED: SODIUM CHLOR 0.9% 1000 ML INJ 1,000 ML IV ONE (09:13)
[2017-11-27] MEDS ORDERED: SODIUM CHLOR 0.9% 1000 ML INJ 800 ML IV ONE (09:13)
[2017-11-27] MEDS ORDERED: metroNIDAZOLE 500 MG INJ 100 ML IV STA (09:13)
[2017-11-27] MEDS ORDERED: AZTREONAM INJ 2,000 MG in SODIUM CHLORIDE 0.9% INJ 100 ML IV STA (09:13)
[2017-11-27] MEDS ORDERED: VANCOMYCIN INJ 1,000 MG in SODIUM CHLOR 0.9% 250 ML INJ 250 ML IV ONE (09:15)
--- NOTE | 2017-11-27 09:20 | PD ---
HPI Chief Complaint: Pain: Acute or Chronic Time Seen by Provider: 09:11 Travel History International Travel<30 days: No Contact w/Intl Traveler<30days: No Traveled to known affect area: No History of Present Illness HPI 27-year-old female with history of bipolar disorder, asthma, polysubstance abuse , recurrent left ankle infection status post ORIF, presents emergency department for evaluation of left ankle edema, erythema, and severe pain with no preceding injury. Onset was yesterday. It is constant, severe. Patient states she also noticed that her left eye became swollen yesterday as well. She does admit to crack cocaine use. She tells me she does pick and scratch when she has high.. She denies any fever or chills. Denies any chest pain or tightness. She has no shortness of breath. She has no other symptoms to report at this time. PFSH Past Medical History Arthritis: No Asthma: Yes Autoimmune Disease: No Bipolar Disorder: Yes Anxiety: Yes Depression: Yes Heart Rhythm Problems: No Cancer: Yes (CERVICAL CANCER) Cardiovascular Problems: No High Cholesterol: No Chemotherapy: No Chest Pain: No Congestive Heart Failure: No COPD: No Cerebrovascular Accident: No Diabetes: No Endocrine: No GERD: No Genitourinary: No Hiatal Hernia: No Immune Disorder: No Kidney Stones: No Musculoskeletal: No Neurologic: Yes Psychiatric: Yes Reproductive: No Respiratory: Yes Immunizations Current: Yes Migraines: No Radiation Therapy: No Renal Failure: No Seizures: Yes Sickle Cell Disease: No Sleep Apnea: No Thyroid Disease: No Ulcer: No Tetanus Vaccination: < 5 Years Influenza Vaccination: No ?: Not LMP: 11/23/17 : 5 Para: 2 Miscarriage: 2 : 1 Tubal Ligation: Yes Past Surgical History Abdominal Surgery: No AICD: No Arteriovenous Shunt: No Cardiac Surgery: No Ear Surgery: No Endocrine Surgery: No Eye Surgery: No Genitourinary Surgery: No Gynecologic Surgery: Yes (tubes are tied) Insulin Pump: No Joint Replacement: No Oral Surgery: No Pacemaker: No Thoracic Surgery: No Other Surgery: Yes (Left ankle) Social History Alcohol Use: No Tobacco Use: Yes (I PPD) Substance Use: Yes (crack) Allergies-Medications (Allergen,Severity, Reaction): Coded Allergies: peanut (Verified Allergy, Severe, 11/27/17) "throat swelling" penicillin G (Verified Allergy, Intermediate, Rash with hives with amoxicillin but tolerated Keflex past., 11/27/17) Tolerated Ceftriaxone and Cefepime this admission. Reported Meds & Prescriptions Reported Meds & Active Scripts Active No Active Prescriptions or Reported Medications Review of Systems Except as stated in HPI: all other systems reviewed are Neg Physical Exam Narrative GENERAL: Poorly kempt female patient, lying in bed in no acute distress. SKIN: Focused skin assessment warm/dry. Multiple scabbed lesions, scattered. Left ankle has old surgical site. There is a scabbed lesion at the distal aspect of it. The left ankle is erythematous, warm to touch. HEAD: Atraumatic. Normocephalic. EYES: Pupils equal and round. No scleral icterus. No injection or drainage. ENT: No nasal bleeding or discharge. Mucous membranes pink and moist. NECK: Trachea midline. No JVD. CARDIOVASCULAR: Regular rate and rhythm. No murmur appreciated. RESPIRATORY: No accessory muscle use. Clear to auscultation. Breath sounds equal bilaterally. GASTROINTESTINAL: Abdomen soft, non-tender, nondistended. Hepatic and splenic margins not palpable. MUSCULOSKELETAL: No obvious deformities. No clubbing. No cyanosis. Moderate edema to the left lateral ankle. Patient reports severe pain with minimal passive movement. Distal pulses are palpable. Cap refills within normal limits. NEUROLOGICAL: Awake and alert. No obvious cranial nerve deficits. Motor grossly within normal limits. Normal speech. Data Data Last Documented VS Vital Signs Date Time Temp Pulse Resp B/P (MAP) Pulse Ox O2 Delivery O2 Flow Rate FiO2 11/27/17 11:48 84 16 125/68 (87) 98 Room Air 11/27/17 09:24 98.5 Orders Orders Sepsis Workup Initiated (11/27/17 ) Complete Blood Count With Diff (11/27/17 09:13) Comprehensive Metabolic Panel (11/27/17 09:13) Lactic Acid Sepsis Protocol (11/27/17 09:13) Urinalysis - C+S If Indicated (11/27/17 09:13) Blood Culture (11/27/17 09:13) Chest, Single Ap (11/27/17 09:13) Blood Glucose (11/27/17 09:13) Ecg Monitoring (11/27/17 09:13) Iv Access Insert/Monitor (11/27/17 09:13) Oximetry (11/27/17 09:13) Oxygen Administration (11/27/17 09:13) Aztreonam Inj (Azactam Inj) (11/27/17 09:13) Metronidazole 500 Mg Inj (Flagyl 500 Mg (11/27/17 09:13) Sodium Chlor 0.9% 1000 Ml Inj (Ns 1000 M (11/27/17 09:13) Sodium Chlor 0.9% 1000 Ml Inj (Ns 1000 M (11/27/17 09:13) Ed Urine Pregnancytest Poc (11/27/17 09:13) Vancomycin Inj (Vancomycin Inj) (11/27/17 09:15) Mri Foot W&W/O Contrast (11/27/17 ) Gadodiamide Pf Inj (Omniscan Pf Inj) (11/27/17 11:00) Labs Laboratory Tests Test 11/27/17 10:00 White Blood Count 9.4 TH/MM3 Red Blood Count 3.80 MIL/MM3 Hemoglobin 12.1 GM/DL Hematocrit 33.9 % Mean Corpuscular Volume 89.2 FL Mean Corpuscular Hemoglobin 31.9 PG Mean Corpuscular Hemoglobin Concent 35.8 % Red Cell Distribution Width 14.1 % Platelet Count 294 TH/MM3 Mean Platelet Volume 9.0 FL Neutrophils (%) (Auto) 75.3 % Lymphocytes (%) (Auto) 14.0 % Monocytes (%) (Auto) 10.3 % Eosinophils (%) (Auto) 0.1 % Basophils (%) (Auto) 0.3 % Neutrophils # (Auto) 7.1 TH/MM3 Lymphocytes # (Auto) 1.3 TH/MM3 Monocytes # (Auto) 1.0 TH/MM3 Eosinophils # (Auto) 0.0 TH/MM3 Basophils # (Auto) 0.0 TH/MM3 CBC Comment DIFF FINAL Differential Comment Blood Urea Nitrogen 10 MG/DL Creatinine 0.72 MG/DL Random Glucose 107 MG/DL Total Protein 7.6 GM/DL Albumin 3.0 GM/DL Calcium Level 8.4 MG/DL Alkaline Phosphatase 92 U/L Aspartate Amino Transf (AST/SGOT) 7 U/L Alanine Aminotransferase (ALT/SGPT) 11 U/L Total Bilirubin 0.3 MG/DL Sodium Level 138 MEQ/L Potassium Level 3.7 MEQ/L Chloride Level 105 MEQ/L Carbon Dioxide Level 25.8 MEQ/L Anion Gap 7 MEQ/L Estimat Glomerular Filtration Rate 96 ML/MIN Lactic Acid Level 0.5 mmol/L [facility] Medical Decision Making Medical Screen Exam Complete: Yes Emergency Medical Condition: Yes Medical Record Reviewed: Yes Differential Diagnosis Osteomyelitis versus cellulitis versus abscess Narrative Course 27-year-old female presents emergency department for evaluation of left ankle pain and swelling, acute onset yesterday. Patient appears nontoxic. She does have a left ankle that is edematous, warm to touch, and significantly painful with minimal movement. Due to patient's polysubstance abuse, sepsis workup is initiated. MRI of the left ankle is ordered. IV antibiotics are given. Laboratory Tests Test 11/27/17 10:00 White Blood Count 9.4 TH/MM3 Red Blood Count 3.80 MIL/MM3 Hemoglobin 12.1 GM/DL Hematocrit 33.9 % Mean Corpuscular Volume 89.2 FL Mean Corpuscular Hemoglobin 31.9 PG Mean Corpuscular Hemoglobin Concent 35.8 % Red Cell Distribution Width 14.1 % Platelet Count 294 TH/MM3 Mean Platelet Volume 9.0 FL Neutrophils (%) (Auto) 75.3 % Lymphocytes (%) (Auto) 14.0 % Monocytes (%) (Auto) 10.3 % Eosinophils (%) (Auto) 0.1 % Basophils (%) (Auto) 0.3 % Neutrophils # (Auto) 7.1 TH/MM3 Lymphocytes # (Auto) 1.3 TH/MM3 Monocytes # (Auto) 1.0 TH/MM3 Eosinophils # (Auto) 0.0 TH/MM3 Basophils # (Auto) 0.0 TH/MM3 CBC Comment DIFF FINAL Differential Comment Blood Urea Nitrogen 10 MG/DL Creatinine 0.72 MG/DL Random Glucose 107 MG/DL Total Protein 7.6 GM/DL Albumin 3.0 GM/DL Calcium Level 8.4 MG/DL Alkaline Phosphatase 92 U/L Aspartate Amino Transf (AST/SGOT) 7 U/L Alanine Aminotransferase (ALT/SGPT) 11 U/L Total Bilirubin 0.3 MG/DL Sodium Level 138 MEQ/L Potassium Level 3.7 MEQ/L Chloride Level 105 MEQ/L Carbon Dioxide Level 25.8 MEQ/L Anion Gap 7 MEQ/L Estimat Glomerular Filtration Rate 96 ML/MIN Lactic Acid Level 0.5 mmol/L Last Impressions Chest X-Ray 11/27/17 4583 Signed Impressions: Service Date/Time: Monday, November 27, 2017 09:19 - CONCLUSION: Normal examination. Claudia Dorsey MD Foot MRI 11/27/17 0000 Signed Impressions: Service Date/Time: Monday, November 27, 2017 10:58 - CONCLUSION: Abnormal enhancement of the talar dome and adjacent anterior soft tissues concerning for infection and focal osteomyelitis. The edema identified in the distal fibula and articular surface of the tibia are likely reactive. There is marrow edema identified within the cuboid with suspicion for fracture.. Claudia Dorsey MD I discussed the patient my attending physician is also reviewed the findings. Call was placed to [facility] for admission. Diagnosis Primary Impression: Osteomyelitis Qualified Codes: M86.9 - Osteomyelitis, unspecified Additional Impression: Substance abuse Admitting Information Admitting Physician Requests: Admit Scripts No Active Prescriptions or Reported Meds Condition: Stable Eliza Cotton MALLORY November 27, 2017 09:20
[2017-11-27 09:24] VITALS: BP 106/55; PULSE 77; RESP 16; TEMP 98.5; O2SAT 98
--- NOTE | 2017-11-27 09:39 | RADRPT ---
EXAM DATE/TIME: 11/27/2017 09:19 [facility] COMPARISON: CHEST SINGLE AP, March 13, 2017, 21:22. INDICATIONS : Sepsis. MEDICAL HISTORY : Seizures. Cervical cancer. Substance abuse. SURGICAL HISTORY : Tubal ligation. ENCOUNTER: Initial ACUITY: 1 day PAIN SCORE: 0/10 LOCATION: Bilateral chest FINDINGS: A single view of the chest demonstrates the lungs to be symmetrically aerated without evidence of mas s, infiltrate or effusion. The cardiomediastinal contours are unremarkable. Osseous structures are intact. CONCLUSION: Normal examination. Claudia Dorsey MD on November 27, 2017 at 9:36 Board Certified Radiologist. This report was verified electronically.
[2017-11-27 10:16] LABS: AUTOMATED NEUTROPHIL # 7.1 TH/MM3 (1.8-7.7); BASOPHIL % 0.3 % (0.0-2.0); EOSINOPHIL % 0.1 % (0.0-4.0); HEMATOCRIT 33.9 % (35.0-46.0); HEMOGLOBIN 12.1 GM/DL (11.6-15.3); LYMPHOCYTE # 1.3 TH/MM3 (1.0-4.8); MEAN CELL VOLUME 89.2 FL (80.0-100.0); MEAN CORPUSCULAR HEMOGLOBIN 31.9 PG (27.0-34.0); MEAN CORPUSCULAR HGB CONC 35.8 % (32.0-36.0); MONO % 10.3 % (0.0-8.0); NEUT % 75.3 % (16.0-70.0); PLATELET COUNT 294 TH/MM3 (150-450); RED CELL DISTRIBUTION WIDTH 14.1 % (11.6-17.2); WHITE BLOOD COUNT 9.4 TH/MM3 (4.0-11.0)
[2017-11-27] MEDS ORDERED: GADODIAMIDE PF 287 MG/ML 10 ML VIAL (for RAD MRI) IVCONTRAST ONE (11:00)
[2017-11-27 11:05] LABS: ALT (GPT) 11 U/L (10-53); AST (GOT) 7 U/L (15-37); BICARBONATE 25.8 MEQ/L (21.0-32.0); BLOOD UREA NITROGEN 10 MG/DL (7-18); CALCIUM 8.4 MG/DL (8.5-10.1); CHLORIDE 105 MEQ/L (98-107); CREATININE 0.72 MG/DL (0.50-1.00); GLOMERULAR FILTRATION RATE 96 ML/MIN (>89); GLUCOSE,RANDOM 107 MG/DL (74-106); SODIUM (NA) 138 MEQ/L (136-145)
[2017-11-27 11:07] LABS: ALKALINE PHOSPHATASE 92 U/L (45-117); TOTAL BILIRUBIN ADULT 0.3 MG/DL (0.2-1.0); TOTAL PROTEIN 7.6 GM/DL (6.4-8.2)
[2017-11-27 11:48] VITALS: BP 125/68; PULSE 84; RESP 16; O2SAT 98
--- NOTE | 2017-11-27 12:07 | RADRPT ---
EXAM DATE/TIME: 11/27/2017 10:58 [facility] COMPARISON: CT ANKLE LEFT W/O CONTRAST, August 26, 2017, 23:50. ANKLE LEFT (1 VW), August 27, 2017, 13:15. INDICATIONS : Osteomyelitis. CONTRAST: 10 cc Omniscan (gadodiamide) IV MEDICAL HISTORY : None. SURGICAL HISTORY : Tubal ligation. ORIF left ankle with removal of hardware. ENCOUNTER: Initial ACUITY: 1 day PAIN SCORE: 4/10 LOCATION: Left ankle TECHNIQUE: Multiplanar, multisequence MRI examination was performed without contrast and after the intravenous a dministration of gadolinium. FINDINGS: The talar dome demonstrates extensive fragmentation and loss of normal articular surface. There is diffuse edema identified in the talus with abnormal enhancement along the articular surface of the talus after the administration of contrast. This abnormal enhancement extends into the anterior soft tissues concerning for infection. There is marrow edema identified within the distal fibula and within the cuboid. The cortex of t he distal fibula and the cuboid are intact. The axial and sagittal views of the cuboid(axial image 8, sagittal image 6 ) demonstrate a linear area of low T1 and T2 signal identified along the anterior a spect of the cuboid concerning for possible fracture. The tendons appear intact. CONCLUSION: Abnormal enhancement of the talar dome and adjacent anterior soft tissues concerning for infection an d focal osteomyelitis. The edema identified in the distal fibula and articular surface of the tibia a re likely reactive. There is marrow edema identified within the cuboid with suspicion for fracture.. Claudia Dorsey MD on November 27, 2017 at 11:50 Board Certified Radiologist. This report was verified electronically.
[2017-11-27] MEDS ORDERED: LACTULOSE SYRUP 20 GM/30 ML CUP PO PRN (13:15)
[2017-11-27] MEDS ORDERED: ONDANSETRON ODT 4 MG TAB PO PRN (13:15)
[2017-11-27] MEDS: ENOXAPARIN SODIUM 40 MG/0.4 ML SYRINGE SQ SCH (13:15)
[2017-11-27] MEDS ORDERED: ACETAMINOPHEN 325 MG TAB PO PRN (13:15)
[2017-11-27] MEDS ORDERED: NALOXONE HCL 0.4 MG/ML AMP IV PUSH PRN (13:15)
[2017-11-27] MEDS ORDERED: SODIUM CHLORIDE 0.9% FLUSH 10 ML FLUSH IV FLUSH PRN (13:15)
[2017-11-27] MEDS ORDERED: BISACODYL 10 MG SUPP RECTAL PRN (13:15)
[2017-11-27] MEDS ORDERED: SENNOSIDES 8.6 MG TAB PO PRN (13:15)
[2017-11-27] MEDS ORDERED: MAGNESIUM HYDROXIDE SUSP 30 ML CUP PO PRN (13:15)
--- NOTE | 2017-11-27 13:29 | PD ---
Data Data Last Documented VS Vital Signs Date Time Temp Pulse Resp B/P (MAP) Pulse Ox O2 Delivery O2 Flow Rate FiO2 11/27/17 11:48 84 16 125/68 (87) 98 Room Air 11/27/17 09:24 98.5 Orders Orders Sepsis Workup Initiated (11/27/17 ) Complete Blood Count With Diff (11/27/17 09:13) Comprehensive Metabolic Panel (11/27/17 09:13) Lactic Acid Sepsis Protocol (11/27/17 09:13) Urinalysis - C+S If Indicated (11/27/17 09:13) Blood Culture (11/27/17 09:13) Chest, Single Ap (11/27/17 09:13) Blood Glucose (11/27/17 09:13) Ecg Monitoring (11/27/17 09:13) Iv Access Insert/Monitor (11/27/17 09:13) Oximetry (11/27/17 09:13) Oxygen Administration (11/27/17 09:13) Aztreonam Inj (Azactam Inj) (11/27/17 09:13) Metronidazole 500 Mg Inj (Flagyl 500 Mg (11/27/17 09:13) Sodium Chlor 0.9% 1000 Ml Inj (Ns 1000 M (11/27/17 09:13) Sodium Chlor 0.9% 1000 Ml Inj (Ns 1000 M (11/27/17 09:13) Ed Urine Pregnancytest Poc (11/27/17 09:13) Vancomycin Inj (Vancomycin Inj) (11/27/17 09:15) Mri Foot W&W/O Contrast (11/27/17 ) Gadodiamide Pf Inj (Omniscan Pf Inj) (11/27/17 11:00) Admit Order (Ed Use Only) (11/27/17 13:04) Labs Laboratory Tests Test 11/27/17 10:00 White Blood Count 9.4 TH/MM3 Red Blood Count 3.80 MIL/MM3 Hemoglobin 12.1 GM/DL Hematocrit 33.9 % Mean Corpuscular Volume 89.2 FL Mean Corpuscular Hemoglobin 31.9 PG Mean Corpuscular Hemoglobin Concent 35.8 % Red Cell Distribution Width 14.1 % Platelet Count 294 TH/MM3 Mean Platelet Volume 9.0 FL Neutrophils (%) (Auto) 75.3 % Lymphocytes (%) (Auto) 14.0 % Monocytes (%) (Auto) 10.3 % Eosinophils (%) (Auto) 0.1 % Basophils (%) (Auto) 0.3 % Neutrophils # (Auto) 7.1 TH/MM3 Lymphocytes # (Auto) 1.3 TH/MM3 Monocytes # (Auto) 1.0 TH/MM3 Eosinophils # (Auto) 0.0 TH/MM3 Basophils # (Auto) 0.0 TH/MM3 CBC Comment DIFF FINAL Differential Comment Blood Urea Nitrogen 10 MG/DL Creatinine 0.72 MG/DL Random Glucose 107 MG/DL Total Protein 7.6 GM/DL Albumin 3.0 GM/DL Calcium Level 8.4 MG/DL Alkaline Phosphatase 92 U/L Aspartate Amino Transf (AST/SGOT) 7 U/L Alanine Aminotransferase (ALT/SGPT) 11 U/L Total Bilirubin 0.3 MG/DL Sodium Level 138 MEQ/L Potassium Level 3.7 MEQ/L Chloride Level 105 MEQ/L Carbon Dioxide Level 25.8 MEQ/L Anion Gap 7 MEQ/L Estimat Glomerular Filtration Rate 96 ML/MIN Lactic Acid Level 0.5 mmol/L MDM Supervised Visit with JAE: Yes Narrative Course I, Dr. Harrison, have reviewed the advance practice practitioner's documentation and am in agreement, met with the patient face to face, made the diagnosis, and the medical decision making was done by me. *My assessment and Findings: Patient had extensive workup here suggesting osteomyelitis. She will need inpatient admission for IV antibiotics. She had MRI which suggest this. Labs are reviewed. Case admitted to the hospitalist. Diagnosis Primary Impression: Osteomyelitis Qualified Codes: M86.9 - Osteomyelitis, unspecified Additional Impression: Substance abuse Scripts No Active Prescriptions or Reported Meds Condition: Chuck Luong MD November 27, 2017 13:29
--- NOTE | 2017-11-27 14:11 | HHI.HP ---
[facility] Primary Care Physician No Primary Care Physician Admission Diagnosis OSTEOMYELITIS L FOOT Diagnoses: Chief Complaint: Left ankle pain, redness. Travel History International Travel<30 Days: No Contact w/Intl Traveler <30 Da: No Traveled to Known Affected Are: No History of Present Illness Ms. Luna is a 27-year-old due to left ankle edema, erythema and severe pain with no recent injury. Her symptoms started on 11/26/2017. Patient also noted that her left eye started swelling up yesterday as well. She admits to using crack cocaine but denies using any IV drugs. She also reports picking and scratching when she was high. She reports low-grade fever at home. No chest pain, shortness of breath. Patient has a history of ORIF of her left ankle in January 2017. In August 2017, patient was admitted due to left ankle infection and subsequently she required removal of hardware. Infectious disease followed patient in August/September 2017 and continued antibiotics Ancef in the hospital for MSSA infection/osteomyelitis. Per previous notes, patient has a history of IV drug abuse. However patient today denies any history of IV drug use. Review of Systems Except as stated in HPI: all other systems reviewed are Neg Past Family Social History Past Medical History Cervical cancer, polysubstance abuse, asthma, anxiety depression Past Surgical History Tubal ligation, ORIF left knee. Reported Medications Does not take any medication on a regular basis. Allergies: Coded Allergies: peanut (Verified Allergy, Severe, 11/27/17) "throat swelling" penicillin G (Verified Allergy, Intermediate, Rash with hives with amoxicillin but tolerated Keflex past., 11/27/17) Tolerated Ceftriaxone and Cefepime this admission. Family History No family history of heart disease, diabetes mellitus, cancer. Social History Patient does not use alcohol. She smokes 1 pack a day. Uses crack cocaine. Physical Exam Vital Signs Vital Signs Date Time Temp Pulse Resp B/P (MAP) Pulse Ox O2 Delivery O2 Flow Rate FiO2 11/27/17 11:48 84 16 125/68 (87) 98 Room Air 11/27/17 09:24 98 Room Air 11/27/17 09:24 98.5 77 16 106/55 (72) 98 Room Air 11/27/17 09:08 98.5 77 16 106/55 (72) 98 Room Air 11/27/17 09:08 77 16 11/27/17 09:05 98.5 73 16 106/55 (72) 98 Physical Exam GENERAL: This is a well-nourished, well-developed patient, in no apparent distress. SKIN: No rashes, ecchymoses or lesions. Warm and dry. HEAD: Atraumatic. Normocephalic. No temporal or scalp tenderness. EYES: Left periorbital area has significant swelling. Patient is able to open her left eye and she has no visual disturbance. No injection or drainage. ENT: Nose without bleeding, purulent drainage or septal hematoma. Airway patent. NECK: Trachea midline. No lymphadenopathy. Supple, nontender, no meningeal signs. CARDIOVASCULAR: Regular rate and rhythm without murmurs, gallops, or rubs. No JVD. RESPIRATORY: Clear to auscultation. Breath sounds equal bilaterally. No wheezes , rales, or rhonchi. GASTROINTESTINAL: Abdomen soft, non-tender, nondistended. No guarding. MUSCULOSKELETAL: Extremities without clubbing, cyanosis, or edema. Left ankle mildly erythematous and edematous. Significant tenderness on palpation. NEUROLOGICAL: Awake and alert. Cranial nerves II through XII intact. No focal neurological deficits. Normal speech. Laboratory Laboratory Tests Test 11/27/17 10:00 White Blood Count 9.4 Red Blood Count 3.80 Hemoglobin 12.1 Hematocrit 33.9 Mean Corpuscular Volume 89.2 Mean Corpuscular Hemoglobin 31.9 Mean Corpuscular Hemoglobin Concent 35.8 Red Cell Distribution Width 14.1 Platelet Count 294 Mean Platelet Volume 9.0 Neutrophils (%) (Auto) 75.3 Lymphocytes (%) (Auto) 14.0 Monocytes (%) (Auto) 10.3 Eosinophils (%) (Auto) 0.1 Basophils (%) (Auto) 0.3 Neutrophils # (Auto) 7.1 Lymphocytes # (Auto) 1.3 Monocytes # (Auto) 1.0 Eosinophils # (Auto) 0.0 Basophils # (Auto) 0.0 CBC Comment DIFF FINAL Differential Comment Blood Urea Nitrogen 10 Creatinine 0.72 Random Glucose 107 Total Protein 7.6 Albumin 3.0 Calcium Level 8.4 Alkaline Phosphatase 92 Aspartate Amino Transf (AST/SGOT) 7 Alanine Aminotransferase (ALT/SGPT) 11 Total Bilirubin 0.3 Sodium Level 138 Potassium Level 3.7 Chloride Level 105 Carbon Dioxide Level 25.8 Anion Gap 7 Estimat Glomerular Filtration Rate 96 Lactic Acid Level 0.5 Date/Time Source Procedure Growth Status 11/27/17 10:00 Blood Peripheral Aerobic Blood Culture Pending Received 11/27/17 10:00 Blood Peripheral Anaerobic Blood Culture Pending Received Result Diagram: 11/27/17 1000 11/27/17 1000 Imaging Last Impressions Chest X-Ray 11/27/17 0913 Signed Impressions: Service Date/Time: Monday, November 27, 2017 09:19 - CONCLUSION: Normal examination. Claudia Dorsey MD Foot MRI 11/27/17 0000 Signed Impressions: Service Date/Time: Monday, November 27, 2017 10:58 - CONCLUSION: Abnormal enhancement of the talar dome and adjacent anterior soft tissues concerning for infection and focal osteomyelitis. The edema identified in the distal fibula and articular surface of the tibia are likely reactive. There is marrow edema identified within the cuboid with suspicion for fracture.. Claudia Dorsey MD Caprini VTE Risk Assessment Caprini VTE Risk Assessment: Mod/High Risk (score >= 2) Caprini Risk Assessment Model Point Value = 1 Point Value = 2 Point Value = 3 Point Value = 5 Age 41-60 Minor surgery BMI > 25 kg/m2 Swollen legs Varicose veins or History of unexplained or recurrent spontaneous Oral contraceptives or hormone replacement Sepsis (< 1 month) Serious lung disease, including pneumonia (< 1 month) Abnormal pulmonary function Acute myocardial infarction Congestive heart failure (< 1 month) History of inflammatory bowel disease Medical patient at bed rest Age 61-74 Arthroscopic surgery Major open surgery (> 45 min) Laparoscopic surgery (> 45 min) Malignancy Confined to bed (> 72 hours) Immobilizing plaster cast Central venous access Age >= 75 History of VTE Family history of VTE Factor V Leiden Prothrombin [id number] Lupus anticoagulant Anticardiolipin antibodies Elevated serum homocysteine Heparin-induced thrombocytopenia Other congenital or acquired thrombophilia Stroke (< 1 month) Elective arthroplasty Hip, pelvis, or leg fracture Acute spinal cord injury (< 1 month) Prophylaxis Regimen Total Risk Factor Score Risk Level Prophylaxis Regimen 0-1 Low Early ambulation 2 Moderate Order ONE of the following: *Sequential Compression Device (SCD) *Heparin 5000 units SQ BID 3-4 Higher Order ONE of the following medications: *Heparin 5000 units SQ TID *Enoxaparin/Lovenox 40 mg SQ daily (WT < 150 kg, CrCl > 30 mL/min) *Enoxaparin/Lovenox 30 mg SQ daily (WT < 150 kg, CrCl > 10-29 mL/min) *Enoxaparin/Lovenox 30 mg SQ BID (WT < 150 kg, CrCl > 30 mL/min) AND/OR *Sequential Compression Device (SCD) 5 or more Highest Order ONE of the following medications: *Heparin 5000 units SQ TID (Preferred with Epidurals) *Enoxaparin/Lovenox 40 mg SQ daily (WT < 150 kg, CrCl > 30 mL/min) *Enoxaparin/Lovenox 30 mg SQ daily (WT < 150 kg, CrCl > 10-29 mL/min) *Enoxaparin/Lovenox 30 mg SQ BID (WT < 150 kg, CrCl > 30 mL/min) AND *Sequential Compression Device (SCD) Assessment and Plan Problem List: (1) Periorbital cellulitis of left eye ICD Code: L03.213 - Periorbital cellulitis (2) Osteomyelitis ICD Code: M86.9 - Osteomyelitis, unspecified Status: Acute Assessment and Plan Ms. Luna is a 27-year-old female with a history of substance abuse, ORIF of left ankle and hardware removal due to infection in AugustSeptember 2017 who presents to the emergency department due to left ankle pain, swelling and low-grade fever. She also has left periorbital edema and pain. Imaging studies indicated possibility of osteomyelitis of the left ankle. Left ankle osteomyelitis -Dr. Miranda removed hardware in August 2017 and patient completed a course of IV antibiotics. -We will consult orthopedic surgery for an evaluation with regards to osteomyelitis. -Continue ceftriaxone 2 g every 24 hours and vancomycin. Vancomycin per pharmacy protocol. Trough level 15-20. Left periorbital cellulitis - Patient has no double vision or any visual disturbance. - If no clinical improvement noticed within next 24-48 hours, we will consider an ophthalmology evaluation. History of substance abuse - Patient is counselled on substance abuse. She denies using IV drugs. Full code. Lovenox. Physician Certification 2 Midnight Certification Type: Admission for Inpatient Services Order for Inpatient Services The services are ordered in accordance with Medicare regulations or non- Medicare payer requirements, as applicable. In the case of services not specified as inpatient-only, they are appropriately provided as inpatient services in accordance with the 2-midnight benchmark. Estimated LOS (days): 2 days is the estimated time the patient will need to remain in the hospital, assuming treatment plan goals are met and no additional complications. Post-Hospital Plan: Home Problem Qualifiers (1) Osteomyelitis: Qualified Codes: M86.9 - Osteomyelitis, unspecified Yoko Schneider DO November 27, 2017 14:11
[2017-11-27 14:27] VITALS: BP 132/87; PULSE 83; RESP 17; TEMP 98.5; O2SAT 99
[2017-11-27] MEDS ORDERED: Vancomycin Consult Pharmacy 1 EA OTHER SCH (15:30)
[2017-11-27 15:40] LABS: BILIRUBIN, URINE NEG (NEG); BLOOD, URINE NEG (NEG); GLUCOSE,URINE NEG (NEG); KETONE, URINE 10 mg/dL (NEG); MUCUS URINE FEW /lpf (OCC); NITRITE,URINE NEG (NEG); SQUAMOUS EPITHELIAL CELL URINE 2 /hpf (0-5); URINE COLOR YELLOW (YELLW/STRAW); URINE LEUKOCYTE ESTERASE NEG (NEG)
[2017-11-27] MEDS: ACETAMINOPHEN/HYDROcodone 325 MG/7.5 MG TAB PO PRN (17:46)
[2017-11-27] MEDS: cefTRIAXone INJ 2,000 MG in SODIUM CHLORIDE 0.9% INJ 100 ML IV SCH (17:46)
[2017-11-27 20:00] VITALS: BP 107/55; PULSE 111; RESP 17; TEMP 99.8; O2SAT 98
[2017-11-27] MEDS: VANCOMYCIN 1,000 MG/NS 250 ML IV SCH ×2 (21:00)
[2017-11-27] MEDS: SODIUM CHLORIDE 0.9% FLUSH 10 ML FLUSH IV FLUSH SCH (21:00)
[2017-11-28] VITALS (9 sets, daily range): BP systolic 100–135; BP diastolic 55–75; PULSE 64–103; RESP 16–19; TEMP 96.9–99.5; O2SAT 92–99
[2017-11-28] MEDS: VANCOMYCIN 1,000 MG/NS 250 ML IV SCH ×4 (08:33→20:44)
[2017-11-28] MEDS: SODIUM CHLORIDE 0.9% FLUSH 10 ML FLUSH IV FLUSH SCH ×2 (08:33→20:45)
--- NOTE | 2017-11-28 08:53 | HHI.PR ---
Subjective Remarks Follow-up for left ankle osteomyelitis, left periorbital cellulitis. Patient is currently doing well. No chest pain, shortness of breath, fever or chills. She has no trouble moving her left artery and no vision change. However, periorbital swelling is making it difficult for her to open her eyes. Objective Vitals Vital Signs Date Time Temp Pulse Resp B/P (MAP) Pulse Ox O2 Delivery O2 Flow Rate FiO2 11/28/17 07:50 98.4 64 18 100/62 (75) 99 11/28/17 06:00 98.0 11/28/17 05:19 99.0 79 19 116/65 (82) 97 11/28/17 00:00 99.5 92 16 129/69 (89) 98 11/27/17 20:00 99.8 111 17 107/55 (72) 98 11/27/17 14:27 98.5 83 17 132/87 (102) 99 Room Air 11/27/17 11:48 84 16 125/68 (87) 98 Room Air 11/27/17 09:24 98 Room Air 11/27/17 09:24 98.5 77 16 106/55 (72) 98 Room Air 11/27/17 09:08 98.5 77 16 106/55 (72) 98 Room Air 11/27/17 09:08 77 16 11/27/17 09:05 98.5 73 16 106/55 (72) 98 I/O 11/27/17 11/27/17 11/27/17 11/28/17 11/28/17 11/28/17 07:00 15:00 23:00 07:00 15:00 23:00 Intake Total 2250 ml 240 ml Balance 2250 ml 240 ml Intake Oral 240 ml IV Total 2250 ml # Voids 1 1 2 Result Diagram: 11/27/17 1000 11/27/17 1000 Imaging Last Impressions Chest X-Ray 11/27/17 0913 Signed Impressions: Service Date/Time: Monday, November 27, 2017 09:19 - CONCLUSION: Normal examination. Claudia Dorsey MD Foot MRI 11/27/17 0000 Signed Impressions: Service Date/Time: Monday, November 27, 2017 10:58 - CONCLUSION: Abnormal enhancement of the talar dome and adjacent anterior soft tissues concerning for infection and focal osteomyelitis. The edema identified in the distal fibula and articular surface of the tibia are likely reactive. There is marrow edema identified within the cuboid with suspicion for fracture.. Claudia Dorsey MD Objective Remarks GENERAL: Alert, Oriented x 3, NAD. SKIN: Warm and dry. HEAD: Normocephalic. EYES: No scleral icterus. Left movement is intact and no pain on movements. There is a folliculitis on the medial aspect of left eye brow. Small amount of drainage noted. NECK: Supple, trachea midline. No JVD or lymphadenopathy. CARDIOVASCULAR: Regular rate and rhythm without murmurs, gallops, or rubs. RESPIRATORY: Breath sounds equal bilaterally. No accessory muscle use. GASTROINTESTINAL: Abdomen soft, non-tender, nondistended. MUSCULOSKELETAL: No cyanosis, or edema. BACK: Nontender without obvious deformity. No CVA tenderness. Procedures None. A/P Problem List: (1) Periorbital cellulitis of left eye ICD Code: L03.213 - Periorbital cellulitis (2) Osteomyelitis ICD Code: M86.9 - Osteomyelitis, unspecified Status: Acute Assessment and Plan Ms. Luna is a 27-year-old female with a history of substance abuse, ORIF of left ankle and hardware removal due to infection in AugustSeptember 2017 who presents to the emergency department due to left ankle pain, swelling and low-grade fever. She also has left periorbital edema and pain. Imaging studies indicated possibility of osteomyelitis of the left ankle. Left ankle osteomyelitis -Dr. Miranda removed hardware in August 2017 and patient completed a course of IV antibiotics. -We consulted orthopedic surgery for an evaluation with regards to osteomyelitis. -Continue ceftriaxone 2 g every 24 hours and vancomycin. Vancomycin per pharmacy protocol. Trough level 15-20. Left periorbital cellulitis Left periorbital folliculitis - Patient has no double vision or any visual disturbance. No ophthalmoplegia. - Will ask ID to see patient with regards to both osteomyelitis and periorbital cellulitis. - Will start topical abx for the left eye as well (Erythromycin). History of substance abuse - Patient is counselled on substance abuse. She denies using IV drugs. Full code. Lovenox. Problem Qualifiers (1) Osteomyelitis: Qualified Codes: M86.9 - Osteomyelitis, unspecified Yoko Schneider DO November 28, 2017 8:53 am
[2017-11-28] MEDS: ACETAMINOPHEN/HYDROcodone 325 MG/7.5 MG TAB PO PRN ×3 (09:15→21:43)
[2017-11-28] MEDS: ENOXAPARIN SODIUM 40 MG/0.4 ML SYRINGE SQ SCH (13:15)
[2017-11-28] MEDS: ERYTHROMYCIN 0.5% OPTH OINT 3.5 GM TUBO LEFT EYE SCH ×2 (14:25→20:44)
[2017-11-28] MEDS: cefTRIAXone INJ 2,000 MG in SODIUM CHLORIDE 0.9% INJ 100 ML IV SCH (16:08)
--- NOTE | 2017-11-28 17:59 | MB ---
cc: Aquiles Meier MD DATE: 11/28/2017 REQUESTING PHYSICIAN: Dr. Schneider REASON FOR VISIT: 1. Left ankle probable osteomyelitis per MRI. 2. Left periorbital cellulitis/folliculitis. HISTORY OF PRESENT ILLNESS: This is a 27-year-old white female who has a history of osteomyelitis of the left ankle. The patient had sustained an ankle fracture and she underwent surgery with hardware in 12/2015. This was a left talus fracture. The hardware was removed on 08/27/2017 when she presented with infection. The culture grew Staph aureus on 09/24/2017 and she was given IV ceftriaxone for 6 weeks, completed on 10/15/2017. The patient was recuperating well at home. She was using a walker and was partially weight-bearing. She developed drainage from the lateral aspect of the surgical incision on 11/10/2017 and she was instructed to use Neosporin. The drainage ceased and she states that it appeared better. She again developed drainage from the ankle along with pain and came back to the Emergency Department yesterday. She notes that there has been no drainage since she showed up at the Emergency Department. She also developed a pimple at the left inner corner of the eyebrow 4 days ago and she squeezed it with the fingers and subsequently she developed swelling of the right eyelid and erythema at the corner of the eyelid. She was started on IV antibiotics and MRI of the left ankle and left foot showed abnormal enhancement of the talar dome and the anterior soft tissues concerning for infection and focal osteomyelitis. Edema was identified at the distal fibula and articular surface of the tibia, which are likely reactive. There is marrow edema identified within the cuboid with suspicion for fracture on that MRI. There is redness of the lateral incision at the ankle. There is dimpling at the incision area and a very tiny scab which is dry centrally. The area is warm. The patient notes that the pain was severe and she smoked crack cocaine on one occasion last week because of the pain. She denies nausea and vomiting, but states that she has had some chills and sweats. She denies any drainage from the eyes. Maximum temperature since yesterday was 99.8 degrees. The white blood cell count is normal. PAST MEDICAL HISTORY: Cervical cancer, anxiety, depression, polysubstance abuse. PAST SURGICAL HISTORY: Tubal ligation, open reduction and internal fixation of the left knee, left ankle open reduction and internal fixation in December 2016 with removal of the hardware in August 2017. ALLERGIES: PENICILLIN. PEANUTS. MEDICATIONS: 1. Vancomycin. 2. Ceftriaxone. 3. Hegins 7.5 p.r.n. 4. Tylenol p.r.n. 5. Lovenox. SOCIAL HISTORY: The patient states she smokes a maximum of 1/2 pack of cigarettes a day. No alcohol. Occasional crack. Denies IV drug use. FAMILY HISTORY: Noncontributory. REVIEW OF SYSTEMS: Pertinents mentioned above in History Of Present Illness. PHYSICAL EXAMINATION: GENERAL: She is a well-developed, slender, pleasant female, in no acute distress. She states that she feels fatigued. VITAL SIGNS: Temperature 98.6, BP 116/55, respirations 18, heart rate is 80. HEENT: Head is atraumatic. The patient has left eye swelling at the eyelids and erythema with a raised area at the inner left eyebrow. Extraocular movements are grossly intact. Pupils reactive to light. No icterus. Oropharynx: Moist mucosa without lesions. NECK: Supple without adenopathy or swelling. LUNGS: Clear to auscultation. CARDIOVASCULAR: Regular S1, S2, without murmurs, rubs or gallops. ABDOMEN: Bowel sounds present. Soft, nontender. RECTAL: Not performed. EXTREMITIES: Left ankle has mild swelling and erythema at the lateral incision which was done for a previous ankle surgery. There is a tiny scab at the incision mid-region and dimpling where the incision is located. The area is warm to touch and erythematous. The other extremities have no clubbing or cyanosis or edema. SKIN: No diffuse rash. NEUROLOGIC: Nonfocal. PSYCHIATRIC: The patient is pleasant, calm, and cooperative. LABORATORY DATA: WBC 9.4, platelets 294 75% neutrophils, 14% lymphocytes, 10% monocytes, hemoglobin 12.1. Creatinine 0.72, BUN 10, sodium 138. Liver function test normal. IMPRESSION: 1. Wound infection of the left ankle with suggestion of osteomyelitis at the talar dome. Previous osteomyelitis involving the left ankle, treated with 6 weeks of intravenous ceftriaxone outpatient for methicillin-sensitive Staphylococcus aureus. 2. Cellulitis of the periorbital area. The patient had a pimple which she broke with her fingers and probably contaminated and subsequently developed cellulitis. 3. History of left talus fracture. RECOMMENDATIONS: 1. Discontinue ceftriaxone. 2. Continue vancomycin. 3. May need to have procedure to get a sample for culture to determine whether she has the same organism as before, or whether she has MRSA because we would have to use a different antibiotic depending on the results. The vancomycin should also cover the cellulitis at the periorbital area. 4. Monitor response to antibiotic treatment. Thank you for this consultation. The patient's progress will be monitored. MD JULIA Lerma/FEI , 05:14 PM , 05:58 PM
[2017-11-29] MEDS: ACETAMINOPHEN/HYDROcodone 325 MG/7.5 MG TAB PO PRN ×3 (05:12→17:58)
[2017-11-29] MEDS: ERYTHROMYCIN 0.5% OPTH OINT 3.5 GM TUBO LEFT EYE SCH ×3 (05:13→23:19)
[2017-11-29 05:18] VITALS: BP 119/65; PULSE 74; RESP 18; TEMP 98.6; O2SAT 97
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
--- NOTE | 2017-11-29 07:10 | HHI.PR ---
Subjective Remarks Follow-up for left ankle osteomyelitis, left periorbital cellulitis. Patient is doing well. No fever, chills. Left eye swelling is down. Objective Vitals Vital Signs Date Time Temp Pulse Resp B/P (MAP) Pulse Ox O2 Delivery O2 Flow Rate FiO2 11/29/17 05:18 98.6 74 18 119/65 (83) 97 11/28/17 23:25 98.6 74 18 119/64 (82) 96 11/28/17 20:22 98.5 103 18 126/61 (82) 11/28/17 16:09 98.6 80 18 116/55 (75) 99 11/28/17 12:09 97.6 73 18 135/63 (87) 92 11/28/17 07:50 98.4 64 18 100/62 (75) 99 I/O 11/28/17 11/28/17 11/28/17 11/29/17 11/29/17 11/29/17 07:00 15:00 23:00 07:00 15:00 23:00 Intake Total 250 ml 450 ml Balance 250 ml 450 ml Intake Oral 450 ml IV Total 250 ml # Voids 2 3 # Bowel Movements 0 Result Diagram: 11/27/17 1000 11/27/17 1000 Imaging Last Impressions Chest X-Ray 11/27/17 0913 Signed Impressions: Service Date/Time: Monday, November 27, 2017 09:19 - CONCLUSION: Normal examination. Claudia Dorsey MD Foot MRI 11/27/17 0000 Signed Impressions: Service Date/Time: Monday, November 27, 2017 10:58 - CONCLUSION: Abnormal enhancement of the talar dome and adjacent anterior soft tissues concerning for infection and focal osteomyelitis. The edema identified in the distal fibula and articular surface of the tibia are likely reactive. There is marrow edema identified within the cuboid with suspicion for fracture.. Claudia Dorsey MD Objective Remarks GENERAL: Alert, Oriented x 3, NAD. SKIN: Warm and dry. HEAD: Normocephalic. EYES: No scleral icterus. Left movement is intact and no pain on movements. There is a folliculitis on the medial aspect of left eye brow. Small amount of drainage noted. Overall swelling is improved. NECK: Supple, trachea midline. No JVD or lymphadenopathy. CARDIOVASCULAR: Regular rate and rhythm without murmurs, gallops, or rubs. RESPIRATORY: Breath sounds equal bilaterally. No accessory muscle use. GASTROINTESTINAL: Abdomen soft, non-tender, nondistended. MUSCULOSKELETAL: No cyanosis, or edema. BACK: Nontender without obvious deformity. No CVA tenderness. Procedures None. A/P Problem List: (1) Periorbital cellulitis of left eye ICD Code: L03.213 - Periorbital cellulitis (2) Osteomyelitis ICD Code: M86.9 - Osteomyelitis, unspecified Status: Acute Assessment and Plan Ms. Luna is a 27-year-old female with a history of substance abuse, ORIF of left ankle and hardware removal due to infection in AugustSeptember 2017 who presents to the emergency department due to left ankle pain, swelling and low-grade fever. She also has left periorbital edema and pain. Imaging studies indicated possibility of osteomyelitis of the left ankle. Left ankle osteomyelitis -Dr. Miranda removed hardware in August 2017 and patient completed a course of IV antibiotics. -We consulted orthopedic surgery for an evaluation with regards to osteomyelitis. -Continue vancomycin. Vancomycin per pharmacy protocol. Trough level 15-20. -Orthopedic surgery recommended CT guided bone biopsy. Left periorbital cellulitis Left periorbital folliculitis - Patient has no double vision or any visual disturbance. No ophthalmoplegia. - Appreciate ID input. Will continue Vancomycin for now. If no osteomyelitis found, we could consider PO abx Bactrim or Doxycycline. - Will Continue topical abx for the left eye as well (Erythromycin). History of substance abuse - Patient is counselled on substance abuse. She denies using IV drugs. Full code. Lovenox. Problem Qualifiers (1) Osteomyelitis: Qualified Codes: M86.9 - Osteomyelitis, unspecified Yoko Schneider DO November 29, 2017 7:10 am
[2017-11-29 08:00] VITALS: BP 119/59; PULSE 85; RESP 20; TEMP 98; O2SAT 100
[2017-11-29 08:04] LABS: AUTOMATED NEUTROPHIL # 3.3 TH/MM3 (1.8-7.7); BASOPHIL % 0.4 % (0.0-2.0); EOSINOPHIL # 0.2 TH/MM3 (0-0.4); EOSINOPHIL % 3.9 % (0.0-4.0); HEMATOCRIT 33.2 % (35.0-46.0); HEMOGLOBIN 11.1 GM/DL (11.6-15.3); LYMPH % 25.2 % (9.0-44.0); LYMPHOCYTE # 1.3 TH/MM3 (1.0-4.8); MEAN CELL VOLUME 90.1 FL (80.0-100.0); MEAN CORPUSCULAR HEMOGLOBIN 30.3 PG (27.0-34.0); MEAN CORPUSCULAR HGB CONC 33.6 % (32.0-36.0); MEAN PLATELET VOLUME 8.9 FL (7.0-11.0); MONO % 9.5 % (0.0-8.0); MONOCYTE # 0.5 TH/MM3 (0-0.9); PLATELET COUNT 239 TH/MM3 (150-450); RED BLOOD COUNT 3.68 MIL/MM3 (4.00-5.30); WHITE BLOOD COUNT 5.3 TH/MM3 (4.0-11.0)
[2017-11-29] MEDS: VANCOMYCIN 1,000 MG/NS 250 ML IV SCH ×6 (08:13→23:37)
[2017-11-29] MEDS: SODIUM CHLORIDE 0.9% FLUSH 10 ML FLUSH IV FLUSH SCH ×2 (08:14→23:19)
[2017-11-29 08:18] LABS: INTERNATIONAL NORMALIZED RATIO 1.1 RATIO; PROTHROMBIN TIME - PATIENT 11.1 SEC (9.8-11.6)
[2017-11-29] MEDS ORDERED: PHARMACY ORDERED LAB ONE (08:45)
[2017-11-29 12:00] VITALS: BP 101/60; PULSE 53; RESP 19; TEMP 98.1; O2SAT 97
[2017-11-29] MEDS: ENOXAPARIN SODIUM 40 MG/0.4 ML SYRINGE SQ SCH (13:04)
[2017-11-29] MEDS ORDERED: LIDOCAINE HCL 1% 20 ML VIAL ONE (15:04)
[2017-11-29] MEDS ORDERED: MIDAZOLAM HCL 5 MG/5 ML VIAL ONE (16:06)
[2017-11-29] MEDS ORDERED: fentaNYL CITRATE 250 MCG/5 ML AMP ONE (16:06)
--- NOTE | 2017-11-29 16:50 | PD.RAD ---
Post Procedure Progress Note Pre Procedure Diagnosis: (1) Fracture, talus closed (2) Osteomyelitis Post Procedure Diagnosis: (1) Osteomyelitis (2) Fracture, talus closed Procedure Date: November 29, 2017 Supervising Radiologist: Miguel Gatica Estimated blood loss: none Anesthesia: Local, Conscious Sedation Plan of Activity Patient to Unit: ROPU Patient Condition: Fair Additional Comments: Ct guided biopsy and aspiration of the Talus preformed Sample sent to pathology See PACS Report for procedural detail/treatment Miguel Gatica MD November 29, 2017 16:50
[2017-11-29 16:59] VITALS: BP 109/6; PULSE 81; RESP 20; TEMP 98.2; O2SAT 98
[2017-11-29 17:16] VITALS: BP 118/60; PULSE 83; RESP 20; O2SAT 98
[2017-11-29 20:00] VITALS: BP 117/60; PULSE 82; RESP 16; TEMP 98.6; O2SAT 97
[2017-11-30] VITALS: BP 120/64; PULSE 80; RESP 18; TEMP 97; O2SAT 96
[2017-11-30] MEDS: ACETAMINOPHEN/HYDROcodone 325 MG/7.5 MG TAB PO PRN ×4 (00:42→23:31)
[2017-11-30 05:40] VITALS: BP 115/60; PULSE 67; RESP 16; TEMP 98; O2SAT 95
[2017-11-30] MEDS: ERYTHROMYCIN 0.5% OPTH OINT 3.5 GM TUBO LEFT EYE SCH ×3 (06:10→20:34)
[2017-11-30] MEDS ORDERED: PHARMACY ORDERED LAB ONE (07:45)
[2017-11-30 08:00] VITALS: BP 103/57; PULSE 67; RESP 18; TEMP 98; O2SAT 99
--- NOTE | 2017-11-30 08:15 | RADRPT ---
EXAM DATE/TIME: 11/29/2017 16:20 [place] COMPARISON: CT ANKLE LEFT W/O CONTRAST, August 26, 2017, 23:50. INDICATIONS : Osteomyelitis. SEDATION TIME: 30 minutes BIOPSY SITE: Left talus MEDICATION(S): 1.) 2.5 mg midazolam (Versed) IV 2.) 125 mcg fentanyl (Sublimaze) DEVICE(S): 1.) 20 gauge Temno core biopsy needle MEDICAL HISTORY : cervical cancer SURGICAL HISTORY : Tubal ligation. ENCOUNTER: Initial ACUITY: 1 day PAIN SCORE: 7/10 LOCATION: Left ankle A total of one core specimen(s) were obtained and sent to the laboratory for pathologic evaluation. PROCEDURE: 1. CT guided talus biopsy. 2. Conscious sedation with continuous EKG and oximetry monitoring. 3. EKG and oximetry remained stable throughout the procedure. Prior to the procedure informed consent was obtained. Any appropriate prior imaging studies were rev iewed. Using automated exposure control and adjustment of the mA and/or kV according to patient size, radiat ion dose was kept as low as reasonably achievable to obtain optimal diagnostic quality images. DICOM format image data is available electronically for review and comparison. The site was prepped in a sterile fashion. Full sterile technique was used, including cap, mask, collette rile gloves and gown and a large sterile sheet. Hand hygiene and 2% chlorhexidine and/or betadine/al cohol prep was utilized per protocol for cutaneous antisepsis. The skin and subcutaneous tissues wer e infiltrated with local anesthetic solution. With CT guidance the left talar dome with newly identified. The dorsalis pedis artery was palpated an d marked. The area of cortical destruction was easily localized. The skin above was anesthetized with lidocaine. A 22 gauge Chiba was advanced into the area and a small amount of fluid was aspirated. In addition, a 20 gauge Temno needle was advanced into the area. Biopsy was performed. The fluid and ti ssue were placed in sterile saline and sent to the lab for culture and sensitivity. Adequate hemostas is was obtained with compression at the puncture site. Follow-up CT scan reveals no hemorrhage. The patient tolerated the procedure well and there were no complications. The patient was returned to the Radiology Outpatient Unit in stable condition. CONCLUSION: Uncomplicated CT guided biopsy and aspiration of the left talus. Miguel Gatica MD on November 30, 2017 at 7:49 Board Certified Radiologist. This report was verified electronically.
--- NOTE | 2017-11-30 08:25 | PD.PN.STU ---
Subjective Remarks Hospital Day #4 At this time patient reports worsening of pain in left foot. She describes it as sharp and rates it as a 10 on a 0-10 pain scale. she also has pain and swelling primarily on the nasal side of her left eye. patient reports this has improved over time No BM since Wednesday Biopsy of Left Foot performed yesterday per IR, awaiting results Objective Vitals Vital Signs Date Time Temp Pulse Resp B/P (MAP) Pulse Ox O2 Delivery O2 Flow Rate FiO2 11/30/17 05:40 98.0 67 16 115/60 (78) 95 11/30/17 00:00 97.0 80 18 120/64 (82) 96 11/29/17 20:00 98.6 82 16 117/60 (79) 97 11/29/17 17:16 83 20 118/60 (79) 98 11/29/17 16:59 98.2 81 20 109/6 (40) 98 11/29/17 12:00 98.1 53 19 101/60 (74) 97 I/O 11/29/17 11/29/17 11/29/17 11/30/17 11/30/17 11/30/17 07:00 15:00 23:00 07:00 15:00 23:00 Intake Total 450 ml 1500 ml 1000 ml Balance 450 ml 1500 ml 1000 ml Intake Oral 450 ml 1500 ml 1000 ml # Voids 3 5 3 # Bowel Movements 0 0 0 Result Diagram: 11/29/17 0755 11/27/17 1000 Imaging Vital Signs, 24 Hour Date Time Temp Pulse Resp B/P (MAP) Pulse Ox O2 Delivery O2 Flow Rate FiO2 11/30/17 05:40 98.0 67 16 115/60 (78) 95 11/30/17 00:00 97.0 80 18 120/64 (82) 96 11/29/17 20:00 98.6 82 16 117/60 (79) 97 11/29/17 17:16 83 20 118/60 (79) 98 11/29/17 16:59 98.2 81 20 109/6 (40) 98 11/29/17 12:00 98.1 53 19 101/60 (74) 97 Allergies Coded Allergies peanut (Verified Allergy, Severe, 11/27/17) "throat swelling" penicillin G (Verified Allergy, Intermediate, Rash with hives with amoxicillin but tolerated Keflex past., 11/27/17) Tolerated Ceftriaxone and Cefepime this admission. Intake/Outtake 11/30/17 11/30/17 11:00 23:00 Intake Total 1000 ml Balance 1000 ml Active Scripts Active No Active Prescriptions or Reported Medications Microbiology 11/29/17 Fungal Smear, Received Pending 11/29/17 Fungal Culture, Received Pending 11/29/17 Gram Stain, Worksheet Pending 11/29/17 Wound Culture, Worksheet Pending Objective Remarks pt is well-appearing, does not appear to be any acute distress HEENT: swelling noted on nasal aspect of left orbit. Cardiac: RRR, clear S1 and S2 Pulm: clear to auscultation Extremities: left foot appears to be mildly swollen. no erythema. incision site does not have drainage nor appear to be infected. there was tenderness to palpation. Medications and IVs Current Medications Medications (Trade) Dose Ordered Sig/Norberto Route Start Time Stop Time Status Last Admin (NS Flush) 2 ml UNSCH PRN IV FLUSH 11/27/17 13:15 (NS Flush) 2 ml BID IV FLUSH 11/27/17 21:00 11/29/17 23:19 (Tylenol) 650 mg Q4H PRN PO 11/27/17 13:15 11/28/17 04:39 (Zofran Odt) 4 mg Q6H PRN PO 11/27/17 13:15 (Lovenox Inj) 40 mg Q24H SQ 11/27/17 13:15 (Narcan Inj) 0.4 mg UNSCH PRN IV PUSH 11/27/17 13:15 (Milk Of Magnesia Liq) 30 ml Q12H PRN PO 11/27/17 13:15 (Senokot) 17.2 mg Q12H PRN PO 11/27/17 13:15 (Dulcolax Supp) 10 mg DAILY PRN RECTAL 11/27/17 13:15 (Lactulose Liq) 30 ml DAILY PRN PO 11/27/17 13:15 Pharmacy Profile Note 0 ml @ 0 mls/hr UNSCH OTHER 11/27/17 15:30 ([place] 7.5-325 Mg) 1 tab Q6H PRN PO 11/27/17 16:45 11/30/17 00:42 (Ilotycin 0.5% Opth Oint) 1 applic Q8HR LEFT EYE 11/28/17 14:00 11/30/17 06:10 Vancomycin HCl 1000 mg/Sodium Chloride 250 ml @ 250 mls/hr Q8H IV 11/29/17 16:00 11/29/17 23:37 A/P Assessment and Plan 1. Left Ankle Osteomyelitis continue antibiotic regime await culture results 2. Left Preseptal cellulitis/folliculitis continue to monitor with antibiotic regime 3. Opioid induced constipation last BM wednesday, consider laxative use Zeke Tomas M3 November 30, 2017 08:25
[2017-11-30] MEDS: SODIUM CHLORIDE 0.9% FLUSH 10 ML FLUSH IV FLUSH SCH ×2 (08:27→20:18)
[2017-11-30] MEDS: VANCOMYCIN 1,000 MG/NS 250 ML IV SCH ×6 (09:00→23:35)
[2017-11-30 12:00] VITALS: BP 119/68; PULSE 84; RESP 17; TEMP 98.2; O2SAT 97
[2017-11-30] MEDS: ENOXAPARIN SODIUM 40 MG/0.4 ML SYRINGE SQ SCH (12:54)
--- NOTE | 2017-11-30 15:07 | HHI.IDPN ---
Note Infectious Disease Note Patient is very sleepy. She is easily awakened. No new complaints. Notes some itching at the left eyelid. Also notes pain at the left ankle. She underwent biopsy of bone and aspiration at the left talus. The patient had sustained an left talus fracture and she underwent surgery with hardware in 12/2015. The hardware was removed on 08/27/2017 when she presented with infection. The culture grew Staph aureus on 09/24/2017 and she was given IV ceftriaxone for 6 weeks, completed on 10/15/2017. The patient was recuperating well at home. She was using a walker and was partially weight-bearing. She developed drainage from the lateral aspect of the surgical incision on 11/10/2017 and she was instructed to use Neosporin. The drainage ceased and she states that it appeared better. She again developed drainage from the ankle along with pain and came back to the Emergency Department. PAST MEDICAL HISTORY: Cervical cancer, anxiety, depression, polysubstance abuse. PAST SURGICAL HISTORY: Tubal ligation, open reduction and internal fixation of the left knee, left ankle open reduction and internal fixation in December 2016 with removal of the hardware in August 2017. ALLERGIES: PENICILLIN. PEANUTS. MEDICATIONS: Current Medications Medications (Trade) Dose Ordered Sig/Norberto Route PRN Reason Start Time Stop Time Status Last Admin Dose Admin Sodium Chloride (NS Flush) 2 ml UNSCH PRN IV FLUSH FLUSH AFTER USING IV ACCESS 11/27/17 13:15 Sodium Chloride (NS Flush) 2 ml BID IV FLUSH 11/27/17 21:00 11/30/17 08:27 Acetaminophen (Tylenol) 650 mg Q4H PRN PO CEJA, fever, pain 1-4 11/27/17 13:15 11/28/17 04:39 Ondansetron HCl (Zofran Odt) 4 mg Q6H PRN PO NAUSEA OR VOMITING 11/27/17 13:15 Enoxaparin Sodium (Lovenox Inj) 40 mg Q24H SQ 11/27/17 13:15 Naloxone HCl (Narcan Inj) 0.4 mg UNSCH PRN IV PUSH SEE LABEL COMMENTS 11/27/17 13:15 Magnesium Hydroxide (Milk Of Magnesia Liq) 30 ml Q12H PRN PO Mild constipation 11/27/17 13:15 Sennosides (Senokot) 17.2 mg Q12H PRN PO Moderate constipation 11/27/17 13:15 Bisacodyl (Dulcolax Supp) 10 mg DAILY PRN RECTAL SEVERE CONSITIPATION 11/27/17 13:15 Lactulose (Lactulose Liq) 30 ml DAILY PRN PO SEVERE CONSITIPATION 11/27/17 13:15 Pharmacy Profile Note 0 ml @ 0 mls/hr UNSCH OTHER 11/27/17 15:30 Acetaminophen/ Hydrocodone Bitart ([place] 7.5-325 Mg) 1 tab Q6H PRN PO PAIN SCALE 5 TO 10 11/27/17 16:45 11/30/17 09:26 Erythromycin (Ilotycin 0.5% Opth Oint) 1 applic Q8HR LEFT EYE 11/28/17 14:00 11/30/17 14:14 Vancomycin HCl 1000 mg/Sodium Chloride 250 ml @ 250 mls/hr Q8H IV 11/29/17 16:00 11/30/17 09:00 Objective: Vital Signs Date Time Temp Pulse Resp B/P (MAP) Pulse Ox O2 Delivery O2 Flow Rate FiO2 11/30/17 12:00 98.2 84 17 119/68 (85) 97 11/30/17 08:00 98.0 67 18 103/57 (72) 99 11/30/17 05:40 98.0 67 16 115/60 (78) 95 11/30/17 00:00 97.0 80 18 120/64 (82) 96 11/29/17 20:00 98.6 82 16 117/60 (79) 97 11/29/17 17:16 83 20 118/60 (79) 98 11/29/17 16:59 98.2 81 20 109/6 (40) 98 Laboratory Tests Test 11/29/17 07:55 White Blood Count 5.3 TH/MM3 Red Blood Count 3.68 MIL/MM3 Hemoglobin 11.1 GM/DL Hematocrit 33.2 % Mean Corpuscular Volume 90.1 FL Mean Corpuscular Hemoglobin 30.3 PG Mean Corpuscular Hemoglobin Concent 33.6 % Red Cell Distribution Width 14.0 % Platelet Count 239 TH/MM3 Mean Platelet Volume 8.9 FL Neutrophils (%) (Auto) 61.0 % Lymphocytes (%) (Auto) 25.2 % Monocytes (%) (Auto) 9.5 % Eosinophils (%) (Auto) 3.9 % Basophils (%) (Auto) 0.4 % Neutrophils # (Auto) 3.3 TH/MM3 Lymphocytes # (Auto) 1.3 TH/MM3 Monocytes # (Auto) 0.5 TH/MM3 Eosinophils # (Auto) 0.2 TH/MM3 Basophils # (Auto) 0.0 TH/MM3 CBC Comment DIFF FINAL Differential Comment Microbiology Date/Time Source Procedure Growth Status 11/29/17 16:30 Abscess Foot Fungal Smear - Final NO FUNGAL ELEMENTS SEEN. Resulted 11/29/17 16:30 Abscess Foot Fungal Culture Pending Resulted 11/29/17 16:30 Abscess Foot Gram Stain - Final Resulted 11/29/17 16:30 Abscess Foot Wound Culture - Preliminary NO GROWTH IN 24 HOURS. Resulted Imaging: Bone Biopsy CT 11/29/17 0000 Signed Impressions: Service Date/Time: Wednesday, November 29, 2017 16:20 - CONCLUSION: Uncomplicated CT guided biopsy and aspiration of the left talus. Miguel Gatica MD Chest X-Ray 11/27/17 0913 Signed Impressions: Service Date/Time: Monday, November 27, 2017 09:19 - CONCLUSION: Normal examination. Claudia Dorsey MD Foot MRI 11/27/17 0000 Signed Impressions: Service Date/Time: Monday, November 27, 2017 10:58 - CONCLUSION: Abnormal enhancement of the talar dome and adjacent anterior soft tissues concerning for infection and focal osteomyelitis. The edema identified in the distal fibula and articular surface of the tibia are likely reactive. There is marrow edema identified within the cuboid with suspicion for fracture.. Claudia Dorsey MD SOCIAL HISTORY: The patient states she smokes a maximum of 1/2 pack of cigarettes a day. No alcohol. Occasional crack. Denies IV drug use. PHYSICAL EXAMINATION: GENERAL: She is a well-developed, slender, pleasant female, in no acute distress. She states that she feels fatigued. HEENT: Head is atraumatic. The patient has left eye swelling at the eyelids and erythema with a raised bullous area at the inner left eyebrow. Extraocular movements are grossly intact. Pupils reactive to light. No icterus. Oropharynx: Moist mucosa without lesions. NECK: Supple without adenopathy or swelling. LUNGS: Clear to auscultation. CARDIOVASCULAR: Regular S1, S2, without murmurs, rubs or gallops. ABDOMEN: Bowel sounds present. Soft, nontender. EXTREMITIES: Left ankle swelling is decreased. Still very tender. There is a tiny scab at the incision mid-region and dimpling where the incision is located. The area is warm to touch and erythematous. The other extremities have no clubbing or cyanosis or edema. SKIN: No diffuse rash. NEUROLOGIC: Nonfocal. PSYCHIATRIC: Pleasant calm and cooperative. IMPRESSION: 1. Wound infection of the left ankle with suggestion of osteomyelitis at the talar dome. Previous osteomyelitis involving the left ankle, treated with 6 weeks of intravenous ceftriaxone outpatient for methicillin-sensitive Staphylococcus aureus. She has undergone bone biopsy. 2. Cellulitis of the periorbital area. The patient had a pimple which she broke with her fingers and probably contaminated and subsequently developed cellulitis. 3. History of left talus fracture. RECOMMENDATIONS: 1. Continue vancomycin. 2. Monitor wound culture. 3. Monitor response to antibiotic treatment. 4. Antibiotic determination based on culture results. 5. Okay to apply warm compress to the left eyelid. I will follow the culture. Aquiles Meier MD November 30, 2017 15:07
[2017-11-30 16:00] VITALS: BP 119/61; PULSE 72; RESP 18; TEMP 97.9; O2SAT 98
--- NOTE | 2017-11-30 16:51 | HHI.PR ---
Subjective Remarks Follow-up for left ankle osteomyelitis, left periorbital cellulitis. Patient is doing well. Pain is well controlled. No fever, chills. Objective Vitals Vital Signs Date Time Temp Pulse Resp B/P (MAP) Pulse Ox O2 Delivery O2 Flow Rate FiO2 11/30/17 12:00 98.2 84 17 119/68 (85) 97 11/30/17 08:00 98.0 67 18 103/57 (72) 99 11/30/17 05:40 98.0 67 16 115/60 (78) 95 11/30/17 00:00 97.0 80 18 120/64 (82) 96 11/29/17 20:00 98.6 82 16 117/60 (79) 97 11/29/17 17:16 83 20 118/60 (79) 98 11/29/17 16:59 98.2 81 20 109/6 (40) 98 I/O 11/29/17 11/29/17 11/29/17 11/30/17 11/30/17 11/30/17 07:00 15:00 23:00 07:00 15:00 23:00 Intake Total 450 ml 1500 ml 1000 ml 600 ml Balance 450 ml 1500 ml 1000 ml 600 ml Intake Oral 450 ml 1500 ml 1000 ml 600 ml # Voids 3 5 3 4 # Bowel Movements 0 0 0 Result Diagram: 11/29/17 0755 11/27/17 1000 Objective Remarks GENERAL: Alert, Oriented x 3, NAD. SKIN: Warm and dry. HEAD: Normocephalic. EYES: No scleral icterus. Left movement is intact and no pain on movements. There is a folliculitis on the medial aspect of left eye brow. Small amount of drainage noted. Overall swelling is improved. NECK: Supple, trachea midline. No JVD or lymphadenopathy. CARDIOVASCULAR: Regular rate and rhythm without murmurs, gallops, or rubs. RESPIRATORY: Breath sounds equal bilaterally. No accessory muscle use. GASTROINTESTINAL: Abdomen soft, non-tender, nondistended. MUSCULOSKELETAL: No cyanosis, or edema. BACK: Nontender without obvious deformity. No CVA tenderness. Procedures None. A/P Problem List: (1) Periorbital cellulitis of left eye ICD Code: L03.213 - Periorbital cellulitis (2) Osteomyelitis ICD Code: M86.9 - Osteomyelitis, unspecified Status: Acute Assessment and Plan Ms. Luna is a 27-year-old female with a history of substance abuse, ORIF of left ankle and hardware removal due to infection in AugustSeptember 2017 who presents to the emergency department due to left ankle pain, swelling and low-grade fever. She also has left periorbital edema and pain. Imaging studies indicated possibility of osteomyelitis of the left ankle. Left ankle osteomyelitis -Dr. Miranda removed hardware in August 2017 and patient completed a course of IV antibiotics. -We consulted orthopedic surgery for an evaluation with regards to osteomyelitis. -Continue vancomycin. Vancomycin per pharmacy protocol. Trough level 15-20. -CT guided bone bx done per Orthopedic surgery. Pathology pending. Left periorbital cellulitis Left periorbital folliculitis - Patient has no double vision or any visual disturbance. No ophthalmoplegia. - Appreciate ID input. Will continue Vancomycin for now. Warm compress on left eye lid per ID. - Will Continue topical abx for the left eye as well (Erythromycin). History of substance abuse - Patient is counselled on substance abuse. She denies using IV drugs. Full code. Maralx. Problem Qualifiers (1) Osteomyelitis: Qualified Codes: M86.9 - Osteomyelitis, unspecified Yoko Schneider DO November 30, 2017 16:51
[2017-11-30 21:20] VITALS: BP 140/89; PULSE 64; RESP 16; TEMP 98.8; O2SAT 99
[2017-12-01 00:11] VITALS: BP 128/80; PULSE 68; RESP 17; TEMP 98; O2SAT 99
[2017-12-01 05:00] VITALS: BP 120/89; PULSE 60; RESP 16; TEMP 97.9; O2SAT 99
[2017-12-01] MEDS: ERYTHROMYCIN 0.5% OPTH OINT 3.5 GM TUBO LEFT EYE SCH ×3 (06:21→20:19)
[2017-12-01] MEDS: ACETAMINOPHEN/HYDROcodone 325 MG/7.5 MG TAB PO PRN ×4 (07:33→18:46)
[2017-12-01 08:00] VITALS: BP 102/52; PULSE 60; RESP 18; TEMP 97.4; O2SAT 98
[2017-12-01] MEDS: VANCOMYCIN 1,000 MG/NS 250 ML IV SCH ×4 (08:02→17:14)
[2017-12-01] MEDS: SODIUM CHLORIDE 0.9% FLUSH 10 ML FLUSH IV FLUSH SCH ×2 (09:00→20:17)
--- NOTE | 2017-12-01 09:32 | PD.ORT.PN ---
Subjective Subjective Remarks Resting comfortably. States the ankle is feeling slightly better Objective Vitals Vital Signs Date Time Temp Pulse Resp B/P (MAP) Pulse Ox O2 Delivery O2 Flow Rate FiO2 12/01/17 08:00 97.4 60 18 102/52 (69) 98 12/01/17 05:00 97.9 60 16 120/89 (99) 99 12/01/17 00:11 98.0 68 17 128/80 (96) 99 11/30/17 21:20 98.8 64 16 140/89 (106) 99 11/30/17 16:00 97.9 72 18 119/61 (80) 98 11/30/17 12:00 98.2 84 17 119/68 (85) 97 I/O 11/30/17 11/30/17 11/30/17 12/01/17 12/01/17 12/01/17 07:00 15:00 23:00 07:00 15:00 23:00 Intake Total 1000 ml 600 ml 1000 ml 1200 ml Balance 1000 ml 600 ml 1000 ml 1200 ml Intake Oral 1000 ml 600 ml 1000 ml 1200 ml # Voids 3 4 1 4 # Bowel Movements 0 0 0 Result Diagram: 11/29/17 0755 11/27/17 1000 Objective Remarks LLE: minimal swelling present. incision healed well. small scab on central incision with no drainage or erythema. ROM neutral to 30 degrees of plantarflexion. nvi Assessment & Plan Assessment and Plan 1) Chronic Left Ankle Infx -WBAT -nonsurgical at this point from ortho standpoint -cultures are negative up to this point, may be tainted due to ABX prior to culture -no surgical intervention at this point continued ABX per infectious disease Andres Villa Jr. December 01, 2017 09:32
--- NOTE | 2017-12-01 11:25 | PD.PN.STU ---
Subjective Remarks 27 y F being followed for osteomyelitis L Foot and perorbital cellulitis and folliculitis Pain is still present in left foot but no worse than yesterday. Swelling appears to be decreased from yesterday. Periorbital swelling is diminished. However, follicultitis in nasal aspect of left eye orbit appears to be a more swollen. patient reports it is still painful BM yesterday Objective Vitals Vital Signs Date Time Temp Pulse Resp B/P (MAP) Pulse Ox O2 Delivery O2 Flow Rate FiO2 12/01/17 08:00 97.4 60 18 102/52 (69) 98 12/01/17 05:00 97.9 60 16 120/89 (99) 99 12/01/17 00:11 98.0 68 17 128/80 (96) 99 11/30/17 21:20 98.8 64 16 140/89 (106) 99 11/30/17 16:00 97.9 72 18 119/61 (80) 98 11/30/17 12:00 98.2 84 17 119/68 (85) 97 I/O 11/30/17 11/30/17 11/30/17 12/01/17 12/01/17 12/01/17 07:00 15:00 23:00 07:00 15:00 23:00 Intake Total 1000 ml 600 ml 1000 ml 1200 ml Balance 1000 ml 600 ml 1000 ml 1200 ml Intake Oral 1000 ml 600 ml 1000 ml 1200 ml # Voids 3 4 1 4 # Bowel Movements 0 0 0 Result Diagram: 11/29/17 0755 11/27/17 1000 Objective Remarks patient is tired and not completely cooperative HEENT: left nasal eye orbit swelling. Can visualize head. some redness. Left lower extremity: some swelling. no erythema or warmth. incision does not appear to be infected. tenderness to palpation A/P Assessment and Plan 1. Left Ankle Osteomyelitis continue antibiotic regime culture is negative so far, continue to monitor 2. Left Preseptal cellulitis/folliculitis use warm compresses every 4-6 hrs to help with folliculitis continue to monitor Zeke Tomas December 01, 2017 11:25
--- NOTE | 2017-12-01 11:26 | HHI.PR ---
Subjective Remarks Follow-up for left ankle osteomyelitis, left periorbital cellulitis. Patient is currently doing well. No fever or chills. Objective Vitals Vital Signs Date Time Temp Pulse Resp B/P (MAP) Pulse Ox O2 Delivery O2 Flow Rate FiO2 12/01/17 08:00 97.4 60 18 102/52 (69) 98 12/01/17 05:00 97.9 60 16 120/89 (99) 99 12/01/17 00:11 98.0 68 17 128/80 (96) 99 11/30/17 21:20 98.8 64 16 140/89 (106) 99 11/30/17 16:00 97.9 72 18 119/61 (80) 98 11/30/17 12:00 98.2 84 17 119/68 (85) 97 I/O 11/30/17 11/30/17 11/30/17 12/01/17 12/01/17 12/01/17 07:00 15:00 23:00 07:00 15:00 23:00 Intake Total 1000 ml 600 ml 1000 ml 1200 ml Balance 1000 ml 600 ml 1000 ml 1200 ml Intake Oral 1000 ml 600 ml 1000 ml 1200 ml # Voids 3 4 1 4 # Bowel Movements 0 0 0 Result Diagram: 11/29/17 0755 11/27/17 1000 Imaging Last Impressions Bone Biopsy CT 11/29/17 0000 Signed Impressions: Service Date/Time: Wednesday, November 29, 2017 16:20 - CONCLUSION: Uncomplicated CT guided biopsy and aspiration of the left talus. Miguel Gatica MD Chest X-Ray 11/27/17 0913 Signed Impressions: Service Date/Time: Monday, November 27, 2017 09:19 - CONCLUSION: Normal examination. Claudia Dorsey MD Foot MRI 11/27/17 0000 Signed Impressions: Service Date/Time: Monday, November 27, 2017 10:58 - CONCLUSION: Abnormal enhancement of the talar dome and adjacent anterior soft tissues concerning for infection and focal osteomyelitis. The edema identified in the distal fibula and articular surface of the tibia are likely reactive. There is marrow edema identified within the cuboid with suspicion for fracture.. Claudia Dorsey MD Objective Remarks GENERAL: Alert, Oriented x 3, NAD. SKIN: Warm and dry. HEAD: Normocephalic. EYES: No scleral icterus. Left movement is intact and no pain on movements. There is a folliculitis on the medial aspect of left eye brow. Small amount of drainage noted. Overall swelling is improved. NECK: Supple, trachea midline. No JVD or lymphadenopathy. CARDIOVASCULAR: Regular rate and rhythm without murmurs, gallops, or rubs. RESPIRATORY: Breath sounds equal bilaterally. No accessory muscle use. GASTROINTESTINAL: Abdomen soft, non-tender, nondistended. MUSCULOSKELETAL: No cyanosis, or edema. BACK: Nontender without obvious deformity. No CVA tenderness. Procedures None. A/P Problem List: (1) Periorbital cellulitis of left eye ICD Code: L03.213 - Periorbital cellulitis (2) Osteomyelitis ICD Code: M86.9 - Osteomyelitis, unspecified Status: Acute Assessment and Plan Ms. Luna is a 27-year-old female with a history of substance abuse, ORIF of left ankle and hardware removal due to infection in AugustSeptember 2017 who presents to the emergency department due to left ankle pain, swelling and low-grade fever. She also has left periorbital edema and pain. Imaging studies indicated possibility of osteomyelitis of the left ankle. Left ankle osteomyelitis -Dr. Miranda removed hardware in August 2017 and patient completed a course of IV antibiotics. -We consulted orthopedic surgery for an evaluation with regards to osteomyelitis. -Continue vancomycin. Vancomycin per pharmacy protocol. Trough level 15-20. -CT guided bone bx done per Orthopedic surgery. Pathology pending. -Orthopedic surgery --> no surgical intervention. Left periorbital cellulitis Left periorbital folliculitis - Patient has no double vision or any visual disturbance. No ophthalmoplegia. - Appreciate ID input. Will continue Vancomycin for now. Warm compress on left eye lid per ID. - Will Continue topical abx for the left eye as well (Erythromycin). - If okay with ID, patient can possibly be discharged on oral abx. History of substance abuse - Patient is counselled on substance abuse. She denies using IV drugs. Full code. Lovenox. Problem Qualifiers (1) Osteomyelitis: Qualified Codes: M86.9 - Osteomyelitis, unspecified Yoko Schneider DO December 01, 2017 11:26 am
[2017-12-01 12:00] VITALS: BP 110/51; PULSE 73; RESP 18; TEMP 98.2; O2SAT 98
[2017-12-01] MEDS: ENOXAPARIN SODIUM 40 MG/0.4 ML SYRINGE SQ SCH (13:15)
[2017-12-01 16:00] VITALS: BP 118/56; PULSE 55; RESP 18; TEMP 98.7; O2SAT 97
--- NOTE | 2017-12-01 16:17 | HHI.IDPN ---
Note Infectious Disease Note Patient without complaints. States that she still has some pain in the left ankle. No distress. No fever. Left eyelid is less itchy. Decreased edema. Bone biopsy aspirate culture from the left ankle has no growth. The patient had sustained an left talus fracture and she underwent surgery with hardware in 12/2015. The hardware was removed on 08/27/2017 when she presented with infection. The culture grew Staph aureus on 09/24/2017 and she was given IV ceftriaxone for 6 weeks, completed on 10/15/2017. The patient was recuperating well at home. She was using a walker and was partially weight-bearing. She developed drainage from the lateral aspect of the surgical incision on 11/10/2017 and she was instructed to use Neosporin. The drainage ceased and she states that it appeared better. She again developed drainage from the ankle along with pain and came back to the Emergency Department. PAST MEDICAL HISTORY: Cervical cancer, anxiety, depression, polysubstance abuse. PAST SURGICAL HISTORY: Tubal ligation, open reduction and internal fixation of the left knee, left ankle open reduction and internal fixation in December 2016 with removal of the hardware in August 2017. ALLERGIES: PENICILLIN. PEANUTS. MEDICATIONS: Current Medications Medications (Trade) Dose Ordered Sig/Norberto Route PRN Reason Start Time Stop Time Status Last Admin Dose Admin Sodium Chloride (NS Flush) 2 ml UNSCH PRN IV FLUSH FLUSH AFTER USING IV ACCESS 11/27/17 13:15 Sodium Chloride (NS Flush) 2 ml BID IV FLUSH 11/27/17 21:00 12/01/17 09:00 Acetaminophen (Tylenol) 650 mg Q4H PRN PO CEJA, fever, pain 1-4 11/27/17 13:15 11/28/17 04:39 Ondansetron HCl (Zofran Odt) 4 mg Q6H PRN PO NAUSEA OR VOMITING 11/27/17 13:15 Enoxaparin Sodium (Lovenox Inj) 40 mg Q24H SQ 11/27/17 13:15 Naloxone HCl (Narcan Inj) 0.4 mg UNSCH PRN IV PUSH SEE LABEL COMMENTS 11/27/17 13:15 Magnesium Hydroxide (Milk Of Magnesia Liq) 30 ml Q12H PRN PO Mild constipation 11/27/17 13:15 Sennosides (Senokot) 17.2 mg Q12H PRN PO Moderate constipation 11/27/17 13:15 Bisacodyl (Dulcolax Supp) 10 mg DAILY PRN RECTAL SEVERE CONSITIPATION 11/27/17 13:15 Lactulose (Lactulose Liq) 30 ml DAILY PRN PO SEVERE CONSITIPATION 11/27/17 13:15 Pharmacy Profile Note 0 ml @ 0 mls/hr UNSCH OTHER 11/27/17 15:30 Acetaminophen/ Hydrocodone Bitart ([place] 7.5-325 Mg) 1 tab Q6H PRN PO PAIN SCALE 5 TO 10 11/27/17 16:45 12/01/17 13:31 Erythromycin (Ilotycin 0.5% Opth Oint) 1 applic Q8HR LEFT EYE 11/28/17 14:00 12/01/17 13:31 Vancomycin HCl 1000 mg/Sodium Chloride 250 ml @ 250 mls/hr Q8H IV 11/29/17 16:00 12/01/17 08:02 Miscellaneous Information ([facility] Ordered Lab Info) SPECIFIC LAB TO BE DRAWN:VANCOMYCIN TROUGH DATE TO... ONCE ONCE .XX 12/02/17 07:45 12/02/17 07:46 Objective: Vital Signs Date Time Temp Pulse Resp B/P (MAP) Pulse Ox O2 Delivery O2 Flow Rate FiO2 12/01/17 12:00 98.2 73 18 110/51 (70) 98 12/01/17 08:00 97.4 60 18 102/52 (69) 98 12/01/17 05:00 97.9 60 16 120/89 (99) 99 12/01/17 00:11 98.0 68 17 128/80 (96) 99 11/30/17 21:20 98.8 64 16 140/89 (106) 99 Microbiology Date/Time Source Procedure Growth Status 11/29/17 16:30 Abscess Foot Fungal Smear - Final NO FUNGAL ELEMENTS SEEN. Resulted 11/29/17 16:30 Abscess Foot Fungal Culture Pending Resulted 11/29/17 16:30 Abscess Foot Gram Stain - Final Resulted 11/29/17 16:30 Abscess Foot Wound Culture - Preliminary NO GROWTH IN 48 HOURS. Resulted Imaging: Bone Biopsy CT 11/29/17 0000 Signed Impressions: Service Date/Time: Wednesday, November 29, 2017 16:20 - CONCLUSION: Uncomplicated CT guided biopsy and aspiration of the left talus. Miguel Gatica MD Chest X-Ray 11/27/17 0913 Signed Impressions: Service Date/Time: Monday, November 27, 2017 09:19 - CONCLUSION: Normal examination. Claudia Dorsey MD Foot MRI 11/27/17 0000 Signed Impressions: Service Date/Time: Monday, November 27, 2017 10:58 - CONCLUSION: Abnormal enhancement of the talar dome and adjacent anterior soft tissues concerning for infection and focal osteomyelitis. The edema identified in the distal fibula and articular surface of the tibia are likely reactive. There is marrow edema identified within the cuboid with suspicion for fracture.. Claudia Dorsey MD SOCIAL HISTORY: The patient states she smokes a maximum of 1/2 pack of cigarettes a day. No alcohol. Occasional crack. Denies IV drug use. PHYSICAL EXAMINATION: GENERAL: No acute distress. HEENT: Head is atraumatic. Decreased left eye lid swelling but mild erythema with a raised bullous area at the inner left orbit/eyebrow. Extraocular movements are grossly intact. Pupils reactive to light. No icterus. Oropharynx: Moist mucosa without lesions. NECK: Supple without adenopathy or swelling. LUNGS: Clear to auscultation. CARDIOVASCULAR: Regular S1, S2, without murmurs, rubs or gallops. ABDOMEN: Bowel sounds present. Soft, nontender. EXTREMITIES: Left ankle swelling is decreased. Less tender. Erythema almost completely resolved. There is a tiny scab at the incision mid-region and dimpling where the incision is located. SKIN: No diffuse rash. NEUROLOGIC: Nonfocal. PSYCHIATRIC: Pleasant calm and cooperative. IMPRESSION: 1. Wound infection of the left ankle with suggestion of osteomyelitis at the talar dome. Previous osteomyelitis involving the left ankle, treated with 6 weeks of intravenous ceftriaxone outpatient for methicillin-sensitive Staphylococcus aureus completed 10/15/2017. She has undergone bone biopsy. 2. Cellulitis of the periorbital area. Improved. 3. History of left talus fracture. RECOMMENDATIONS: 1. Discontinue vancomycin. 2. Begin p.o. ciprofloxacin. 3. Monitor wound culture. 4. Obtain sedimentation rate and CRP. If the culture has no growth tomorrow, she can be discharged on p.o. ciprofloxacin 500 mg p.o. twice daily 3 weeks. Aquiles Meier MD December 01, 2017 16:17
[2017-12-01 20:00] VITALS: BP 107/65; PULSE 90; RESP 18; TEMP 97.7; O2SAT 98
[2017-12-01] MEDS: CIPROFLOXACIN 500 MG TAB PO SCH (20:17)
[2017-12-02] VITALS: BP 101/53; PULSE 75; RESP 18; TEMP 97.7; O2SAT 98
[2017-12-02] MEDS: ACETAMINOPHEN/HYDROcodone 325 MG/7.5 MG TAB PO PRN ×4 (00:48→18:15)
[2017-12-02] MEDS: ERYTHROMYCIN 0.5% OPTH OINT 3.5 GM TUBO LEFT EYE SCH ×2 (06:35→12:58)
[2017-12-02] MEDS ORDERED: PHARMACY ORDERED LAB ONE (07:45)
[2017-12-02 08:00] VITALS: BP 99/51; PULSE 55; RESP 18; TEMP 97.6; O2SAT 97
[2017-12-02] MEDS: CIPROFLOXACIN 500 MG TAB PO SCH (09:44)
[2017-12-02] MEDS: SODIUM CHLORIDE 0.9% FLUSH 10 ML FLUSH IV FLUSH SCH (09:45)
[2017-12-02] MEDS ORDERED: CIPR-9 PO (09:54)
--- NOTE | 2017-12-02 10:05 | HHI.DS ---
Discharge Summary Admission Date November 27, 2017 at 1:06 pm Discharge Date: December 02, 2017 Admitting Diagnosis OSTEOMYELITIS L FOOT (1) Periorbital cellulitis of left eye ICD Code: L03.213 - Periorbital cellulitis (2) Osteomyelitis ICD Code: M86.9 - Osteomyelitis, unspecified Status: Acute Procedures None. Brief History - From Admission Ms. Luna is a 27-year-old due to left ankle edema, erythema and severe pain with no recent injury. Her symptoms started on 11/26/2017. Patient also noted that her left eye started swelling up yesterday as well. She admits to using crack cocaine but denies using any IV drugs. She also reports picking and scratching when she was high. She reports low-grade fever at home. No chest pain, shortness of breath. Patient has a history of ORIF of her left ankle in January 2017. In August 2017, patient was admitted due to left ankle infection and subsequently she required removal of hardware. Infectious disease followed patient in August/September 2017 and continued antibiotics Ancef in the hospital for MSSA infection/osteomyelitis. Per previous notes, patient has a history of IV drug abuse. However patient today denies any history of IV drug use. CBC/BMP: 11/29/17 0755 Significant Findings Laboratory Tests Test 11/30/17 09:55 Vancomycin Level Trough 15.7 MCG/ML (5.0-10.0) Imaging Last Impressions Bone Biopsy CT 11/29/17 0000 Signed Impressions: Service Date/Time: Wednesday, November 29, 2017 16:20 - CONCLUSION: Uncomplicated CT guided biopsy and aspiration of the left talus. Miguel Gatica MD Chest X-Ray 11/27/17 0913 Signed Impressions: Service Date/Time: Monday, November 27, 2017 09:19 - CONCLUSION: Normal examination. Claudia Dorsey MD Foot MRI 11/27/17 0000 Signed Impressions: Service Date/Time: Monday, November 27, 2017 10:58 - CONCLUSION: Abnormal enhancement of the talar dome and adjacent anterior soft tissues concerning for infection and focal osteomyelitis. The edema identified in the distal fibula and articular surface of the tibia are likely reactive. There is marrow edema identified within the cuboid with suspicion for fracture.. Claudia Dorsey MD PE at Discharge GENERAL: Alert, Oriented x 3, NAD. SKIN: Warm and dry. HEAD: Normocephalic. EYES: No scleral icterus. Left movement is intact and no pain on movements. There is a folliculitis on the medial aspect of left eye brow. Small amount of drainage noted. Overall swelling is improved. NECK: Supple, trachea midline. No JVD or lymphadenopathy. CARDIOVASCULAR: Regular rate and rhythm without murmurs, gallops, or rubs. RESPIRATORY: Breath sounds equal bilaterally. No accessory muscle use. GASTROINTESTINAL: Abdomen soft, non-tender, nondistended. MUSCULOSKELETAL: No cyanosis, or edema. BACK: Nontender without obvious deformity. No CVA tenderness. Pt update on day of discharge Patient is doing well. Resting well in bed. No fever, chills. Eye swelling is much improved. Per ID, if cultures remain negative, patient can be discharged. Hospital Course Ms. Luna is a 27-year-old female with a history of substance abuse, ORIF of left ankle and hardware removal due to infection in AugustSeptember 2017 who presents to the emergency department due to left ankle pain, swelling and low-grade fever. She also has left periorbital edema and pain. Imaging studies indicated possibility of osteomyelitis of the left ankle. Left ankle osteomyelitis -Dr. Miranda removed hardware in August 2017 and patient completed a course of IV antibiotics. -We consulted orthopedic surgery for an evaluation with regards to osteomyelitis. -Continued vancomycin. -CT guided bone bx done per Orthopedic surgery. -Orthopedic surgery --> no surgical intervention. Left periorbital cellulitis Left periorbital folliculitis - Patient has no double vision or any visual disturbance. No ophthalmoplegia. - Appreciate ID input. Pt received Vancomycin. Warm compress on left eye lid per ID. - Cultures are all negative. ID recommended Cipro for 3 weeks and discharge. - Erythromycin topical. History of substance abuse - Patient is counselled on substance abuse. She denies using IV drugs. Received Lovenox for DVT prophylaxis. Pt Condition on Discharge: Good Discharge Disposition: Discharge Home Discharge Time: <= 30 minutes Discharge Instructions DIET: Follow Instructions for: As Tolerated, No Restrictions Follow up Referrals: PCP Follow-up - 1 Week New Medications: Ciprofloxacin (Cipro) 500 Mg Tab 500 MG PO Q12HR for Infection, #42 TAB [Erythromycin 0.5% Opth Oint] () 3.5 APPLIC/3.5 GM OINT 1 APPLIC LEFT EYE Q8HR for Infection for 7 Days Yoko Schneider DO December 02, 2017 10:05
[2017-12-02] MEDS ORDERED: ERYTHROMYCIN 0.5% LEFT EYE (10:06)
[2017-12-02] MEDS ORDERED: OPTH LEFT EYE (10:06)
--- NOTE | 2017-12-02 10:51 | PD.PN.STU ---
Subjective Remarks 27 Y F followed for left foot osteomyelitis and left periorbital cellulitis At this time she has no new concerns. she said warm compresses havehelped relieve swelling around eye Objective Vitals Vital Signs Date Time Temp Pulse Resp B/P (MAP) Pulse Ox O2 Delivery O2 Flow Rate FiO2 12/02/17 08:00 97.6 55 18 99/51 (67) 97 12/02/17 00:00 97.7 75 18 101/53 (69) 98 12/01/17 20:00 97.7 90 18 107/65 (79) 98 12/01/17 16:00 98.7 55 18 118/56 (76) 97 12/01/17 12:00 98.2 73 18 110/51 (70) 98 I/O 12/01/17 12/01/17 12/01/17 12/02/17 12/02/17 12/02/17 07:00 15:00 23:00 07:00 15:00 23:00 Intake Total 1200 ml Balance 1200 ml Intake Oral 1200 ml # Voids 4 2 1 # Bowel Movements 0 Result Diagram: 11/29/17 0755 Objective Remarks in no acute distress left orbital region shows much improvement. swelling significantly less A/P Assessment and Plan 27 y/o female with a hx of removal of infected ankle hardware being followed for recurrent osteomyelitis and periorbital cellulitis/folliculitis Cultures have been negative so far Left Ankle Osteomyelitis Ortho has deemed surgery unnecessary vancomycin has been DC'd per ID. Switched to po Ciprofloxacin culture is negative so far. if remains negative today, can be discharged on oral cipro 500 mg per ID Left Preseptal cellulitis/folliculitis warm compresses have appeared to help open up and drain the follicilutis much improved Zeke Tomas December 02, 2017 10:51 Yoko Schneider DO December 02, 2017 22:17
[2017-12-02 11:49] VITALS: BP 112/55; PULSE 60; RESP 18; O2SAT 99
[2017-12-02] MEDS: ENOXAPARIN SODIUM 40 MG/0.4 ML SYRINGE SQ SCH (12:57)
[2017-12-02 16:00] VITALS: BP 112/56; PULSE 64; RESP 18; O2SAT 99
== END 2017-12-02 21:41 | disposition home or self-care (01) | DRG 478 ==
LOC: NEPD 08:52 → NEDA 13:06 → N05A 15:33
PROVIDERS: ADMIT Hospitalist; ATTEND Hospitalist
PROC: 0QBM3ZX Excision of Left Tarsal, Percutaneous Approach, Diagnostic (ICD-10-PCS; principal; 2017-11-29)
DX: M86.9 Osteomyelitis, unspecified (principal); L03.213 Periorbital cellulitis; L03.116 Cellulitis of left lower limb; R60.0 Localized edema; L73.9 Follicular disorder, unspecified; K59.03 Drug induced constipation; T40.2X5A Adverse effect of other opioids, initial encounter; F19.10 Other psychoactive substance abuse, uncomplicated; F14.90 Cocaine use, unspecified, uncomplicated; J45.909 Unspecified asthma, uncomplicated; F17.210 Nicotine dependence, cigarettes, uncomplicated; Z86.14 Personal history of Methicillin resistant Staphylococcus aureus infection
CPT/HCPCS: 20225; 71045; 73720; 77012; 80053; 80202; 81001; 83605; 84703; 85025; 85610; 85730; 87040; 87070; 87102; 87205; 87206; 96365; 96367; 96368; 99152; 99153; 99211; A9579; G0463; J0696; J2250; J3010; J3370; J7030; J7050; L2114

== ENCOUNTER 2018-02-28 05:53 | Observation (INO) ==
[2018-02-28] MEDS ORDERED: Sodium Chlor 0.9% Inj 500 ML IV.SIG ONE (06:13)
--- NOTE | 2018-02-28 06:47 | XR ---
EXAM DATE: 02/28/2018 6:39 AM EDT AGE/SEX: 27 years / Female INDICATIONS: Chest pain today. CLINICAL DATA: This is the patient's initial encounter. Patient reports that signs and symptoms have been present for 1 day and indicates a pain score of 4/10. MEDICAL/SURGICAL HISTORY: None. . Left ankle surgery x 4 COMPARISON: [facility] [place], CHEST SINGLE AP, 11/27/2017. . FINDINGS: A single AP view of the chest demonstrates the lungs to be symmetrically aerated without evidence of mass, infiltrate or effusion. The cardiomediastinal contours are unremarkable. Osseous structures a re intact. CONCLUSION: No acute cardiopulmonary disease Electronically signed by: Les Polk MD 02/28/2018 6:46 AM EDT
--- NOTE | 2018-02-28 06:51 | XR ---
EXAM DATE: 02/28/2018 6:37 AM EDT AGE/SEX: 27 years / Female INDICATIONS: Left ankle pain off and on for a few months. CLINICAL DATA: This is the patient's initial encounter. Patient reports that signs and symptoms have been present for 1 month and indicates a pain score of 3/10. MEDICAL/SURGICAL HISTORY: None. . Left ankle surgery x 4 [place] [facility] [place]1 V[place]27/2017. . FINDINGS: Views of the left ankle obtained. There is irregularity of the talus. No fracture identified. Osseou s density is normal. Soft tissue swelling. No radiopaque foreign bodies seen. CONCLUSION: Soft tissue swelling without fracture. Irregularity of the talus again seen. Electronically signed by: Les Polk MD 02/28/2018 6:50 AM EDT
[2018-02-28 07:01] LABS: Baso % (Auto) 0.4 % (0.0-2.0); Eos # (Auto) 0.1 th/mm3 (0.0-0.4); Eos % (Auto) 3.1 % (0.0-4.0); Hematocrit 37.7 % (35.0-46.0); Hemoglobin 12.5 gm/dL (11.6-15.3); Lymph # (Auto) 1.9 th/mm3 (1.0-4.8); Lymph % (Auto) 39.1 % (9.0-44.0); Mean Corpuscular HGB Conc 33.3 % (32.0-36.0); Mean Corpuscular Hemoglobin 30.7 pg (27.0-34.0); Mean Corpuscular Volume 92.3 fL (80.0-100.0); Mean Platelet Volume 9.8 fL (7.0-11.0); Mono # (Auto) 0.5 th/mm3 (0.0-0.9); Mono % (Auto) 9.5 % (0.0-8.0); Neut # (Auto) 2.3 th/mm3 (1.8-7.7); Neut % (Auto) 47.9 % (16.0-70.0); Platelet Count 247 th/mm3 (150-450); Red Blood Count 4.08 mil/mm3 (4.00-5.30); Red Cell Distribution Width 14.9 % (11.6-17.2); White Blood Count 4.8 th/mm3 (4.0-11.0)
[2018-02-28 07:16] LABS: Activated Partial Thrombo Time 23.6 sec (24.3-30.1); Prothrombin Time 10.3 sec (9.8-11.6)
[2018-02-28 07:30] LABS: Albumin 2.8 g/dL (3.4-5.0); Anion Gap 5 meq/L (5-15); Aspartate Aminotransferase 13 U/L (15-37); Blood Urea Nitrogen 16 mg/dL (7-18); Calcium 8.2 mg/dL (8.5-10.1); Carbon Dioxide 31.2 meq/L (21.0-32.0); Chloride 106 meq/L (98-107); Glomerular Filtration Rate 84 mL/min (>89); Glucose,Random 68 mg/dL (74-106); Magnesium 1.9 mg/dL (1.5-2.5); Potassium 3.9 meq/L (3.5-5.1); Sodium 142 meq/L (136-145)
[2018-02-28 07:31] LABS: Lipase 156 U/L (73-393)
--- NOTE | 2018-02-28 07:31 | ED ---
HPI General Chief complaint: Chest Pain Stated complaint: Ankle Pain,Chest pain Time Seen by Provider: 02/28/18 06:13 Source: patient Limitations: no limitations History of Present Illness HPI narrative: The patient is a 27 year old female who presents to the [facility] emergency department with a history of reportedly not feeling well since last week when she went on a binge of smoking crack cocaine. She reports that she last used on Wednesday. She reports that on Wednesday she began to have nausea and vomiting. She reports that she cannot recall how many times that she has vomited in Tylenol, however over the last 24 hours she has vomited 3 times. She denies having any diarrhea. She reports that she last moved her bowels on Wednesday. The patient reports that 2 days ago she began to have a recurrence of left ankle pain. The patient has had 4 left ankle surgeries and a history of hardware infection in August requiring hardware removal, and then persistent infection treated in November under the guidance of infectious disease with ciprofloxacin for 3 weeks. The patient denies having any new swelling or redness. She reports that the pain is in bilateral sides of the ankle. She denies any IV drug use. The patient additionally reports that last night while she was lying down to go to bed she began to have chest pain. Patient reports of the chest pain is been coming and going. She reports that it is in the left side of the chest. She reports that it is sharp in character. She reports that it radiated to the left arm and caused tingling in her hand. She reports having associated shortness of breath. She denies having any diaphoresis. The patient denies having any fevers but has had chills. On review of systems otherwise, the patient denies having any cough, congestion, neck pain, abdominal pain, vomiting, diarrhea, urinary symptoms, or neurologic symptoms. LMP: Beginning of February Related Data Home Medications Medication Instructions Recorded Confirmed No Known Home Medications 02/28/18 02/28/18 Allergies Allergy/AdvReac Type Severity Reaction Status Date / Time peanut Allergy Severe Edema Verified 02/28/18 06:51 penicillin G Allergy Intermediate Rash with Verified 02/28/18 06:51 hives with amoxicillin but tolerated Keflex past. Review of Systems ROS: all other systems reviewed are negative (Other than that stated in the HPI) PMFSH History History Provided By: Patient Medical History Medical History Ankle fracture (Acute) Asthma (Acute) Anxiety (Acute) Crack cocaine use (Acute) Depression (Acute) Surgical History Surgical History H/O tubal ligation (Acute) S/P surgical manipulation of ankle joint (Acute) Social History Social History Substance History: Active Abuse Smoking Status: Current every day smoker Tobacco Type: Cigarettes Cigarettes Per Day: 4 How Often Do You Have a Drink Containing Alcohol: Monthly or less Recent Travel in [facility] within the Last 8 Weeks: No Recent Out of Country Travel within the Last 8 Weeks: No Substance Abuse Detail Crack/Cocaine: Substance Use Status: Active Route Used Substance Abuse: By Mouth and Inhalation Substance Abuse Comment: "went on a binge last week, all week and last time I smoked was Wednesday" Reason for Use: Get High Exam Const General: cooperative, no acute distress and well developed Nutritional Appearance: well nourished Orientation: alert, awake and oriented x3 HENMT Head: normocephalic and atraumatic Nose: no nasal discharge and no epistaxis Mouth: moist mucous membranes Throat: posterior oropharynx normal and uvula midline Eyes Sclera: normal sclerae Pupils: PERRL Neck Neck: no meningeal signs, trachea midline and no JVD Resp Effort & Inspection: no use of accessory muscles Auscultation: clear to auscultation bilaterally Cardio Rate: bradycardic Rhythm: regular rhythm Heart Sounds: no gallops, no murmurs and no rubs GI Inspection: non-distended Palpation: soft, no hepatosplenomegaly and nontender Back/Spine/Pelvis Back: no CVA tenderness Thoracic/Lumbar Spine: No thoracic spinal tenderness and No lumbar spinal tenderness Skin General: dry skin (warm) Neuro General: alert, awake and oriented x3 Cranial Nerves: other (No facial asymmetry.) Speech: speech normal Motor: strength 5/5 throughout and no movement abnormalities noted Extrem General: normal to inspection (No calf tenderness on palpation. No erythema or ecchymosis. The patient reports tenderness on palpation along the medial and lateral malleolus on the left. The patient has scarring from prior surgery noted. No other skin changes.), no clubbing, no cyanosis and no edema Psych Mood: congruent mood Affect: normal affect Judgment: fair Course Initial Documented Vital Signs Temperature 97.4 F L 02/28/18 05:56 Pulse Rate 80 02/28/18 05:56 Respiratory Rate 16 02/28/18 05:56 Blood Pressure 127/78 08/13/18 05:56 Pulse Oximetry 100 02/28/18 05:56 Last Documented Vital Signs Temperature 97.8 F 02/28/18 07:00 Pulse Rate 49 L 02/28/18 07:00 Respiratory Rate 18 02/28/18 07:00 Blood Pressure 122/72 02/28/18 07:00 Pulse Oximetry 100 02/28/18 07:27 Sign Out Sign Out Data: Patient Sign Out occurred on 02/28/18 at 08:23. Patient's care was discussed, and care was transferred from Kathi Scales MD to Patsy Rosario MD. Sign Out Comment: The patient's case will be checked out to the oncoming emergency physician to disposition the patient based on the conclusion of her workup. The patient is pending laboratory studies and imaging studies at the conclusion of my shift. Last updated by Kathi Scales MD at 02/28/18 07:15 Post-Handoff Eval: Patient sleeping in stretcher. CXR showed no acute process, ankle XR shows swelling; Labs: decrease glucose, elevated CRP (normal sed rate). Will send to chest pain center for chest pain. Medical Decision Making MDM Narrative Medical decision making narrative: During the course of the patient's emergency department visit, the patient's history, examination, and differential diagnosis were reviewed with the patient. The patient was placed on a cardiac surgeon with oximetry and frequent blood pressure monitoring. The patient had IV access obtained and blood work sent for analysis. A diagnostic evaluation was started regarding the patient's chest pain, shortness of breath, and left ankle pain. The patient was initially provided aspirin 324 mg p.o. 1, sublingual nitroglycerin 1, normal saline at 500 mL bolus. The patient's laboratory studies were pending at the conclusion of my shift. The patient's case will be checked out to the oncoming emergency physician to disposition the patient based on the conclusion of her workup. Differential Diagnosis Differential Diagnosis: Acute coronary syndrome, versus sepsis, versus osteomyelitis, versus pneumonia, versus aspiration Medical Records Medical records reviewed: Yes I reviewed the patient's medical records. POC Test Results POC Urine Results: Negative Lab Data Result diagrams: 02/28/18 06:40 02/28/18 06:40 Lab Results 08/13/18 08/13/18 08/13/18 Range/Units 06:40 06:40 06:40 WBC 4.8 (4.0-11.0) th/mm3 RBC 4.08 (4.00-5.30) mil/mm3 Hgb 12.5 (11.6-15.3) gm/dL Hct 37.7 (35.0-46.0) % MCV 92.3 (80.0-100.0) fL MCH 30.7 (27.0-34.0) pg MCHC 33.3 (32.0-36.0) % RDW 14.9 (11.6-17.2) % Plt Count 247 (150-450) th/mm3 MPV 9.8 (7.0-11.0) fL Neut % (Auto) 47.9 (16.0-70.0) % Lymph % (Auto) 39.1 (9.0-44.0) % [place] % (Auto) 9.5 H (0.0-8.0) % Eos % (Auto) 3.1 (0.0-4.0) % Baso % (Auto) 0.4 (0.0-2.0) % Neut # (Auto) 2.3 (1.8-7.7) th/mm3 Lymph # (Auto) 1.9 (1.0-4.8) th/mm3 [place] # (Auto) 0.5 (0.0-0.9) th/mm3 Eos # (Auto) 0.1 (0.0-0.4) th/mm3 Baso # (Auto) 0.0 (0.0-0.2) th/mm3 WBC Differential . Differential Comment Auto diff final ESR (0-20) mm/hr PT 10.3 (9.8-11.6) sec INR 1.0 Ratio APTT 23.6 L (24.3-30.1) sec Sodium (136-145) meq/L Potassium (3.5-5.1) meq/L Chloride (98-107) meq/L Carbon Dioxide (21.0-32.0) meq/L Anion Gap (5-15) meq/L BUN (7-18) mg/dL Creatinine (0.50-1.00) mg/dL Estimated GFR (>89) mL/min Random Glucose (74-106) mg/dL Lactic Acid (0.4-2.0) mmol/L Calcium (8.5-10.1) mg/dL Magnesium (1.5-2.5) mg/dL Total Bilirubin (0.2-1.0) mg/dL AST (15-37) U/L ALT (10-53) U/L Alkaline Phosphatase (45-117) U/L Total Creatine Kinase (26-192) U/L Troponin I Less than 0.02 L (0.02-0.05) ng/mL C-Reactive Protein (0.00-0.30) mg/dL Total Protein (6.4-8.2) g/dL Albumin (3.4-5.0) g/dL Lipase 156 (73-393) U/L 02/28/18 02/28/18 02/28/18 Range/Units 06:40 06:40 06:40 WBC (4.0-11.0) th/mm3 RBC (4.00-5.30) mil/mm3 Hgb (11.6-15.3) gm/dL Hct (35.0-46.0) % MCV (80.0-100.0) fL MCH (27.0-34.0) pg MCHC (32.0-36.0) % RDW (11.6-17.2) % Plt Count (150-450) th/mm3 MPV (7.0-11.0) fL Neut % (Auto) (16.0-70.0) % Lymph % (Auto) (9.0-44.0) % [place] % (Auto) (0.0-8.0) % Eos % (Auto) (0.0-4.0) % Baso % (Auto) (0.0-2.0) % Neut # (Auto) (1.8-7.7) th/mm3 Lymph # (Auto) (1.0-4.8) th/mm3 [place] # (Auto) (0.0-0.9) th/mm3 Eos # (Auto) (0.0-0.4) th/mm3 Baso # (Auto) (0.0-0.2) th/mm3 WBC Differential Differential Comment ESR 8 (0-20) mm/hr PT (9.8-11.6) sec INR Ratio APTT (24.3-30.1) sec Sodium 142 (136-145) meq/L Potassium 3.9 (3.5-5.1) meq/L Chloride 106 (98-107) meq/L Carbon Dioxide 31.2 (21.0-32.0) meq/L Anion Gap 5 (5-15) meq/L BUN 16 (7-18) mg/dL Creatinine 0.81 (0.50-1.00) mg/dL Estimated GFR 84 L (>89) mL/min Random Glucose 68 L (74-106) mg/dL Lactic Acid (0.4-2.0) mmol/L Calcium 8.2 L (8.5-10.1) mg/dL Magnesium 1.9 (1.5-2.5) mg/dL Total Bilirubin 0.1 L (0.2-1.0) mg/dL AST 13 L (15-37) U/L ALT 16 (10-53) U/L Alkaline Phosphatase 87 (45-117) U/L Total Creatine Kinase 35 (26-192) U/L Troponin I (0.02-0.05) ng/mL C-Reactive Protein 0.37 H (0.00-0.30) mg/dL Total Protein 6.2 L (6.4-8.2) g/dL Albumin 2.8 L (3.4-5.0) g/dL Lipase (73-393) U/L 02/28/18 Range/Units 06:55 WBC (4.0-11.0) th/mm3 RBC (4.00-5.30) mil/mm3 Hgb (11.6-15.3) gm/dL Hct (35.0-46.0) % MCV (80.0-100.0) fL MCH (27.0-34.0) pg MCHC (32.0-36.0) % RDW (11.6-17.2) % Plt Count (150-450) th/mm3 MPV (7.0-11.0) fL Neut % (Auto) (16.0-70.0) % Lymph % (Auto) (9.0-44.0) % [place] % (Auto) (0.0-8.0) % Eos % (Auto) (0.0-4.0) % Baso % (Auto) (0.0-2.0) % Neut # (Auto) (1.8-7.7) th/mm3 Lymph # (Auto) (1.0-4.8) th/mm3 [place] # (Auto) (0.0-0.9) th/mm3 Eos # (Auto) (0.0-0.4) th/mm3 Baso # (Auto) (0.0-0.2) th/mm3 WBC Differential Differential Comment ESR (0-20) mm/hr PT (9.8-11.6) sec INR Ratio APTT (24.3-30.1) sec Sodium (136-145) meq/L Potassium (3.5-5.1) meq/L Chloride (98-107) meq/L Carbon Dioxide (21.0-32.0) meq/L Anion Gap (5-15) meq/L BUN (7-18) mg/dL Creatinine (0.50-1.00) mg/dL Estimated GFR (>89) mL/min Random Glucose (74-106) mg/dL Lactic Acid 0.9 (0.4-2.0) mmol/L Calcium (8.5-10.1) mg/dL Magnesium (1.5-2.5) mg/dL Total Bilirubin (0.2-1.0) mg/dL AST (15-37) U/L ALT (10-53) U/L Alkaline Phosphatase (45-117) U/L Total Creatine Kinase (26-192) U/L Troponin I (0.02-0.05) ng/mL C-Reactive Protein (0.00-0.30) mg/dL Total Protein (6.4-8.2) g/dL Albumin (3.4-5.0) g/dL Lipase (73-393) U/L Imaging Data Radiologist's impression: Chest X-Ray 02/28/18 06:13 CONCLUSION: No acute cardiopulmonary disease Ankle X-Ray 02/28/18 06:25 CONCLUSION: Soft tissue swelling without fracture. Irregularity of the talus again seen. ECG Data Attestation: I personally reviewed and interpreted this ECG as follows: Interpretation: The patient had a EKG done on arrival. The patient's EKG shows a sinus bradycardia heart rate of 54, QRS duration is 81 ms, QTC [address] segment elevation. T waves are inverted in V1. Discharge Plan Discharge Disposition Patient Disposition: 30 Still Patient Discharge Condition Condition: Stable Discharge Details Diagnosis: Chest pain, Ankle pain Physicians Team ED Provider: Patsy Rosario Primary Care Provider: Primary Care Merna Huston Rxs /Orders / Referrals /Forms Prescriptions: No Action No Known Home Medications RF: 0 Discharge Instructions Patient Printed Instructions: Chest Pain (ED) Discharge Interventions Interventions: Vital Signs Last Done: 02/28/18 07:00 Status ED Status: With Doctor
[2018-02-28 07:32] LABS: Alanine Aminotransferase 16 U/L (10-53)
[2018-02-28 07:34] LABS: Alkaline Phosphatase 87 U/L (45-117); Total Protein 6.2 g/dL (6.4-8.2)
[2018-02-28 07:39] LABS: Creatine Kinase 35 U/L (26-192)
[2018-02-28 10:14] VITALS: RESP 17
[2018-02-28 10:32] VITALS: BP 132/72; TEMP 98.3; O2SAT 99
--- NOTE | 2018-02-28 10:45 | P.HPCA ---
History of Present Illness Primary Care Physician: No Primary Care Physician Chief Complaint: Chest pain History of Present Illness: 27-year-old female with history of cocaine abuse and current smoker presents emergency room for further evaluation of chest pain. Onset last evening, awakened from sleep. Unable to remember time of occurrence. Location substernal. Characterized as sharp, constant pain. Moderate to severe in severity. No radiation. Associated symptoms included nausea and 1 nonbloody emesis. No dyspnea or diaphoresis. Inspiration and twisting movement makes pain worse. Duration constant. No precipitating or relieving factors. Denies similar pain past. Endorses she has been on a "cocaine binge." Last used Wednesday. Family history noncontributory for early onset cardiovascular disease. No known hypertension, hyperlipidemia, diabetes, or cardiac disease. Remote cardiac testing as a teen. Denies IVDA. Chronic left ankle pain s/p ORIF in January 2017, followed by hardware removal in August 2017. Followed with infectious disease with IV antibiotics and reported inpatient hospital stay for over one month. Does not follow with a primary care provider. No recent injury , trauma, or fever. Past cardiac testing 09/03/17 Echocardiogram-normal ventricular size. Left ventricular systolic function low normal estimated EF 50-55%. No evidence of valvular vegetation. - Diagnosis (1) Musculoskeletal chest pain (2) Tobacco use (3) Cocaine abuse Review of Systems All other systems reviewed negative except as stated in HPI Comments: Last menses 02/16/18. History of tubal ligation. [facility] - History History Provided By: Patient - Medical History Medical History: Medical History (Last Reviewed 02/28/18 @ 11:13 by MALLORY Rodrigues) Ankle fracture Asthma Cocaine abuse Anxiety Crack cocaine use Depression - Surgical History Surgical History: Surgical History (Last Reviewed 02/28/18 @ 11:13 by MALLORY Rodrigues) H/O tubal ligation S/P surgical manipulation of ankle joint - Tobacco History Tobacco Use In Past 30 Days: Yes Smoking Status: Current every day smoker Tobacco Type: Cigarettes Cigarettes Per Day: 0.5 - Alcohol History How Often Do You Have a Drink Containing Alcohol: Monthly or less - Substance Use History Substance History: Active Abuse - Substance Use Type Crack/Cocaine Status: Active Route Used: By Mouth, Inhalation Reason for Use: Get High Comment: "went on a binge last week, all week and last time I smoked was Wednesday" - Travel History Recent Travel in the [place] Within the Last 8 Weeks: No Recent Travel Out of the Country Within the Last 8 Weeks: No - Immunization History Tetanus Immunization: <5 Years Hx Influenza Vaccine This Season: No Medications and Allergies Active Medications: Active Medications Sodium Chloride (Ns Flush) 2 ml IV.FLUSH BID HERMAN Sodium Chloride (Ns Flush) 2 ml IV.FLUSH UNSCH PRN PRN Reason: FLUSH AFTER USING IV ACCESS Allergies Allergy/AdvReac Type Severity Reaction Status Date / Time peanut Allergy Severe Edema Verified 02/28/18 06:51 penicillin G Allergy Intermediate Rash with Verified 02/28/18 06:51 hives with amoxicillin but tolerated Keflex past. Home Medications Medication Instructions Recorded Confirmed Type No Known Home Medications 02/28/18 02/28/18 History Exam Vital signs: Vital Signs 02/28/18 05:56 02/28/18 06:45 02/28/18 07:00 Temperature 97.4 F L 97.8 F Pulse Rate 80 62 49 L Respiratory Rate 16 16 18 Blood Pressure 127/78 114/66 122/72 Blood Pressure [Left Arm] 121/67 Pulse Oximetry 100 99 100 02/28/18 07:27 02/28/18 07:35 02/28/18 09:00 Temperature 97.7 F Pulse Rate 52 L Respiratory Rate 18 16 Blood Pressure 118/77 Blood Pressure [Left Arm] Pulse Oximetry 100 100 02/28/18 09:08 02/28/18 10:05 02/28/18 10:31 Temperature 97.8 F 97.8 F 98.3 F Pulse Rate 60 63 82 Respiratory Rate 16 17 Blood Pressure 122/67 120/71 132/72 Blood Pressure [Left Arm] Pulse Oximetry 100 100 99 Intake & Output 02/27/18 02/28/18 02/28/18 18:59 06:59 18:59 Intake Total 500 / 500 Balance 500 / 500 Weight 61.235 kg Intake: IV 500 / 500 NS Inj 500 ML @ Wide Open IV. 500 / 500 SIG BOLUS ONE Rx#:[id number] Narrative: GENERAL: Alert WN, WD, NAD, very pleasant, female who appears older than stated age HEAD: NC, AT EYES: Sclera clear, conjunctiva without injection, pupils equal and round ENT: Mucous membranes pink and moist, no nasal discharge or bleeding, poor dentition NECK: Supple, no masses, trachea midline CV: RRR, without murmur, rub, or gallop. Chest wall pain easily reproduced with light palpation. RESP: Clear lungs throughout bilateral, no crackles, wheeze, rhonchi, symmetrical chest rise, nonlabored, able to speak in full sentences ABD: Soft, NT, ND, no masses, positive bowel tones EXT: Pulses +2x4, no dependent edema MS: Normal tone x4 extremities, nontender, no obvious deformities, full range of motion, let ankle surgical scar well approximated, left ankle +1 nonpitting edema NEURO: CN II through CN XII grossly intact, motor strength 5/5 PSYCH: A+O x3, pleasant affect, appropriate speech and mood. questionable insight and judgment with continued cocaine use SKIN: Normal turgor, normal texture, brisk cap refill, multiple healed small lesions face, bilateral legs, bilateral arms. Results 02/28/18 06:40 02/28/18 06:40 Cardiac Enzymes 02/28/18 02/28/18 Range/Units 06:40 06:40 AST 13 L (15-37) U/L Troponin I Less than 0.02 L (0.02-0.05) ng/mL Coagulation 02/28/18 Range/Units 06:40 PT 10.3 (9.8-11.6) sec APTT 23.6 L (24.3-30.1) sec CBC 02/28/18 Range/Units 06:40 WBC 4.8 (4.0-11.0) th/mm3 RBC 4.08 (4.00-5.30) mil/mm3 Hgb 12.5 (11.6-15.3) gm/dL Hct 37.7 (35.0-46.0) % Plt Count 247 (150-450) th/mm3 Neut # (Auto) 2.3 (1.8-7.7) th/mm3 Lymph # (Auto) 1.9 (1.0-4.8) th/mm3 [place] # (Auto) 0.5 (0.0-0.9) th/mm3 Eos # (Auto) 0.1 (0.0-0.4) th/mm3 Baso # (Auto) 0.0 (0.0-0.2) th/mm3 Comprehensive Metabolic Panel 02/28/18 Range/Units 06:40 Sodium 142 (136-145) meq/L Potassium 3.9 (3.5-5.1) meq/L Chloride 106 (98-107) meq/L Carbon Dioxide 31.2 (21.0-32.0) meq/L BUN 16 (7-18) mg/dL Creatinine 0.81 (0.50-1.00) mg/dL Calcium 8.2 L (8.5-10.1) mg/dL AST 13 L (15-37) U/L ALT 16 (10-53) U/L Alkaline Phosphatase 87 (45-117) U/L Total Protein 6.2 L (6.4-8.2) g/dL Albumin 2.8 L (3.4-5.0) g/dL Intake and Output 02/27/18 02/28/18 02/28/18 22:59 06:59 14:59 Intake Total 500 / 500 Balance 500 / 500 Intake: IV 500 / 500 NS Inj 500 ML @ Wide Open IV. 500 / 500 SIG BOLUS ONE Rx#:[id number] Other: Weight 61.235 kg EKG interpretations - EKG EKG results cardiology: sinus rhythm, normal axis, normal QRS, normal ST/T Caprini VTE Risk Assessment Caprini VTE Risk Assessment: No/Low Risk (score <= 1) Caprini Risk Assessment Model: Point Value = 1 Point Value = 2 Point Value = 3 Point Value = 5 Age 41-60 Minor surgery BMI > 25 kg/m2 Swollen legs Varicose veins or History of unexplained or recurrent spontaneous Oral contraceptives or hormone replacement Sepsis (< 1 month) Serious lung disease, including pneumonia (< 1 month) Abnormal pulmonary function Acute myocardial infarction Congestive heart failure (< 1 month) History of inflammatory bowel disease Medical patient at bed rest Age 61-74 Arthroscopic surgery Major open surgery (> 45 min) Laparoscopic surgery (> 45 min) Malignancy Confined to bed (> 72 hours) Immobilizing plaster cast Central venous access Age >= 75 History of VTE Family history of VTE Factor V Leiden Prothrombin [id number] Lupus anticoagulant Anticardiolipin antibodies Elevated serum homocysteine Heparin-induced thrombocytopenia Other congenital or acquired thrombophilia Stroke (< 1 month) Elective arthroplasty Hip, pelvis, or leg fracture Acute spinal cord injury (< 1 month) Prophylaxis Regimen: Total Risk Factor Score Risk Level Prophylaxis Regimen 0-1 Low Early ambulation 2 Moderate Order ONE of the following: *Sequential Compression Device (SCD) *Heparin 5000 units SQ BID 3-4 Higher Order ONE of the following medications: *Heparin 5000 units SQ TID *Enoxaparin/Lovenox 40 mg SQ daily (WT < 150 kg, CrCl > 30 mL/min) *Enoxaparin/Lovenox 30 mg SQ daily (WT < 150 kg, CrCl > 10-29 mL/min) *Enoxaparin/Lovenox 30 mg SQ BID (WT < 150 kg, CrCl > 30 mL/min) AND/OR *Sequential Compression Device (SCD) 5 or more Highest Order ONE of the following medications: *Heparin 5000 units SQ TID (Preferred with Epidurals) *Enoxaparin/Lovenox 40 mg SQ daily (WT < 150 kg, CrCl > 30 mL/min) *Enoxaparin/Lovenox 30 mg SQ daily (WT < 150 kg, CrCl > 10-29 mL/min) *Enoxaparin/Lovenox 30 mg SQ BID (WT < 150 kg, CrCl > 30 mL/min) AND *Sequential Compression Device (SCD) Assessment and Plan - Assessment (1) Musculoskeletal chest pain Code(s): R07.89 - Other chest pain Status: Acute Plan: Admitted to chest pain center. Continue ACS protocol initiated by ER physician. Will be seen evaluated by Dr. Dmitri Oquendo. Discomfort easily reproduced with light palpation and has been constant nearly 12 hours. Toradol 30 mg IV 1 dose now. (2) Tobacco use Code(s): Z72.0 - Tobacco use Status: Chronic Plan: Strongly encouraged and stressed importance of tobacco cessation. Instructed to quit smoking. (3) Cocaine abuse Code(s): F14.10 - Cocaine abuse, uncomplicated Status: Chronic Plan: Risk of cocaine abuse including DE, cardiomyopathy, and even instructed to patient. Instructed to quit using cocaine.
[2018-02-28] MEDS ORDERED: Ketorolac Inj 30 MG/ML (IVP) Vial IV.PUSH ONE (11:03)
[2018-02-28 11:04] LABS: Creatine Kinase 30 U/L (26-192)
[2018-02-28 12:14] VITALS: PULSE 47
--- NOTE | 2018-02-28 13:39 | ECG ---
Date Performed: 02/28/2018 Time Performed: 06:38:18 PTAGE: 27 years EKG: SINUS BRADYCARDIA WITH MARKED SINUS ARRHYTHMIA BORDERLINE ECG PREVIOUS TRACING : 09/10/2016 11.11 Since previous tracing, no significant change noted DOCTOR: Dmitri Oquendo Interpretating Date/Time 02/28/2018 13:37:50
--- NOTE | 2018-02-28 13:42 | ECG ---
Date Performed: 02/28/2018 Time Performed: 10:01:42 PTAGE: 27 years EKG: Sinus rhythm WITH SINUS ARRHYTHMIA NORMAL ECG PREVIOUS TRACING : 02/28/2018 06.38 Since previous tracing, no significant change noted DOCTOR: Dmitri Oquendo Interpretating Date/Time 02/28/2018 13:39:46
[2018-02-28 14:23] LABS: Creatine Kinase 32 U/L (26-192)
[2018-02-28] MEDS ORDERED: Regadenoson Inj 0.4 MG/5 ML Syringe IV.PUSH ONE (15:45)
--- NOTE | 2018-02-28 17:11 | NM ---
EXAM DATE: 02/28/2018 4:59 PM EDT AGE/SEX: 27 years / Female INDICATIONS:Angina. . Sub-sternal chest pain with nausea. CLINICAL DATA: This is the patient's initial encounter. Patient reports that signs and symptoms have been present for 1 day and indicates a pain score of 7/10. MEDICAL/SURGICAL HISTORY: Asthma. Cocaine abuse. Smoker. Tubal ligation. COMPARISON: No prior exams available for comparison. DOSE: 8.5 mCi Tc 99m Myoview at rest 27.2 mCi [id number] at stress 0.4 mg Lexiscan STRESS SYMPTOMS: Tingling all over. EJECTION FRACTION: 52 % TECHNIQUE: The patient underwent pharmacologic stress with infusion of prescribed dose. Continuous ECG tracing was monitored during stress. Gated SPECT imaging was performed after stress and conventi onal SPECT imaging was performed at rest. The examination was performed on a SPECT/CT scanner, both attenuation and non-corrected datasets were reviewed. FINDINGS: Distribution: The maximum perfused segment at stress is in the septal wall. Perfusion Study: The pattern of perfusion at stress is within normal limits. Gated Study: There are intact wall motion and wall thickening without hypokinetic or dyskinetic segm ents. The ejection fraction is calculated at 52%. RISK CATEGORY: Low (<1% Annual Motality Rate) CONCLUSION: 1. No significant reversible ischemia. 2. Intact wall motion with EF of 52%. Electronically signed by: Ulisses Miranda MD 02/28/2018 5:09 PM EDT
--- NOTE | 2018-03-01 16:19 | ECG ---
Date Performed: 02/28/2018 Time Performed: 13:16:11 PTAGE: 27 years EKG: SINUS BRADYCARDIA BORDERLINE ECG Since PREVIOUS TRACING , no significant change noted PREVIOUS TRACIN02/28/2018 10.01 DOCTOR: Awilda Sosa Interpretating Date/Time 03/01/2018 16:17:27
--- NOTE | 2018-03-01 16:19 | TR ---
Date Performed: 02/28/2018 Time Performed: 15:42:51 DOCTOR: Awilda Sosa DRUG LIST: CLINICAL HISTORY: REASON FOR TEST: CHEST PAIN REASON FOR ENDING: OBSERVATION: CONCLUSION: Lexiscan stress test was performed under standard four minute protocol. Radionuclid e was injected one minute prior to ending the test. No electrocardiographic abormalities were present to suggest ischemia. Nuclear imaging and interpretation are pending. COMMENTS: no ischemia
== END 2018-02-28 18:37 | disposition home or self-care (01) ==
LOC: NEDA 05:53 → NEPE 05:53 → NEPHCDU 05:53
PROVIDERS: ADMIT Internal Medicine Cardiovascular Disease; ATTEND Internal Medicine Cardiovascular Disease
DX: F14.10 Cocaine abuse, uncomplicated; R94.31 Abnormal electrocardiogram [ECG] [EKG]; Z98.51 Tubal ligation status; R07.89 Other chest pain; J45.909 Unspecified asthma, uncomplicated; Z88.0 Allergy status to penicillin; F32.9 Major depressive disorder, single episode, unspecified; F17.210 Nicotine dependence, cigarettes, uncomplicated; F41.9 Anxiety disorder, unspecified